=== PATIENT | female | born 1960 | race Caucasian/White ===

== ENCOUNTER → 2019-03-08 16:14 | Outpatient (BNVA) | payer BC, MEDICARE, SELFPAY | PROVIDERS: Family Provider Internal Medicine; PCP Internal Medicine; Visit Provider Orthopaedic Surgery | DX: S72.001A Fracture of unspecified part of neck of right femur, initial encounter for closed fracture (principal); X58.XXXA Exposure to other specified factors, initial encounter | CPT/HCPCS: 73502 ==

== ENCOUNTER 2019-05-04 17:31 | Outpatient (CLI) | payer BC, MEDICARE, SELFPAY ==
--- NOTE | 2019-05-04 | XR_ITS ---
WS: [id number] Chest 2 views, 05/04/2019 Clinical Data: RIB PAIN LEFT SIDE Comparison: PA and lateral chest, 03/23/2018. Findings: No nodules, masses or effusions are seen. The heart is normal. The pulmonary vascularity is not increased. No pneumonia or pneumothorax is seen. The diaphragms are flattened. The aortic arch s hows calcification and tortuosity There is minimal calcification in the soft tissues of the neck whic h may be in the carotid arteries. XR/XR chest 2V* [id number] Impression: Hyperinflation and atherosclerosis.
--- NOTE | 2019-05-04 | XR_ITS ---
WS: [id number] [facility], 05/04/2019 Clinical Data: CONSTIPATION/DULL PAIN IN ABD; HX OF KIDNEY TRANSPLANT Comparison: [facility], 08/13/2016. Findings: No abnormal intraabdominal masses or calcifications are seen. There is no dilatated small bowel or ev idence of obstruction. There are clips in the right upper quadrant from a cholecystectomy. There are now clips overlying the left ilium from surgery. There are clips in the right side of the superior pelvis probably from a re nal transplant. There is a large amount of fecal material in the colon. There is a Radha's lobe of t he liver. There are 3 nails reducing an old right subcapital fracture XR/XR KUB [id number] Impression: 1. Large amount of fecal material in the colon. 2. Multiple surgical procedures involving the abdominal structures and right hi p.
== END 2019-05-04 17:32 | disposition home or self-care (01) ==
LOC: RADOUTREAD 05-06 07:22
PROVIDERS: PCP Internal Medicine; Visit Provider Nurse Practitioner Family
DX: Z76.89 Persons encountering health services in other specified circumstances (principal)

== ENCOUNTER → 2019-09-07 12:51 | Outpatient (BNVA) | payer BC, MEDICARE, MEDICAID, SELFPAY | PROVIDERS: PCP Internal Medicine; Visit Provider Dermatology | DX: D48.9 Neoplasm of uncertain behavior, unspecified (principal); L57.0 Actinic keratosis; L70.9 Acne, unspecified; Z85.828 Personal history of other malignant neoplasm of skin; Z12.83 Encounter for screening for malignant neoplasm of skin; Z94.0 Kidney transplant status | CPT/HCPCS: 11102; 17000; 17003; 88304; 88305; 99204 ==

== ENCOUNTER → 2019-09-20 17:05 | Outpatient (BNVA) | payer BC, MEDICARE, SELFPAY | PROVIDERS: PCP Nurse Practitioner Family; Visit Provider Nurse Practitioner Family | DX: N39.0 Urinary tract infection, site not specified (principal) | CPT/HCPCS: 80053; 81001 ==

== ENCOUNTER → 2019-10-20 11:32 | Outpatient (BNVA) | payer BC, MEDICARE, MEDICAID, SELFPAY | PROVIDERS: PCP Nurse Practitioner Family; Visit Provider Dermatology | DX: D04.61 Carcinoma in situ of skin of right upper limb, including shoulder (principal) | CPT/HCPCS: 17000 ==

== ENCOUNTER 2019-11-03 14:49 | Outpatient (CLI) | payer BC, MEDICARE, SELFPAY ==
--- NOTE | 2019-11-03 14:56 | MM_ITS ---
WS: [id number] BILATERAL DIGITAL SCREENING MAMMOGRAM WITH CAD CLINICAL INFORMATION: SCREENING HISTORY: Screening mammogram. No current complaints. COMPARISON: TECHNIQUE: Bilateral CC and MLO. FINDINGS: The breast are composed of extremely dense tissue, which can limit the detection of small underlying mass lesions. No suspicious focal mass, asymmetry, calcifications, or architectural distortion. No ev idence of malignancy. A few tiny punctate calcifications. MM/[place] [id number] IMPRESSION: BI-RADS: 2-Benign FOLLOW UP: 1 Year Follow-up Recommend return to annual screening mammography.
== END 2019-11-03 14:50 | disposition home or self-care (01) ==
LOC: RADSHAW 14:54
PROVIDERS: PCP Nurse Practitioner Family; Visit Provider Nurse Practitioner Family
DX: Z12.31 Encounter for screening mammogram for malignant neoplasm of breast (principal)
CPT/HCPCS: 77067

== ENCOUNTER → 2019-12-28 16:35 | Outpatient (BNVA) | payer MEDICARE, BC, SELFPAY | PROVIDERS: PCP Nurse Practitioner Family; Visit Provider Urology | DX: N39.0 Urinary tract infection, site not specified (principal) | CPT/HCPCS: 81003; 87086 ==

== ENCOUNTER → 2019-12-30 14:44 | Outpatient (BNVA) | payer MEDICARE, BC, SELFPAY | PROVIDERS: PCP Nurse Practitioner Family; Referring Provider Dermatology; Visit Provider Podiatrist Foot & Ankle Surgery | DX: M79.671 Pain in right foot (principal); M79.672 Pain in left foot; M21.41 Flat foot [pes planus] (acquired), right foot; M19.072 Primary osteoarthritis, left ankle and foot; M19.071 Primary osteoarthritis, right ankle and foot | CPT/HCPCS: 73630 ==

== ENCOUNTER 2020-01-04 12:50 | Emergency (ER) | payer MEDICARE, BC, SELFPAY ==
[2020-01-04 12:55] VITALS: BP 166/89; PULSE 70; RESP 16; TEMP 37.1; O2SAT 99; BMI 25.8
--- NOTE | 2020-01-04 12:59 | XR_ITS ---
WS: [id number] XR knee RT 3V* [id number] REASON FOR EXAM: pain FINDINGS: The knee joint spaces are well preserved. No fracture or other focal bony abnormality is identified. Calcification in the arteries of the lower leg. XR/XR knee RT 3V* [id number] IMPRESSION: No significant bony or joint abnormality.
--- NOTE | 2020-01-04 14:17 | W.ED.FALL ---
HPI - Fall General: Chief Complaint: Fall Stated Complaint: R KNEE PAIN Time Seen by Provider: 01/04/20 13:16 History of Present Illness: MD complaint: fall Onset (ago): minute(s) (30) Fall from: standing Fall witnessed: no Place fall occurred: home Loss of consciousness: None Prolonged down time: no Symptoms prior to fall: none Context: tripped/slipped Location of injury: other Location of injury - extremities: Right: knee Severity: moderate Severity scale (1-10): 5 Associated symptoms-after fall: Denies abdominal pain, chest pain, headache(s) or neck pain Review of Systems General: Reports: 10 or more systems reviewed and unremarkable except in HPI and below Const: Denies: fever(s), chills or diaphoresis Eyes: Denies: blurry vision or eye redness ENMT: Denies: throat pain, dental pain or disequilibrium Card: Denies: chest pain, palpitations or irregular heart rhythm Resp: Denies: dyspnea, productive cough, non-productive cough or wheezing GI: Denies: abdominal pain, nausea or vomiting : Denies: difficulty voiding or dysuria Musc: Reports: joint pain (rt knee), joint stiffness (rt knee) and limited range of motion (rt knee); Denies: neck pain or back pain Skin/Breast: Reports: other (open laceration); Denies: rash or pruritus Neuro: Denies: headache(s), weakness in extremities or behavioral changes Psych: Denies: anxiety or depression Luis Eduardo/Lymph: Denies: easy bruising PFSH ED PFSH: Medical History (Updated 01/04/20 @ 14:26 by ESTRELLITA Key) GERD (gastroesophageal reflux disease) Graves disease PLEASE REMOVE HTN (hypertension) Hypothyroid IBS (irritable bowel syndrome) Migraine Neuropathy Osteopenia Recurrent UTI Surgical History History of Kidney Transplant S/P cholecystectomy S/P thyroid surgery S/P total hip arthroplasty Family History Father Squamous cell skin cancer Social History Smoking and tobacco status: never smoked Alcohol intake: current Alcohol intake frequency: holidays/special occasions only Marital status: Physical Exam Const: COMMON NORMALS: no acute distress, patient oriented x3, healthy appearing and alert GENERAL APPEARANCE: cooperative, comfortable and well hydrated HENMT: COMMON NORMALS: normocephalic, Normal external nose present and moist oral mucous membranes HEAD & SCALP: normocephalic NOSE: Normal external nose present Eye: COMMON NORMALS: Equal, round and reactive pupils present and EOMs intact bilaterally GENERAL EYE: appearance normal, both eyes and all related structures PUPIL: Yes Equal, round and reactive pupils present Neck/C-Spine: COMMON NORMALS: full ROM and no lymphadenopathy GENERAL: Yes normal visual inspection and Yes trachea midline CERVICAL SPINE: Yes cervical ROM normal, No Cervical spine tenderness, No Paracervical muscle tenderness and No Trapezius muscle tenderness Lymph: LYMPHATIC: no lymphadenopathy noted Chest: COMMONS NORMALS: normal inspection of the chest Resp: COMMON NORMALS: normal respiratory effort and clear to auscultation bilaterally AUSCULTATION: clear to auscultation bilaterally Cardio: COMMON NORMALS: regular rhythm, S1 normal heart sound present and S2 normal heart sound present RHYTHM: regular rhythm HEART SOUNDS: S1 normal heart sound present and S2 normal heart sound present GI: COMMON NORMALS: Soft to palpation and non-tender INSPECTION: Yes normal to inspection PALPATION: Yes Soft to palpation : COMMON NORMALS: Yes no CVA tenderness BLADDER/KIDNEY EXAM: Yes no CVA tenderness Back/Pelvis: COMMON NORMALS: no CVA tenderness, thoracic and lumbar spine normal to inspection, no thoracic nor lumbar tenderness and thoraco-lumbar ROM normal THORACIC SPINE/UPPER BACK: Yes normal to inspection, Yes thoracic ROM normal, No thoracic spinal tenderness and No paraspinal muscle spasm LUMBAR SPINE/LOWER BACK: Yes normal to inspection, Yes lumbar ROM normal, No lumbar spinal tenderness and No paraspinal muscle spasm SACROILIAC JOINTS: Yes SI joints normal COCCYX: no swelling Extremity: COMMON NORMALS: normal to inspection, full ROM and capillary refill normal RIGHT LOWER EXTREMITY: Yes knee joint (anterior knee , open laceration) Right knee: Yes inspection, Yes palpation (tenderness over the laceration), Yes ROM (full extension, full flexion active but with pain) and Yes neurovascular exam (distally intact) Neuro: COMMON NORMALS: patient oriented x3 and no focal motor deficits SENSORIUM/ORIENTATION: Yes alert Psych: COMMON NORMALS: mental status grossly normal, Normal thought process present and cooperative ACTIVITY/MOTOR BEHAVIOR: Yes appropriate eye contact THOUGHT PROCESS: Normal thought process present Skin: COMMON NORMALS: no rashes or lesions noted and turgor normal GENERAL SKIN EXAM: no rashes or lesions noted and turgor normal Procedures Laceration Laceration 1: Site: lower extremity (knee) Side (If applicable): right Size (cm): 8 Description: linear, irregular and contaminated Depth: involves muscle layer Local Anesthetic: lidocaine 1% and with epi Amount of anesthesia used (mL): 10 Pre-repair: wound explored, irrigated extensively, deep structures intact, extensive debridement and wound margins revised Skin layer closed with: nylon Size (cm): 3-0 Technique: running Muscle layer closed with: vicryl Size: 4-0 Number of sutures: 3 Technique: simple, interrupted Course Vital Signs: Vital signs: Vital Signs Temperature 98.8 F 01/04/20 12:55 Pulse Rate 70 01/04/20 12:55 Respiratory Rate 16 01/04/20 12:55 Blood Pressure 166/89 01/04/20 12:55 Pulse Oximetry 99 01/04/20 12:55 MDM - Fall Imaging Data^: Xray Ortho: Radiologist's impression: [address] [address] XRay Report Signed Patient: Shirlene Pruitt Unit #: [id number] : 1960 Age/Sex: 59 / F ADM Date: 01/04/20 Loc: ER Room/Bed: Attending Dr: Ordering Provider/Ordering MD: Reva Lopez MD Date of Service: 01/04/20 Procedure(s): XR knee RT 3V* [id number] Accession Number(s): [id number] Report Number: [id number] WS: [id number] XR knee RT 3V* [id number] REASON FOR EXAM: pain FINDINGS: The knee joint spaces are well preserved. No fracture or other focal bony abnormality is identified. Calcification in the arteries of the lower leg. XR/XR knee RT 3V* [id number] IMPRESSION: No significant bony or joint abnormality. Dictated By: Tucker Barbosa Jr, MD Signed By: Tucker Barbosa Jr, MD Signed Date/Time: 01/04/20 1352 DD/ 1350 Discharge Plan Discharge Patient Disposition: Home Clinical Impression: Knee contusion Qualifiers: Encounter type: initial encounter Laterality: right Qualified Code(s): S80.01XA - Contusion of right knee, initial encounter Laceration of knee Qualifiers: Encounter type: initial encounter Laterality: right Qualified Code(s): S81.011A - Laceration without foreign body, right knee, initial encounter Condition: Stable Prescriptions: New Augmentin 875-125 mg tablet 1 tab PO BID Qty: 14 RF: 0 No Action montelukast [Singulair] 10 mg tablet 10 mg PO QDAY RF: 0 psyllium PO RF: 0 levothyroxine 125 mcg capsule 125 mcg PO QDAY RF: 0 fluticasone propionate 50 mcg/actuation spray,suspension 2 spray INTRANASAL QDAY RF: 0 fluoxetine 60 mg tablet 60 mg PO QAM RF: 0 lactobacillus combination no.9 PO RF: 0 bupropion HCl [Wellbutrin XL] 150 mg tablet extended release 24 hr 150 mg PO QAM RF: 0 prednisone 5 mg tablet 5 mg PO QDAY RF: 0 alprazolam 1 mg tablet 1 mg PO QDAY RF: 0 casanthranol-docusate sodium PO RF: 0 rosuvastatin [Crestor] 40 mg tablet 40 mg PO QDAY RF: 0 tacrolimus 5 mg capsule 5 mg PO Q12H RF: 0 carvedilol [Coreg] 25 mg tablet 25 mg PO BID RF: 0 ropinirole 1 mg tablet 1 mg PO QDAY RF: 0 aspirin 81 mg tablet,delayed release (DR/EC) 81 mg PO DAILY RF: 0 methenamine hippurate 1 gram tablet 1 g PO BID Qty: 180 RF: 3 pantoprazole [Protonix] 40 mg tablet,delayed release (DR/EC) 40 mg PO BID RF: 0 mycophenolate sodium [Myfortic] 180 mg tablet,delayed release (DR/EC) 720 mg PO BID RF: 0 tretinoin 0.1 % cream 1 applic TOPICAL DAILY RF: 0 clindamycin phosphate 1 % lotion 1 applic TOPICAL DAILY Qty: 60 RF: 3 tretinoin 0.1 % cream 1 applic TOPICAL .nightly Qty: 45 RF: 3 (DME) Accomodative inserts See Rx Instructions .Route .MEDSUPPLY Qty: 1 RF: 0 Discharge Orders: Discharge Order (Routine); Ordered 01/04/20 Ordered By: Annie Cruz Referrals: Phoebe Márquez FNP [Primary Care Provider] - Discharge Diet: Usual diet Discharge Activity: Limit activity as instructed Patient Instructions: Suture Care (ED), Laceration (ED), Contusion in Adults (ED), Knee Pain (ED), Knee Immobilizer (ED) Activity Restrictions/Additional Instructions: Sutures out in 10 days Social service will contact you with an appointment with Ortho clinic as recommendation, return to the emergency department if right knee develops redness, swelling or increased pain. Also return to the emergency department if you develop fever chills or other concerning symptoms Advised to remain in knee immobilizer until sutures are removed to help reduce strain on the sutures May apply [id number] triple antibiotic ointment as needed Do not submerge wound in water, may shower then pat dry Remove dressing in 24 hours then may change daily as needed Coding Level of Care Code ED Wireless Network Engineer for Nadia Fwd Exam Comprehensive
[2020-01-04] MEDS: tetanus-dipt-pertussis 0.5 mL SDV IM (14:31)
[2020-01-04] MEDS: acetaminophen 500 mg Tablet 1000 MG PO (14:34)
--- NOTE | 2020-01-10 11:44 | DCPLANNER ---
manager fire had message to schedule a follow up appointment for patient with ortho. manager fire called the ortho clinic, spoke with Radha, gave clinic patients information. manager fire was told that patients information would be printed and reviewed. Clinic will call patient with appointment information.
--- NOTE | 2020-01-12 10:08 | DCPLANNER ---
Patient had a follow up appointment scheduled for 01.05.20 with ortho - patient did attend appointment.
== END 2020-01-04 14:47 | disposition home or self-care (01) ==
PROVIDERS: Emergency Provider Nurse Practitioner Family; PCP Nurse Practitioner Family
DX: S81.011A Laceration without foreign body, right knee, initial encounter (principal); S80.01XA Contusion of right knee, initial encounter; Z79.82 Long term (current) use of aspirin; I10 Essential (primary) hypertension; Z94.0 Kidney transplant status; W19.XXXA Unspecified fall, initial encounter; Z23 Encounter for immunization
CPT/HCPCS: 12004; 12345; 29530; 73562; 90471; 90715; 99281; 99283

== ENCOUNTER → 2020-09-11 10:43 | Outpatient (BNVA) | payer MEDICARE, BC, SELFPAY | PROVIDERS: PCP Nurse Practitioner Family; Visit Provider Urology | DX: N39.0 Urinary tract infection, site not specified (principal) | CPT/HCPCS: 81003 ==

== ENCOUNTER → 2020-10-31 10:08 | Outpatient (BNVA) | payer MEDICARE, BC, SELFPAY | PROVIDERS: PCP Nurse Practitioner Family; Visit Provider Urology | DX: N39.0 Urinary tract infection, site not specified (principal) | CPT/HCPCS: 81003; 87077; 87086; 87184 ==

== ENCOUNTER → 2020-11-14 17:01 | Outpatient (BNVA) | payer MEDICARE, BC, SELFPAY | PROVIDERS: PCP Nurse Practitioner Family; Visit Provider Urology | DX: N39.0 Urinary tract infection, site not specified (principal) | CPT/HCPCS: 87077; 87086; 87184 ==

== ENCOUNTER 2020-12-29 14:29 | Outpatient (CLI) | payer MEDICARE, BC, SELFPAY ==
--- NOTE | 2020-12-29 14:35 | XR_ITS ---
WS: [id number] SCREENING DEXA SCAN [employer] CLINICAL INFORMATION: HISTORY OF IMMUNOSUPPRESSION, KIDNEY TRANSPLANT STATUS COMPARISON: None. FINDINGS: The L1-L4 bone mineral density measures 1.228 g/cm2. This corresponds to a T score score of 0.4 and Z score of 1.3. Left femoral neck bone mineral density measures 0.735. This corresponds to a T score of -2.2 and Z sc ore of -1.5. XR/XR DEXA axial skeleton* 13471 IMPRESSION: Normal bone mineralization lumbar spine. Osteopenia left femoral neck. Patient's FRAX calculated 10 year probability for major osteoporotic fracture i s 24.7 % and osteoporotic hip fracture is 3.6%.
== END 2020-12-29 14:30 | disposition home or self-care (01) ==
PROVIDERS: PCP Nurse Practitioner Family; Visit Provider Internal Medicine Nephrology
DX: Z94.0 Kidney transplant status (principal); Z92.25 Personal history of immunosuppression therapy; M85.88 Other specified disorders of bone density and structure, other site
CPT/HCPCS: 77080

== ENCOUNTER 2021-03-29 18:44 | Emergency (ER) | payer MEDICARE, BC, SELFPAY ==
[2021-03-29 18:51] VITALS: BP 194/67; PULSE 70; RESP 18; TEMP 36.9; O2SAT 98; BMI 26.7
[2021-03-29] MEDS: fluorescein 1 mg Strip EYE-BOTH (19:28)
[2021-03-29 19:33] VITALS: RESP 18
[2021-03-29] MEDS: tetracaine 0.5% Op Soln 4 mL Btl 1 DROP EYE-LEFT (19:33)
[2021-03-29] MEDS: morphine 4 mg/mL SDV 1 mL IM (19:33)
--- NOTE | 2021-03-29 19:46 | ED_ITS ---
HPI - General Adult General: Chief complaint: Eye Problems Stated complaint: Eye Surgury today\Eye Pain Time Seen by Provider: 03/29/21 19:07 History of Present Illness: 60F w/ hx of cataracts s/p laser removal of floaters earlier today at 2pm presenting to the ED for evaluation of the L eye pain, blurriness of vision, nausea since 5pm after waking up from anesthesia. Patient complains of significant L eye pain and blurriness. Onset:5pm Duration:2 hrs Location:home Severity:moderate Associated symptoms: Deny chest pain, dyspnea, nausea, rash, palpitations or vomiting Review of Systems Const: Denies: fever(s) or chills Eyes: Reports: change in vision, blurry vision and other (+L eye pain) ENMT: Denies: mouth pain Card: Denies: chest pain or palpitations Resp: Denies: dyspnea or non-productive cough GI: Denies: abdominal pain, nausea, vomiting or diarrhea : Denies: dysuria Musc: Denies: extremity pain Skin/Breast: Denies: rash or new lesions Neuro: Denies: weakness in extremities Psych: Reports: other (Normal mood) Luis Eduardo/Lymph: Denies: easy bruising PFSH ED PFSH: Medical History GERD (gastroesophageal reflux disease) Graves disease PLEASE REMOVE HTN (hypertension) Hypothyroid IBS (irritable bowel syndrome) Migraine Neuropathy Osteopenia Recurrent UTI Surgical History History of Kidney Transplant S/P cholecystectomy S/P thyroid surgery S/P total hip arthroplasty Family History Father Squamous cell skin cancer Social History Alcohol intake: current Alcohol intake frequency: holidays/special occasions only Marital status: Physical Exam Const: COMMON NORMALS: alert HENMT: COMMON NORMALS: atraumatic HEAD & SCALP: atraumatic MOUTH: moist mucous membranes not abnormal Eye: COMMON NORMALS: EOMs intact bilaterally and conjunctivae normal CONJUNCTIVA: Yes conjunctivae normal OTHER: +L eye blurriness 20/200, L eye injected, intraoccular pressure of 14, +corneal abrasion on fluorescein stain Neck/C-Spine: COMMON NORMALS: full ROM and supple Resp: COMMON NORMALS: normal respiratory effort and clear to auscultation bilaterally AUSCULTATION: clear to auscultation bilaterally Cardio: COMMON NORMALS: regular rate RATE: regular rate GI: COMMON NORMALS: Soft to palpation and non-tender PALPATION: Yes Soft to palpation Extremity: COMMON NORMALS: full ROM Neuro: SENSORIUM/ORIENTATION: Yes alert MOTOR EXAM: No Abnormal motor strength present and Other motor observations present (no focal motor deficits) Psych: COMMON NORMALS: speech normal SPEECH: Yes normal speech MOOD & AFFECT: Yes euthymic mood Course Vital Signs: Vital signs: Vital Signs Temperature 98.4 F 03/29/21 18:51 Pulse Rate 70 03/29/21 18:51 Respiratory Rate 18 03/29/21 19:33 Blood Pressure 194/67 03/29/21 18:51 Pulse Oximetry 98 03/29/21 18:51 MDM - General Adult Medical Decision Making 60F emergency room for evaluation of left eye pain blurriness, and tearing. On exam, patient is noted to have a large corneal abrasion. No signs of corneal ulceration. The left eye appears to be injected. Patient has 20/200 vision. Intraocular pressure within normal limit. Case was discussed with Dr. Mccarty who recommended close follow-up tomorrow morning. Patient is given prescription for narcotics to fill out tonight. The emergency room, patient received IV Dilaudid and Zofran. Patient reports pain has significantly improved. Rx cipro eye ointment, zofran PRN nausea/vomiting, percocet PRN pain Disposition: Discharge. Patient counseled regarding diagnostic impression, treatment plan. Patient given ED strict return precautions to return for continuation, worsening, or development of new symptoms. Instructed to f/u w/ Dr. Mccarty regarding symptoms today. Patient verbalized understanding. Discharge Plan Discharge Patient Disposition: Home Clinical Impression: Abrasion, corneal Condition: Stable Prescriptions: New ciprofloxacin HCl 0.3 % ointment 1 applic ophthalmic (eye) BID 5 Days 0RF Rx Instructions: start on day 3 of therapy Zofran 4 mg tablet 4 mg PO TID PRN (Reason: nausea and vomiting) 4 Days Qty: 12 0RF Percocet 5-325 mg tablet 1 tab PO Q8H PRN (Reason: pain) Qty: 5 0RF No Action montelukast [Singulair] 10 mg tablet 10 mg PO QDAY 0RF levothyroxine 125 mcg capsule 125 mcg PO QDAY 0RF fluticasone propionate 50 mcg/actuation spray,suspension 2 spray INTRANASAL QDAY 0RF fluoxetine 60 mg tablet 60 mg PO QAM 0RF lactobacillus combination no.9 PO 0RF bupropion HCl [Wellbutrin XL] 150 mg tablet extended release 24 hr 150 mg PO QAM 0RF prednisone 5 mg tablet 5 mg PO QDAY 0RF alprazolam 1 mg tablet 1 mg PO QDAY 0RF casanthranol-docusate sodium PO 0RF rosuvastatin [Crestor] 40 mg tablet 40 mg PO QDAY 0RF tacrolimus 5 mg capsule 5 mg PO Q12H 0RF Rx Instructions: three tabs in the AM,two tabs in the PM carvedilol [Coreg] 25 mg tablet 25 mg PO BID 0RF ropinirole 1 mg tablet 1 mg PO QDAY 0RF psyllium PO PRN0RF aspirin 81 mg tablet,delayed release (DR/EC) 81 mg PO DAILY 0RF ascorbic acid (vitamin C) 1,000 mg tablet 1 g PO BID 0RF pantoprazole [Protonix] 40 mg tablet,delayed release (DR/EC) 40 mg PO BID 0RF mycophenolate sodium [Myfortic] 180 mg tablet,delayed release (DR/EC) 720 mg PO BID 0RF tretinoin 0.1 % cream 1 applic TOPICAL DAILY 0RF clindamycin phosphate 1 % lotion 1 applic TOPICAL DAILY Qty: 60 3RF Rx Instructions: apply thin film to face qam tretinoin 0.1 % cream 1 applic TOPICAL .nightly Qty: 45 3RF Rx Instructions: Apply pea-sized amount to clean dry face nightly ketoconazole 2 % cream 1 applic topical BID Qty: 30 1RF Rx Instructions: to eyelids prn itching mometasone 0.1 % solution 1 applic topical DAILY Qty: 60 3RF Rx Instructions: to scalp acyclovir 5 % ointment 1 applic topical .5xD 4 Days Qty: 15 2RF Rx Instructions: to lip prn tramadol [Ultram] 50 mg tablet 50 mg PO Q4H PRN (Reason: pain) 7 Days Qty: 42 0RF cefuroxime axetil 250 mg tablet 250 mg PO BID 10 Days Qty: 30 3RF tramadol [Ultram] 50 mg tablet 50 mg PO Q12H PRN (Reason: pain) 30 Days Qty: 42 0RF tramadol [Ultram] 50 mg tablet 50 mg PO Q4H PRN (Reason: pain) 7 Days Qty: 42 0RF tramadol [Ultram] 50 mg tablet 50 mg PO Q4H PRN (Reason: pain) 7 Days Qty: 42 0RF tramadol [Ultram] 50 mg tablet 50 mg PO ONCE PRN (Reason: pain) 30 Days Qty: 30 0RF tramadol [Ultram] 50 mg tablet 50 mg PO Q4H PRN (Reason: pain) 7 Days Qty: 42 0RF tramadol [Ultram] 50 mg tablet 50 mg PO Q4H PRN (Reason: pain) 7 Days Qty: 42 0RF methenamine hippurate 1 gram tablet See Rx Instructions .ROUTE .COMPLEX Qty: 180 3RF Dose Instruction: TAKE 1 TABLET BY MOUTH TWICE DAILY,TAKE 1,000 MG OF VITAMIN C WITH EACH DOSE OF METHENAMINE Rx Instructions: TAKE 1 TABLET BY MOUTH TWICE DAILY,TAKE 1,000 MG OF VITAMIN C WITH EACH DOSE OF METHENAMINE Discharge Orders: Discharge ED (Routine); Ordered 03/29/21 Ordered By: Latrell Olvera Referrals: Phoebe Márquez FNP [Primary Care Provider] - Discharge Diet: Advance as tolerated Discharge Activity: Increase activity as tolerated Patient Instructions: Eye Pain (ED) Activity Restrictions/Additional Instructions: Please follow up with Dr. Mccarty in clinic tomorrow morning. Take your pain medicine as instructed. Come back to the emergency have any new or concerning complaints. Coding Level of Care Code ED Nuclear Licensing Engineer for Nadia Hill
[2021-03-29 19:56] VITALS: RESP 18
[2021-03-29] MEDS: ondansetron 2 mg/ML SDV 2 mL 4 MG IVP (19:56)
[2021-03-29] MEDS: HYDROmorphone 1 mg/mL INJ 1 mL 0.5 MG IVP (19:56)
[2021-03-29 20:15] VITALS: BP 174/77; PULSE 65; RESP 18; O2SAT 94
== END 2021-03-29 20:15 | disposition home or self-care (01) ==
PROVIDERS: Emergency Provider Emergency Medicine; PCP Nurse Practitioner Family
DX: S05.02XA Injury of conjunctiva and corneal abrasion without foreign body, left eye, initial encounter (principal); Z79.82 Long term (current) use of aspirin; I10 Essential (primary) hypertension; Z94.0 Kidney transplant status; X58.XXXA Exposure to other specified factors, initial encounter
CPT/HCPCS: 96372; 96374; 96375; 99283; J1170; J2270; J2405

== ENCOUNTER 2021-04-01 18:17 | Emergency (ER) | payer MEDICARE, BC, SELFPAY ==
--- NOTE | 2021-04-01 18:21 | XRR_ITS ---
PROCEDURE INFORMATION: Exam: XR Right Hip Exam date and time: 04/01/2021 6:21 PM Age: 60 years old Clinical indication: Injury or trauma; Blunt trauma (contusions or hematomas); Right; Injury date: 04/01/2021; Injury details: Fall today off stage; Prior surgery; Surgery date: 6+ months; Surgery type: RT hip FX TECHNIQUE: Imaging protocol: XR Right hip. Views: 1 view hip with pelvis when performed. COMPARISON: CR XR hip RT 2-3V wo/w pel* [id number] 03/08/2019 4:19 PM FINDINGS: Tubes, catheters and devices: There are multiple surgical clips overlying the pelvis. Bones/joints: Fixation screws through the proximal right femur stabilizing a chronic femoral neck fracture are unchanged from the prior exam. Hardware appears intact without obvious complication. Subtle contour abnormality of the right superior and inferior pubic rami are consistent with fractures of unknown chronicity. There are degenerative changes in the visualized lower lumbar spine. Soft tissues: Unremarkable. XR/XR hip RT 2-3V wo/w pel* [id number] IMPRESSION: 1. Fixation screws through the proximal right femur stabilizing a chronic femoral neck fracture are unchanged from the prior exam. Hardware appears intact without obvious complication. 2. Subtle contour abnormality of the right superior and inferior pubic rami are consistent with fractures of unknown chronicity.
[2021-04-01 18:22] VITALS: BP 168/79; PULSE 62; RESP 18; TEMP 36.8; O2SAT 99; BMI 26.6
--- NOTE | 2021-04-01 18:38 | CTR_ITS ---
PROCEDURE INFORMATION: Exam: CT Head Without Contrast Exam date and time: 04/01/2021 6:38 PM Age: 60 years old Clinical indication: Injury or trauma; Blunt trauma (contusions or hematomas); Without loss of consciousness; Injury date: 04/01/2021; Injury details: Fall off stage, PT denies loc, PT denies blurry vision TECHNIQUE: Imaging protocol: Computed tomography of the head without contrast. Radiation optimization: All CT scans at this facility use at least one of these dose optimization techniques: automated exposure control; mA and/or kV adjustment per patient size (includes targeted exams where dose is matched to clinical indication); or iterative reconstruction. COMPARISON: CT head wo con* [id number] 05/16/2016 1:00 AM RADIATION DOSE METRICS: Total DLP (mGy-cm): 882.41 FINDINGS: Brain: Benign globus pallidus calcifications are present. Cerebral ventricles: No ventriculomegaly. Paranasal sinuses: Visualized sinuses are unremarkable. No fluid levels. Mastoid air cells: Visualized mastoid air cells are well aerated. Vasculature: Calcified plaque is present within the intracranial vasculature. Bones/joints: Unremarkable. No acute fracture. Soft tissues: Unremarkable. CT/CT head wo con* [id number] IMPRESSION: No acute findings.Non acute findings as described above.
--- NOTE | 2021-04-01 18:46 | W.ED.EXTPRO ---
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 States she hit her right hip has pain to that lateral hip along with a slight headache from hitting her head denies any neck pain denies any other injuries. She can move her leg currently with minimal pain. Associated symptoms: Deny chest pain, fever(s) or rash Review of Systems Const: Denies: fever(s), chills, body aches or change in appetite Eyes: Denies: blurry vision or eye discomfort ENMT: Denies: throat pain or dental pain Card: Denies: chest pain Resp: Denies: dyspnea GI: Denies: abdominal pain, nausea, vomiting or diarrhea : Denies: dysuria Musc: Reports: extremity pain Skin/Breast: Denies: rash Neuro: Reports: headache(s) Psych: Denies: depression Luis Eduardo/Lymph: Denies: easy bruising All/Imm: Denies: urticaria PFSH ED PFSH: Medical History GERD (gastroesophageal reflux disease) Graves disease PLEASE REMOVE HTN (hypertension) Hypothyroid IBS (irritable bowel syndrome) Migraine Neuropathy Osteopenia Recurrent UTI Surgical History History of Kidney Transplant S/P cholecystectomy S/P thyroid surgery S/P total hip arthroplasty Family History Father Squamous cell skin cancer Social History Alcohol intake: current Alcohol intake frequency: holidays/special occasions only Marital status: Physical Exam Const: COMMON NORMALS: no acute distress, patient oriented x3 and healthy appearing HENMT: COMMON NORMALS: normocephalic and atraumatic HEAD & SCALP: normocephalic and atraumatic Eye: COMMON NORMALS: Equal, round and reactive pupils present and EOMs intact bilaterally PUPIL: Yes Equal, round and reactive pupils present Neck/C-Spine: COMMON NORMALS: full ROM and supple Chest: COMMONS NORMALS: normal inspection of the chest and normal palpation of entire chest wall Resp: COMMON NORMALS: normal respiratory effort, No retractions, No use of accessory muscles and clear to auscultation bilaterally AUSCULTATION: clear to auscultation bilaterally Cardio: COMMON NORMALS: regular rate, regular rhythm and No murmurs present (Cardio) RATE: regular rate RHYTHM: regular rhythm GI: COMMON NORMALS: Normal to inspection, nondistended, normoactive bowel sounds present, Soft to palpation, non-tender and no masses PALPATION: Yes Soft to palpation Extremity: COMMON NORMALS: normal to inspection and full ROM NARRATIVE EXTREMITY EXAM: Slight tenderness over right lateral hip full range of motion Neuro: COMMON NORMALS: patient oriented x3, moves all extremities and no focal motor deficits Psych: COMMON NORMALS: mental status grossly normal, Normal thought process present and cooperative THOUGHT PROCESS: Normal thought process present Skin: COMMON NORMALS: no rashes or lesions noted and no wounds GENERAL SKIN EXAM: no rashes or lesions noted Course Vital Signs: Vital signs: Vital Signs Temperature 98.2 F 04/01/21 18:22 Pulse Rate 62 04/01/21 18:22 Respiratory Rate 18 04/01/21 18:22 Blood Pressure 168/79 04/01/21 18:22 Pulse Oximetry 99 04/01/21 18:22 MDM - Extremity (Nontraumatic) Medical Decision Making DM patient presents here after a fall. She does have hip pain x-ray showed a possible rami fracture believe is likely old. She is able to walk here without any abnormalities. Pain is mainly lateral in nature no signs of a hip fracture head CT is normal as well she stable for discharge she is to follow-up with orthopedics return if worsening. Lab Data Radiology Impressions Hip/Pelvis X-Ray 04/01/21 18:21 IMPRESSION: 1. Fixation screws through the proximal right femur stabilizing a chronic femoral neck fracture are unchanged from the prior exam. Hardware appears intact without obvious complication. 2. Subtle contour abnormality of the right superior and inferior pubic rami are consistent with fractures of unknown chronicity. Head CT 04/01/21 18:38 IMPRESSION: No acute findings.Non acute findings as described above. Discharge Plan Discharge Patient Disposition: Home Clinical Impression: Fall, Closed fracture of pubic ramus Condition: Stable Prescriptions: New hydrocodone-acetaminophen 5-325 mg tablet 1 tab PO Q6H PRN (Reason: pain) Qty: 14 0RF No Action montelukast [Singulair] 10 mg tablet 10 mg PO QDAY 0RF levothyroxine 125 mcg capsule 125 mcg PO QDAY 0RF fluticasone propionate 50 mcg/actuation spray,suspension 2 spray INTRANASAL QDAY 0RF fluoxetine 60 mg tablet 60 mg PO QAM 0RF lactobacillus combination no.9 PO 0RF bupropion HCl [Wellbutrin XL] 150 mg tablet extended release 24 hr 150 mg PO QAM 0RF prednisone 5 mg tablet 5 mg PO QDAY 0RF alprazolam 1 mg tablet 1 mg PO QDAY 0RF casanthranol-docusate sodium PO 0RF rosuvastatin [Crestor] 40 mg tablet 40 mg PO QDAY 0RF tacrolimus 5 mg capsule 5 mg PO Q12H 0RF Rx Instructions: three tabs in the AM,two tabs in the PM carvedilol [Coreg] 25 mg tablet 25 mg PO BID 0RF ropinirole 1 mg tablet 1 mg PO QDAY 0RF psyllium PO PRN0RF aspirin 81 mg tablet,delayed release (DR/EC) 81 mg PO DAILY 0RF ascorbic acid (vitamin C) 1,000 mg tablet 1 g PO BID 0RF pantoprazole [Protonix] 40 mg tablet,delayed release (DR/EC) 40 mg PO BID 0RF mycophenolate sodium [Myfortic] 180 mg tablet,delayed release (DR/EC) 720 mg PO BID 0RF tretinoin 0.1 % cream 1 applic TOPICAL DAILY 0RF clindamycin phosphate 1 % lotion 1 applic TOPICAL DAILY Qty: 60 3RF Rx Instructions: apply thin film to face qam tretinoin 0.1 % cream 1 applic TOPICAL .nightly Qty: 45 3RF Rx Instructions: Apply pea-sized amount to clean dry face nightly ketoconazole 2 % cream 1 applic topical BID Qty: 30 1RF Rx Instructions: to eyelids prn itching mometasone 0.1 % solution 1 applic topical DAILY Qty: 60 3RF Rx Instructions: to scalp acyclovir 5 % ointment 1 applic topical .5xD 4 Days Qty: 15 2RF Rx Instructions: to lip prn tramadol [Ultram] 50 mg tablet 50 mg PO Q4H PRN (Reason: pain) 7 Days Qty: 42 0RF cefuroxime axetil 250 mg tablet 250 mg PO BID 10 Days Qty: 30 3RF tramadol [Ultram] 50 mg tablet 50 mg PO Q12H PRN (Reason: pain) 30 Days Qty: 42 0RF tramadol [Ultram] 50 mg tablet 50 mg PO Q4H PRN (Reason: pain) 7 Days Qty: 42 0RF tramadol [Ultram] 50 mg tablet 50 mg PO Q4H PRN (Reason: pain) 7 Days Qty: 42 0RF tramadol [Ultram] 50 mg tablet 50 mg PO ONCE PRN (Reason: pain) 30 Days Qty: 30 0RF tramadol [Ultram] 50 mg tablet 50 mg PO Q4H PRN (Reason: pain) 7 Days Qty: 42 0RF tramadol [Ultram] 50 mg tablet 50 mg PO Q4H PRN (Reason: pain) 7 Days Qty: 42 0RF methenamine hippurate 1 gram tablet See Rx Instructions .ROUTE .COMPLEX Qty: 180 3RF Dose Instruction: TAKE 1 TABLET BY MOUTH TWICE DAILY,TAKE 1,000 MG OF VITAMIN C WITH EACH DOSE OF METHENAMINE Rx Instructions: TAKE 1 TABLET BY MOUTH TWICE DAILY,TAKE 1,000 MG OF VITAMIN C WITH EACH DOSE OF METHENAMINE ciprofloxacin HCl 0.3 % ointment 1 applic ophthalmic (eye) BID 5 Days 0RF Rx Instructions: start on day 3 of therapy Zofran 4 mg tablet 4 mg PO TID PRN (Reason: nausea and vomiting) 4 Days Qty: 12 0RF Percocet 5-325 mg tablet 1 tab PO Q8H PRN (Reason: pain) Qty: 5 0RF Discharge Orders: Discharge ED (Routine); Ordered 04/01/21 Ordered By: Reva Lopez Referrals: Phoebe Márquez FNP [Primary Care Provider] - Amy Newell MD [Physician] - 1-3 days Discharge Diet: Advance as tolerated Discharge Activity: Resume usual activity Patient Instructions: Pelvic Fracture (ED), Opioid Safety Coding Level of Care Code ED Gluing Machine Feeder for Chg Fwd Exam Comprehensive
[2021-04-01 20:22] VITALS: RESP 17; O2SAT 95
[2021-04-01] MEDS: sodium chloride 0.9% 500 ML 999 ML IV (20:22)
[2021-04-01] MEDS: morphine 4 mg/mL SDV 1 mL IVP ×2 (20:22→23:02)
[2021-04-01] MEDS: ondansetron 2 mg/ML SDV 2 mL 4 MG IVP (20:22)
--- NOTE | 2021-04-01 21:19 | CTR_ITS ---
PROCEDURE INFORMATION: Exam: CT Right Lower Extremity Without Contrast, Hip Exam date and time: 04/01/2021 9:19 PM Age: 60 years old Clinical indication: Injury or trauma; Blunt trauma; Right; Injury date: 04/01/2021; Injury details: Fall from stage at [employer]; Prior surgery; Surgery date: 6+ months; Surgery type: RT hip 2018 TECHNIQUE: Imaging protocol: CT of the Right lower extremity without contrast was performed. Exam focused on the hip. Radiation optimization: All CT scans at this facility use at least one of these dose optimization techniques: automated exposure control; mA and/or kV adjustment per patient size (includes targeted exams where dose is matched to clinical indication); or iterative reconstruction. COMPARISON: CR XR hip RT 2-3V wo/w pel* [id number] 04/01/2021 6:38 PM RADIATION DOSE METRICS: Total DLP (mGy-cm): 657.01 FINDINGS: Bones/joints: There are fixation screws through the proximal right femur with resultant artifact obscuring adjacent structures. There are mildly displaced acute fractures through the right superior and inferior pubic rami. A nondisplaced hairline fracture is present through the left superior pubic ramus. There are nondisplaced right sacral fractures. Soft tissue hematoma is present adjacent to the fracture sites. Soft tissues: See Bones/joints finding. Urinary bladder: There is heterogeneous density consistent with hemorrhage along the pelvic sidewalls extending anterior to the bladder, effacing the bladder. Region of hemorrhage measures approximately 9.6 x 7.4 cm in the transverse/AP dimensions. CT/CT hip RT wo con* [id number] IMPRESSION: 1. There are right sacral, right superior/inferior pubic rami, and left pubic ramus fractures with adjacent soft tissue hematoma. 2. Pelvic hematoma effaces the bladder.
[2021-04-01] MEDS: HYDROcodone-acetaminophen 7.5-325 mg Tablet 1 TAB PO (21:25)
[2021-04-01 22:29] LABS: Basophils % 0.2 %; Eosinophils % 0.2 %; Hematocrit 35.4 % (37.0-47.0); Lymphocytes # 0.7 10^3/uL (0.8-4.8); Mean Corpuscular HGB Conc 31.1 g/dL (30.0-36.0); Mean Corpuscular Hemoglobin 31.6 pg (28.0-34.0); Mean Corpuscular Volume 101.7 fl (81-99); Mean Platelet Volume 10.2 fL (7.4-10.4); Monocytes % 7.6 %; Neutrophils # 11.57 10^3/uL (1.8-7.7); Nucleated Red Blood Cells % 0 %; Platelet Count 177 10^3/cmm (130-400); Red Blood Count 3.48 10^6/uL (4.1-5.3); Red Cell Distribution Width 13.1 % (12.1-15.1); White Blood Count 13.5 10^3/uL (4.0-10.0)
[2021-04-01 22:43] LABS: INR 1.13 (0.8-1.2)
[2021-04-01 22:53] LABS: Alanine Aminotransferase 29 U/L (0-33); Alkaline Phosphatase 58 IU/L (35-105); Anion Gap 16.5 (5-19); Aspartate Amino Transferase 29 U/L (0-32); Blood Urea Nitrogen 30 mg/dL (8-23); Calcium 7.6 mg/dL (8.5-10.5); Carbon Dioxide 22 mmol/L (22-29); Chloride 105 mmol/L (98-107); Globulin 1.6 g/dL (1.3-4.6); Glomerular Filtration Rate 41.6 mL/min (90-130); Glucose 132 mg/dL (65-115); Osmolality Calculated 296 mOsm/kg (285-295); Potassium 4.5 mmol/L (3.5-5.1); Sodium 139 mmol/L (136-145); Total Bilirubin 0.5 mg/dL (0.15-1.2); Total Protein 5.6 g/dL (6.6-8.7)
[2021-04-01 23:02] VITALS: RESP 17; O2SAT 95
[2021-04-01 23:08] VITALS: BP 157/82; PULSE 74; RESP 16; O2SAT 96
--- NOTE | 2021-04-02 10:02 | DCPLANNER ---
Addendum entered by Haylie Ortiz 04/13/21 13:12: patient was transferred to [facility]. Original Note: manager harbor had message to schedule a follow up appointment for patient with ortho. manager harbor called the ortho clinic, spoke with Shital, gave clinic patients information. manager harbor was told that patients information would be printed and reviewed. Clinic will call patient with appointment information.
== END 2021-04-01 23:14 | disposition short-term general hospital (02) ==
PROVIDERS: Emergency Provider Emergency Medicine; PCP Nurse Practitioner Family
DX: S32.591A Other specified fracture of right pubis, initial encounter for closed fracture (principal); Z79.82 Long term (current) use of aspirin; I10 Essential (primary) hypertension; Z94.0 Kidney transplant status; W17.89XA Other fall from one level to another, initial encounter
CPT/HCPCS: 70450; 73502; 73700; 80053; 85025; 85610; 96374; 96375; 96376; 99285; J2270; J2405; J7040

== ENCOUNTER 2021-04-19 06:00 | Outpatient (RCR) | payer MEDICARE, BC, SELFPAY | END 2021-05-10 23:59 | disposition home or self-care (01) | LOC: SPT 06:00 | PROVIDERS: PCP Nurse Practitioner Family; Referring Provider Physical Medicine & Rehabilitation; Visit Provider Physical Medicine & Rehabilitation | DX: S32.810S Multiple fractures of pelvis with stable disruption of pelvic ring, sequela (principal); X58.XXXS Exposure to other specified factors, sequela; R26.89 Other abnormalities of gait and mobility | CPT/HCPCS: 97110; 97116; 97161 ==

== ENCOUNTER → 2021-04-26 10:54 | Outpatient (BNVA) | payer MEDICARE, BC, SELFPAY | PROVIDERS: PCP Nurse Practitioner Family; Visit Provider Nurse Practitioner Family | DX: N39.0 Urinary tract infection, site not specified (principal) | CPT/HCPCS: 81003; 87086 ==

== ENCOUNTER → 2021-05-09 09:34 | Outpatient (BNVA) | payer MEDICARE, BC, SELFPAY | PROVIDERS: PCP Nurse Practitioner Family; Referring Provider Nurse Practitioner Family; Visit Provider Orthopaedic Surgery | DX: S72.011D Unspecified intracapsular fracture of right femur, subsequent encounter for closed fracture with routine healing (principal); X58.XXXD Exposure to other specified factors, subsequent encounter | CPT/HCPCS: 72170 ==

== ENCOUNTER 2021-05-11 06:00 | Outpatient (RCR) | payer MEDICARE, BC, SELFPAY | END 2021-06-09 23:59 | disposition home or self-care (01) | LOC: SPT 06:00 | PROVIDERS: PCP Nurse Practitioner Family; Referring Provider Physical Medicine & Rehabilitation; Visit Provider Physical Medicine & Rehabilitation | DX: S32.810S Multiple fractures of pelvis with stable disruption of pelvic ring, sequela (principal); X58.XXXS Exposure to other specified factors, sequela; R26.89 Other abnormalities of gait and mobility | CPT/HCPCS: 97110 ==

== ENCOUNTER 2021-05-24 14:42 | Outpatient (CLI) | payer MEDICARE, BC, SELFPAY ==
--- NOTE | 2021-05-24 14:58 | MM_ITS ---
WS: [id number] BILATERAL 3D TOMOSYNTHESIS DIGITAL SCREENING MAMMOGRAPHY WITH CAD CLINICAL INFORMATION: SCREENING HISTORY: Screening mammogram. No current complaints. COMPARISON: November 03, 2019 TECHNIQUE: Bilateral CC and MLO views. FINDINGS: The breasts are composed of heterogeneous fibroglandular density tissue, which can limit the detectio n of small underlying mass lesions. A few incidental punctate calcifications. No suspicious mass, asy mmetry, calcifications, or architectural distortion. No evidence of malignancy. MM/[id number] IMPRESSION: BI-RADS: 2-Benign FOLLOW UP: 1 Year Follow-up Recommend return to annual screening mammography.
== END 2021-05-24 14:43 | disposition home or self-care (01) ==
LOC: RADSHAW 14:53
PROVIDERS: PCP Nurse Practitioner Family; Visit Provider Nurse Practitioner Family
DX: Z12.31 Encounter for screening mammogram for malignant neoplasm of breast (principal)
CPT/HCPCS: 77063; 77067

== ENCOUNTER 2021-06-10 06:00 | Outpatient (RCR) | payer MEDICARE, BC, SELFPAY | END 2021-07-10 23:59 | disposition home or self-care (01) | LOC: SPT 06:00 | PROVIDERS: PCP Nurse Practitioner Family; Referring Provider Physical Medicine & Rehabilitation; Visit Provider Physical Medicine & Rehabilitation | DX: S32.810D Multiple fractures of pelvis with stable disruption of pelvic ring, subsequent encounter for fracture with routine healing (principal); X58.XXXD Exposure to other specified factors, subsequent encounter | CPT/HCPCS: 97110 ==

== ENCOUNTER 2021-07-12 10:47 | Emergency (ER) | payer MEDICARE, BC, SELFPAY ==
[2021-07-12] VITALS (8 sets, daily range): BP systolic 134–181; BP diastolic 70–85; PULSE 66–74; RESP 14–22; TEMP 37–38.9; O2SAT 95–97; BMI 27.3
--- NOTE | 2021-07-12 10:59 | XRR_ITS ---
PROCEDURE INFORMATION: Exam: XR Chest Exam date and time: 07/12/2021 11:07 AM Age: 60 years old Clinical indication: Cough and dyspnea; Additional info: Dyspnea/cough TECHNIQUE: Imaging protocol: XR of the chest. Views: 1 view. Total images: 367 COMPARISON: CR XR chest 2V* [id number] 05/04/2019 5:31 PM FINDINGS: Lungs: Unremarkable. No consolidation. Pleural spaces: Unremarkable. No pleural effusion. No pneumothorax. Heart/Mediastinum: Unremarkable. No cardiomegaly. Bones/joints: Unremarkable. XR/XR chest 1V portable [id number] IMPRESSION: No acute findings.
[2021-07-12] MEDS: sodium chloride 0.9% 500 ML 999 ML IV (11:15)
[2021-07-12 11:46] LABS: Basophils % 0.2 %; Hematocrit 37.9 % (37.0-47.0); Hemoglobin 12.5 g/dL (11.5-15.3); Lymphocytes # 0.5 10^3/uL (0.8-4.8); Lymphocytes % 8.7 %; Mean Corpuscular Hemoglobin 30.7 pg (28.0-34.0); Mean Corpuscular Volume 93.1 fl (81-99); Mean Platelet Volume 10.8 fL (7.4-10.4); Monocytes # 0.6 10^3/uL (0.2-0.9); Monocytes % 10.9 %; Neutrophils # 4.67 10^3/uL (1.8-7.7); Neutrophils % 79.7 %; Nucleated Red Blood Cells % 0 %; Platelet Count 145 10^3/cmm (130-400); Red Blood Count 4.07 10^6/uL (4.1-5.3); Red Cell Distribution Width 13.9 % (12.1-15.1); White Blood Count 5.9 10^3/uL (4.0-10.0)
[2021-07-12 12:03] LABS: Alanine Aminotransferase 48 U/L (0-33); Albumin Level 4.3 g/dL (3.5-5.2); Alkaline Phosphatase 76 IU/L (35-105); Aspartate Amino Transferase 45 U/L (0-32); Blood Urea Nitrogen 21 mg/dL (8-23); Calcium 7.9 mg/dL (8.5-10.5); Carbon Dioxide 21 mmol/L (22-29); Chloride 95 mmol/L (98-107); Globulin 2.3 g/dL (1.3-4.6); Glomerular Filtration Rate 38.2 mL/min (90-130); Glucose 101 mg/dL (65-115); Osmolality Calculated 277 mOsm/kg (285-295); Sodium 132 mmol/L (136-145); Total Bilirubin 0.5 mg/dL (0.15-1.2); Total Protein 6.6 g/dL (6.6-8.7)
[2021-07-12] MEDS: acetaminophen 500 mg Tablet 1000 MG PO (12:03)
[2021-07-12 12:08] LABS: Anion Gap 19.7 (5-19); Potassium 3.7 mmol/L (3.5-5.1)
[2021-07-12] MEDS: ondansetron 2 mg/ML SDV 2 mL 4 MG IVP (12:35)
[2021-07-12] MEDS: acetaminophen 1,000 MG/100 ML PIGGYBACK 400 MG IV (12:36)
--- NOTE | 2021-07-12 12:58 | W.ED.COVID ---
HPI - COVID General: Chief Complaint: Weakness Stated Complaint: WEAKNESS/ COVID + Time Seen by Provider: 07/12/21 10:52 Source: patient Mode of arrival: EMS Limitations: no limitations Triage information: Has fever, cough or shortness of breath. Exposure to COVID + person last 14 days History of Present Illness: 60-year-old female presents to the emergency room with complaints of shortness of breath vomiting fever nausea. She had a positive home COVID test yesterday. Patient has a history of renal transplant. Her first symptoms were 2 days ago she had a positive test on the home kit yesterday. She has previously been vaccinated she is not been known to have COVID in the past she still is on immunosuppressive therapy for her transplant. MD complaint: known COVID positive Prior covid testing: yes, results known Prior testing date: 07/11/21 COVID 19 common symptoms: positive fever(s), chills, cough, non-productive cough, dyspnea, fatigue, body aches, headache(s), nasal congestion and nausea; negative productive cough, loss of sense of smell and/or taste, throat pain, vomiting or diarrhea COVID 19 other sytmptoms: negative chest pain or requiring more oxygen Onset (ago): day(s) (3) Severity: mild Pertinent comorbid conditions: chronic kidney disease, organ transplant and immunocompromised state Treatment prior to arrival: none COVID Results: SARS-CoV-2 (PCR) Detected (NOT DETECT) A 07/12/21 12:13 07/12/21 Coronavirus Type 229E (PCR) Not detected (NOT DETECT) 07/12/21 12:13 07/12/21 Review of Systems Const: Reports: fever(s), chills, body aches, fatigue and malaise ENMT: Reports: nasal congestion; Denies: throat pain Card: Denies: chest pain, edema, dyspnea on exertion or orthopnea Resp: Reports: dyspnea and non-productive cough; Denies: productive cough or wheezing GI: Reports: nausea; Denies: abdominal pain, vomiting or diarrhea : Denies: flank pain, difficulty voiding, dysuria, urinary frequency or urinary urgency Skin/Breast: Denies: rash or pruritus Neuro: Reports: headache(s) PFS ED PFSH: Medical History GERD (gastroesophageal reflux disease) HTN (hypertension) Hypothyroid IBS (irritable bowel syndrome) Migraine Neuropathy Osteopenia Recurrent UTI Surgical History History of Kidney Transplant S/P cholecystectomy S/P thyroid surgery S/P total hip arthroplasty Family History Father Squamous cell skin cancer Social History Smoking and tobacco status: never smoked Alcohol intake: current Alcohol intake frequency: holidays/special occasions only Marital status: Physical Exam Const: GENERAL APPEARANCE: cooperative and comfortable ORIENTATION/CONSCIOUSNESS: Yes awake, Yes oriented to person, Yes oriented to place and Yes oriented to time HENMT: COMMON NORMALS: normocephalic, atraumatic and hearing grossly normal bilaterally HEAD & SCALP: normocephalic and atraumatic Neck/C-Spine: COMMON NORMALS: no JVD Resp: COMMON NORMALS: normal respiratory effort, No retractions, No use of accessory muscles and clear to auscultation bilaterally AUSCULTATION: clear to auscultation bilaterally Cardio: COMMON NORMALS: no JVD, regular rate, regular rhythm and No murmurs present (Cardio) RATE: regular rate RHYTHM: regular rhythm GI: COMMON NORMALS: Soft to palpation and No hepatosplenomegaly present AUSCULTATION: Yes normoactive bowel sounds PALPATION: Yes Soft to palpation, No Tenderness to palpation present (GI), No Guarding due to palpation present (GI) and Yes No hepatosplenomegaly present Extremity: COMMON NORMALS: normal to inspection, capillary refill normal, no clubbing, cyanosis or edema, no calf tenderness and no pedal edema Neuro: SENSORIUM/ORIENTATION: Yes oriented to person, Yes oriented to place and Yes oriented to time Skin: COMMON NORMALS: no rashes or lesions noted GENERAL SKIN EXAM: no rashes or lesions noted Course Vital Signs: Vital signs: Vital Signs Temperature 98.6 F 07/12/21 14:30 Pulse Rate 66 07/12/21 14:30 Respiratory Rate 17 07/12/21 14:30 Blood Pressure 146/74 07/12/21 14:30 Pulse Oximetry 96 07/12/21 14:30 MDM - COVID Medical Decision Making Pack Slo-Bid not recommended due to patient's renal function. Her liver enzymes are already mildly elevated so I do not think she is a good candidate for remdesivir discussed with her on-call transplant team they recommend monoclonal antibodies patient treated here in the emergency room discharged home they will contact her from the transplant clinic to make further adjustments to her medications during the time she is considered with to be actively having COVID. Patient advised that they will be contacting her return if she has worsening problems breathing. Medical Records I reviewed the patient's medical records. Lab Data I reviewed the patient's lab results. : 07/12/21 11:00 07/12/21 11:00 Radiology Impressions Chest X-Ray 07/12/21 10:59 IMPRESSION: No acute findings. Laboratory Results WBC 5.9 10^3/uL (4.0-10.0) 07/12/21 11:00 RBC 4.07 10^6/uL (4.1-5.3) L 07/12/21 11:00 Hgb 12.5 g/dL (11.5-15.3) 07/12/21 11:00 Hct 37.9 % (37.0-47.0) 07/12/21 11:00 MCV 93.1 fl (81-99) 07/12/21 11:00 MCH 30.7 pg (28.0-34.0) 07/12/21 11:00 MCHC 33.0 g/dL (30.0-36.0) 07/12/21 11:00 RDW 13.9 % (12.1-15.1) 07/12/21 11:00 Plt Count 145 10^3/cmm (130-400) 07/12/21 11:00 MPV 10.8 fL (7.4-10.4) H 07/12/21 11:00 Neut % (Auto) 79.7 % 07/12/21 11:00 Lymph % (Auto) 8.7 % 07/12/21 11:00 [place] % (Auto) 10.9 % 07/12/21 11:00 Eos % (Auto) 0.0 % 07/12/21 11:00 Baso % (Auto) 0.2 % 07/12/21 11:00 Neut # (Auto) 4.67 10^3/uL (1.8-7.7) 07/12/21 11:00 Lymph # (Auto) 0.5 10^3/uL (0.8-4.8) L 07/12/21 11:00 [place] # (Auto) 0.6 10^3/uL (0.2-0.9) 07/12/21 11:00 Eos # (Auto) 0.0 10^3/uL (0.0-0.8) 07/12/21 11:00 Baso # (Auto) 0.0 10^3/uL (0.0-0.1) 07/12/21 11:00 Nucleated RBC % (auto) 0 % 07/12/21 11:00 Nucleated RBCs # 0.0 /100WBC 07/12/21 11:00 Sodium 132 mmol/L (136-145) L 07/12/21 11:00 Potassium 3.7 mmol/L (3.5-5.1) 07/12/21 11:00 Chloride 95 mmol/L (98-107) L 07/12/21 11:00 Carbon Dioxide 21 mmol/L (22-29) L 07/12/21 11:00 Anion Gap 19.7 (5-19) H 07/12/21 11:00 BUN 21 mg/dL (8-23) 07/12/21 11:00 Creatinine 1.4 mg/dL (0.5-0.9) H 07/12/21 11:00 GFR Calculation 38.2 mL/min (90-130) L 07/12/21 11:00 Glucose 101 mg/dL (65-115) 07/12/21 11:00 Calculated Osmolality 277 mOsm/kg (285-295) L 07/12/21 11:00 Calcium 7.9 mg/dL (8.5-10.5) L 07/12/21 11:00 Total Bilirubin 0.5 mg/dL (0.15-1.2) 07/12/21 11:00 AST 45 U/L (0-32) H 07/12/21 11:00 ALT 48 U/L (0-33) H 07/12/21 11:00 Alkaline Phosphatase 76 IU/L (35-105) 07/12/21 11:00 Total Protein 6.6 g/dL (6.6-8.7) 07/12/21 11:00 Albumin 4.3 g/dL (3.5-5.2) 07/12/21 11:00 Globulin 2.3 g/dL (1.3-4.6) 07/12/21 11:00 Coronavirus 229E (PCR) Not detected (NOT DETECT) 07/12/21 12:13 SARS-CoV-2 (PCR) Detected (NOT DETECT) A 07/12/21 12:13 SARS-CoV-2 (PCR) Detected (NOT DETECT) A 07/12/21 12:13 07/12/21 Coronavirus Type 229E (PCR) Not detected (NOT DETECT) 07/12/21 12:13 07/12/21 Discharge Plan Discharge Patient Disposition: Home Clinical Impression: COVID-19, History of Kidney Transplant Condition: Stable Prescriptions: No Action montelukast [Singulair] 10 mg tablet 10 mg PO QDAY 0RF fluticasone propionate 50 mcg/actuation spray,suspension 2 spray INTRANASAL QDAY 0RF fluoxetine 60 mg tablet 60 mg PO QAM 0RF lactobacillus combination no.9 PO 0RF bupropion HCl [Wellbutrin XL] 150 mg tablet extended release 24 hr 150 mg PO QAM 0RF prednisone 5 mg tablet 5 mg PO QDAY 0RF alprazolam 1 mg tablet 1 mg PO QDAY 0RF casanthranol-docusate sodium PO 0RF rosuvastatin [Crestor] 40 mg tablet 40 mg PO QDAY 0RF carvedilol [Coreg] 25 mg tablet 25 mg PO BID 0RF ropinirole 1 mg tablet 1 mg PO QDAY 0RF ascorbic acid (vitamin C) 1,000 mg tablet 1 g PO BID 0RF levothyroxine 100 mcg capsule 100 mcg PO DAILY 0RF tacrolimus 1 mg tablet extended release 24 hr 2 mg PO BID 0RF Rx Instructions: must be taken on empty stomach cefuroxime axetil 500 mg tablet 500 mg PO BID Qty: 30 1RF mycophenolate sodium [Myfortic] 180 mg tablet,delayed release (DR/EC) 720 mg PO BID 0RF clindamycin phosphate 1 % lotion 1 applic TOPICAL DAILY Qty: 60 3RF Rx Instructions: apply thin film to face qam tretinoin 0.1 % cream 1 applic TOPICAL .nightly Qty: 45 3RF Rx Instructions: Apply pea-sized amount to clean dry face nightly pantoprazole [Protonix] 40 mg tablet,delayed release (DR/EC) 40 mg PO DAILY 0RF tramadol [Ultram] 50 mg tablet 50 mg PO Q4H PRN (Reason: pain) 7 Days Qty: 42 0RF methenamine hippurate 1 gram tablet See Rx Instructions .ROUTE .COMPLEX Qty: 180 3RF Dose Instruction: TAKE 1 TABLET BY MOUTH TWICE DAILY,TAKE 1,000 MG OF VITAMIN C WITH EACH DOSE OF METHENAMINE Rx Instructions: TAKE 1 TABLET BY MOUTH TWICE DAILY,TAKE 1,000 MG OF VITAMIN C WITH EACH DOSE OF METHENAMINE Discharge Orders: Discharge ED (Routine); Ordered 07/12/21 Ordered By: Santiago Martini Referrals: Phoebe Márquez FNP [Primary Care Provider] - Patient Instructions: Opioid Safety Activity Restrictions/Additional Instructions: Your nephrology transplant team will contact you with instructions for further medication adjustments due to COVID. Coding Level of Care Code ED [employer] Service Employee for Nadia Fwd Exam Comprehensive
[2021-07-12 14:03] LABS: Adenovirus Not Detected (NOT DETECT); Chlamydia Pneumoniae Not Detected (NOT DETECT); Coronavirus 229E,HKU1,NL63,OC4 Not Detected (NOT DETECT); Human Metapneumovirus Not Detected (NOT DETECT); Human Rhinovirus/Enterovirus Not Detected (NOT DETECT); Influenza A Not Detected (NOT DETECT); Influenza A H1 Not Detected (NOT DETECT); Influenza A H1-2009 Not Detected (NOT DETECT); Influenza A H3 Not Detected (NOT DETECT); Influenza B Not Detected (NOT DETECT); Mycoplasma Pneumoniae Not Detected (NOT DETECT); Parainfluenza Virus Type 1 Not Detected (NOT DETECT); Parainfluenza Virus Type 2 Not Detected (NOT DETECT); Parainfluenza Virus Type 3 Not Detected (NOT DETECT); Parainfluenza Virus Type 4 Not Detected (NOT DETECT); Respiratory Syncytial Virus A Not Detected (NOT DETECT); Respiratory Syncytial Virus B Not Detected (NOT DETECT); SARS-COV-2 Detected (NOT DETECT)
== END 2021-07-12 16:29 | disposition home or self-care (01) ==
PROVIDERS: Emergency Provider Family Medicine; PCP Nurse Practitioner Family
DX: U07.1 COVID-19 (principal); R94.5 Abnormal results of liver function studies; Z94.0 Kidney transplant status
CPT/HCPCS: 71045; 80053; 85025; 87635; 96374; 96375; 99284; J2405; J7040

== ENCOUNTER → 2022-02-25 15:10 | Outpatient (BNVA) | payer BC, SELFPAY | PROVIDERS: PCP Nurse Practitioner Family; Visit Provider Urology | DX: N39.0 Urinary tract infection, site not specified (principal) | CPT/HCPCS: 81003; 87086 ==

== ENCOUNTER 2022-09-20 15:13 | Outpatient (CLI) | payer BC, SELFPAY ==
--- NOTE | 2022-09-20 15:22 | MM_ITS ---
WS: [id number] BILATERAL 3D TOMOSYNTHESIS DIGITAL SCREENING MAMMOGRAPHY WITH CAD CLINICAL INFORMATION: SCREENING HISTORY: Screening mammogram. No current complaints. COMPARISON: 2021 TECHNIQUE: Bilateral CC and MLO views. FINDINGS: The breasts are composed of heterogeneous fibroglandular density tissue, which can limit the detectio n of small underlying mass lesions. No suspicious mass, asymmetry, calcifications, or architectural d istortion. No evidence of malignancy. Incidental punctate calcifications. IMPRESSION: MM/[id number] BI-RADS: 2-Benign FOLLOW UP: 1 Year Follow-up Recommend return to annual screening mammography.
== END 2022-09-20 15:14 | disposition home or self-care (01) ==
LOC: RAD 15:15 → MOBLMAM 15:21
PROVIDERS: PCP Nurse Practitioner Family; Visit Provider Nurse Practitioner Family
DX: Z12.31 Encounter for screening mammogram for malignant neoplasm of breast (principal)
CPT/HCPCS: 77063; 77067

== ENCOUNTER 2022-11-01 18:15 | Emergency (ER) | payer BC, SELFPAY ==
[2022-11-01 18:17] VITALS: BP 134/68; PULSE 81; RESP 18; TEMP 36.7; O2SAT 98; BMI 28.1
--- NOTE | 2022-11-01 18:41 | W.ED.NAVMDI ---
HPI - Nausea/Vomiting/Diarrhea General: Chief complaint: Nausea/Vomiting/Diarrhea Stated complaint: acute n/v/d x2 days Time Seen by Provider: 11/01/22 18:30 History of Present Illness: 62-year-old female presents to the emergency department complaining of acute onset of nausea vomiting and diarrhea with stomach cramping. She has a long history of IBS with similar attacks. SHe was at a public event and all the bathrooms were full. SHe was trying so hard to keep from vomiting and soiling herself to the point she got a cold sweat. Ultimately, she called EMS and got zofran then used the bathroom multiple times on arrival to ED---> now she's feeling better. Associated symtoms: Denies altered mental status, change in vision, chest pain, dysuria, headache(s) or syncope Review of Systems General: Reports: 10 or more systems reviewed and unremarkable except in HPI and below Const: Denies: fever(s), chills or body aches Eyes: Denies: change in vision ENMT: Denies: throat pain Card: Denies: chest pain, edema or syncope Resp: Denies: dyspnea or productive cough : Denies: flank pain, dysuria or urinary frequency Musc: Denies: neck pain, back pain, extremity pain or extremity swelling Skin/Breast: Denies: rash or erythema Neuro: Denies: headache(s), numbness in extremities, weakness in extremities, lack of coordination or difficulty walking [facility] ED PFSH: Medical History (Updated 11/01/22 @ 20:13 by Everardo Fortune MD) GERD (gastroesophageal reflux disease) HTN (hypertension) Hypothyroid IBS (irritable bowel syndrome) Migraine Neuropathy Osteopenia Recurrent UTI Surgical History History of Kidney Transplant S/P cholecystectomy S/P thyroid surgery S/P total hip arthroplasty Family History Father Squamous cell skin cancer Mother No problems noted. Social History Smoking and tobacco status: never smoked Alcohol intake: current Alcohol intake frequency: holidays/special occasions only Substance/Drug Use: never Marital status: Current occupational status: retired Physical Exam Const: COMMON NORMALS: no limitations, alert and well nourished EXAM LIMITATIONS: no altered mental status HENMT: COMMON NORMALS: normocephalic, atraumatic and external ears normal HEAD & SCALP: normocephalic and atraumatic EXTERNAL EAR: Yes external ears normal MOUTH: no muffled voice Eye: COMMON NORMALS: EOMs intact bilaterally, conjunctivae normal and no scleral icterus CONJUNCTIVA: Yes conjunctivae normal Neck/C-Spine: COMMON NORMALS: no JVD GENERAL: Yes normal visual inspection and Yes trachea midline Resp: COMMON NORMALS: normal respiratory effort, No use of accessory muscles and clear to auscultation bilaterally AUSCULTATION: clear to auscultation bilaterally Cardio: COMMON NORMALS: no JVD, regular rate and regular rhythm RATE: regular rate RHYTHM: regular rhythm GI: OTHER: Soft, normal bowel sounds, no tenderness, no gaurding. Extremity: COMMON NORMALS: normal to inspection Neuro: COMMON NORMALS: moves all extremities, no focal motor deficits and no sensory deficits noted SENSORIUM/ORIENTATION: Yes alert SPEECH: speech normal Psych: COMMON NORMALS: mental status grossly normal, Normal thought process present, cooperative, normal affect and speech normal SPEECH: Yes normal speech THOUGHT PROCESS: Normal thought process present Skin: COMMON NORMALS: no rashes or lesions noted, turgor normal and no jaundice GENERAL SKIN EXAM: no rashes or lesions noted and turgor normal Course Vital Signs: Vital signs: Vital Signs Temperature 98.1 F 11/01/22 18:17 Pulse Rate 81 11/01/22 18:17 Respiratory Rate 19 H 11/01/22 19:31 Blood Pressure 134/68 11/01/22 18:17 Pulse Oximetry 98 11/01/22 18:17 Oxygen Delivery Me thod Room Air 11/01/22 18:17 MDM - Nausea/Vomiting/Diarrhea Medical Decision Making Pt feeling better after vomiting, having her diarrhea, then getting zofran. ddx: IBS attack, gastroenteritis, dehydration, abnormal electrolytes, uti, kidney dysfunction. Low suspicion acute abdomen. She'd still like some IVF and check labs bc of renal transplant. Plan: morphine 2mg, loperamide, zofran, ivf, check cbc, cmp, ua. Update. Patient's white blood cell count is 15.4. This is probably not clinically relevant since the patient had severe urge to vomit and was even sweating trying to hold it in. She also had explosive diarrhea. I repeated examination of the patient and she is asymptomatic. Her BUN is 27 and creatinine 2.1. This is elevated compared to her prior. However, patient informs me that this is not unusual for one of her episodes for it to bump slightly. Plan to discharge after 2 L of IV fluid and follow-up in 1 week for repeat renal function. Lab Data 11/01/22 19:11/01/22 19: Laboratory Results WBC 15.40 10^3/uL (3.29-11.43) H 11/01/22 19: RBC 4.33 10^6/uL (3.85-5.65) 11/01/22: Hgb 13.40 g/dL (11.27-16.99) 11/01/22: Hct 42.7 % (36-47) 11/01/22: MCV 98.6 fl (85-98) H 11/01/22: MCH 30.9 pg (27-33) 11/01/22: MCHC 31.4 g/dL (30-55) 11/01/22: RDW 13.2 % (12.1-15.1) 11/01/22: Plt Count 224 10^3/cmm (157-399) 11/01/22: MPV 10.0 fL (7.4-10.4) 11/01/22: Neut % (Auto) 87.8 % 11/01/22: Lymph % (Auto) 4.1 % 11/01/22: [place] % (Auto) 6.9 % 11/01/22: Eos % (Auto) 0.5 % 11/01/22: Baso % (Auto) 0.2 % 11/01/22: Neut # (Auto) 13.54 10^3/uL (1.8-7.7) H 11/01/22: Lymph # (Auto) 0.6 10^3/uL (0.8-4.8) L 11/01/22: [place] # (Auto) 1.1 10^3/uL (0.2-0.9) H 11/01/22 19:22 Eos # (Auto) 0.1 10^3/uL (0.0-0.8) 11/01/22 19: Baso # (Auto) 0.0 10^3/uL (0.0-0.1) 11/01/22 19:22 Nucleated RBC % (auto) 0 % 11/01/22 19: Nucleated RBCs # 0.0 /100WBC 11/01/22 19:22 Sodium 140 mmol/L (136-145) 11/01/22 19:22 Potassium 4.4 mmol/L (3.5-5.1) 11/01/22 19: Chloride 103 mmol/L (98-107) 11/01/22 19: Carbon Dioxide 24 mmol/L (22-29) 11/01/22 19: Anion Gap 17.4 (5-19) 11/01/22 19: BUN 27 mg/dL (8-23) H 11/01/22 19: Creatinine 2.1 mg/dL (0.5-0.9) H 11/01/22 19: GFR Calculation 23.8 mL/min (90-130) L 11/01/22 19: Glucose 129 mg/dL (65-115) H 11/01/22 19: Calculated Osmolality 297 mOsm/kg (285-295) H 11/01/22 19: Calcium 9.0 mg/dL (8.5-10.5) 11/01/22: Magnesium 1.7 mg/dL (1.7-2.3) 11/01/22 19: Total Bilirubin 0.6 mg/dL (0.15-1.2) 11/01/22 19: AST 26 U/L (0-32) 11/01/22 19: ALT 22 U/L (0-33) 11/01/22 19: Alkaline Phosphatase 84 U/L (35-105) 11/01/22 19: Total Protein 7.3 g/dL (6.6-8.7) 11/01/22 19: Albumin 4.5 g/dL (3.5-5.2) 11/01/22 19: Globulin 2.8 g/dL (1.3-4.6) 11/01/22 19:22 Lipase 23 U/L (13-60) 11/01/22 19:22 No radiology studies performed this visit Discharge Plan Discharge Patient Disposition: Home Clinical Impression: Nausea vomiting and diarrhea, Acute kidney injury, Leukocytosis, Irritable bowel syndrome with diarrhea Condition: Stable Prescriptions: Discontinued cefuroxime axetil 500 mg tablet 500 mg PO BID Qty: 30 1RF No Action montelukast [Singulair] 10 mg tablet 10 mg PO QDAY fluticasone propionate 50 mcg/actuation spray,suspension 2 spray INTRANASAL QDAY fluoxetine 60 mg tablet 60 mg PO QAM lactobacillus combination no.9 PO bupropion HCl [Wellbutrin XL] 150 mg tablet extended release 24 hr 150 mg PO QAM prednisone 5 mg tablet 5 mg PO QDAY alprazolam 1 mg tablet 1 mg PO QDAY casanthranol-docusate sodium PO rosuvastatin [Crestor] 40 mg tablet 40 mg PO QDAY carvedilol [Coreg] 25 mg tablet 25 mg PO BID ropinirole 1 mg tablet 1 mg PO QDAY ascorbic acid (vitamin C) 1,000 mg tablet 1 g PO BID levothyroxine 100 mcg capsule 100 mcg PO DAILY tacrolimus 1 mg tablet extended release 24 hr 2 mg PO BID Rx Instructions: must be taken on empty stomach mycophenolate sodium [Myfortic] 180 mg tablet,delayed release (DR/EC) 720 mg PO BID clindamycin phosphate 1 % lotion 1 applic TOPICAL DAILY Qty: 60 3RF Rx Instructions: apply thin film to face qam pantoprazole [Protonix] 40 mg tablet,delayed release (DR/EC) 40 mg PO DAILY tramadol [Ultram] 50 mg tablet 50 mg PO Q4H PRN (Reason: pain) 7 Days Qty: 42 0RF tretinoin [Retin-A] 0.1 % cream 1 applic TOPICAL .nightly Qty: 45 3RF Rx Instructions: Apply pea-sized amount to clean dry face nightly May use good rx coupon for purchase if uncovered. methenamine hippurate 1 gram tablet See Rx Instructions .ROUTE .COMPLEX Qty: 180 3RF Dose Instruction: TAKE 1 TABLET BY MOUTH TWICE DAILY,TAKE 1,000 MG OF VITAMIN C WITH EACH DOSE OF METHENAMINE Rx Instructions: TAKE 1 TABLET BY MOUTH TWICE DAILY,TAKE 1,000 MG OF VITAMIN C WITH EACH DOSE OF METHENAMINE Discharge Orders: Discharge ED (Routine); Ordered 11/01/22 Ordered By: Everardo Fortune Referrals: Phoebe Márquez FNP [Primary Care Provider] - 1 week (repeat kidney function) Patient Instructions: Irritable Bowel Syndrome (ED), Abdominal Pain (ED) Coding Level of Care Code ED Manager Salt for Nadia Hill
[2022-11-01] MEDS: sodium chloride 0.9% 1,000 ML 999 ML IV ×2 (19:30→20:35)
[2022-11-01 19:31] VITALS: RESP 19
[2022-11-01] MEDS: morphine 4 mg/mL SDV 1 mL 2 MG IVP (19:31)
[2022-11-01] MEDS: ondansetron 2 mg/ML SDV 2 mL 4 MG IVP (19:32)
[2022-11-01] MEDS: loperamide 2 mg Capsule 4 MG PO (19:32)
[2022-11-01 19:34] LABS: Basophils % 0.2 %; Eosinophils # 0.1 10^3/uL (0.0-0.8); Eosinophils % 0.5 %; Hematocrit 42.7 % (36-47); Lymphocytes # 0.6 10^3/uL (0.8-4.8); Lymphocytes % 4.1 %; Mean Corpuscular HGB Conc 31.4 g/dL (30-55); Mean Corpuscular Hemoglobin 30.9 pg (27-33); Mean Corpuscular Volume 98.6 fl (85-98); Monocytes # 1.1 10^3/uL (0.2-0.9); Monocytes % 6.9 %; Neutrophils # 13.54 10^3/uL (1.8-7.7); Neutrophils % 87.8 %; Nucleated Red Blood Cells % 0 %; Platelet Count 224 10^3/cmm (157-399); Red Blood Count 4.33 10^6/uL (3.85-5.65); Red Cell Distribution Width 13.2 % (12.1-15.1)
[2022-11-01 19:51] LABS: Alanine Aminotransferase 22 U/L (0-33); Albumin Level 4.5 g/dL (3.5-5.2); Alkaline Phosphatase 84 U/L (35-105); Anion Gap 17.4 (5-19); Aspartate Amino Transferase 26 U/L (0-32); Blood Urea Nitrogen 27 mg/dL (8-23); Carbon Dioxide 24 mmol/L (22-29); Chloride 103 mmol/L (98-107); Globulin 2.8 g/dL (1.3-4.6); Glomerular Filtration Rate 23.8 mL/min (90-130); Glucose 129 mg/dL (65-115); Lipase 23 U/L (13-60); Magnesium 1.7 mg/dL (1.7-2.3); Osmolality Calculated 297 mOsm/kg (285-295); Potassium 4.4 mmol/L (3.5-5.1); Sodium 140 mmol/L (136-145); Total Bilirubin 0.6 mg/dL (0.15-1.2); Total Protein 7.3 g/dL (6.6-8.7)
== END 2022-11-01 21:36 | disposition home or self-care (01) ==
PROVIDERS: Emergency Provider Emergency Medicine; PCP Nurse Practitioner Family
DX: K58.0 Irritable bowel syndrome with diarrhea (principal); R11.2 Nausea with vomiting, unspecified; N17.9 Acute kidney failure, unspecified; D72.829 Elevated white blood cell count, unspecified; I10 Essential (primary) hypertension; Z94.0 Kidney transplant status
CPT/HCPCS: 36415; 80053; 83690; 83735; 85025; 96374; 96375; 99284; J2270; J2405; J7030

== ENCOUNTER → 2023-01-13 13:42 | Outpatient (BNVA) | payer BC, SELFPAY | PROVIDERS: PCP Nurse Practitioner Family; Visit Provider Internal Medicine | DX: R07.9 Chest pain, unspecified (principal) | CPT/HCPCS: 93005 ==

== ENCOUNTER 2023-01-27 13:25 | Outpatient (CLI) | payer BC, SELFPAY ==
--- NOTE | 2023-01-27 13:45 | USCV_ITS ---
Shirlene Pruitt Age: 62 Gender: F : 1960 Exam Date: 01/27/2023 13:51 Ordering Phys: Brown De M.D ([email or web address]) Technologist: Farrah Chairez Exam Location: [facility] [place] Indication: Murmur, cardiac BP: 118 / 82 HR: 62 Rhythm: Sinus Technical Quality: Adequate MEASUREMENTS (Male / Female) Normal Values 2D ECHO LV Diastolic Diameter PLAX 4.3 cm 4.2 - 5.9 / 3.9 - 5.3 cm LV Systolic Diameter PLAX 2.2 cm IVS Diastolic Thickness 1.2 cm 0.6 - 1.0 / 0.6 - 0.9 cm IVS Systolic Thickness 1.7 cm LVPW Diastolic Thickness 1.2 cm 0.6 - 1.0 / 0.6 - 0.9 cm LVPW Systolic Thickness 1.8 cm LVOT Diameter 2.0 cm LV Ejection Fraction 2D Teich 79.8 % LV Ejection Fraction MOD 2C 48.4 % LV Ejection Fraction 2C AL 49.6 % LA Diameter 3.4 cm LA Width 3.2 cm LA Height 4.6 cm RA Width 3.5 cm RA Height 4.7 cm Aorta at Sinotubular Diameter 3.1 cm IVC Diameter 1.2 cm M-MODE Aortic Annulus Diameter 3.6 cm LA Ao Ratio MM 0.9 MV E Point Septal Separation 1.0 cm DOPPLER AV Peak Velocity 181.0 cm/s LVOT Peak Velocity 119.0 cm/s AV Area Cont Eq vti 2.2 cm squared AV Area Cont Eq pk 2.1 cm squared MV Peak Velocity 118.0 cm/s MV Area PHT 5.0 cm squared Mitral E to A Ratio 0.6 MV E' Velocity 59.0 cm/s TR Peak Velocity 135.3 cm/s TR Peak Gradient 7.3 mmHg Right Atrial Pressure 5.0 mmHg Pulmonary Artery Systolic Pressu 12.3 mmHg PV Peak Velocity 99.0 cm/s RV Acceleration Time 0.1 s RV Ejection Time 0.3 s RV AcT/ET 0.2 FINDINGS Left Ventricle Left ventricle is normal in size. LV systolic function is normal with EF 55 to 60%. No regional wall motion abnormalities are seen. Grade 1 diastolic dysfunction. Right Ventricle Normal in size and function Right Atrium Normal in size Left Atrium Normal in size Mitral Valve Structurally normal mitral valve. Trace mitral regurgitation. Aortic Valve Aortic valve is thickened. No significant aortic stenosis seen. Mild aortic regurgitation. Tricuspid Valve Trace tricuspid regurgitation. Insufficient TR jet to calculate RVSP. Pulmonic Valve Not well-visualized Pericardium Normal Aorta Normal in size IVC Appears to be normal CONCLUSIONS LV systolic function is normal with EF 55 to 60%. Grade 1 diastolic dysfunction. Trace mitral regurgitation. Mild aortic regurgitation. Trace tricuspid regurgitation. Compared to prior compared to prior echocardiogram from 2017, mitral regurgitation appears less significant Brown De MD (Electronically Signed) Final Date: 01 February 2023 11:16 S
== END 2023-01-27 13:26 | disposition home or self-care (01) ==
LOC: RAD 13:27
PROVIDERS: PCP Nurse Practitioner Family; Visit Provider Internal Medicine
DX: I08.3 Combined rheumatic disorders of mitral, aortic and tricuspid valves (principal)
CPT/HCPCS: 93306

== ENCOUNTER 2023-10-08 14:53 | Outpatient (CLI) | payer BC, SELFPAY ==
--- NOTE | 2023-10-08 15:08 | MM_ITS ---
WS: [id number] BILATERAL 3D TOMOSYNTHESIS DIGITAL SCREENING MAMMOGRAPHY WITH CAD CLINICAL INFORMATION: SCREENING HISTORY: Screening mammogram. No current complaints. COMPARISON: 2022 TECHNIQUE: Bilateral CC and MLO views. FINDINGS: The breasts are composed of heterogeneous fibroglandular density tissue, which can limit the detectio n of small underlying mass lesions. No suspicious mass, asymmetry, calcifications, or architectural d istortion. No evidence of malignancy. Incidental punctate calcifications. MM/[id number] IMPRESSION: BI-RADS: 2-Benign FOLLOW UP: 1 Year Follow-up Recommend return to annual screening mammography.
== END 2023-10-08 14:54 | disposition home or self-care (01) ==
LOC: RAD 14:53
PROVIDERS: PCP Nurse Practitioner Family; Visit Provider Nurse Practitioner Family
DX: Z12.31 Encounter for screening mammogram for malignant neoplasm of breast (principal)
CPT/HCPCS: 77063; 77067

== ENCOUNTER 2024-03-24 12:49 | Outpatient (CLI) | payer BC, SELFPAY ==
--- NOTE | 2024-03-24 12:45 | USCV_ITS ---
Shirlene Pruitt Age: 63 Gender: F : 1960 Exam Date: 03/24/2024 13:01 Ordering Phys: Brown De M.D ([email or web address]) Technologist: BRANDIE Exam Location: [facility] – [place] Indication: MR BP: 150 / 70 HR: 72 Rhythm: Sinus Technical Quality: Adequate MEASUREMENTS (Male / Female) Normal Values 2D ECHO LV Diastolic Diameter PLAX 3.8 cm 4.2 - 5.9 / 3.9 - 5.3 cm IVS Diastolic Thickness 1.0 cm 0.6 - 1.0 / 0.6 - 0.9 cm IVS Systolic Thickness 2.0 cm LVPW Diastolic Thickness 1.2 cm 0.6 - 1.0 / 0.6 - 0.9 cm LVPW Systolic Thickness 2.2 cm LVOT Diameter 2.0 cm LV Ejection Fraction 2D Teich 57.1 % LV Ejection Fraction MOD 4C 67.5 % LV Ejection Fraction MOD 2C 57.6 % LV Ejection Fraction 2C AL 59.1 % LA Diameter 3.3 cm RA Systolic Volume 4C AL 37.5 ml RA Systolic Volume 4C MOD 35.9 ml LA Sys Volume AL 57.7 cm cubed LA Sys Volume Index AL 27.7 cm cubed/m squared Aorta at Sinotubular Diameter 2.9 cm M-MODE LA Ao Ratio MM 1.3 AV Cusp Separation MM 1.6 cm DOPPLER AV Peak Velocity 177.0 cm/s LVOT Peak Velocity 114.0 cm/s AV Area Cont Eq vti 2.0 cm squared AV Area Cont Eq pk 2.1 cm squared MV Area PHT 3.2 cm squared Mitral E to A Ratio 0.7 TV Peak Velocity 240.0 cm/s TR Peak Velocity 251.0 cm/s TR Peak Gradient 25.2 mmHg TV Peak E Velocity 101.0 cm/s PV Peak Velocity 101.0 cm/s FINDINGS Left Ventricle Normal left ventricular size, systolic function and wall thickness, with no regional wall motion abnormalities. Left ventricular ejection fraction is estimated at 60%. Grade I/IV diastolic dysfunction (abnormal relaxation filling pattern), normal to mildly elevated filling pressures. Right Ventricle The right ventricle is normal in size and function. Right Atrium The right atrium is normal in size. Left Atrium Mildly increased left atrial size. Mitral Valve Moderately thickened mitral valve. Mild mitral annular calcification. No mitral valve stenosis. Trace mitral valve regurgitation. Aortic Valve Moderate aortic valve calcification. Moderate aortic valve stenosis, mean gradient 6.3 mmHg, MARY KAY 2 cm squared. Mild aortic valve regurgitation. Tricuspid Valve Structurally normal tricuspid valve without significant stenosis or regurgitation. Pulmonary artery systolic pressure is normal. Pulmonic Valve Structurally normal pulmonic valve without significant stenosis. There is no pulmonic regurgitation. Pericardium Normal pericardium without effusion. Aorta Normal ascending aorta dimension. IVC The inferior vena cava appears normal. CONCLUSIONS Normal left ventricular size, systolic function and wall thickness, with no regional wall motion abnormalities. Left ventricular ejection fraction is estimated at 60%. Grade I/IV diastolic dysfunction (abnormal relaxation filling pattern), normal to mildly elevated filling pressures. Moderate aortic valve calcification. Moderate aortic valve stenosis, mean gradient 6.3 mmHg, MARY KAY 2 cm squared. Mild aortic valve regurgitation. There is no pericardial effusion. Right atrial pressure is around 5 mm of mercury. Po Belle MD (Electronically Signed) Final Date: 24 March 2024 20:39 S
== END 2024-03-24 12:50 | disposition home or self-care (01) ==
PROVIDERS: PCP Nurse Practitioner Family; Visit Provider Internal Medicine
DX: I34.0 Nonrheumatic mitral (valve) insufficiency (principal); R93.1 Abnormal findings on diagnostic imaging of heart and coronary circulation; I51.7 Cardiomegaly; I34.81 Nonrheumatic mitral (valve) annulus calcification; I35.8 Other nonrheumatic aortic valve disorders; I35.0 Nonrheumatic aortic (valve) stenosis; I35.1 Nonrheumatic aortic (valve) insufficiency
CPT/HCPCS: 93306

== ENCOUNTER → 2024-05-10 14:26 | Outpatient (BNVA) | payer BC, SELFPAY | PROVIDERS: PCP Nurse Practitioner Family; Visit Provider Podiatrist Foot & Ankle Surgery | DX: M79.671 Pain in right foot (principal); M79.672 Pain in left foot | CPT/HCPCS: 73630 ==

== ENCOUNTER 2024-05-25 12:59 | Outpatient (RCR) | payer BC, SELFPAY | END 2024-06-09 23:59 | disposition home or self-care (01) | LOC: SPT 12:59 | PROVIDERS: Visit Provider Podiatrist Foot & Ankle Surgery | DX: R26.81 Unsteadiness on feet (principal) | CPT/HCPCS: 97110; 97161 ==

== ENCOUNTER 2024-06-10 05:00 | Outpatient (RCR) | payer BC, SELFPAY | END 2024-07-10 23:59 | disposition home or self-care (01) | LOC: SPT 05:00 | PROVIDERS: Visit Provider Podiatrist Foot & Ankle Surgery | DX: R26.81 Unsteadiness on feet (principal) | CPT/HCPCS: 97110; 97112 ==

== ENCOUNTER 2024-08-27 14:13 | Emergency (ER) | payer OTHER, SELFPAY ==
--- OUTSIDE RECORDS SUMMARY | 2024-04-05 05:20 | XMS_ITS ---
Author Organization [facility] Address [address] [facility] [place] [address] Care Team Providers Care Automatic Steel Tie Adjuster Name Role Phone TRACI DALAL Unavailable [phone] CORONA NOEL Unavailable [phone] REASON FOR VISIT 6 mo w/ ua/pvr Encounters Encounter Location Date Provider Diagnosis [facility] [address] [facility] [place] [address] 04/05/2024 CORONA NOEL Plan Of Treatment No Information Progress Notes * Shirlene CROWLEY LDOB:[birth year] (63 yo F)Acc No.[id number]:04/05/2024 Progress Notes Patient: Shirlene ROLLE Provider: Kathrine Noel APRN :1960 A ge:63 Y S ex:Female Date:04/05/2024 Address:[address] [place], [place] [id number] Subjective: * Chief Complaints: * 1 . 6 mo w/ ua/pvr. * Medical History: Objective: * Vitals: Assessment: Plan: * Treatment: * Billing Information: * Visit Code: * Procedure Codes: * Electronic signature of SAMMI NOEL APRN on 08/27/2024 at 02:22 PM CDT Sign off status: Pending * Provider: Kathrine Noel APRN Date: 0 04/05/2024 Generated for Christie gutiérrez/Reid/Hortenciasmitting on: 0 08/27/2024 02:22 PM CDT
[2024-08-27 14:19] VITALS: BP 158/85; PULSE 87; RESP 18; TEMP 38.5; O2SAT 95; BMI 29.6
--- OUTSIDE RECORDS SUMMARY | 2024-08-27 14:20 | XMS_ITS | Continuity of Care Document ---
Author Organization [facility]. 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, implants and grafts, sequela Allergies and Adverse Reactions epoetin sharla(Allergy) Onset: 28-Aug-2018 Reaction:high blood pressure Procrit(Allergy) Reaction:300/150 blood press ure Medications amoxicillin 500 MG Oral Capsule;500 MILLIGRAM PO Q8HR Start:28-Aug-2018 Comments:500 MG PO Q8HR aspirin 81 MG Delayed Releas e Oral Tablet;81 MILLIGRAM PO DAILY Start:28-Aug-2018 Comments:81 MG PO DAILY AURYXIA;2 TABLET PO TID Start:28-Aug-2018 Comments:2 TAB PO TID rOPINIRole 0.25 MG Oral Tabl et [Requip];0.25 MILLIGRAM PO BEDTIME Start:28-Aug-2018 Comments:0.25 MG PO BEDTIME 200 ACTUAT Azelastine hydrochloride 0.137 MG/ACTUAT Nasal Inhaler;2 SPRAY NASAL BID Start:28-Aug-2018 Comments:2 SPRAY NASAL BID montelukast 10 MG Oral Table t;10 MILLIGRAM PO DAILY Start:28-Aug-2018 Comments:10 MG PO DAILY 12 HR buPROPion hydrochlorid e 150 MG Extended Release Oral Tablet [Wellbutrin];150 MILLIGRAM PO BID Start:28-Aug-2018 Comments:150 MG PO BID FLUoxetine 20 MG Oral Capsul e;60 MILLIGRAM PO DAILY Start:28-Aug-2018 Comments:60 MG PO DAILY traMADol hydrochloride 50 MG Oral Tablet;50 MILLIGRAM PO Q6H PRN Start:28-Aug-2018 Comments:50 MG PO Q6H PRN As Needed for PAIN doxazosin 2 MG Oral Tablet [Cardura];2 MILLIGRAM PO DAILY Start:28-Aug-2018 Comments:2 MG PO DAILY levothyroxine sodium 0.125 M G Oral Tablet [Synthroid];125 MICROGRAM PO DAILY@0600 Start:28-Aug-2018 Comments:125 MCG PO DAILY@0600 amLODIPine 5 MG Oral Tablet; 5 MILLIGRAM PO DAILY Start:28-Aug-2018 Comments:5 MG PO DAILY lansoprazole 30 MG Delayed Release Oral Capsule;30 MILLIGRAM PO DAILY Start:28-Aug-2018 Comments:30 MG PO DAILY rosuvastatin calcium 5 MG Or al Tablet [Crestor];5 MILLIGRAM PO DAILY Start:28-Aug-2018 Comments:5 MG PO DAILY predniSONE 2.5 MG Oral Table t;2.5 MILLIGRAM PO Q48HR Start:28-Aug-2018 Comments:2.5 MG PO Q48HR 24 HR metoprolol succinate 5 0 MG Extended Release Oral Tablet [Toprol];50 MILLIGRAM PO DAILY Start:28-Aug-2018 Comments:50 MG PO DAILY acyclovir 200 MG Oral Capsul e;200 MILLIGRAM PO BID Start:28-Aug-2018 Comments:200 MG PO BID Acyclovir;200 MG Orally Twic e a day, 1 capsule CHARLI CHAND Comments:200 MG Orally Twice a day, 1 capsule montelukast 10 MG Oral Table t;10 MG Orally Once a day, 1 tablet Quantity:30 CHARLI CHAND Comments:10 MG Orally Once a day, 1 tablet predniSONE 2.5 MG Oral Table t;2.5 MG Orally Once a day, 1 tablet Quantity:30 CHARLI CHAND Comments:2.5 MG Orally Once a day, 1 tablet traMADol hydrochloride 50 MG Oral Tablet;50 MG Orally , as directed CHARLI CHAND Comments:50 MG Orally , as d irected Doxazosin 2 MG Oral Tablet;2 MG Orally Once a day, 1 tablet Quantity:30 CHARLI CHAND Comments:2 MG Orally Once a day, 1 tablet lansoprazole 30 MG Delayed Release Oral Capsule;30 MG Orally Once a day, 1 capsule Quantity:30 CHARLI CHAND Comments:30 MG Orally Once a day, 1 capsule Rosuvastatin calcium 5 MG Or al Tablet [Crestor];5 MG Orally Once a day, 1 tablet Quantity:30 CHARLI CHAND Comments:5 MG Orally Once a day, 1 tablet Aspirin;81 MG Orally Once a day, 1 tablet CHARLI CHAND Comments:81 MG Orally Once a day, 1 tablet Levothyroxine Sodium 0.125 M G Oral Tablet;125 MCG Orally Once a day, 1 tablet on an empty stomach in the morning Quantity:30 CHARLI CHAND Comments:125 MCG Orally Once a day, 1 tablet on an empty stomach in the morning amLODIPine (as amLODIPine besylate) 5 MG Oral Tablet;5 MG Orally Once a day, 1 tablet Quantity:30 CHARLI CHAND Comments:5 MG Orally Once a day, 1 tablet 12 HR buPROPion Hydrochlorid e 150 MG Extended Release Oral Tablet;150 MG Orally Once a day, 1 tablet in the morning Quantity:30 CHALRI CHAND Comments:150 MG Orally Once a day, 1 tablet in the morning rOPINIRole 0.25 MG (as rOPIN IRole hydrochloride) Oral Tablet;0.25 MG Orally Once a day, 1 tablet 1 to 3 hours before bedtime Quantity:30 CHARLI CHAND Comments:0.25 MG Orally Once a day, 1 tablet 1 to 3 hours before bedtime Fluoxetine HCl;20 MG Orally Once a day, 1 capsule Quantity:30 CHARLI CHAND Comments:20 MG Orally Once a day, 1 capsule Metoprolol Succinate ER;50 M G Orally Once a day, 1 tablet Quantity:30 CHARLI CHAND Comments:50 MG Orally Once a day, 1 tablet 200 ACTUAT Azelastine hydrochloride 0.206 MG/ACTUAT Nasal Inhaler;0.15 % Nasally Twice a day, 1 spray in each nostril CHARLI CHAND Comments:0.15 % Nasally Twic e a day, 1 spray in each nostril ferric citrate 1000 MG Oral Tablet [Auryxia];1 GM 210 MG(Fe) Orally Three times a day, 2 tablets with meals Quantity:180 CHARLI CHAND Comments:1 GM 210 MG(Fe) Ora lly Three times a day, 2 tablets with meals
--- OUTSIDE RECORDS SUMMARY | 2024-08-27 14:22 | XMS_ITS | Clinical Summary ---
Author Organization [facility] Address [address] [place] [address] Phone Care Team Providers Care Agriscience Teacher Name Role Phone Phoebe Márquez JUAN Primary Care Provider [phone] Allergies Active Allergy Reactions Criticality Noted Date Comments Dobutamine Other (see comments) Medium 08/25/2017 Patient had a reaction to Dobutamine following a Dobutamine Stress Echo. She got home and started feeling ill and was incontinent all night and was hallucinating. She felt too awful to call for help. Patient had a reaction to Dobutamine following a Dobutamine Stress Echo. She got home and started feeling ill and was incontinent all night and was hallucinating. She felt too awful to call for help. Epoetin (Candido) Other (see comments) High 05/31/2016 Other reaction(s): Hypertension Reaction unknown Hypertension (SBP > 200) Hydralazine Other (see comments),Nausea Only Low 09/23/2018 Iodinated Contrast Media Other (see comments) 07/01/2023 Iodine 05/29/2023 Other Reaction(s): contrast dye Iron Dextran Hives,Other (see comments),Rash Low 09/23/2018 Nitroglycerin Other (see comments),Nausea Only Low 09/23/2018 Oxycodone 06/06/2022 Medications ALPRAZolam (XANAX) 1 MG tablet Take 1 mg by mouth every night Active senna-docusate (PERICOLACE) 8.6-50 MG per tablet Take 1 tablet by mouth 1 (one) time each day Active FLUoxetine (PROzac) 60 MG tablet Take by mouth 1 (one) time each day Active LACTOBACILLUS BIFIDUS PO Take by mouth 1 (one) time each day Active levothyroxine (SYNTHROID, LEVOTHROID) 100 MCG tablet Take 150 mcg by mouth 1 (one) time each day Active methenamine (HIPREX) 1 g tablet Take 1 g by mouth 2 (two) times a day with meals Active montelukast (SINGULAIR) 10 MG tablet Take 10 mg by mouth 1 (one) time each day Active pantoprazole (PROTONIX) 40 MG EC tablet Take 40 mg by mouth 1 (one) time each day before breakfast Do not crush, chew, or split. Active psyllium (METAMUCIL) 58.6 % powder Take 1 packet by mouth 3 (three) times a day if needed Active rOPINIRole (REQUIP) 1 MG tablet Take 1 mg by mouth 1 (one) time each day Active rosuvastatin (CRESTOR) 40 MG tablet Take 40 mg by mouth 1 (one) time each day Active tretinoin (RETIN-A) 0.1 % cream Apply topically every night Active traMADol (ULTRAM) 50 MG tablet Take by mouth every 6 (six) hours if needed PRN only 1 Active ascorbic acid (VITAMIN C) 1000 MG tablet Take 2,000 mg by mouth in the morning and 2,000 mg in the evening. 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 180 tablet 3 3 Active buPROPion XL (WELLBUTRIN XL) 150 MG 24 hr tablet Take 150 mg by mouth 1 (one) time each day 3 Active estradiol (ESTRACE) 0.1 MG/GM vaginal cream Insert into the vagina 2-4 grams daily for 14 days then 1 gram 1-3 times a week 4 Active tacrolimus (PROGRAF) 1 MG capsuleIndicatio ns:Kidney transplant status TAKE 2 CAPSULES BY MOUTH IN THE MORNING AND IN THE EVENING 360 capsule 3 4 Active predniSONE 5 MG tabletIndication s:Kidney transplant status TAKE 1 TABLET BY MOUTH 1 TIME EACH DAY. 90 tablet 3 4 Active metoprolol tartrate 25 MG tablet Take 12.5 mg by mouth in the morning and 12.5 mg in the evening. Active furosemide (LASIX) 40 MG tabletIndication s:Diastolic dysfunction TAKE 1 TABLET (40 MG TOTAL) BY MOUTH 1 (ONE) TIME EACH DAY NEEDED. 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 Renal function has held stable through 10/29/2023 Follow up labs on 11/03/23 to monitor ongoing stability of remaining functioning renal allograft and overall health status. Disorder of transplanted kidney 10/22/2023 Cystitis 10/22/2023 Pulmonary hypertension 06/06/2022 Obstructive sleep apnea syndrome 06/06/2022 Hematoma of wall of urinary bladder 06/06/2022 Non-obstructive atherosclerosis of coronary katie ry 06/06/2022 Mitral valve regurgitation 06/06/2022 Cholecystitis 02/22/2022 Overview (11/03/2023): Cholecystitis; Lap Choley 08/25/06, ERCP emergently 08/29/06, retained stone retrieved.; 02/22/2022 2:22PM by Jeanie Eddy CMT, Office Visit; Promoted; acuity set as *; Gastroesophageal reflux disease 02/22/2022 Overview (11/03/2023): GERD; 02/22/2022 2:22PM by Jeanie Eddy CMT, Office Visit; Promoted; acuity set as *; Immunosuppressed 04/08/2021 Closed fracture sacrum 04/02/2021 Hemorrhage into peritoneal cavity 04/02/2021 Kidney transplant status 01/17/2020 Stage 3b chronic kidney disease 01/17/2020 Overview (02/14/2020): Update for Diagnosis Load Immunosuppression 03/12/2019 Encounter for therapeutic drug monitoring 2018 Calcification of coronary artery 10/02/2018 Overview (06/06/2022): Agatston Score = 399.5 Myocardial infarction 09/29/2018 History of renal transplant 09/24/2018 Depressive disorder 09/23/2018 Diastolic dysfunction 09/23/2018 Mixed hyperlipidemia 02/19/2018 Essential hypertension 02/19/2018 Encounters Date Type Department Care Team Description 08/19/2024 Telephone [facility] [address] [place] [id number] Starla Peters MA 07/27/2024 Orders Only [facility] [address] [place] [address] Vibha Cohen NP Stage 3b chronic kidney disease (HCC); History of renal transplant; Immunosuppression (HCC) 07/06/2024 Refill [facility] [address] [place] [address] Kimi Darby NP Diastolic dysfunction from Last 3 Months Family History Medical History Relation Comments No Known Problems Father Cancer Mother Hypertension Mother Relation Status Comments Father Alive Mother Alive Social History Tobacco Use Types Packs/Day Years Used Date Smoking Tobacco: Never Smokeless Tobacco: Never Tobacco Cessation:Counseling Given: Not Answered Alcohol Use Standard Drinks/Week Comments Yes 2 (1 standard drink = 0.6 oz pur e alcohol) Comments Unknown Sex and Gender Information Value Date Recorded Sex Assigned at Not on file Legal Sex Female 12:47 PM EST Gender Identity Not on file Sexual Orientation Not on file Last Filed Vital Signs Vital Sign Reading Time Taken Comments Blood Pressure 126/68 04/26/2024 3:55 PM CDT Pulse 68 04/26/2024 3:55 PM CDT Temperature 36.9 C (98.4 F) 05/15/2020 2:03 PM CDT Respiratory Rate - - Oxygen Saturation 98% 12/23/2023 1:42 PM MICRO PALEONTOLOGIST Inhaled Oxygen Concentration - - Weight 91.8 kg (202 lb 6.4 oz) 04/26/2024 3:55 P M CDT Height 172.7 cm (5' 8 ) 04/26/2024 3:55 PM CDT Body Mass Index 30.77 04/26/2024 3:55 PM CDT Plan of Treatment Upcoming Encounters Date Type Department Care Team (Late st Contact Info) Description 08/30/2024 1:30 PM CDT Office Visit [facility] [address] [place] [address] Kimi Darby NP [address] [place] [address] Health Maintenance Due Date Last Done Comments Breast Cancer Screening 1960 Colonoscopy (Post-Transplant Patient) 01/17/2020 Pelvic Exam (Post-Transplant Patient) 01/17/2020 Pneumococcal Vaccine: 50+ Years (3 of 3 - PCV20 or PCV21) 12/22/2022 12/22/2017, 10/13/2017 Influenza Vaccine (#1) 2024 3, 11/19/2022, 12/24/2021, Additional history exists Mammogram (Post-Transplant Patient) 10/07/2028 10/08/2023 Pneumococcal Vaccine: Peds (0 to 5 Years) and At-Risk Patients (6 to 49 Years) Discontinued 12/22/2017, 10/13/2017 Hepatitis B Vaccine Aged Out 07/15/2018, 06/10/2018, 05/13/2018, Additional history exists No longer eligible based on patient's age to complete this topic Insurance [facility] [place] Care Teams Agriscience Teacher Relationship Specialty Start Date End Date Phoebe Márquez FNP [address] [place] [address] PCP - General Nurse Practitioner 02/26/22
--- OUTSIDE RECORDS SUMMARY | 2024-08-27 14:22 | XMS_ITS | Encounter Summary ---
Author Organization [facility] Address [address] [place] [address] Care Team Providers Care Print Line Inspector Name Role Phone Allen Goldsmith MD Primary Care Provider Michael rodriguez Encounter Details Date Type Department Care Team (Late st Contact Info) Description 12/31/2006 Outpatient Historical [facility] D[facility]atology- [address] 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
--- OUTSIDE RECORDS SUMMARY | 2024-08-27 14:22 | XMS_ITS | Encounter Summary ---
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, Including Shoulder (Primary Dx) Social History Tobacco Use Types Packs/Day Years Used Date Smoking Tobacco: Never Assessed Comments Unknown Sex and Gender Information Value Date Recorded Sex Assigned at Not on file 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
--- OUTSIDE RECORDS SUMMARY | 2024-08-27 14:22 | XMS_ITS | Encounter Summary ---
Author Organization [facility] Address [address] [place] [address] Care Team Providers Care Salesperson New Cars Name Role Phone Allen Goldsmith MD Primary Care Provider Michael rodriguez Encounter Details Date Type Department Care Team (Late st Contact Info) Description 09/10/2005 Outpatient Historical [facility] Dermatology- 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
--- OUTSIDE RECORDS SUMMARY | 2024-08-27 14:22 | XMS_ITS | Encounter Summary ---
Author Organization [facility] Address [address] [place] [address] Care Team Providers Care Csr Technician Name Role Phone Allen Goldsmith MD Primary Care Provider Michael rodriguez Encounter Details Date Type Department Care Team (Late st Contact Info) Description 02/06/2005 Outpatient Historical [facility] [address] [place] [address] Sea Ramos MD [address] [place] [address] MALIG NEOPLASM SKIN ARM (Primary Dx) Social History Tobacco Use Types Packs/Day Years Used Date Smoking Tobacco: Never Assessed Comments Unknown Sex and Gender Information Value Date Recorded Sex Assigned at Not on file Legal Sex Female 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
--- OUTSIDE RECORDS SUMMARY | 2024-08-27 14:22 | XMS_ITS | Encounter Summary ---
Author Organization [facility] Address [address] [place] [address] Care Team Providers Care Project Controller Name Role Phone Allen Goldsmith MD Primary Care Provider Michael rodriguez Encounter Details Date Type Department Care Team (Late st Contact Info) Description 02/14/2005 Outpatient Historical [facility] Dermatology- 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
--- OUTSIDE RECORDS SUMMARY | 2024-08-27 14:22 | XMS_ITS | Encounter Summary ---
Author Organization [facility] Address [address] [place] [address] Care Team Providers Care Youth Care Worker Name Role Phone Allen Goldsmith MD Primary Care Provider Michael rodriguez Encounter Details Date Type Department Care Team (Late st Contact Info) Description 02/06/2005 Outpatient Historical [facility] Dermatology- 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
--- OUTSIDE RECORDS SUMMARY | 2024-08-27 14:22 | XMS_ITS | Encounter Summary ---
Author Organization [facility] Address [address] [address] Phone Care Team Providers Care Food Mixer Name Role Phone Phoebe Márquez JUAN Primary Care Provider [phone] Reason for Visit * Reason Comments Med Refill Encounter Details Date Type Department Care Team (Late st Contact Info) Description 11/26/2021 Refill [facility] [address] [place] [address] Kimi Darby NP [address] [place] [address] Kidney transplant status Social History Tobacco Use Types Packs/Day Years Used Date Smoking Tobacco: Never Smokeless Tobacco: Never Alcohol Use Standard Drinks/Week Comments Yes 2 (1 standard drink = 0.6 oz pur e alcohol) Comments Unknown Sex and Gender Information Value Date Recorded Sex Assigned at Not on file Legal Sex Female 12:47 PM EST Gender Identity Not on file Sexual Orientation Not on file documented as of this encounter Plan of Treatment Upcoming Encounters Date Type Department Care Team (Late st Contact Info) Description 08/30/2024 1:30 PM CDT Office Visit [facility] [address] [place] [address] Kimi Darby NP [address] [place] [address] documented as of this encounter Visit Diagnoses Diagnosis Kidney transplant status documented in this encounter Care Teams Food Mixer Relationship Specialty Start Date End Date Phoebe Márquez FNP [address] [facility] [address] [place] [id number] PCP - General Nurse Practitioner 02/26/22 documented as of this encounter
--- OUTSIDE RECORDS SUMMARY | 2024-08-27 14:22 | XMS_ITS | Encounter Summary ---
Author Organization [facility] Address [address] [place] [address] Care Team Providers Care Safety Patrol Officer Name Role Phone Allen Goldsmith MD Primary Care Provider Michael ilable Encounter Details Date Type Department Care Team (Late st Contact Info) Description 04/24/2006 Outpatient Historical [facility] Dermatology- [address] [place] 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
--- OUTSIDE RECORDS SUMMARY | 2024-08-27 14:23 | XMS_ITS | Patient Health Record ---
Author Organization [facility] Address [address] [place] [address] Care Team Providers Care Combat Systems Engineer Name Role Phone Phoebe Márquez APRN Primary Care Provider Martin Perez JR Unavailable [phone] Allergies Allergen (clinical drug ingredient) Drug/Non Drug Allergy documented on EMR Reaction Allergy Type Onset Date Status Epoetin Candido Unknown Drug Allergy Acti ve oxycodone Oxycodone Unknown Drug Allergy Active Reason For Referral No Information Medications Medication SIG (Take, Route, Frequency, Duration) Notes Start Date End Date Status Tretinoin Active Pantoprazole Sodium 40 MG Tablet Delayed Release 1 tablet Orally Once a day Active Amitriptyline HCl 10 MG Tablet TAKE 1 TABLET BY MOUTH EVERY DAY AT BEDTIME FOR 30 DAYS; Duration: 90 R39.8 Bladder Pain Active Rosuvastatin Calcium 40 MG Tablet 1 tablet Orally Once a day Active Azelastine HCl Activ e Carvedilol 12.5 MG Tablet 1 tablet with food Orally Twice a day Active Vitamin C 1000 MG Tablet 1 tablet Orally BID 06/19/2023 Active Calcium 600 MG Tablet 1 tablet with meals Orally TID 06/19/2023 Active Azelastine hydrochloride 0.137 MG/ACTUAT Metered Dose Nasal [place] Azelastine hydrochloride 0.137 MG/ACTUAT Metered Dose Nasal [place] 06/18/2016 Not-Taking Methenamine Hippurate 1 GM Tablet 1 tablet Orally Twice a day Active Doxycycline Hyclate 100 MG Capsule 1 capsule Orally Once a day Not-Taking Clonidine Hydrochloride 0.1 MG Oral Tablet Clonidine Hydrochloride 0.1 MG Oral Tablet 06/18/2016 Not-Taking Calcium Carbonate 1250 MG / Cholecalciferol 200 UNT Oral Tablet Calcium Carbonate 1250 MG / Cholecalciferol 200 UNT Oral Tablet 06/18/2016 Not-Taking 24 HR Metoprolol Tartrate 100 MG Extended Release Tablet 24 HR Metoprolol Tartrate 100 MG Extended Release Tablet 06/18/2016 Not-Taking Furosemide 20 MG Oral Tablet Furosemide 20 MG Oral Tablet 06/18/2016 Not-Taking Doxazosin 8 MG Oral Tablet Doxazosin 8 MG Oral Tablet 07/22/2016 Not-Taking Rosuvastatin calcium 5 MG Oral Tablet Rosuvastatin calcium 5 MG Oral Tablet 06/18/2016 Not-Taking Acyclovir 200 MG Oral Capsule Acyclovir 200 MG Oral Capsule 06/18/2016 Not-Taking Ascorbic Acid 500 MG Oral Capsule Ascorbic Acid 500 MG Oral Capsule 06/18/2016 Not-Taking Calcitriol 0.14433 MG Oral Capsule Calcitriol 0.98789 MG Oral Capsule 06/18/2016 Not-Taking predniSONE 5 MG Tablet 1 tablet Orally Once a day Active lansoprazole 30 MG Enteric Coated Capsule lansoprazole 30 MG Enteric Coated Capsule 06/18/2016 Not-Taking Fluticasone propionate 0.05 MG/ACTUAT Metered Dose Nasal [place] [Flonase] Fluticasone propionate 0.05 MG/ACTUAT Metered Dose Nasal [place] [Flonase] 06/18/2016 Not-Taking Fluoxetine 60 MG Oral Tablet Fluoxetine 60 MG Oral Tablet 06/18/2016 Active Myfortic 180 MG Tablet Delayed Release 2 tablets Orally Twice a day Active montelukast 10 MG Oral Tablet montelukast 10 MG Oral Tablet 06/18/2016 Active tramadol hydrochloride 50 MG Oral Tablet tramadol hydrochloride 50 MG Oral Tablet 06/18/2016 Active Tacrolimus 1 MG Oral Capsule [Prograf] Tacrolimus 1 MG Oral Capsule [Prograf] 06/18/2016 Active Levothyroxine Sodium 0.125 MG Oral Tablet Levothyroxine Sodium 0.125 MG Oral Tablet 06/18/2016 Active Alprazolam 1 MG Oral Tablet Alprazolam 1 MG Oral Tablet 06/18/2016 Active 24 HR Bupropion Hydrochloride 150 MG Extended Release Tablet 24 HR Bupropion Hydrochloride 150 MG Extended Release Tablet 06/18/2016 Active ropinirole 0.25 MG Oral Tablet ropinirole 0.25 MG Oral Tablet 06/18/2016 Active Social History Social History Additional Details Category Social Info Options Details Drugs/Alcohol: Do you drink alcohol? Yes Problems Problem Type SNOMED Code ICD Code Onset Dates Problem Status W/U Status Risk Notes Problem Long-term current use of systemic steroid (971622520981875) On prednisone therapy (Z79.52) Active confirmed Problem History of renal transplant (856284740) Kidney transplant recipient (Z94.0) Active confirmed Problem Immunodeficiency disorder (660266050) Immunosuppressed status (D84.9) Active confirmed Plan Of Treatment Future Test Test Name Order Date CBC w\ Auto Diff 66054 07/24/2023 Comprehensive Metabolic Panel (CMP) 8005 3 07/24/2023 CRP [id number] 07/24/2023 Insurance Providers Payer Name Payer Address Payer Phone Subscriber Number Group Number Insured Name Patient Relationship to Insured Coverage Start Date Coverage End Date [place] [address] [place] [phone] [id number] Shirlene Fritz Self - patient is the insured Medical (General) History Medical History History ICD Code Problem:Anemia (disorder) , Status :: Ac tive Problem:Chronic kidney disease stage 4 ( disorder) , Status :: Active Problem:Drug therapy finding (finding) , Status :: Active Problem:History of - kidney recipient (context-dependent category) , Status :: Active Problem:Hypertensive disorde r, systemic arterial (disorder) , Status :: Active Problem:Hypoparathyroidism (disorder) , Status :: Active Problem:Hypothyroidism (disorder) , Stat us :: Active Problem:Immunosuppression (finding) , St atus :: Active Problem:Proteinuria (finding) , Status : : Active Problem:Vasculitis (disorder) , Status : : Active Surgical History Surgery Date(Month/Year) kidney transplant gall bladder hip fracture pelvic fracture Hospitalization History Reason Date(Month/Year) UTI sepsis
--- OUTSIDE RECORDS SUMMARY | 2024-08-27 14:23 | XMS_ITS | Encounter Summary ---
Author Organization [facility] [employer] Address [address] [place] [address] Phone Care Team Providers Care Molding Room Supervisor Name Role Phone Phoebe Márquez JUAN Primary Care Provider [phone] Reason for Visit * Reason Comments Med Refill Encounter Details Date Type Department Care Team (Late Contact Info) Description 11/16/2020 Refill [facility] [address] [place] [address] Kimi Darby NP [address] [place] [address] Kidney transplant status Social History [...] on file Sexual Orientation Not on file COVID-19 Exposure Response Date Recorded In the last month, have you been in contact with someone who was confirmed or suspected to have Coronavirus / COVID-19? No / Unsure 11/02/2020 1:04 PM EDT documented as of this encounter Plan of Treatment Upcoming Encounters Date Type Department Care Team (Late st Contact Info) Description 08/30/2024 1:30 PM CDT Office Visit [facility] [address] [place] [id number] Kimi Darby, VICKY [address] [place] [address] documented as of this encounter Visit Diagnoses Diagnosis Kidney transplant status documented in this encounter Care Teams Molding Room Supervisor Relationship Specialty Start Date End Date Phoebe Márquez FNP [address] [place] [address] PCP - General Nurse Practitioner 02/26/22 documented as of this encounter
--- OUTSIDE RECORDS SUMMARY | 2024-08-27 14:23 | XMS_ITS | Clinical Summary ---
Author Organization [facility] Address [address] [place] [address] Phone Care Team Providers Care Customer Support Coordinator Name Role Phone Allen Goldsmith MD Primary Care Provider Unava ilable Allergies Active Allergy Reactions Criticality Noted Date Comments Epoetin Candido Hypertension High 11/11/2017 Epoetin Candido Hypertension Medium 04/02/2021 Medications buPROPion HCL (WELLBUTRIN SR) 150 mg Sustained Release 12 hour tablet Take 150 mg by mouth daily. 8 Active doxazosin (CARDURA) 2 mg tablet Take 2 mg by mouth every 12 hours. 8 Active carvediloL (COREG) 25 mg tablet Take 25 mg by mouth 2 times daily with meals. Active rosuvastatin (CRESTOR) 40 mg tablet Take 40 mg by mouth daily. Active tacrolimus (PROGRAF) 1 mg capsule Take 2 mg by mouth 2 times daily. Active mycophenolate sodium (MYFORTIC) 180 mg Tablet, Delayed Release (E.C.) Take 180 mg by mouth 2 times daily before meals. Active FLUoxetine (PROzac) 40 mg capsule Take 60 mg by mouth daily. Active fluticasone propionate (FLONASE) 50 mcg/spray [place], Suspension nasal inhaler Administer 2 Sprays in each nostril daily. Active predniSONE (DELTASONE) 5 mg tablet Take 5 mg by mouth daily. Active montelukast (SINGULAIR) 10 mg tablet Take 10 mg by mouth daily at bedtime. Active levothyroxine 125 mcg tablet Take 125 mcg by mouth daily in the morning. Active ALPRAZolam (XANAX) 1 mg tablet Take 1 mg by mouth daily at bedtime. Active aspirin (MARINA CHEWABLE) 81 mg Tablet, Chewable Take 81 mg by mouth daily. Active folic acid (FOLVITE) 1 mg tablet Take 1 Tablet (1 mg) by mouth daily. 2 Active methocarbamoL (ROBAXIN) 750 mg tablet Take 1 Tablet (750 mg) by mouth 3 times daily. 2 Active pantoprazole (PROTONIX) 40 mg Tablet, Delayed Release (E.C.) Take 1 Tablet (40 mg) by mouth daily before breakfast. 2 Active acetaminophen (TYLENOL) 325 mg tablet Take 2 Tablets (650 mg) by mouth every 6 hours as needed for Other (See Comment) (See admin instructions). 2 Active calcium-choleca lciferol (OS-KHADIJAH 500+D) 500 mg-5 mcg (200 unit) tablet Take 1 Tablet by mouth 2 times daily with meals. 1 Tablet 2 Active rOPINIRole (REQUIP) 1 mg tablet Take 1 Tablet (1 mg) by mouth daily at bedtime. 1 Tablet 2 Active docusate sodium (COLACE) 100 mg capsule Take 1 Capsule (100 mg) by mouth 2 times daily. 2 Active sennosides-docu sate sodium (SENNA-S) 8.6-50 mg tablet Take 1 Tablet by mouth 2 times daily. 2 Active naloxone (NARCAN) 4 mg/spray [place], Non-Aerosol EMERGENCY USE ONLY: Administer 1 spray (4 mg) in one nostril one time. May repeat in alternating nostrils every 2-3 min until responsive or EMS arrives. 2 Each 2 Active amLODIPine (NORVASC) 2.5 mg tablet Take 1 Tablet (2.5 mg) by mouth daily. 30 Tablet 2 Active traMADoL (ULTRAM) 50 mg tabletIndicatio ns:Closed fracture of ramus of right pubis, initial encounter (CMS/[facility]) Take 2 Tablets (100 mg) by mouth every 6 hours as needed for Pain, Severe. Reduce and discontinue this medication as soon as able. 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 Nonop tx. WBAT Fall off stage (4 ft) 04/02/2021 Traumatic intramural pelvic hematoma in female 0 04/02/2021 Closed minimally displaced zone I fracture of sa salma 04/02/2021 Peritoneal hemorrhage 04/02/2021 Renal transplant recipient 04/02/2021 Acute blood loss anemia 04/02/2021 Closed fracture of ramus of right pubis Hematoma of bladder wall Social History Tobacco Use Types Packs/Day Years Used Date Smoking Tobacco: Never Smokeless Tobacco: Never Comments Unknown Sex and Gender Information Value Date Recorded Sex Assigned at Not on file Legal Sex Female 6:49 AM SOCK TURNER Gender Identity Not on file Sexual Orientation Not on file Last Filed Vital Signs Vital Sign Reading Time Taken Comments Blood Pressure 130/74 04/14/2021 6:10 AM SOCK TURNER Pulse 67 04/14/2021 2:07 AM SOCK TURNER Temperature 36.7 C (98 F) 04/14/2021 2:07 AM SOCK TURNER Respiratory Rate 18 04/14/2021 2:07 AM SOCK TURNER Oxygen Saturation 97% 04/14/2021 2:07 AM SOCK TURNER Inhaled Oxygen Concentration - - Weight 82.5 kg (181 lb 14.7 oz) 04/08/2021 5:00 PM SOCK TURNER Height 172.7 cm (5' 8 ) 04/08/2021 5:00 PM SOCK TURNER Body Mass Index 27.66 04/08/2021 5:00 PM SOCK TURNER Plan of Treatment Health Maintenance Due Date Last Done Comments DTAP/TDAP/TD VACCINES (1 - Tdap) 08/30/1978 ZOSTER VACCINE (1 of 2) 08/30/1978 HPV/Cotest (21-29) 08/30/1980 CERVICAL CANCER SCREENING 08/30/1989 HPV/Cotest (30-65) 08/30/1989 PAP SMEAR 08/30/1989 BREAST CANCER SCREENING 1999 COLORECTAL SCREENING 08/30/2004 Colorectal Cancer Screening 08/30/2004 FIT-DNA Q 3 years 08/30/2004 FIT/FOBT Q 1 year 08/30/2004 Flex Sig/CT Colonography Q 5 years 08/30/2004 RSV VACCINE (60+ or ) (1 - Risk 60-74 years 1-dose series) 2019 COVID-19 Vaccine (2 - Moderna risk series) 04/05/2020 03/08/2020 INFLUENZA VACCINE (#1) 2024 Insurance MEDICARE PART A AND B [facility]LY [facility] Advance Directives For more information, please contact: [phone] * Full Code (Latest Code Status on File) Date Activated Date Inactivated Comments 04/08/2021 6:55 PM 04/14/2021 2:15 PM * Full Code Date Activated Date Inactivated Comments 04/02/2021 3:30 AM 04/08/2021 5:29 PM Care Teams Customer Support Coordinator Relationship Specialty Start Date End Date Allen Goldsmith MD PCP - General Nephrology 11/07/17
--- OUTSIDE RECORDS SUMMARY | 2024-08-27 14:23 | XMS_ITS | Patient Health Record ---
Author Organization [facility] Physician Jyotsna es Billing Info Address [address] [place] [id number] Support Name Relationship Address Phone Haylie Villarreal Emergency Contact [phone] [place] [address] Shirlene Pruitt Guarantor Unknown [phone] Allergies Allergen (clinical drug ingredient) Drug/Non Drug Allergy documented on EMR Reaction Allergy Type Onset Date Status epoetin sharla Procrit 300/150 blood pressure Drug Allergy Active Reason For Referral No Information Medications Medication SIG (Take, Route, Frequency, Duration) Notes Start Date End Date Status BuPROPion HCl ER (Smoking Det) 150 MG 1 tablet in the morning Orally Once a day for 30 day(s) Active Tramadol HCl 50 MG as directed Orally Active Lansoprazole 30 MG 1 capsule Orally Onc e a day for 30 day(s) Active Fluoxetine HCl 20 MG 1 capsule Orally On ce a day for 30 day(s) Active Doxazosin Mesylate 2 MG 1 tablet Orally Once a day for 30 day(s) Active Levothyroxine Sodium 125 MCG 1 tablet on an empty stomach in the morning Orally Once a day for 30 day(s) Active Aspirin 81 MG 1 tablet Orally Once a day Active Amlodipine Besylate 5 MG 1 tablet Orally Once a day for 30 day(s) Active Crestor 5 MG 1 tablet Orally Once a day for 30 day(s) Active Auryxia 1 GM 210 MG(Fe) 2 tablets with m eals Orally Three times a day for 30 day(s) Active Metoprolol Succinate ER 50 MG 1 tablet Orally Once a day for 30 day(s) Active Azelastine HCl 0.15 % 1 spray in each no stril Nasally Twice a day for 30 day(s) Active PredniSONE 2.5 MG 1 tablet Orally Once a day for 30 day(s) Active Montelukast Sodium 10 MG 1 tablet Orally Once a day for 30 day(s) Active Acyclovir 200 MG 1 capsule Orally Twi ce a day Active Ropinirole HCl 0.25 MG 1 tablet 1 to 3 h ours before bedtime Orally Once a day for 30 day(s) Active Immunizations Vaccine Route Administration Date Status Comme nts FLU (Past vaccine of unknown type) Unknown 11/28/2017 A dministered PNEUMOCOCCAL (Past vaccine o f unknown type) Unknown 11/27/2017 Administered Social History Tobacco Status: Question Answer Notes Patient is a non tobacco user Problems Problem Type SNOMED Code ICD Code Onset Dates Problem Status W/U Status Risk Notes Problem [id number] Hypertensive chronic kidney disease with stage 5 chronic kidney disease or end stage renal disease (I12.0) Active confirmed Problem [id number] Thrombosis due to vascular prosthetic devices, implants and grafts, 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 Plan Of Treatment No Information Insurance Providers Payer Name Payer Address Payer Phone Subscriber Number Group Number Insured Name Patient Relationship to Insured Coverage Start Date Coverage End Date [facility] PPO OOS [address] [place], [place] [id number] Shirlene Pruitt Self - patient is the insured 9 9 MEDICARE [place] PART B [address] [place], [place] [id number] Shirlene Pruitt Self - patient is the insured 9 9 [employer] CHO[employer] POS II [address] [place], [place] [id number] EdmondPierreFco Spouse - patient is the spouse of the insured Medical (General) History Medical History History ICD Code Hypertension Anemia Blood Transfusion hyperlipidemia Thyroid Disease Sleep apnea w/cpap Arthritis ESRD Dialysis@ [facility] JANKI. M,W, F Surgical History Surgery Date(Month/Year) Thyroid 1973 Gallbladder 2006 Kidney Transplant 2000 Hospitalization History Reason Date(Month/Year) Edema/port placed 06/2017 see surgical hx
--- OUTSIDE RECORDS SUMMARY | 2024-08-27 14:23 | XMS_ITS | Data Portability ---
Author Organization JANKI Malloy [facility], [place], [facility] Address [address] [address] Care Team Providers Care Executive Manager Name Role Phone HUE CRUMP Primary Care Provider Unavailabl e Assessment No assessment recorded. Plan of Treatment Reminders Order Date Submit Date Provider Last Modified By Organization Details Last Modified Time Details Appointments None recorded. Lab culture, urine 2024 025 [place] [facility], [address] [place] [address], [facility] [address] [place], [address], 5 23:12:50 urinalysis, dipstick [address] ([facility]), [address] [place] [address], [address], 5 17:30:37 urinalysis, dipstick 2024 025 [facility] ([facility]), [address] [place] [address], [address], 5 18:19:52 culture, urine 2024 025 [place] [facility], [address] [place] [address] [address], [address], [place], [address], 5 01:18:50 urinalysis, complete 2023 024 [facility], [address] [place] [address] Ave, [address], [place], [address], 4 15:57:01 culture, urine 2023 024 [facility], [address] [address], [address] [place], [address], 4 16:10:20 urinalysis, complete 2023 024 [email or web address] [facility] ([facility]), [address] [facility], [place], [address], 15:16:16 Referral None recorded. Procedures None recorded. Surgeries None recorded. Imaging None recorded. Medication Orders amoxicillin 875 mg-potassiu m clavulanate 125 mg tablet 2024 025 [facility] #[id number], [address], [address], [place], [address], 5 16:15:02 cefuroxime axetil 250 mg tablet 2024 025 [facility] #[id number], [address], [place], [place], [id number], 5 05:01:40 doxycycline hyclate 100 mg capsule 2024 025 [facility] #[id number], [address], [place], [place], [id number], 5 15:57:17 Patient TargetsNo targets recorded. Patient Instructions Encounter Date Encounter Id Patient Instructions Last Modified By Organization Details Last Modified Time 03/21/2024 [id number] Increase fluids and follow up for worsening [email or web address] Not available 03/21/2024 18:33:07 Reason for Referral None Reported. Results Created Date Observation Date Name Description Value Unit Range Abnormal Flag Note LastModifiedBy Organization Detail LastModifiedTime 01/15/20 24 01/15/2024 URINA LYSIS WITH MICRO color YELLOW Not Available [facility] [address], [place], [address], 01/15/2024 15:57:01 01/15/20 24 01/15/2024 URINA LYSIS WITH MICRO clarity CLEAR Not Available [facility] [address], [place], [address], 01/15/2024 15:57:01 01/15/20 24 01/15/2024 URINA LYSIS WITH MICRO glu NEGATI VE Not Available [facility] [address], [place], [address], 01/15/2024 15:57:01 01/15/20 24 01/15/2024 URINA LYSIS WITH MICRO bili NEGATI VE Not Available [facility] [address], [place], [address], 01/15/2024 15:57:01 01/15/20 24 01/15/2024 URINA LYSIS WITH MICRO ket NEGATI VE Not Available [facility] [address], [place], [address], 01/15/2024 15:57:01 01/15/20 24 01/15/2024 URINA LYSIS WITH MICRO S.g 1.010 1.005- 1.025 Not Available [facility] [address], [place], [address], 01/15/2024 15:57:01 01/15/20 24 01/15/2024 URINA LYSIS WITH MICRO pH 6.5 5.0-7. 0 Not Available [facility] [address], [place], [address], 01/15/2024 15:57:01 01/15/20 24 01/15/2024 URINA LYSIS WITH MICRO pro NEGATI VE Not Available [facility] [address], [place], [address], 01/15/2024 15:57:01 01/15/20 24 01/15/2024 URINA LYSIS WITH MICRO uro 0.2 Not Available [facility] [address], [place], [address], 01/15/2024 15:57:01 01/15/20 24 01/15/2024 URINA LYSIS WITH MICRO nit NEGATI VE Not Available [facility] [address] [facility] 1, [place], [address], 01/15/2024 15:57:01 01/15/20 24 01/15/2024 URINA LYSIS WITH MICRO blo NEGATI VE Not Available [facility] [address] [facility], [place], [address], 01/15/2024 15:57:01 01/15/20 24 01/15/2024 URINA LYSIS WITH MICRO erika NEGATI VE Not Available [facility] [address] [facility] 1, [place], [address], 01/15/2024 15:57:01 01/15/20 24 01/15/2024 URINA LYSIS WITH MICRO WBC 0-1 Not Available [facility] [address], [place], [address], 01/15/2024 15:57:01 01/15/20 24 01/15/2024 URINA LYSIS WITH MICRO RBC NEGATI VE Not Available [facility] [address] [facility] 1, [place], [address], 01/15/2024 15:57:01 01/15/20 24 01/15/2024 URINA LYSIS WITH MICRO epi cells 0-1 Not Available [facility] [address], [place], [address], 01/15/2024 15:57:01 01/15/20 24 01/15/2024 URINA LYSIS WITH MICRO bacteria NEGATI VE Not Available [facility] [address], [place], [address], 01/15/2024 15:57:01 01/15/20 24 01/15/2024 URINA LYSIS WITH MICRO other NG Not Available [facility] [address], [place], [address], 01/15/2024 15:57:01 12/16/19 24 12/16/2023 URINA LYSIS WITH MICRO color YELLOW Not Available [facility] [address], [place], [address], 12/16/2023 15:59:32 12/16/19 24 12/16/2023 URINA LYSIS WITH MICRO clarity CLEAR Not Available [facility] [address], [place], [address], 12/16/2023 15:59:32 12/16/19 24 12/16/2023 URINA LYSIS WITH MICRO glu NEGATI VE Not Available [facility] [address], [place], [address], 12/16/2023 15:59:32 12/16/19 24 12/16/2023 URINA LYSIS WITH MICRO bili NEGATI VE Not Available [facility] [address], [place], [address], 12/16/2023 15:59:32 12/16/19 24 12/16/2023 URINA LYSIS WITH MICRO ket NEGATI VE Not Available [facility] [address], [place], [address], 12/16/2023 15:59:32 12/16/19 24 12/16/2023 URINA LYSIS WITH MICRO S.g 1.005 1.005- 1.025 Not Available [facility] [address], [place], [address], 12/16/2023 15:59:32 12/16/19 24 12/16/2023 URINA LYSIS WITH MICRO pH 5.5 5.0-7. 0 Not Available [facility] [address], [place], [address], 12/16/2023 15:59:32 12/16/19 24 12/16/2023 URINA LYSIS WITH MICRO pro NEGATI VE Not Available [facility] [address], [place], [address], 12/16/2023 15:59:32 12/16/19 24 12/16/2023 URINA LYSIS WITH MICRO uro 0.2 E.U./D L Not Available [facility] [address], [place], [address], 12/16/2023 15:59:32 12/16/19 24 12/16/2023 URINA LYSIS WITH MICRO nit NEGATI VE Not Available [facility] [address], [place], [address], 12/16/2023 15:59:32 12/16/19 24 12/16/2023 URINA LYSIS WITH MICRO blo NEGATI VE Not Available [facility] [address], [place], [address], 12/16/2023 15:59:32 12/16/19 24 12/16/2023 URINA LYSIS WITH MICRO erika 2+ Not Available [facility] [address], [place], [address], 12/16/2023 15:59:32 12/16/19 24 12/16/2023 URINA LYSIS WITH MICRO WBC 35-40 Not Available [facility] [address] [address], [place], [address], 12/16/2023 15:59:32 12/16/19 24 12/16/2023 URINA LYSIS WITH MICRO RBC 0-1 Not Available [facility] [address] [address], [place], [address], 12/16/2023 15:59:32 12/16/19 24 12/16/2023 URINA LYSIS WITH MICRO epi cells 6-8 Not Available [facility] [address] [address], [place], [address], 12/16/2023 15:59:32 12/16/19 24 12/16/2023 URINA LYSIS WITH MICRO bacteria - Not Available [facility] [address] [address], [place], [address], 12/16/2023 15:59:32 12/16/19 24 12/16/2023 URINA LYSIS WITH MICRO other - Not Available [facility] [address] [address], [place], [address], 12/16/2023 15:59:32 12/16/19 24 12/17/2023 CULTU RE, URINE , ROUTI NE culture, urine, routine SEE NOTE CULTU RE, URINE , ROUTI NE Micro Numbe r: [id number] Test Statu s: Final Speci men Sourc e: Urine , clean catch Speci men Quali ty: Adequ ate Resul t: No Growt h Not Available [facility] [address], [place], [address], 12/17/2023 19:08:32 12/18/19 24 12/18/2023 urina lysis , compl ete color yellow Not Available [facility] ([facility]) [address] [place], [address], 12/18/2023 15:16:03 12/18/19 24 12/18/2023 urina lysis , compl ete clarity clear clear Not Available [facility] ([facility]) [address] [place], [address], 12/18/2023 15:16:03 12/18/19 24 12/18/2023 urina lysis , compl ete glucose NG negati ve Not Available [facility] ([facility]) [address] [place], [address], 12/18/2023 15:16:03 12/18/19 24 12/18/2023 urina lysis , compl ete bilirubin NG negati ve Not Available [facility] ([facility]) [address] [place], [address], 12/18/2023 15:16:03 12/18/19 24 12/18/2023 urina lysis , compl ete ketones NG negati ve Not Available [facility] ([facility]) [address] [place], [address], 12/18/2023 15:16:03 12/18/19 24 12/18/2023 urina lysis , compl ete specific gravity 1.010 1.005- 1.025 Not Available [facility] ([facility]) [address] [place], [address], 12/18/2023 15:16:03 12/18/19 24 12/18/2023 urina lysis , compl ete pH 6.0 5.0-7. 0 Not Available [facility] ([facility]) [address] [place], [address], 12/18/2023 15:16:03 12/18/19 24 12/18/2023 urina lysis , compl ete protein NG Not Available [facility] ([facility]) [address] [place], [address], 12/18/2023 15:16:03 12/18/19 24 12/18/2023 urina lysis , compl ete uro 0.2 Not Available [facility] ([facility]) [address] [place], [address], 12/18/2023 15:16:03 12/18/19 24 12/18/2023 urina lysis , compl ete nitrate NG negati ve Not Available [facility] ([facility]) [address] [place], [address], 12/18/2023 15:16:03 12/18/19 24 12/18/2023 urina lysis , compl ete blood NG negati ve Not Available [facility] ([facility]) [address] [place], [address], 12/18/2023 15:16:03 12/18/19 24 12/18/2023 urina lysis , compl ete leukocytes NG negati ve Not Available [facility] ([facility]) [address] [place], [address], 12/18/2023 15:16:03 12/18/19 24 12/18/2023 urina lysis , compl ete WBC 0-1 0 Not Available [facility] ([facility]) [address] [place], [address], 12/18/2023 15:16:03 12/18/19 24 12/18/2023 urina lysis , compl ete RBC NG 0 Not Available [facility] ([facility]) [address] [place], [address], 12/18/2023 15:16:03 11/07/12/18/2023 urina lysis , compl ete epi cells 0-1 0 Not Available [facility] ([facility]) [address] [place], [address], 12/18/2023 15:16:03 12/18/19 24 12/18/2023 urina lysis , compl ete bacteria NG Not Available [facility] ([facility]) [address] [place], [address], 12/18/2023 15:16:03 12/18/19 24 12/18/2023 urina lysis , compl ete other NG Not Available [facility] ([facility]) [address] [place], [address], 12/18/2023 15:16:03 12/31/19 24 12/31/2023 URINA LYSIS WITH MICRO color YELLOW Not Available [facility] [address] [facility] [address], [place], [address], 12/31/2023 15:49:03 12/31/19 24 12/31/2023 URINA LYSIS WITH MICRO clarity CLEAR Not Available [facility] [address] [facility] [address], [place], [address], 12/31/2023 15:49:03 12/31/19 24 12/31/2023 URINA LYSIS WITH MICRO glu NEGATI VE Not Available [facility] [address] [facility] [address], [place], [address], 12/31/2023 15:49:03 12/31/19 24 12/31/2023 URINA LYSIS WITH MICRO bili NEGATI VE Not Available [facility] [address] [facility] [address], [place], [address], 12/31/2023 15:49:03 12/31/19 24 12/31/2023 URINA LYSIS WITH MICRO ket NEGATI VE Not Available [facility] [address] [facility] 1, [place], [address], 12/31/2023 15:49:03 12/31/19 24 12/31/2023 URINA LYSIS WITH MICRO S.g 1.015 1.005- 1.025 Not Available [facility] [address] [facility] [address], [place], [address], 12/31/2023 15:49:03 12/31/19 24 12/31/2023 URINA LYSIS WITH MICRO pH 5.5 5.0-7. 0 Not Available [facility] [address] [facility] [address], [place], [address], 12/31/2023 15:49:03 12/31/19 24 12/31/2023 URINA LYSIS WITH MICRO pro NEGATI VE Not Available [facility] [address] [facility] [address], [place], [address], 12/31/2023 15:49:03 12/31/19 24 12/31/2023 URINA LYSIS WITH MICRO uro 0.2 E.U./D L Not Available [facility] [address] [facility] [address], [place], [address], 12/31/2023 15:49:03 12/31/19 24 12/31/2023 URINA LYSIS WITH MICRO nit NEGATI VE Not Available [facility] [address] [facility] [address], [place], [address], 12/31/2023 15:49:03 12/31/19 24 12/31/2023 URINA LYSIS WITH MICRO blo NEGATI VE Not Available [facility] [address] [facility] 1, [place], [address], 12/31/2023 15:49:03 12/31/19 24 12/31/2023 URINA LYSIS WITH MICRO erika 1+ abnormal Not Available [facility] [address] [facility] [address], [place], [address], 12/31/2023 15:49:03 12/31/19 24 12/31/2023 URINA LYSIS WITH MICRO WBC 15-18 abnormal Not Available [facility] [address] [address], [place], [address], 12/31/2023 15:49:03 12/31/19 24 12/31/2023 URINA LYSIS WITH MICRO RBC NEGATI VE Not Available [facility] [address] [address], [place], [address], 12/31/2023 15:49:03 12/31/19 24 12/31/2023 URINA LYSIS WITH MICRO epi cells 4-6 Not Available [facility] [address] [facility] [address], [place], [address], 12/31/2023 15:49:03 12/31/19 24 12/31/2023 URINA LYSIS WITH MICRO bacteria TRACE OF MIXED DAVI abnormal Not Available [facility] [address] [facility] 1, [place], [address], 12/31/2023 15:49:03 12/31/19 24 12/31/2023 URINA LYSIS WITH MICRO other NG Not Available [facility] [address] [facility] [address], [place], [address], 12/31/2023 15:49:03 12/31/19 24 01/02/2024 CULTU RE, URINE , ROUTI NE culture, urine, routine SEE NOTE CULTU RE, URINE , ROUTI NE Micro Numbe r: [id number] Test Statu s: Final Speci men Sourc e: Urine Speci men Quali ty: Adequ ate Resul t: No Growt h Not Available [facility] [address], [place], [address], 01/02/2024 01:39:52 01/15/20 24 01/17/2024 CULTU RE, URINE , ROUTI NE culture, urine, routine SEE NOTE CULTU RE, URINE , ROUTI NE Micro Numbe r: [id number] Test Statu s: Final Speci men Sourc e: Urine Speci men Quali ty: Adequ ate Resul t: No Growt h Not Available [facility] [address] [place], [address], 01/17/2024 16:10:20 07/14/19 25 07/13/2024 urina lysis , dipst ick Leukocytes Large Not Available [facility] [address] [place] [address], [address], 07/13/2024 18:05:04 07/14/19 25 07/13/2024 urina lysis , dipst ick Nitrite negati ve Not Available [facility] ([facility]) [address] [place] [address], [address], 07/13/2024 18:05:04 07/14/19 25 07/13/2024 urina lysis , dipst ick Urobilinogen .2 Not Available [facility] ([facility]) [address] [place] [address], [address], 07/13/2024 18:05:04 07/14/19 25 07/13/2024 urina lysis , dipst ick Protein Negati ve Not Available [facility] ([facility]) [address] [place], [address], 07/13/2024 18:05:04 07/14/19 25 07/13/2024 urina lysis , dipst ick pH 6.0 Not Available [facility] ([facility]) [address] [place] [address], [address], 07/13/2024 18:05:04 07/14/19 25 07/13/2024 urina lysis , dipst ick Blood Small Not Available [facility] ([facility]) [address] [place], [address], 07/13/2024 18:05:04 07/14/19 25 07/13/2024 urina lysis , dipst ick Specific [place] 1.010 Not Available [facility] ( [facility]) [address] [place], [address], 07/13/2024 18:05:04 07/14/19 25 07/13/2024 urina lysis , dipst ick Ketone Negati ve Not Available [facility] ([facility]) [address] [place], [address], 07/13/2024 18:05:04 07/14/19 25 07/13/2024 urina lysis , dipst ick Bilirubin Negati ve Not Available [facility] ([facility]) [address] [place], [address], 07/13/2024 18:05:04 07/14/19 25 07/13/2024 urina lysis , dipst ick Glucose Negati ve Not Available [facility] ([facility]) [address] [place], [address], 07/13/2024 18:05:04 07/14/19 25 07/13/2024 urina lysis , dipst ick Appearance Slight ly Cloudy Not Available [facility] ([facility]) [address] [place], [address], 07/13/2024 18:05:04 07/14/19 25 07/13/2024 urina lysis , dipst ick Color Yellow Not Available [facility] ([facility]) [address] [place], [address], 07/13/2024 18:05:04 07/15/19 25 07/17/2024 CULTU RE, URINE , ROUTI NE culture, urine, routine SEE NOTE abnormal CULTU RE, URINE , ROUTI NE Micro Numbe r: [id number] Test Statu s: Final Speci men Sourc e: Urine , clean catch Speci men Quali ty: Adequ ate Resul t: Great er than 100,0 00 CFU/m L of Klebs iella pneum oniae K.pne umoni ae ----- ----- ----- - INT MIKE AMOX/ CLAVU LANAT E S <=2 AMP/S ULBAC MITCHELL S 8 CEFAZ PREETI NR <=4 2 CEFEP LAURA S <=0.1 2 CEFTA ZIDIM E S <=1 CEFTR IAXON E S <=0.2 5 CIPRO FLOXA MAY S <=0.0 6 GENTA MICIN S <=1 IMIPE NEM S <=0.2 5 LEVOF LOXAC IN S <=0.1 2 MEROP ENEM S <=0.2 5 NITRO FURAN TOIN R 128 PIP/T AZOBA CTAM S <=4 TRIME THOPR IM/VUONG LFA S <=20 S = Susce ptibl e I = Inter media te R = Resis tant NS = Not susce ptibl e SDD = Susce ptibl e Dose Depen dent * = Not Teste d NR = Not Repor shelbie NN = See Thera py Comme nts THERA PY COMME NTS Note 1: For infec tions other than uncom plica shelbie UTI cause d by E. coli, K. pneum oniae or P. mirab ilis: Cefaz preeti is resis tant if MIKE > or = 8 mcg/m L. (Dist ingui shing susce ptibl e versu s inter media te for isola renetta with MIKE < or = 4 mcg/m L requi res addit ional testi ng.) Note 2: For uncom plica shelbie UTI cause d by E. coli, K. pneum oniae or P. mirab ilis: Cefaz preeti is susce ptibl e if MIKE <32 mcg/m L and predi cts susce ptibl e to the oral agent s cefac franki, cefdi linda, cefpo doxim e, cefpr ozil, cefur oxime , cepha lexin and lorac arbef . Not Available [facility] [address] [place], [address], 07/17/2024 01:18:50 08/20/19 25 08/20/2024 CULTU RE, URINE , ROUTI NE culture, urine, routine SEE NOTE CULTU RE, URINE , ROUTI NE Micro Numbe r: [id number] Test Statu s: Final Speci men Sourc e: Urine , clean catch Speci men Quali ty: Adequ ate Resul t: Mixed genit al davi isola shelbie. These super ficia l bacte yazmin are not indic ative of a urina ry tract infec tion. No furth er organ ism ident ifica tion is warra nted on this speci men. If clini astrid indic ated, recol lect clean -catc h, mid-s tream urine and trans lisa immed iatel y to Urine Cultu re Trans port Tube. Not Available [facility] [address] [place], [address], 08/20/2024 23:12:50 08/20/19 25 08/19/2024 urina lysis , dipst ick Leukocytes Large Not Available [facility] ([facility]) [address] [place] [address], [address], 08/19/2024 15:59:22 08/20/19 25 08/19/2024 urina lysis , dipst ick Nitrite negati ve Not Available [facility] ([facility]) [address] [place] [address], [address], 08/19/2024 15:59:22 08/20/19 25 08/19/2024 urina lysis , dipst ick Urobilinogen .2 Not Available [facility] ([facility]) [address] [place] [address], [address], 08/19/2024 15:59:22 08/20/19 25 08/19/2024 urina lysis , dipst ick Protein Negati ve Not Available [facility] ([facility]) [address] [place], [address], 08/19/2024 15:59:22 08/20/19 25 08/19/2024 urina lysis , dipst ick pH 7.0 Not Available [facility] ([facility]) [address] [place], [address], 08/19/2024 15:59:22 08/20/19 25 08/19/2024 urina lysis , dipst ick Blood Non-He molyze d: Trace Not Available [facility] ([facility]) [address] [place], [address], 08/19/2024 15:59:22 08/20/19 25 08/19/2024 urina lysis , dipst ick Specific [place] 1.015 Not Available [facility] ( [facility]) [address] [place], [address], 08/19/2024 15:59:22 08/20/19 25 08/19/2024 urina lysis , dipst ick Ketone Negati ve Not Available [facility] ([facility]) [address] [place], [address], 08/19/2024 15:59:22 08/20/19 25 08/19/2024 urina lysis , dipst ick Bilirubin Negati ve Not Available [facility] ([facility]) [address] [place], [address], 08/19/2024 15:59:22 08/20/19 25 08/19/2024 urina lysis , dipst ick Glucose Negati ve Not Available [facility] ([facility]) [address] [place], [address], 08/19/2024 15:59:22 08/20/19 25 08/19/2024 urina lysis , dipst ick Appearance Clear Not Available [facility] ([facility]) [address] [place], [address], 08/19/2024 15:59:22 08/20/19 25 08/19/2024 urina lysis , dipst ick Color Yellow Not Available [facility] ([facility]) [address] [place], [address], 08/19/2024 15:59:22 Result Notes None recorded. Problems Name Problem SNOMED Code Status Onset Date Resolution Date Notes Provider Name and Address Organization Details Recorded Time Contrace ptive counseli ng Completed 201511/23/2015 GENERAL COUNSELI NG AND ADVICE FOR CONTRACE PTIVE MANAGEME NT - Status is Inactive ; Recorded 11/23/19 16 6:36PM by Rock Servin CMT, Annotati on/Addfelicity dum; Promoted ; acuity set as *; Not Available [facility] 3 03:16:03 Mixed hyperlip idemia 232472314 Active 2018 [facility] 4 16:38:13 Essentia l hyperten raúl 39597046 Active 2018 [facility] 4 16:37:05 Depressi ve disorder 31876577 Active 2018 [facility] 4 16:36:54 History of renal transpla nt 901930327 Active 2018 [facility] 4 16:37:55 Myocardi al infarcti on 39673480 Active 2018 [facility] 4 16:38:15 Calcific ation of coronary artery 202700504 Active 2018 [facility] 4 16:36:39 Immunosu ppressio n 16350238 Active 2019 [facility] 4 16:38:04 End stage renal failure on dialysis 227182325 Completed 201904/27/2019 END STAGE RENAL DISEASE ON DIALYSIS - Status is Inactive ; Dr. Goldsmith.; 04/27/19 4:25PM by Rock Servin CMT, Annotati on/Adden dum; Promoted ; acuity set as *; Not Available [facility] 3 03:16:04 Hemorrha ge into peritone al cavity [id number] Active 2021 [facility] 4 16:37:36 Drug-ind uced immunode ficiency 406256998 Active 2021 [facility] 4 16:37:02 Gastroes ophageal reflux disease 366040407 Active 2022 [facility] 4 16:37:13 Cholecys titis 62079360 Active 2022 [facility] 4 16:36:47 Hypercho lesterol emia 85800429 Active 2022 [facility] 4 16:38:01 Benign hyperten raúl 09569893 Active 2022 [facility] 4 16:36:35 Mitral valve regurgit ation 95659781 Active 2022 [facility] 4 16:38:10 Pulmonar y hyperten raúl 15294652 Active 2022 [facility] [facility] 4 16:38:26 Non-obst ructive atherosc lerosis of coronary artery 141753079 Active 2022 RCOK GARETH hamilton [facility], [place] 4 16:38:20 Obstruct vanda sleep apnea syndrome 82131753 Active 2022 ROCK hamilton [facility] [place] 4 16:38:22 Osteopen ia 842815334 Active 2023 ROCK hamilton [facility] [place] 4 13:19:34 Notes:Some problems listed i n Documents: #[id number], #[id number] could not be added to this patient's chart. Please review these documents and add these problems to the patient's chart manually as needed. Problem Notes None recorded. Procedures Surgical History Date Name Laterality Status Provider Name and Address Organization Details Recorded Time [address] [facility] [place] 12/10/2023 14:50:43 [address] [facility] 19:30:44 024 screening for malignant neoplasm of cervix completed [facility] [place] 10/14/2023 19:32:[address] [facility]23 13:17:29 [address] [facility]15[facility] 13:19:[address] [facility] 11/15/2023 13:17:[address] [facility] 11/15/2023 13:15:15 019 screening for malignant neoplasm of cervix completed [facility] 11/15/2023 13:18:[address] [facility] 11/15/2023 13:15:[address] [facility] 11/08/2022 12:56:41 transplant of kidney completed [facility] 11/08/2022 12:58:[address] [facility] 11/08/2022 12:57:[address] [facility] 11/08/2022 12:58:[address] [facility] 11/08/2022 12:58:20 Imaging Results None recorded. Procedure Notes None recorded. Medical Equipment None Reported. Allergies Allergen ID Allergen Name Allergen Category Reaction Reaction Severity Criticality Documentation Date Start Date Code Code System Note Provider Name and Address Organization Details Recorded Time 10729 nitroglyc lupe medicatio n headache moderate low 09/07/2022 4917 RxNorm Padmini hamilton [facility] 4 19:00:38 40525 hydralazi ne medicatio n nausea mild low 09/07/20222018 5470 RxNorm Padmini Cisneros [facility], [facility] 4 19:00:30 56332 Procrit medicatio n Not available Not available Not available 09/07/2022 95747 3 RxNorm ROCK SERVIN [facility] 4 15:26:41 62433 dobutamin e hydrochlo ride medicatio n Not available Not available Not available 09/07/202288297 1 [facility] 4 15:26:01 50658 dobutamin e medicatio n other Not available Not available 11/16/20222017 3616 [facility] 4 15:26:54 50436 nitroglyc lupe medicatio n nausea other Not available Not available Not available 11/16/20222018 4917 RxNorm [facility] 4 15:26:11 54397 iron-dext ran complex medicatio n hives rash mild mild low 11/16/20222018 5992 RxNorm Padmini Cisneros [facility] 4 19:00:33 82204 oxycodone medicatio n Not available Not available Not available 11/16/20222022 7804 RxNorm HUE THERON, [facility] [address] [place], [address], [facility] 3 22:17:25 81142 epoetin sharla medicatio n Not available Not available Not available 11/16/20222016 26663 4 RxNorm HUE THERON, [facility] [address] [place], [address], [facility] 3 22:17:25 Medications Name Sig Start Date Stop Date Status Note LastModified by Organization Details LastModified Time tretinoin 0.1 % topical cream 08/09 completed Not Available Not Available Not Available furosemid e 40 mg tablet TAKE 1 TABLET (40 MG TOTAL) BY MOUTH 1 (ONE) TIME EACH DAY NEEDED. active Not Available Not Available No t Available ascorbic acid (vitamin C) 1,000 mg tablet 2000 mg by oral route. active Not Available Not Available No t Available carvedilo l 6.25 mg tablet TAKE 1 TABLET BY MOUTH TWICE A DAY active Not Available Not Available No t Available doxycycli ne hyclate 100 mg capsule TAKE 1 CAPSULE BY MOUTH TWICE DAILY FOR 10 DAYS 08/19 completed Not Available Not Available Not Available cefuroxim e axetil 250 mg tablet Take 1 tablet twice a day by oral route for 10 days, for UTI. 07/30 completed Not Available Not Available Not Available carvedilo l 12.5 mg tablet TAKE 2 TABLETS BY MOUTH 2 TIMES A DAY WITH MEALS. 12/30 completed Not Available Not Available Not Available ropinirol e 1 mg tablet TAKE 1 TABLET BY MOUTH NIGHTLY AT BEDTIME active Not Available Not Available No t Available alprazola m 1 mg tablet TAKE 1 TABLET BY MOUTH TWICE A DAY NEEDED active Not Available Not Available No t Available fluconazo le 150 mg tablet TAKE 1 TABLET DAILY FOR 2 DAYS THEN 7 DAYS LATER TAKE 1 TABLET 09/30 completed Not Available Not Available Not Available prednison e 20 mg tablet TAKE 1 TABLET BY MOUTH EVERY DAY 09/30 completed Not Available Not Available Not Available prednison e 5 mg tablet TAKE 1 TABLET BY MOUTH EVERY DAY active Not Available Not Available No t Available metronida zole 500 mg tablet TAKE 1 TABLET BY MOUTH THREE TIMES A DAY 09/30 completed Not Available Not Available Not Available levofloxa may 250 mg tablet TAKE 1 TABLET (250 MG TOTAL) BY MOUTH 1 (ONE) TIME EACH DAY FOR 10 DAYS 09/30 completed Not Available Not Available Not Available ciproflox acin 500 mg tablet TAKE 1 TABLET TWICE A DAY BY ORAL ROUTE FOR 7 DAYS, FOR UTI. 12/30 completed Not Available Not Available Not Available tramadol 50 mg tablet Take every 6 hours by oral route. 09/30 completed Not Available Not Available Not Available levothyro xine 100 mcg tablet TAKE 1 TABLET BY MOUTH EVERY DAY 10/02 completed Not Available Not Available Not Available methenami ne hippurate 1 gram tablet TAKE 1 TABLET BY MOUTH TWICE A DAY active Not Available Not Available No t Available prednisol one acetate 1 % eye drops,[facility] [address] 1 DROP INTO AFFECTED EYE 2X/DAY START 2 DAYS BEFORE SURGERY & CONTINUE Y80HIFF AFTER SURGERY 07/02 completed Not Available Not Available Not Available amitripty line 10 mg tablet TAKE 1 TABLET BY MOUTH EVERY DAY AT BEDTIME FOR 30 DAYS 09/30 completed Not Available Not Available Not Available pantopraz ole 40 mg tablet,de layed release TAKE 1 TABLET BY MOUTH EVERY DAY active Not Available Not Available No t Available levothyro xine 125 mcg tablet TAKE 1 TABLET BY MOUTH EVERY DAY FOR 90 DAYS FOR THYROID 12/30 completed Not Available Not Available Not Available neomycin- polymyxin -dexameth 3.5 mg/mL-10, 000 unit/mL-0 .1% eye drops INSTILL 2 DROPS INTO AFFECTED EYE THREE TIMES DAILY FOR 7 DAYS active Not Available Not Available No t Available levothyro xine 150 mcg tablet TAKE 1 TABLET BY MOUTH EVERY DAY active Not Available Not Available No t Available monteluka st 10 mg tablet TAKE 1 TABLET BY MOUTH EVERY DAY active Not Available Not Available No t Available azelastin e 137 mcg (0.1 %) nasal spray ADMINIST ER 1 SPRAY IN EACH NOSTRIL TWICE DAILY DIRECTED active Not Available Not Available No t Available cefuroxim e axetil 500 mg tablet TAKE 1 TABLET BY MOUTH TWICE DAILY FOR 7 DAYS 07/12 completed Not Available Not Available Not Available estradiol 0.01% (0.1 mg/gram) vaginal cream APPLY 2-4 GRAMS DAILY FOR 14 DAYS, THEN 1 GRAM 1-3 TIMES PER WEEK active Not Available Not Available No t Available cefdinir 300 mg capsule TAKE 1 CAPSULE BY MOUTH EVERY DAY FOR 5 DAYS 12/15 completed Not Available Not Available Not Available fluoxetin e 20 mg capsule TAKE 3 CAPSULES BY MOUTH EVERY DAY 2024 active Not Available Not Available Not Avai lable tacrolimu s 1 mg capsule, immediate -release TAKE 2 CAPSULES BY MOUTH IN THE MORNING AND IN THE EVENING active Not Available Not Available No t Available doxycycli ne hyclate 100 mg tablet TAKE 1 TABLET BY MOUTH TWICE A DAY FOR 7 DAYS THEN DAILY FOR SUPPRESS ION 09/30 completed Not Available Not Available Not Available amoxicill in 875 mg-potass ium clavulana te 125 mg tablet Take 1 tablet every 12 hours by oral route for 7 days. 2024 active Not Available Not Available Not Avai lable rosuvasta tin 40 mg tablet TAKE 1 TABLET BY MOUTH EVERY DAY 2024 active Not Available Not Available Not Avai lable bupropion HCl XL 150 mg 24 hr tablet, extended release TAKE 1 TABLET BY MOUTH EVERY DAY active Not Available Not Available No t Available Senna S 8.6 mg-50 mg tablet daily 11/08 completed 0; Recorded 02/22/19 23 2:23PM by Rock Servin CMT, Office Visit; Not Available Not Available Not Available metoprolo l tartrate 25 mg tablet TAKE 1 TABLET BY MOUTH TWICE A DAY active Not Available Not Available No t Available mycopheno late sodium 180 mg tablet,de layed release TAKE 1 TABLET BY MOUTH TWICE A DAY IN THE MORNING AND EVENING active Not Available Not Available No t Available Senokot-S 8.6 mg-50 mg tablet Take 1 {tbl} by oral route. 09/30 completed Not Available Not Available Not Available nitrofura ntoin monohydra te/macroc rystals 100 mg capsule Take 1 capsule twice daily for 5 days and then daily for 30 days 07/12 completed Not Available Not Available Not Available psyllium 3.4 gram/5.8 gram oral powder Take 1 {packet} 3 times a day by oral route. 08/09 completed Not Available Not Available Not Available carvedilo l twice daily 11/08 completed 0; Recorded 02/22/19 23 2:23PM by Rock Servin CMT, Office Visit; Not Available Not Available Not Available fluoxetin e 60 mg tablet 09/30 completed Not Available Not Available Not Available bupropion HCl 150 mg tablet,12 hr sustained -release( smoking deterrent ) Take 150 mg by oral route. 09/30 completed Not Available Not Available Not Available Xerostomi a Relief twice a day 11/[address] Yordy FULLER/Ayo jackson, COMMERCIAL REAL ESTATE ASSISTANT; Recorded 12/17/19 19 4:49PM by Marika Christianson, Office Visit; Refill Quantity : 1; Each; Not Available Not Available Not Available Vitals Date Recorded Body height Body mass index (BMI) Body weight Body temperature Heart rate Oxygen saturation Oxygen saturation in Arterial blood by Pulse oximetry Systolic And Diastolic Provider Name and Address Organization Details Last Updated DateTime 5 172.72 cm 30.6 kg/m2 85337.8 7 g 98.2 [degF] 65 /min 97 % 97 % 142/70 mm[Hg] Charlene Mckinney [facility] 5 16:32:01 Date Recorded Body height Body mass index (BMI) Body weight Oxygen saturation Oxygen saturation in Arterial blood by Pulse oximetry Heart rate Body temperature Respiratory rate Systolic And Diastolic Provider Name and Address Organization Details Last Updated DateTime 5 172.72 cm 30.9 kg/m2 12266.2 5 g 96 % 96 % 76 /min 97.9 [degF] 18 /min 140/70 mm[Hg] SOUMYA LANDIS [facility] 18:12:29 Date Recorded Body height Body mass index (BMI) Body weight Oxygen saturation Oxygen saturation in Arterial blood by Pulse oximetry Heart rate Respiratory rate Body temperature Systolic And Diastolic Provider Name and Address Organization Details Last Updated DateTime 5 172.72 cm 31.2 kg/m2 24731.4 4 g 98 % 98 % 86 /min 16 /min 98.2 [degF] 130/80 mm[Hg] Shwetatom Kowalski [facility] 16:05:21 Social History Question Answer Notes LastModified by [employer] Details LastModified Time Tobacco Smoking Status [facility] 11/15/2023 13:13:56 What Was The Date Of Your Most Recent Tobacco Screening? 08/19/2024 [email or web address] Information not available 08/19/2024 What Is Your Relationship Status? Information not available 11/15/2023 Sex: Unknown Functional Status Question Answer Note LastModified by [employer] Details LastModified Time Do you use any illicit or recreational drugs? No [email or web address] Information not available 11/15/2023 What is your level of alcohol consumption? None [email or web address] Information not available 11/15/2023 Are you currently employed? No [email or web address] Information not available 11/15/2023 Are you able to walk? YESWOREST [email or web address] Information not available 11/15/2023 Are you able to care for yourself? Yes [email or web address] Information n ot available 11/15/2023 Mental Status None recorded. Family History Relationship Description Onset Age of this Age Resolved Age Notes LastModified by Organization Details LastModified Time Father Essential hypertension [email or web address] Not available 13:12:29 Maternal Grandmother Type 2 diabetes mellitus [email or web address] Not available 11/14 13:12:47 Paternal Grandmother Malignant neoplasm of lung [email or web address] Not available 11/14 13:13:07 Mother Malignant tumor of breast [email or web address] Not available 11/14 13:13:20 Mother Coronary arterioscler osis [email or web address] Not available 11/14 13:13:28 Sister Malignant tumor of breast [email or web address] Not available 12/09 15:02:08 Medical History Condition Response Depression Y Hypothyroidism Y Anxiety Disorder Y Reflux/GERD Y High Cholesterol Y Hypertension Y Kidney Disease Y Gynecological HistoryNo gynecological history recorded. Obstetrics History GPAL:G 0 P 0 0 0 0 Immunizations Vaccine Type Date Status Note Provider Nam e and Address Organization Details Recorded Time Influenza, split virus, trivalent, preservative 2 completed Padmini ham[facility] 10/03/2023 19:00:52 Influenza, MDCK, quadrivalent, PF 0 completed Not Available [facility] 02/12/2023 16:26:23 Influenza, split virus, trivalent, preservative 8 completed [facility] Available [facility] 02/12/2023 16:26:23 Influenza, split virus, trivalent, preservative 7 completed Not Available [facility] 02/12/2023 16:26:23 Influenza, split virus, trivalent, preservative 5 completed Padmini Pliler [facility] 10/03/2023 19:00:52 Influenza, split virus, trivalent, preservative 6 completed Not Available [facility] 02/12/2023 16:26:23 COVID-19, mRNA, LNP-S, PF, 100 mcg/0.5mL dose or 50 mcg/0.25mL dose 2 [facility] 10/03/2023 19:00:52 Tdap 5 completed [facility] 10/03/2023 19:00:52 COVID-19, mRNA, LNP-S, PF, 100 mcg/0.5mL dose or 50 mcg/0.25mL dose 1 [facility] 10/03/2023 19:00:52 COVID-19, mRNA, LNP-S, PF, 100 mcg/0.5mL dose or 50 mcg/0.25mL dose 1 [facility] 10/03/2023 19:00:52 COVID-19, mRNA, LNP-S, PF, 100 mcg/0.5mL dose or 50 mcg/0.25mL dose 1 completed [facility] 10/03/2023 19:00:52 COVID-19, mRNA, LNP-S, bivalent, PF, 50 mcg/0.5 mL or 25mcg/0.25 mL dose 2 [facility] 10/03/2023 19:00:52 Influenza, split virus, trivalent, preservative 3 [facility] 10/03/2023 19:00:52 Influenza, split virus, trivalent, preservative 4 completed Padmini hamilton, [facility] 10/03/2023 19:00:52 Influenza, split virus, quadrivalent, PF 2 completed Padmini hamilton [facility] 10/03/2023 19:00:52 Influenza, MDCK, quadrivalent, PF 3 completed Padmini hamilton, [facility] 10/09/2023 07:55:23 COVID-19, mRNA, LNP-S, PF, 50 mcg/0.5 mL 3 completed Padmini hamilton [facility] 11/13/2023 08:02:17 Past Encounters Encounter ID Performer Location Encounter Start Date Encounter Closed Date Diagnosis/Indication Diagnosis SNOMED-CT Code Diagnosis ICD10 Code Diagnosis Note [id number] JUAN SU [facility] ([facility]) [address] [place] [phone] 11/08/2022 12:41:21 11/18/2022 12:24:35 Hypothyroidism 09081830 E03.9 Transplant ed kidney present 935225528 Z94.0 Follows with nephrology . Hyperparat hyroidism due to renal insufficiency 73582732 N25.81 Follows with nephrology . Drug-induc ed immunodeficiency 995915351 D84.9 Transplant history. Congestive heart failure 68004964 I50.42 Continue on Furosemide . Follows with cardiology . Hypertensi ve heart and renal disease with (congestive) heart failure 013240335 I13.2 Follows with cardiology and nephrology . Irritable bowel syndrome with diarrhea 187146492 K58.0 Recent ER visit. Symptoms have resolved. [id number] JUAN SU [facility] ([facility]) [address] [place] [phone] 10/01/2023 15:00:29 10/02/2023 10:43:21 Gynecologic examination 07987067 Z01.419 Recurrent urinary tract infection 679545134 N39.0 Acquired hypothyroidism 719833460 E03.9 [id number] HUE CRUMP [facility] ([facility]) [address] [place] [address] 5 12/10/2023 14:38:30 12/10/2023 15:32:05 Vaginal dryness 75931776 N89.8 Essential hypertension 10179210 I10 Immunosupp ressive therapy 78250920 D84.9 [id number] HUE CRUMP [facility] ([facility]) [address] [place] [address] 5 12/18/2023 15:13:41 12/22/2023 11:49:00 Acute urinary tract infection 292412196 N39.0 [id number] HUE CRUMP [facility] ([facility]) [address] [place] [address] 5 01/15/2024 15:44:19 01/16/2024 11:54:59 Dysuria 29979573 R30.0 [id number] DEEPA GUTIERREZ APRN [facility] ([facility]) [address] [place] [address] 5 03/21/2024 16:06:15 03/21/2024 17:24:29 Acute bronchitis 32164945 J20.9 [id number] PEPPER SOTELO [facility] ([facility]) [address] [place], [place] [address] 07/13/2024 18:02:36 07/14/2024 11:07:16 Dysuria 92931566 R30.0 Acute urin gab tract infection 224767908 N39.0 UA results reviewed and discussed with pt. We will start antibiotic s. Pt will increase oral fluids and can use cranberry. Return to office with no improvemen t or any problems. Go to ER with severe worsening or severe problems.W johnei will obtain urine culture History of renal transplant 680006583 Z94.0 [id number] PEPPER SOTELO [facility] ([facility]) [address] [place], [place] [address] 08/19/2024 15:55:12 08/20/2024 12:46:11 Dysuria 70819924 R30.0 Acute urin gab tract infection 615795113 N39.0 Last [place] visit reviewed and urine cx. Will start augmentin for next 1 week and repeat a urine cx.pt v/u to push oral fluids. VSS. Health Concerns Section Related Observation LastModified by Organization Detai ls LastModified Time None Recorded Concern Status LastModified by Organization Details LastModified Time None Recorded Advance Directives Directive None Recorded Payers Insurance Date Sequence Insurance Name Policy Number Policy Causey Covered Member ID Causey Member ID Guarantor Name 08/19/2024 1 [place] [id number] Fco B House [id number] Shirlene L Bailey 08/25/2024 1 [facility] (MEDICARE REPLACEMENT/ ADVANTAGE - PPO) [id number] Shirlene L Bailey [id number] Shirlene L Bailey 08/25/2024 1 *SELF PAY* Da tucker Willams Bailey 12/25/2022 1 [employer]/ [place]ANT[place] - [place]PO) [id number] Shirlene L Bailey [id number] Shirlene L Bailey Notes Date Note Type Note Provider Name and Address Organization Details Recorded Time 03/21/2024 text/html walk in ptPt has a cough, back pain, dizzy and right ear pain for 5 days. Had a kidney transplant in the past. DEEPA GUTIERREZ, PROPERTY CONDITION ASSESSOR [address] [place], [address], [facility] [place] 03/21/2024 18:34:04 07/13/2024 text/html Patient c/o urin gab symptoms the last 3 days. She's taken two at home tests that were positive for leukocytes.kidney transplant x2. Her transplant physician asks her to wait 48 hours if she develops urinary symptoms prior to starting antibiotics. States the cefuroxime works best for her UTIs. Denies fever. States she does feel tired. PEPPER SOTELO, COMMERCIAL REAL ESTATE ASSISTANT [address] [place], [phone], [facility], [place]. 07/16/2024 11:28:37 08/19/2024 text/html walk in patientpatient is here today for lower back pain, fagitue and cloudy urine. Patient said that this started a couple of days ago. Hx of renal transplant PEPPER SOTELO, [facility] [place], [address], [facility] [place] 08/20/2024 11:07:35 OBGyn Episode No OBEpisode recorded.
--- OUTSIDE RECORDS SUMMARY | 2024-08-27 14:23 | XMS_ITS | Clinical Summary ---
Author Organization [facility] Address [address] [place] [address] Care Team Providers Care Clinical Radiologist Name Role Phone Allen Goldsmith MD Primary Care Provider Unatamra ilable Allergies Active Allergy Reactions Criticality Noted Date Comments Epoetin Candido Hypertension High 11/11/2017 Medications tacrolimus (PROGRAF) 1 mg Oral capsule Take 1 mg by mouth 2 times daily. Active mycophenolate mofetil (CELLCEPT) 500 mg Oral tablet Take 1,500 mg by mouth 2 times daily. Active predniSONE (DELTASONE) 5 mg Oral tablet Take 5 mg by mouth daily. Active metoprolol (LOPRESSOR) 1.25 mg/mL Susp Take by mouth. 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 Active ALPRAZolam (XANAX) 1 mg Oral tablet Take 1 mg by mouth nightly as needed. Active trimethoprim-saucedo lfamethoxazole (BACTRIM) 400-80 mg Oral tablet Take 1 Tab by mouth daily. Takes 1/2 of double strength Active CETIRIZINE HCL (ZYRTEC ORAL) Take by mouth. Active atorvastatin (LIPITOR) 20 mg Oral tablet Take 20 mg by mouth Daily LATE. Active lansoprazole (PREVACID) 30 mg Oral CpDR Take 30 mg by mouth daily. Active acyclovir (ZOVIRAX) 200 mg Oral capsule Take 200 mg by mouth 2 times daily. Active aspirin (MARINA) 81 mg Oral Tab Take by mouth. Active calcium-vitamin D3 (OS-KHADIJAH 500+D) 500 mg(1,250mg) -200 unit Oral tablet Take 1 Tab by mouth daily. 6 x daily Active DOCUSATE SODIUM ORAL Take by mouth 3 times daily. Active tretinoin (RETIN-A) 0.1 % Cream Apply to affected area daily at bedtime. 45 Gram 3 09/01/2013 Active tretinoin (RETIN-A) 0.1 % Cream APPLY TO AFFECTED AREA DAILY 50 Gram PRN 06/20/2015 Active doxazosin (CARDURA) 2 mg tablet Take 2 mg by mouth every 12 hours. Active amLODIPine (NORVASC) 10 mg tablet Take 10 mg by mouth daily. Active buPROPion HCl (WELLBUTRIN SR) 150 mg Sustained Release 12 hour tablet Take 150 mg by mouth 2 times daily. Active traMADol (ULTRAM) 50 mg tablet Take 100 mg by mouth every 6 hours as needed for Pain. Active rOPINIRole (REQUIP) 1 mg tablet Take 1 mg by mouth 3 times daily. Active Active Problems No known active problems Social History Tobacco Use Types Packs/Day Years Used Date Smoking Tobacco: Never Assessed Comments Unknown Sex and Gender Information Value Date Recorded Sex Assigned at Not on file Legal Sex Female 4:09 AM CUSTOMER SERVICES SUPERVISOR Gender Identity Not on file Sexual Orientation Not on file Last Filed Vital Signs Vital Sign Reading Time Taken Comments Blood Pressure 142/69 01/06/2018 1:05 PM CUSTOMER SERVICES SUPERVISOR Pulse 57 01/06/2018 12:45 PM CUSTOMER SERVICES SUPERVISOR Temperature 36.4 C (97.5 F) 01/06/2018 1:05 PM CUSTOMER SERVICES SUPERVISOR Respiratory Rate 16 01/06/2018 1:05 PM CUSTOMER SERVICES SUPERVISOR Oxygen Saturation 98% 01/06/2018 1:05 PM CUSTOMER SERVICES SUPERVISOR Inhaled Oxygen Concentration - - Weight 63 kg (138 lb 14.2 oz) 01/06/2018 8:18 AM CUSTOMER SERVICES SUPERVISOR Height 172.7 cm (5' 8 ) 01/06/2018 8:18 AM CUSTOMER SERVICES SUPERVISOR Body Mass Index 21.12 01/06/2018 8:18 AM CUSTOMER SERVICES SUPERVISOR Plan of Treatment Health Maintenance Due Date [...] - Risk 60-74 years 1-dose series) 2019 INFLUENZA VACCINE (#1) 2024 Insurance MEDICARE PART A AND B Care Teams Clinical Radiologist Relationship Specialty Start Date End Date Allen Goldsmith MD PCP - General Nephrology 11/07/17
--- OUTSIDE RECORDS SUMMARY | 2024-08-27 14:23 | XMS_ITS | Encounter Summary ---
Author Organization [email or web address] Address [address] [facility] [address] [place] [address] Phone Care Team Providers Care Chief Fundraising Officer Name Role Phone Phoebe Márquez Primary Care Provider [phone] Reason for Visit * Reason Comments Med Refill Encounter Details Date Type Department Care Team (Late Contact Info) Description 01/10/2021 Refill [facility] [address] [employer] [employer] [place] [address] [place] [address] Allen Goldsmith MD Kidney transplant status Social History Tobacco Use [...] Description 08/30/2024 1:30 PM CDT Office Visit [facility] [address] [place] [address] [place] [address] Kimi Darby NP [address] [facility] [address] [place] [address] documented as of this encounter Visit Diagnoses Diagnosis Kidney transplant status documented in this encounter Care Teams Chief Fundraising Officer Relationship Specialty Start Date End Date Phoebe Márquez FNP [address] [place] [id number] PCP - General Nurse Practitioner 02/26/22 documented as of this encounter
--- OUTSIDE RECORDS SUMMARY | 2024-08-27 14:23 | XMS_ITS | Patient Health Record ---
Author Organization [facility] Address [address] [place] [address] Care Team Providers Care Apparel Merchandiser Name Role Phone TRACI DALAL Unavailable [phone] KELSEY NOEL Unavailable [phone] SVETLANA PEÑA Unavailable [phone] Allergies Allergen (clinical drug ingredient) Drug/Non Drug Allergy documented on EMR Reaction Allergy Type Onset Date Status epoetin sharla Procrit allergy Drug Allergy Acti ve Iodine contrast dye Drug Allergy Acti ve Results Component Value Reference Range Notes Urinalysis, Routine Reviewed date:10/06/2023 09:26:20 AM Interpretation: Performing Lab: Notes/Report: Urine-Color yellow Appearance cloudy Glucose - Bilirubin - Ketones - Specific Jackson 1.010 Occult Blood - pH 6.5 Urine Protein - Urobilinogen,Semi-Qn - Nitrite, Urine - WBC Esterase 3+ Reason For Referral No Information Medications Medication SIG (Take, Route, Frequency, Duration) Notes Start Date End Date Status Montelukast Sodium 10 MG 1 tablet Orally Once a day Active Levothyroxine Sodium 100 MCG 1 capsule in the morning on an empty stomach Orally Once a day Active Calcium Active Lactobacillus Active Prograf Active FLUoxetine HCl 60 MG 1 tablet Orally Onc e a day 04/22/2023 Active Methenamine Hippurate 1 GM 1 tablet Orally Twice a day Not-Taking predniSONE Active ALPRAZolam 1 MG 1 tablet as needed Orally at night 04/22/2023 Active Pantoprazole Sodium 40 MG 1 tablet Orally Once a day Active Doxycycline Hyclate 100 MG 1 capsule Orally Once a day for UTI suppression for 30 days Active Myfortic 180 MG 1 tab Orally Twice a day Active Alexus-Colace Active Carvedilol 12.5 MG 1 tablet with food in the am two in the pm Orally Twice a day 04/22/2023 Active Rosuvastatin Calcium 40 MG 1 tablet Orally Once a day Active buPROPion HCl ER (Smoking Det) 150 MG 1 tablet in the morning Orally Once a day 04/22/2023 Active Requip 1 mg daily Active Azelastine HCl 0.1 % 2 puff in each nostril Nasally Twice a day 04/22/2023 Active Metamucil Active Vitamin C Active Social History Tobacco Use: Social History Observation Description Date Details (start date - stop date) Never Smoker NA - NA Tobacco Control (Standard) Question Answer Notes Tobacco use: Nonsmoker Problems Problem Type SNOMED Code ICD Code Onset Dates Problem Status W/U Status Risk Notes Problem Immunosuppression (48461161) Immunosuppression (D89.9) Active confirmed Problem Chronic kidney disease (089126877) CKD (chronic kidney disease) (N18.9) Active confirmed Problem History of sepsis (946998424102964) History of sepsis (Z86.19) Active confirmed Problem Kidney transplan t recipient (Z94.0) Active confirmed Problem Recurrent urinary tract infection (753204533) Recurrent UTI (N39.0) Active confirmed Problem End stage renal disease (63500570) ESRD (end stage renal disease) (N18.6) Active confirmed Vital Signs Heart Rate 64 /min 10/06/2023 Blood pressure diastolic 72 mm Hg 10/06/2023 Height-cm 172.72 cm 10/06/2023 Weight-kg 86.18 kg 10/06/2023 Height 68 in 10/06/2023 Blood pressure systolic 152 mm Hg 10/06/2023 Weight 190 lbs 10/06/2023 BMI 28.89 kg/m2 10/06/2023 Procedures Procedure Date Ordered Date Performed Result Body Sit e Bladder Scan 10/06/2023 10/06/2023 [id number] Encounters Encounter Location Date Provider Diagnosis [facility] [address] [place] [address] 10/06/2023 SVETLANA PEÑA Recurrent UTI N39.0 ; Kidney transplant recipient Z94.0 and ESRD (end stage renal disease) N18.6 [facility] [address] [place] [address] 11/10/2023 TRACI DALAL Assessments Encounter Date Diagnosis (ICD Code) Assessment Notes Treatment Notes Treatment Clinical Notes Section Notes 10/06/2023 Kidney transplant recipient (ICD-10 - Z94.0) 63-yo female with recurrent UTIs, h/o ESRD and h/o repeat renal transplant. Cysto shows possible purulence vs debris draining from R transplant kidney UO. She has plans to see ID and her renal transplant team very soon at [facility] and possibly [facility]. She will Continue her daily Doxycycline for her Deniz for now. She will return in 6 months with Dory Noel APRN with UA/PVR or sooner with any concerns. Plan: - Continue f/u with motion picture operator, ID, and renal transplant team. - Continue daily Doxycycline suppression - RTC in 6 months with UA and PVR with Kelsey Soto APRN - RTC or call sooner with any concerns Celina Ferrara Scribe, am scribing for, and in the presence of, Dr. Peña. I, Dr. Svetlana Peña, personally performed the services prescribed in this documentation, as scribed by Celina Sheffield, in my presence, and it is both accurate and complete. 10/06/2023 Recurrent UTI (ICD-10 - N39.0) 63-yo female with recurrent UTIs, h/o ESRD and h/o repeat renal transplant. Cysto shows possible purulence vs debris draining from R transplant kidney UO. She has plans to see ID and her renal transplant team very soon at [facility] and possibly [facility]. She will Continue her daily Doxycycline for her Deniz for now. She will return in 6 months with Dory Noel APRN with UA/PVR or sooner with any concerns. Plan: - Continue f/u with motion picture operator, ID, and renal transplant team. - Continue daily Doxycycline suppression - RTC in 6 months with UA and PVR with Kelsey Soto DIRECTOR CUSTOM - RTC or call sooner with any concerns Celina Ferrara Scribe, am scribing for, and in the presence of, Dr. Peña. Dr. Svetlana Ferrara, personally performed the services prescribed in this documentation, as scribed by Celina Sheffield, in my presence, and it is both accurate and complete. 10/06/2023 ESRD (end stage renal disease) (ICD-10 - N18.6) 63-yo female with recurrent UTIs, h/o ESRD and h/o repeat renal transplant. Cysto shows possible purulence vs debris draining from R transplant kidney UO. She has plans to see ID and her renal transplant team very soon at [facility] and possibly [facility]. She will Continue her daily Doxycycline for her Deniz for now. She will return in 6 months with Dory Noel APRN with UA/PVR or sooner with any concerns. Plan: - Continue f/u with motion picture operator, ID, and renal transplant team. - Continue daily Doxycycline suppression - RTC in 6 months with UA and PVR with Kelsey Soto APRN - RTC or call sooner with any concerns ICelina, Lane, am scribing for, and in the presence of, Dr. Peña. I, Dr. Svetlana Peña, personally performed the services prescribed in this documentation, as scribed by Celina Sheffield, in my presence, and it is both accurate and complete. 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
--- NOTE | 2024-08-27 14:27 | XR_ITS ---
WS: [id number] XR chest 1V portable [id number] REASON FOR EXAM: dyspnea/cough FINDINGS: The chest is unchanged compared to 07/12/2021. Mild tortuosity and ectasia of the thoracic aorta. Mild cardiomegaly. Calcified granulomatous disease bilaterally. No acute pulmonary parenchymal or pleural abnormality. Mild degenerative spondylosis in the thoracic spine. XR/XR chest 1V portable [id number] IMPRESSION: Stable chest without acute abnormality.
--- NOTE | 2024-08-27 14:33 | W.ED.FEVER ---
HPI - Fever General: Chief Complaint: Fever Stated Complaint: possible uti Time Seen by Provider: 08/27/24 14:16 History of Present Illness: 63-year-old female presents emergency room with complaints of shortness of breath and fever. She has had chills and shakes some sore throat as well. At home she said she had temp of 205 on her thermometer here she arrives her temp is 101.3. She was treated a week ago with antibiotics Augmentin for a urinary tract infection she has completed the Augmentin. She denies any dysuria urgency or frequency. She has not had any diarrhea. She has had a moderate nonproductive cough. Associated symptoms: Reports chills; Deny abdominal pain, chest pain or dysuria Related Data Home Medications ?Medication ?Instructions ?Recorded ?Confirmed alprazolam 1 mg tablet 1 mg PO QDAY PRN Anxiety 03/08/19 08/27/24 bupropion HCl 150 mg 24 hr tablet, 150 mg PO QAM 03/08/19 08/27/24 extended release (Wellbutrin XL) fluticasone propionate 50 2 spray intranasal QDAY PRN 03/08/19 08/27/24 mcg/actuation nasal allergies spray,suspension montelukast 10 mg tablet 10 mg PO QDAY 03/08/19 08/27/24 (Singulair) prednisone 5 mg tablet 5 mg PO QDAY 03/08/19 08/27/24 ropinirole 1 mg tablet 1 mg PO BEDTIME 03/08/19 08/27/24 rosuvastatin 40 mg tablet (Crestor) 40 mg PO QDAY 03/08/19 08/27/24 ascorbic acid (vitamin C) 1,000 mg 1 g PO BID 09/11/20 08/27/24 tablet tacrolimus 1 mg tablet,extended 2 mg PO BID 04/26/21 08/27/24 release 24 hr mycophenolate sodium 180 mg 180 mg PO BID 01/13/23 08/27/24 tablet,delayed release (Myfortic) azelastine 137 mcg (0.1 %) nasal 1 spray intranasal BID PRN 08/27/24 08/27/24 spray allergies fluoxetine 20 mg capsule 60 mg PO DAILY 08/27/24 08/27/24 furosemide 40 mg tablet 40 mg PO DAILY PRN Edema 08/27/24 08/27/24 lactobacillus combination no.4 3 3,000 mmu cells PO DAILY 08/27/24 08/27/24 billion cell capsule (Probiotic) levothyroxine 150 mcg tablet 150 mcg PO DAILY 08/27/24 08/27/24 metoprolol tartrate 25 mg tablet 6.25 mg PO BEDTIME 08/27/24 08/27/24 sennosides 8.6 mg-docusate sodium 1 tab-cap PO DAILY 08/27/24 08/27/24 50 mg tablet Previous Rx's ?Medication ?Instructions ?Recorded methenamine hippurate 1 gram tablet See Rx Instructions .Route 03/03/21 .COMPLEX #180 tabs Retin-A 0.1 % topical cream 1 applic topical .nightly #45 grams 04/16/22 (tretinoin) custom orthotics #1 ea 06/09/24 Allergies Allergy/AdvReac Type Severity Reaction Status Date / Time Iodinated Contrast Media Allergy Unknown Unknown Verified 05/10/24 14:34 oxycodone Allergy Unknown Unknown Verified 05/10/24 14:34 epoetin sharla Allergy Unknown Verified 05/10/24 14:34 Review of Systems Const: Reports: fever(s) and chills Card: Denies: chest pain Resp: Denies: dyspnea GI: Denies: abdominal pain : Denies: dysuria, urinary frequency or urinary urgency Musc: Denies: neck pain or back pain Skin/Breast: Denies: rash PFSH ED PFSH: Medical History Osteopenia GERD (gastroesophageal reflux disease) Migraine Neuropathy HTN (hypertension) Recurrent UTI Hypothyroid IBS (irritable bowel syndrome) Surgical History History of Kidney Transplant S/P cholecystectomy S/P thyroid surgery S/P total hip arthroplasty Family History Father Squamous cell skin cancer Mother No problems noted. Social History Smoking and tobacco/nicotine status: never used tobacco/nicotine Alcohol intake: current Alcohol intake frequency: holidays/special occasions only Substance/Drug Use: never Marital status: Current occupational status: retired Physical Exam Const: GENERAL APPEARANCE: cooperative ORIENTATION/CONSCIOUSNESS: Yes awake, Yes oriented to person, Yes oriented to place and Yes oriented to time HENMT: COMMON NORMALS: normocephalic, atraumatic and hearing grossly normal bilaterally HEAD & SCALP: normocephalic and atraumatic Resp: COMMON NORMALS: normal respiratory effort, No retractions, No use of accessory muscles and clear to auscultation bilaterally AUSCULTATION: clear to auscultation bilaterally Cardio: COMMON NORMALS: regular rate, regular rhythm and No murmurs present (Cardio) RATE: regular rate RHYTHM: regular rhythm GI: COMMON NORMALS: Soft to palpation and No hepatosplenomegaly present AUSCULTATION: Yes normoactive bowel sounds PALPATION: Yes Soft to palpation, No Tenderness to palpation present (GI), No Guarding due to palpation present (GI) and Yes No hepatosplenomegaly present Extremity: COMMON NORMALS: normal to inspection, capillary refill normal, no clubbing, cyanosis or edema, no calf tenderness and no pedal edema Neuro: SENSORIUM/ORIENTATION: Yes oriented to person, Yes oriented to place and Yes oriented to time Skin: COMMON NORMALS: no rashes or lesions noted GENERAL SKIN EXAM: no rashes or lesions noted Course Vital Signs: Vital signs: Vital Signs Temperature 99.6 F 08/27/24 17:51 Pulse Rate 59 L 08/27/24 16:05 Respiratory Rate 18 08/27/24 14:19 Blood Pressure 114/69 08/27/24 16:05 Pulse Oximetry 95 08/27/24 16:05 Oxygen Delivery Me thod Room Air 08/27/24 16:05 MDM - Fever Medical Decision Making Seen with fever. Laboratory tests all negative. White count normal no leukocytosis no sign of cystitis creatinine is actually improved from her baseline. Suspect viral infection supportive cares follow-up as needed Lab Data 08/27/24 14:24 08/27/24 14:24 Radiology Impressions Chest X-Ray 08/27/24 14:27 IMPRESSION: Stable chest without acute abnormality. Laboratory Results WBC 7.76 10^3/uL (3.29-11.43) 08/27/24 14:24 RBC 4.13 10^6/uL (3.85-5.65) 08/27/24 14:24 Hgb 12.80 g/dL (11.27-16.99) 08/27/24 14:24 Hct 40.3 % (36-47) 08/27/24 14:24 MCV 97.6 fl (85-98) 08/27/24 14:24 MCH 31.0 pg (27-33) 08/27/24 14:24 MCHC 31.8 g/dL (30-55) 08/27/24 14:24 RDW 13.8 % (12.1-15.1) 08/27/24 14:24 Plt Count 176 10^3/cmm (157-399) 08/27/24 14:24 MPV 9.9 fL (7.4-10.4) 08/27/24 14:24 Neut % (Auto) 77.7 % 08/27/24 14:24 Lymph % (Auto) 11.9 % 08/27/24 14:24 [place] % (Auto) 8.8 % 08/27/24 14:24 Eos % (Auto) 0.9 % 08/27/24 14:24 Baso % (Auto) 0.3 % 08/27/24 14:24 Neut # (Auto) 6.04 10^3/uL (1.8-7.7) 08/27/24 14:24 Lymph # (Auto) 0.9 10^3/uL (0.8-4.8) 08/27/24 14:24 [place] # (Auto) 0.7 10^3/uL (0.2-0.9) 08/27/24 14:24 Eos # (Auto) 0.1 10^3/uL (0.0-0.8) 08/27/24 14:24 Baso # (Auto) 0.0 10^3/uL (0.0-0.1) 08/27/24 14:24 Nucleated RBC % (auto) 0 % 08/27/24 14:24 Nucleated RBCs # 0.0 /100WBC 08/27/24 14:24 Sodium 139 mmol/L (136-145) 08/27/24 14:24 Potassium 3.8 mmol/L (3.5-5.1) 08/27/24 14:24 Chloride 100 mmol/L (98-107) 08/27/24 14:24 Carbon Dioxide 23 mmol/L (22-29) 08/27/24 14:24 Anion Gap 19.8 (5-19) H 08/27/24 14:24 BUN 19 mg/dL (8-23) 08/27/24 14:24 Creatinine 1.5 mg/dL (0.5-0.9) H 08/27/24 14:24 GFR Calculation 35.0 mL/min (90-130) L 08/27/24 14:24 Glucose 83 mg/dL (65-115) 08/27/24 14:24 Calculated Osmolality 289 mOsm/kg (285-295) 08/27/24 14:24 Lactic Acid 1.4 mmol/L (0.5-2.2) 08/27/24 14:24 Calcium 8.5 mg/dL (8.5-10.5) 08/27/24 14:24 Total Bilirubin 0.4 mg/dL (0.15-1.2) 08/27/24 14:24 AST 23 U/L (0-32) 08/27/24 14:24 ALT 25 U/L (0-33) 08/27/24 14:24 Alkaline Phosphatase 79 U/L (35-105) 08/27/24 14:24 Total Protein 6.7 g/dL (6.6-8.7) 08/27/24 14:24 Albumin 4.1 g/dL (3.5-5.2) 08/27/24 14:24 Globulin 2.6 g/dL (1.3-4.6) 08/27/24 14:24 Lipase 27 U/L (13-60) 08/27/24 14:24 Urine Color Yellow (Yellow) 08/27/24 14:28 Urine Appearance Clear (CLEAR) 08/27/24 14:28 Urine pH 6.0 (5-7) 08/27/24 14:28 Ur Specific [place] 1.007 (1.005-1.030) 08/27/24 14:28 Urine Protein Negative (Negative) 08/27/24 14:28 Urine Glucose (UA) Negative (Normal) 08/27/24 14:28 Urine Ketones Negative (Negative) 08/27/24 14:28 Urine Blood Negative (Negative) 08/27/24 14:28 Urine Nitrate Negative (Negative) 08/27/24 14:28 Urine Bilirubin Negative (Negative) 08/27/24 14:28 Urine Urobilinogen 0.2 mg/dL (Negative) 08/27/24 14:28 Ur Leukocyte Esterase Negative (Negative) 08/27/24 14:28 Urine RBC 0-2 /hpf (0-2) 08/27/24 14:28 Urine WBC 0-5 /hpf (0-5) 08/27/24 14:28 Ur Squamous Epith Cells 0-5 /hpf (0-5) 08/27/24 14:28 Amorphous Sediment Not Reportable 08/27/24 14:28 Urine Bacteria None seen /hpf (NONE) 08/27/24 14:28 Hyaline Casts 0-4 /lpf H 08/27/24 14:28 Influenza A (PCR) Negative (Negative) 08/27/24 14:52 Influenza Type B (PCR) Negative (Negative) 08/27/24 14:52 RSV (PCR) Negative (Negative) 08/27/24 14:52 SARS-CoV-2 (PCR) Negative (Negative) 08/27/24 14:52 Group A Strep Rapid Negative (Negative) 08/27/24 14:54 All radiology interpretation(s) finalized by discharge EKG Data EKG 1: Interpretation: EKG 08/27/2024 1442 sinus rhythm left axis deviation. Rate of 89 WI interval 157 QTc 437 compared with EKG 01/13/2023 Discharge Plan Discharge Patient Disposition: Home Clinical Impression: Viral infection Condition: Stable Prescriptions: No Action montelukast [Singulair] 10 mg tablet 10 mg PO QDAY fluticasone propionate 50 mcg/actuation spray,suspension 2 spray INTRANASAL QDAY PRN (Reason: allergies) bupropion HCl [Wellbutrin XL] 150 mg tablet extended release 24 hr 150 mg PO QAM prednisone 5 mg tablet 5 mg PO QDAY alprazolam 1 mg tablet 1 mg PO QDAY PRN (Reason: Anxiety) rosuvastatin [Crestor] 40 mg tablet 40 mg PO QDAY ropinirole 1 mg tablet 1 mg PO BEDTIME ascorbic acid (vitamin C) 1,000 mg tablet 1 g PO BID tacrolimus 1 mg tablet extended release 24 hr 2 mg PO BID Rx Instructions: must be taken on empty stomach mycophenolate sodium [Myfortic] 180 mg tablet,delayed release (DR/EC) 180 mg PO BID tretinoin [Retin-A] 0.1 % cream 1 applic TOPICAL .nightly Qty: 45 3RF Rx Instructions: Apply pea-sized amount to clean dry face nightly May use good rx coupon for purchase if uncovered. methenamine hippurate 1 gram tablet See Rx Instructions .ROUTE .COMPLEX Qty: 180 3RF Dose Instruction: TAKE 1 TABLET BY MOUTH TWICE DAILY,TAKE 1,000 MG OF VITAMIN C WITH EACH DOSE OF METHENAMINE Rx Instructions: TAKE 1 TABLET BY MOUTH TWICE DAILY,TAKE 1,000 MG OF VITAMIN C WITH EACH DOSE OF METHENAMINE (DME) custom orthotics See Rx Instructions .Route .MEDSUPPLY Qty: 1 0RF Rx Instructions: As directed made by alpha and omega furosemide 40 mg tablet 40 mg PO DAILY PRN (Reason: Edema) sennosides-docusate sodium [ALIREZA-COLACE] 8.6-50 mg Tablet 1 tab-cap PO DAILY levothyroxine 150 mcg tablet 150 mcg PO DAILY azelastine 137 mcg (0.1 %) spray,non-aerosol 1 spray INTRANASAL BID PRN (Reason: allergies) fluoxetine 20 mg capsule 60 mg PO DAILY Probiotic 3 billion cell Capsule 3,000 mmu cells PO DAILY Rx Instructions: administer with a meal metoprolol tartrate 25 mg tablet 6.25 mg PO BEDTIME Discharge Orders: Discharge ED (Routine); Ordered 08/27/24 Ordered By: Santiago Martini Discharge Diet: Usual diet Discharge Activity: Resume usual activity Patient Instructions: Opioid Safety, Pain Management, Patient Portal & Luisa Instructions Activity Restrictions/Additional Instructions: Thank you for choosing [facility] for your healthcare needs today. It is very important that you follow up as instructed or that you return to the Emergency Department should you have concerns or if your condition changes or worsens in any way. You were seen in the emergency room with a fever your laboratory studies kidney function white count urine and swabs for respiratory pathogens were all normal. There is no sign of any bacterial infection. Based on your presenting history suspect this is a viral infection. We did do blood cultures which will take several days to grow out if your symptoms worsen or change return use Tylenol for fever. Print Language: Liberian Coding Level of Care Code ED Equipment Cleaner for Nadia [facility]
[2024-08-27 14:36] LABS: Hematocrit 40.3 % (36-47); Hemoglobin 12.80 g/dL (11.27-16.99); Mean Corpuscular HGB Conc 31.8 g/dL (30-55); Mean Corpuscular Hemoglobin 31.0 pg (27-33); Mean Corpuscular Volume 97.6 fl (85-98); Nucleated Red Blood Cells % 0 %; Platelet Count 176 10^3/cmm (157-399); Red Blood Count 4.13 10^6/uL (3.85-5.65); White Blood Count 7.76 10^3/uL (3.29-11.43)
[2024-08-27 14:39] LABS: Glucose Urine UA Negative (Normal); Nitrate Urine Negative (Negative); Specific Gravity, Urine 1.007 (1.005-1.030)
--- NOTE | 2024-08-27 14:42 | ECG_ITS ---
[facility] Test Date: 2024-08-27 Pat Name: Shirlene Pruitt Department: Room: Gender: Female Vaccine Specialist: : 1960 Requested By: Santiago Willams Order Number: [id number] Jaime MD: Lulu Newberry M.D. Measurements Intervals [place] Rate: 89 P: 41 IN: 157 QRS: -47 QRSD: 101 T: 58 QT: 359 QTc: 437 Interpretive Statements SINUS RHYTHM LEFT AXIS DEVIATION [QRS AXIS < -30] PATTERN CONSISTENT WITH PULMONARY DISEASE Compared to ECG 01/13/2023 14:00:19 Left-axis deviation now present Electronically Signed On 08-28-2024 00:17:37 CDT by Lulu Newberry M.D. [email or web address]
[2024-08-27 14:43] LABS: Add Urine Microscopic? YES
[2024-08-27 15:27] LABS: Rapid Strep A Test Negative (Negative)
--- NOTE | 2024-08-27 15:54 | PC.PHAR ---
Pt just finished Augmentin 875mg q12h [id number] 08/26/24
[2024-08-27 15:56] LABS: Respiratory Syncytial Virus Ce NEGATIVE (Negative); SARS-CoV-2 PCR NEGATIVE (Negative)
[2024-08-27 16:05] VITALS: BP 114/69; PULSE 59; O2SAT 95
[2024-08-27 17:09] LABS: Lactic Sepsis W/Reflex 1.4 mmol/L (0.5-2.2)
[2024-08-27 17:10] LABS: Alanine Aminotransferase 25 U/L (0-33); Albumin Level 4.1 g/dL (3.5-5.2); Alkaline Phosphatase 79 U/L (35-105); Anion Gap 19.8 (5-19); Aspartate Amino Transferase 23 U/L (0-32); Blood Urea Nitrogen 19 mg/dL (8-23); Calcium 8.5 mg/dL (8.5-10.5); Carbon Dioxide 23 mmol/L (22-29); Chloride 100 mmol/L (98-107); Creatinine Clr Calc Pharmacy 44.0957; Globulin 2.6 g/dL (1.3-4.6); Glucose 83 mg/dL (65-115); Lipase 27 U/L (13-60); Osmolality Calculated 289 mOsm/kg (285-295); Potassium 3.8 mmol/L (3.5-5.1); Sodium 139 mmol/L (136-145); Total Protein 6.7 g/dL (6.6-8.7)
[2024-08-27 17:51] VITALS: TEMP 37.6
== END 2024-08-27 18:16 | disposition home or self-care (01) ==
PROVIDERS: Emergency Provider Family Medicine
DX: B34.9 Viral infection, unspecified (principal); Z11.52 Encounter for screening for COVID-19; I10 Essential (primary) hypertension
CPT/HCPCS: 36415; 71045; 80053; 81001; 83605; 83690; 85025; 87040; 87081; 87637; 87880; 93005; 99285; J9999

== ENCOUNTER 2024-09-05 00:22 | Emergency (ER) | payer MEDICARE, SELFPAY ==
--- OUTSIDE RECORDS SUMMARY | 2024-04-05 05:20 | XMS_ITS ---
Author Organization [email or web address] Address [address] [place] [address] Care Team Providers Care Operater Name Role Phone TRACI DALAL Unavailable [phone] CORONA NOEL Unavailable [phone] REASON FOR VISIT 6 mo w/ ua/pvr Encounters Encounter Location Date Provider Diagnosis [facility] [address] [place] [address] 04/05/2024 CORONA NOEL Plan Of Treatment No Information Progress Notes * Shirlene CROWLEY LDOB:[birth year] (64 yo F)Acc No.[id number]:04/05/2024 Progress Notes Patient: Shirlene ROLLE Provider: Kathrine Noel APRN :1960 A ge:63 Y S ex:Female Date:04/05/2024 Address:[address] [place], [place] [id number] Subjective: * Chief Complaints: * 1 . 6 mo w/ ua/pvr. * Medical History: Objective: * Vitals: Assessment: Plan: * Treatment: * Billing Information: * Visit Code: * Procedure Codes: * Electronic signature of SAMMI NOEL APRN on 09/05/2024 at 12:31 AM CDT Sign off status: Pending * Provider: Kathrine Noel APRN Date: 0 04/05/2024 Generated for Christie gutiérrez/Reid/Hortenciasmitting on: 0 09/05/2024 12:31 AM CDT
--- OUTSIDE RECORDS SUMMARY | 2024-08-30 13:30 | XMS_ITS | Encounter Summary ---
Author Organization [facility] Address [address] [place] [address] Phone Care Team Providers Care Pit Hand Name Role Phone Phoebe Márquez JUAN Primary Care Provider [phone] Reason for Visit * Reason Comments Chronic Kidney Disease Encounter Details Date Type Department Care Team (Late st Contact Info) Description 08/30/2024 1:30 PM CDT Office Visit [facility] [address] [place] [address] Kimi Darby NP [address] [place] [address] Stage 3b chronic kidney disease (HCC) (Primary Dx); Kidney transplant status; Shortness of breath Social History Tobacco Use Types Packs/Day Years Used Date Smoking Tobacco: Never Smokeless Tobacco: Never Alcohol Use Standard Drinks/Week Comments Not Currently 2 (1 standard drink = 0.6 oz pur e alcohol) Comments Unknown Sex and Gender Information Value Date Recorded Sex Assigned at Not on file Legal Sex Female 12:47 PM EST Gender Identity Not on file Sexual Orientation Not on file documented as of this encounter Last Filed Vital Signs Vital Sign Reading Time Taken Comments Blood Pressure 138/78 08/30/2024 1:41 PM CDT Pulse 72 08/30/2024 1:41 PM CDT Temperature - - Respiratory Rate - - Oxygen Saturation - - Inhaled Oxygen Concentration - - Weight 92.2 kg (203 lb 3.2 oz) 08/30/2024 1:41 P M CDT Height 172.7 cm (5' 8 ) 08/30/2024 1:41 PM CDT Body Mass Index 30.9 08/30/2024 1:41 PM CDT documented in this encounter Progress Notes * Kimi Darby NP - 08/30/2024 1:30 PM CDT Images from the original note were not included. 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 Creatinine 1.4-1.6 mg/dL CMV D+/R+ Previous LURT at [facility] failed in 2000 and [address] 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 05/2023 visited with urology for UTI frequency. Placed on doxycycline and finished course and symptoms returned. She was restarted on doxy for treatment then titrate down to suppression. CT completed with findings of large amount of stool, and a left [place] kidney cyst measuring 3.9 centimeter. Chronic unresolved UTI since February, despite numerous therapies. 06/01/23 referred to local urologyfor assessment (Dr. Steve Peña [facility] [place]) who placed on daily antibiotic prophylaxis and completed a cystoscopy. Cystoscopy notable for debris and draining of R ureter, inflammation of bladder wall. Dr Hood, ID at [facility] [place] determined negative for infectious findings, remain on antibiotic for prophylaxis, no other changes. Reviewed overall findings with mix mill tender team: referring to [facility] in [place] post solid organ renal transplant division for assessment of health threat from developed anomalies in failed allograft. She was not satisfied with her care at 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 Had her first transplanted kidney removed in October 2023. Interim History Current serum creatinine is 1.70 with an estimated GFR of 33 ml/min. UAC 13 mg/g Reports upper respiratory infection x 2 weeks reports home fever of >103, went to [facility] ER on 08/28/24: reports they found nothing , advised her it was viral and sent her home with no therapy. The week before she had uti symptoms and had been placed on augmentin. She had doxycycline at home, and began taking it on top of the Augmentin for her upper respiratory congestion. Significant sinus congestion on presentation, bilat rales and rhonchi up through mid lobes on auscultation. BP, HR stable, temp 98.6, pulse ox room air 93%. Tremors present, skin clammy/warm, tac level is elevated above goal. Reviewed her current labs, historical trend and renal disease status. Past Medical History: Diagnosis Date Acute ischemic heart disease (HCC) End stage renal disease (HCC) Hypertension Hypothyroidism Obstructive sleep apnea Urinary tract infection Past Surgical History: Procedure Laterality Date AV FISTULA PLACEMENT CHOLECYSTECTOMY DONOR KIDNEY TRANSPLANT GALLBLADDER SURGERY PARATHYROIDECTOMY THYROIDECTOMY Social History Tobacco Use Smoking status: Never Smokeless tobacco: Never Substance Use Topics Alcohol use: Not Currently Alcohol/week: 2.0 - 3.0 standard drinks of alcohol Types: 2 - 3 Glasses of wine per week Family History Problem Relation Age of Onset Hypertension Mother Cancer Mother No Known Problems Father Review of Systems: Constitutional: Negative. Respiratory: Negative. Cardiovascular: Negative. Gastrointestinal: Negative. Medications: Current Outpatient Medications on File Prior to Visit Medication Sig Dispense Refill ALPRAZolam (XANAX) 1 MG tablet Take 1 mg by mouth every night ascorbic acid (VITAMIN C) 1000 MG tablet Take 2,000 mg by mouth in the morning and 2,000 mg in the evening. azelastine (ASTELIN) 0.1 % nasal spray Administer into each nostril 2 (two) times a day buPROPion XL (WELLBUTRIN XL) 150 MG 24 hr tablet Take 150 mg by mouth 1 (one) time each day doxycycline (VIBRAMYCIN) 100 MG capsule Take 100 mg by mouth in the morning and 100 mg in the evening. Take with a full glass of water and do not lie down for at least 30 minutes after. FLUoxetine (PROzac) 60 MG tablet Take by mouth 1 (one) time each day furosemide (LASIX) 40 MG tablet TAKE 1 TABLET (40 MG TOTAL) BY MOUTH 1 (ONE) TIME EACH DAY NEEDED. 90 tablet 3 LACTOBACILLUS BIFIDUS PO Take by mouth 1 (one) time each day levothyroxine (SYNTHROID, LEVOTHROID) 100 MCG tablet Take 150 mcg by mouth 1 (one) time each day methenamine (HIPREX) 1 g tablet Take 1 g by mouth 2 (two) times a day with meals metoprolol tartrate 25 MG tablet Take 12.5 mg by mouth in the morning and 12.5 mg in the evening. montelukast (SINGULAIR) 10 MG tablet Take 10 mg by mouth 1 (one) time each day mycophenolate (MYFORTIC) 180 MG EC tablet Take 1 tablet (180 mg total) by mouth in the morning and 1 tablet (180 mg total) in the evening. 180 tablet 3 pantoprazole (PROTONIX) 40 MG EC tablet Take 40 mg by mouth 1 (one) time each day before breakfast Do not crush, chew, or split. predniSONE 5 MG tablet TAKE 1 TABLET BY MOUTH 1 TIME EACH DAY. 90 tablet 3 psyllium (METAMUCIL) 58.6 % powder Take 1 packet by mouth 3 (three) times a day if needed rOPINIRole (REQUIP) 1 MG tablet Take 1 mg by mouth 1 (one) time each day rosuvastatin (CRESTOR) 40 MG tablet Take 40 mg by mouth 1 (one) time each day senna-docusate (PERICOLACE) 8.6-50 MG per tablet Take 1 tablet by mouth 1 (one) time each day traMADol (ULTRAM) 50 MG tablet Take by mouth every 6 (six) hours if needed PRN only tretinoin (RETIN-A) 0.1 % cream Apply topically every night [DISCONTINUED] tacrolimus (PROGRAF) 1 MG capsule TAKE 2 CAPSULES BY MOUTH IN THE MORNING AND IN THEEVENING 360 capsule 3 [DISCONTINUED] estradiol (ESTRACE) 0.1 MG/GM vaginal cream Insert into the vagina 2-4 grams daily for 14 days then 1 gram 1-3 times a week (Patient not taking: Reported on 08/30/2024) No current facility-administered medications on file prior to visit. Objective: Physical exam: BP 138/78 (BP Location: Right upper arm, Patient Position: Sitting, BP Cuff Size: Large adult) Pulse 72 Ht 5' 8 (1.727 m) Wt 203 lb 3.2 oz (92.2 kg) BMI 30.90 kg/m?? Vitals reviewed. Constitutional: She is oriented to person, place, and time. Vital signs are normal. She appears well-developed and obese. Neck: No cervical LAD Cardiovascular: She exhibits no edema. Pulmonary/Chest: Effort normal. Neurological: She is alert and oriented to person, place, and time. Skin: Skin is warm and dry. Psychiatric: She has a normal mood and affect. Her behavior is normal. Judgment normal. LABS: Chemistry Lab Units 08/26/24 1243 04/22/24 1034 03/26/24 1400 01/28/24 0816 12/18/23 1250 11/03/23 1055 10/25/23 0655 10/24/23 0554 10/15/23 1237 10/15/23 1224 08/20/23 0640 08/19/23 1229 05/26/23 1134 CREATININE mg/dL 1.70* 1.56* 1.48* 1.56* 1.62* 1.37* 1.48* < > -- < > 1.44 1.44* 1.47* BUN mg/dL 22 21 27* 26* 21 23 23* < > -- < > 24 24 21 POTASSIUM mmol/L 3.8 3.7 4.0 4.2 4.0 3.6 4.3 < > -- < > 3.9 3.9 4.0 SODIUM mmol/L 138 141 139 138 138 140 132* < > -- < > 134 134* 140 CO2 mmol/L 25 27 27 -- 27 24 22 < > -- < > 26 26 25 CHLORIDE mmol/L 102 104 103 -- 102 105 98 < > -- < > 97 97* 104 ALBUMIN g/dL 4.3 4.1 4.0 -- 4.3 3.8 -- -- 11.7 < > 4.0 4.0 3.9 WBC AUTO Thousand/uL -- 6.6 -- -- 5.8 6.8 -- -- -- -- 6.2 6.2 7.1 HEMATOCRIT % -- 36.1 -- -- 40.3 35.6 -- -- -- -- 36.2 36.2 37.0 HEMOGLOBIN g/dL -- 11.7 -- -- 12.8 11.0* -- -- -- -- 11.7 11.7 12.3 PLATELETS AUTO Thousand/uL -- 214 -- -- 223 249 -- -- -- -- 251 251 268 < > = values in this interval not displayed. Bone Mineral Lab Units 08/26/24 1243 04/22/24 1034 03/26/24 1400 01/28/24 0816 12/18/23 1250 11/03/23 1055 10/24/23 0554 10/15/23 1224 08/20/23 0640 08/19/23 1229 05/26/23 1134 02/06/23 1406 09/11/22 1354 CALCIUM mg/dL 8.6 8.4* 9.6 9.7 8.9 7.9* < > 8.1* < > 8.6 8.2* 7.6* 9.0 PHOSPHORUS mg/dL 4.4 4.6* 5.4* -- 3.8 -- -- -- -- 4.2 -- -- -- ALK PHOS U/L -- -- -- -- -- 63 -- 73 -- -- 70 65 68 PTH pg/mL -- -- -- -- -- 39 -- -- -- -- -- -- 37 VIT D 25 HYDROXY ng/mL 56 -- -- -- -- -- -- -- -- -- -- 41 -- < > = values in this interval not displayed. Urine Lab Units 08/26/24 1243 04/22/24 1034 03/26/24 1400 12/18/23 1250 11/03/23 1055 05/26/23 1134 PROT/CREAT RATIO UR mg/g creat -- -- -- 0.174 174 0.185* 185* 0.435* 435* ALB MG/G CREAT UR mg/g creat 13 10 13 -- -- -- Assessment and Plan: CKD 3b s/p DDRT on 09/23/2018 and 2000, secondary to vasculitis not identified, Nonspecific she was told. Was on HD for about 18 months prior. - Maintained on tacrolimus MMF, and prednisone. - Baseline Cr 1.4-1.7, low grade proteinuria - Most recent lab work is stable - BK virus is not detected 7/10/24. - Did not get rechecked at this visit, check with next monitoring labs - Educated patient to avoid NSAIDs. - Follow up in 6 months - Every 3 month lab monitoring 2. Chronic UTIs - Following with urology. - On Hiprex 3. Hypertension with CKD: - Blood pressure remains under good control 3. Hx of thyroidectomy for hyperthyroidism age 12y/o with then removal of 3/4 parathyroidectomy - She has been on vit D and Ca supplement. - Ca is 8.4. Continue calcium++ 600 mg BID. 4. Chronic steroid use: - Bone density did demonstrate osteopenia. Dexa per PCP. - She is on vit D 3 and Ca daily, as above. 5. Immunosuppression - Recommend and to have ongoing age appropriate cancer screening. She did have a colonoscopy 2018, sees dermatology yearly. - Tac level 6.1. Desired level 4-6 - Continue to monitor 6. URI symptoms She is on triple immunotherapy for rejection prevention She has been on numerous antibiotics over the last year due to UTI Some prescribed, some left over in her cupboard from Therapy changes once cultures received that she has Decided to take when nothing was prescribed Educated on high risk infection state DO NOT self guide antibiotic therapy High risk for MDR/opportunistic infection Given lung sounds, presenting symptoms, and longevity of URI Symptoms, referring to ER for assessment [employer] m[employer] notified. Return in about 6 months (around 03/02/2025). Kimi Darby NP 08/30/2024, 5:19 PM CDT Cosigned by Jennifer Mccarty MD at 09/02/2024 12:01 PM CDT Associated attestation - Jennifer Mccarty MD - 09/02/2024 1:01 PM EDT I was available. I have reviewed the documentation. I agree with the assessment and plan. * Kmii Darby NP - 08/30/2024 1:30 PM CDT Images from the original note were not included. 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 Creatinine 1.4-1.6 mg/dL CMV D+/R+ Previous LURT at [place] failed in [address] 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 05/2023 visited with urology for UTI frequency. Placed on doxycycline and finished course and symptoms returned. She was restarted on doxy for treatment then titrate down to suppression. CT completed with findings of large amount of stool, and a left [place] kidney cyst measuring 3.9 centimeter. Chronic unresolved UTI since February, despite numerous therapies. 06/01/23 referred to local urologyfor assessment (Dr. Steve Peña [facility] [place]) who placed on daily antibiotic prophylaxis and completed a cystoscopy. Cystoscopy notable for debris and draining of R ureter, inflammation of bladder wall. Dr Hood, ID at [facility] [place] determined negative for infectious findings, remain on antibiotic for prophylaxis, no other changes. Reviewed overall findings with mix mill tender team: referring to [facility] in [place] post solid organ renal transplant division for assessment of health threat from developed anomalies in failed allograft. She was not satisfied with her care at 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 Had her first transplanted kidney removed in October 2023. Interim History Current serum creatinine is 1.70 with an estimated GFR of 33 ml/min. UAC 13 mg/g Reports upper respiratory infection x 2 weeks reports home fever of >103, went to [facility] ER on 08/28/24: reports they found nothing , advised her it was viral and sent her home with no therapy. The week before she had uti symptoms and had been placed on augmentin. She had doxycycline at home, and began taking it on top of the Augmentin for her upper respiratory congestion. Significant sinus congestion on presentation, bilat rales and rhonchi up through mid lobes on auscultation. BP, HR stable, temp 98.6, pulse ox room air 93%. Tremors present, skin clammy/warm, tac level is elevated above goal. Reviewed her current labs, historical trend and renal disease status. Past Medical History: Diagnosis Date Acute ischemic heart disease (HCC) End stage renal disease (HCC) Hypertension Hypothyroidism Obstructive sleep apnea Urinary tract infection Past Surgical History: Procedure Laterality Date AV FISTULA PLACEMENT CHOLECYSTECTOMY DONOR KIDNEY TRANSPLANT GALLBLADDER SURGERY PARATHYROIDECTOMY THYROIDECTOMY Social History Tobacco Use Smoking status: Never Smokeless tobacco: Never Substance Use Topics Alcohol use: Not Currently Alcohol/week: 2.0 - 3.0 standard drinks of alcohol Types: 2 - 3 Glasses of wine per week Family History Problem Relation Age of Onset Hypertension Mother Cancer Mother No Known Problems Father Review of Systems: Constitutional: Negative. Respiratory: Negative. Cardiovascular: Negative. Gastrointestinal: Negative. Medications: Current Outpatient Medications on File Prior to Visit Medication Sig Dispense Refill ALPRAZolam (XANAX) 1 MG tablet Take 1 mg by mouth every night ascorbic acid (VITAMIN C) 1000 MG tablet Take 2,000 mg by mouth in the morning and 2,000 mg in the evening. azelastine (ASTELIN) 0.1 % nasal spray Administer into each nostril 2 (two) times a day buPROPion XL (WELLBUTRIN XL) 150 MG 24 hr tablet Take 150 mg by mouth 1 (one) time each day doxycycline (VIBRAMYCIN) 100 MG capsule Take 100 mg by mouth in the morning and 100 mg in the evening. Take with a full glass of water and do not lie down for at least 30 minutes after. FLUoxetine (PROzac) 60 MG tablet Take by mouth 1 (one) time each day furosemide (LASIX) 40 MG tablet TAKE 1 TABLET (40 MG TOTAL) BY MOUTH 1 (ONE) TIME EACH DAY NEEDED. 90 tablet 3 LACTOBACILLUS BIFIDUS PO Take by mouth 1 (one) time each day levothyroxine (SYNTHROID, LEVOTHROID) 100 MCG tablet Take 150 mcg by mouth 1 (one) time each day methenamine (HIPREX) 1 g tablet Take 1 g by mouth 2 (two) times a day with meals metoprolol tartrate 25 MG tablet Take 12.5 mg by mouth in the morning and 12.5 mg in the evening. montelukast (SINGULAIR) 10 MG tablet Take 10 mg by mouth 1 (one) time each day mycophenolate (MYFORTIC) 180 MG EC tablet Take 1 tablet (180 mg total) by mouth in the morning and 1 tablet (180 mg total) in the evening. 180 tablet 3 pantoprazole (PROTONIX) 40 MG EC tablet Take 40 mg by mouth 1 (one) time each day before breakfast Do not crush, chew, or split. predniSONE 5 MG tablet TAKE 1 TABLET BY MOUTH 1 TIME EACH DAY. 90 tablet 3 psyllium (METAMUCIL) 58.6 % powder Take 1 packet by mouth 3 (three) times a day if needed rOPINIRole (REQUIP) 1 MG tablet Take 1 mg by mouth 1 (one) time each day rosuvastatin (CRESTOR) 40 MG tablet Take 40 mg by mouth 1 (one) time each day senna-docusate (PERICOLACE) 8.6-50 MG per tablet Take 1 tablet by mouth 1 (one) time each day traMADol (ULTRAM) 50 MG tablet Take by mouth every 6 (six) hours if needed PRN only tretinoin (RETIN-A) 0.1 % cream Apply topically every night No current facility-administered medications on file prior to visit. Objective: Physical exam: BP 138/78 (BP Location: Right upper arm, Patient Position: Sitting, BP Cuff Size: Large adult) Pulse 72 Ht 5' 8 (1.727 m) Wt 203 lb 3.2 oz (92.2 kg) BMI 30.90 kg/m?? Vitals reviewed. Constitutional: She is oriented to person, place, and time. Vital signs are normal. She appears well-developed and obese. Neck: No cervical LAD Cardiovascular: She exhibits no edema. Pulmonary/Chest: Effort normal. Neurological: She is alert and oriented to person, place, and time. Skin: Skin is warm and dry. Psychiatric: She has a normal mood and affect. Her behavior is normal. Judgment normal. LABS: Chemistry Lab Units 08/26/24 1243 04/22/24 1034 03/26/24 1400 01/28/24 0816 12/18/23 1250 11/03/23 1055 10/25/23 0655 10/24/23 0554 10/15/23 1237 10/15/23 1224 08/20/23 0640 08/19/23 1229 05/26/23 1134 CREATININE mg/dL 1.70* 1.56* 1.48* 1.56* 1.62* 1.37* 1.48* < > -- < > 1.44 1.44* 1.47* BUN mg/dL 22 21 27* 26* 21 23 23* < > -- < > 24 24 21 POTASSIUM mmol/L 3.8 3.7 4.0 4.2 4.0 3.6 4.3 < > -- < > 3.9 3.9 4.0 SODIUM mmol/L 138 141 139 138 138 140 132* < > -- < > 134 134* 140 CO2 mmol/L 25 27 27 -- 27 24 22 < > -- < > 26 26 25 CHLORIDE mmol/L 102 104 103 -- 102 105 98 < > -- < > 97 97* 104 ALBUMIN g/dL 4.3 4.1 4.0 -- 4.3 3.8 -- -- 11.7 < > 4.0 4.0 3.9 WBC AUTO Thousand/uL -- 6.6 -- -- 5.8 6.8 -- -- -- -- 6.2 6.2 7.1 HEMATOCRIT % -- 36.1 -- -- 40.3 35.6 -- -- -- -- 36.2 36.2 37.0 HEMOGLOBIN g/dL -- 11.7 -- -- 12.8 11.0* -- -- -- -- 11.7 11.7 12.3 PLATELETS AUTO Thousand/uL -- 214 -- -- 223 249 -- -- -- -- 251 251 268 < > = values in this interval not displayed. Bone Mineral Lab Units 08/26/24 1243 04/22/24 1034 03/26/24 1400 01/28/24 0816 12/18/23 1250 11/03/23 1055 10/24/23 0554 10/15/23 1224 08/20/23 0640 08/19/23 1229 05/26/23 1134 02/06/23 1406 09/11/22 1354 CALCIUM mg/dL 8.6 8.4* 9.6 9.7 8.9 7.9* < > 8.1* < > 8.6 8.2* 7.6* 9.0 PHOSPHORUS mg/dL 4.4 4.6* 5.4* -- 3.8 -- -- -- -- 4.2 -- -- -- ALK PHOS U/L -- -- -- -- -- 63 -- 73 -- -- 70 65 68 PTH pg/mL -- -- -- -- -- 39 -- -- -- -- -- -- 37 VIT D 25 HYDROXY ng/mL 56 -- -- -- -- -- -- -- -- -- -- 41 -- < > = values in this interval not displayed. Urine Lab Units 08/26/24 1243 04/22/24 1034 03/26/24 1400 12/18/23 1250 11/03/23 1055 05/26/23 1134 PROT/CREAT RATIO UR mg/g creat -- -- -- 0.174 174 0.185* 185* 0.435* 435* ALB MG/G CREAT UR mg/g creat 13 10 13 -- -- -- Assessment and Plan: CKD 3b s/p DDRT on 09/23/2018 and 2000, secondary to vasculitis not identified, Nonspecific she was told. Was on HD for about 18 months prior. - Maintained on tacrolimus MMF, and prednisone. - Baseline Cr 1.4-1.7, low grade proteinuria - Most recent lab work is stable - BK virus is not detected 08/20/23. - Did not get rechecked at this visit, check with next monitoring labs - Educated patient to avoid NSAIDs. - Follow up in 6 months - Every 3 month lab monitoring 2. Chronic UTIs - Following with urology. - On Hiprex 3. Hypertension with CKD: - Blood pressure remains under good control 3. Hx of thyroidectomy for hyperthyroidism age 12y/o with then removal of 3/4 parathyroidectomy - She has been on vit D and Ca supplement. - Ca is 8.4. Continue calcium++ 600 mg BID. 4. Chronic steroid use: - Bone density did demonstrate osteopenia. Dexa per PCP. - She is on vit D 3 and Ca daily, as above. 5. Immunosuppression - Recommend and to have ongoing age appropriate cancer screening. She did have a colonoscopy 2018, sees dermatology yearly. - Tac level 6.7. Desired level 4-6 - Decrease tacrolimus dosing to 2-1 mg tablets in the am and 1-1 mg tablet in the evening with 1-0.5 mg tablet. - Continue to monitor 6. URI symptoms She is on triple immunotherapy for rejection prevention She has been on numerous antibiotics over the last year due to UTI Some prescribed, some left over in her cupboard from Therapy changes once cultures received that she has Decided to take when nothing was prescribed Educated on high risk infection state DO NOT self guide antibiotic therapy High risk for MDR/opportunistic infection Given lung sounds, presenting symptoms, and longevity of URI Symptoms, referring to ER for assessment [employer] m[employer] notified. Return in about 6 months (around 03/02/2025). Kimi Darby NP 09/02/2024, 12:28 PM CDT documented in this encounter Plan of Treatment Upcoming Encounters Date Type Department Care Team (Late st Contact Info) Description 02/18/2025 2:00 PM BREAD ROOM HAND Office Visit [facility] [address] [phone] Kimi Darby NP [address] [phone] Scheduled Orders Name Type Priority Associated Diagnoses Orde r Schedule Comprehensive metabolic panel Lab Routine Kidney transplant status Expected: 11/30/2024 (Approximate), Expires: 02/01/2025 CBC and differential Lab Routine Kidney transplant status Expected: 11/30/2024 (Approximate), Expires: 02/01/2025 Urinalysis Lab Routine Kidney transplant status Expected: 11/30/2024 (Approximate), Expires: 02/01/2025 PTH, intact Lab Routine Kidney transplant status Expected: 11/30/2024 (Approximate), Expires: 02/01/2025 Protein / creatinine ratio, urine Lab Routine Kidney transplant status Expected: 11/30/2024 (Approximate), Expires: 02/01/2025 Magnesium Lab Routine Kidney transplant status Expected: 11/30/2024 (Approximate), Expires: 02/01/2025 Tacrolimus level Lab Routine Kidney transplant status Expected: 11/30/2024 (Approximate), Expires: 02/01/2025 BK virus, DNA, quantitative Lab Routine Kidney transplant status Expected: 11/30/2024 (Approximate), Expires: 09/30/2025 Comprehensive metabolic panel Lab Routine Kidney transplant status Expected: 03/02/2025 (Approximate), Expires: 07/06/2025 CBC and differential Lab Routine Kidney transplant status Expected: 03/02/2025 (Approximate), Expires: 07/06/2025 Protein / creatinine ratio, urine Lab Routine Kidney transplant status Expected: 03/02/2025 (Approximate), Expires: 07/06/2025 PTH, intact Lab Routine Kidney transplant status Expected: 03/02/2025 (Approximate), Expires: 07/06/2025 Urinalysis Lab Routine Kidney transplant status Expected: 03/02/2025 (Approximate), Expires: 07/06/2025 Tacrolimus level Lab Routine Kidney transplant status Expected: 03/02/2025 (Approximate), Expires: 07/06/2025 Magnesium Lab Routine Kidney transplant status Expected: 03/02/2025 (Approximate), Expires: 07/06/2025 Lipid panel Lab Routine Kidney transplant status Expected: 03/02/2025 (Approximate), Expires: 07/06/2025 documented as of this encounter Visit Diagnoses Diagnosis Stage 3b chronic kidney disease (HCC)- Primary Kidney transplant status Shortness of breath documented in this encounter Care Teams Pit Hand Relationship Specialty Start Date End Date Phoebe Márquez FNP [address] [place] [id number] PCP - General Nurse Practitioner 02/26/22 documented as of this encounter
--- OUTSIDE RECORDS SUMMARY | 2024-08-31 00:38 | XMS_ITS | Encounter Summary ---
Author Organization [facility] Address [address] [place] [address] Care Team Providers Care Patrol Officer Name Role Phone Allen Goldsmith MD Primary Care Provider Unava ilable Reason for Visit * Reason Comments Fever Patient endorses cou gh x1 week, fever x4 days tmax 103, will break with tylenol. Patient was seen at nephrology clinic today and sent here due to provider stating her lungs sounded terrible. Patient has hx kidney transplant in 2000 and 2018 Encounter Details Date Type Department Care Team (Late st Contact Info) Description 2024 12:38 AM CDT - 2024 2:25 AM CDT Emergency [facility] Emergency Department [address] [place] [id number] Omid Roblero MD [address] [place] [address] [phone] Upper respiratory tract infection, unspecified type (Primary Dx) Discharge Disposition: Home or Self Care Social History Tobacco Use Types Packs/Day Years Used Date Smoking Tobacco: Never Smokeless Tobacco: Never Comments Unknown Sex and Gender Information Value Date Recorded Sex Assigned at Not on file Legal Sex Female 6:49 AM ORDER ENTRY Gender Identity Not on file Sexual Orientation Not on file documented as of this encounter Last Filed Vital Signs Vital Sign Reading Time Taken Comments Blood Pressure 169/64 2024 12:00 AM CDT Pulse 74 2024 12:00 AM CDT Temperature 37 C (98.6 F) 2024 12:00 AM CDT Respiratory Rate 17 2024 12:00 AM CDT Oxygen Saturation 99% 2024 12:00 AM CDT Inhaled Oxygen Concentration - - Weight 82.1 kg (181 lb) 08/30/2024 2:58 PM CDT Height 172.7 cm (5' 8 ) 08/30/2024 2:58 PM CDT Body Mass Index 27.52 08/30/2024 2:58 PM CDT documented in this encounter Discharge Instructions * Discharge Instructions* Omid Roblero MD - 2024 1:41 AM CDT Follow-up with your physician for recheck of your symptoms. Call later today to arrange an appointment time. Take stress dose steroids for the next 5 days. Take prednisone 50 mg once daily for 5 days. After that you can go back to your normal dose of steroids. If you want to take the doxycycline that you have at home you can do that. Take 1 tablet every 12 hours for 10 days. Of course if this is viral in origin and the antibiotics will not help. Return to the emergency department for worsening cough, worsening trouble breathing, frequent persistent vomiting, altered mental status, any other problems or concerns. documented in this encounter Medications at Time of Discharge predniSONE (DELTASONE) 50 mg tablet Take 1 Tablet (50 mg) by mouth daily for 5 days. 5 Tablet 2024 traMADoL (ULTRAM) 50 mg tabletIndication s:Closed fracture of ramus of right pubis, initial encounter ([facility]) Take 2 Tablets (100 mg) by mouth every 6 hours as needed for Pain, Severe. Reduce and discontinue this medication as soon as able. 45 Tablet 04/16/2021 amLODIPine (NORVASC) 2.5 mg tablet Take 1 Tablet (2.5 mg) by mouth daily. 30 Tablet 04/14/2021 calcium-cholecal ciferol (OS-KHADIJAH 500+D) 500 mg-5 mcg (200 unit) tablet Take 1 Tablet by mouth 2 times daily with meals. 1 Tablet 04/13/2021 rOPINIRole (REQUIP) 1 mg tablet Take 1 Tablet (1 mg) by mouth daily at bedtime. 1 Tablet 04/13/2021 docusate sodium (COLACE) 100 mg capsule Take 1 Capsule (100 mg) by mouth 2 times daily. 04/13/2021 sennosides-docus ate sodium (SENNA-S) 8.6-50 mg tablet Take 1 Tablet by mouth 2 times daily. 04/13/2021 naloxone (NARCAN) 4 mg/spray [place], Non-Aerosol EMERGENCY USE ONLY: Administer 1 spray (4 mg) in one nostril one time. May repeat in alternating nostrils every 2-3 min until responsive or EMS arrives. 2 Each 04/13/2021 folic acid (FOLVITE) 1 mg tablet Take 1 Tablet (1 mg) by mouth daily. 04/09/2021 methocarbamoL (ROBAXIN) 750 mg tablet Take 1 Tablet (750 mg) by mouth 3 times daily. 04/08/2021 pantoprazole (PROTONIX) 40 mg Tablet, Delayed Release (E.C.) Take 1 Tablet (40 mg) by mouth daily before breakfast. 04/09/2021 acetaminophen (TYLENOL) 325 mg tablet Take 2 Tablets (650 mg) by mouth every 6 hours as needed for Other (See Comment) (See admin instructions). 04/08/2021 carvediloL (COREG) 25 mg tablet Take 25 mg by mouth 2 times daily with meals. rosuvastatin (CRESTOR) 40 mg tablet Take 40 mg by mouth daily. tacrolimus (PROGRAF) 1 mg capsule Take 2 mg by mouth 2 times daily. mycophenolate sodium (MYFORTIC) 180 mg Tablet, Delayed Release (E.C.) Take 180 mg by mouth 2 times daily before meals. FLUoxetine (PROzac) 40 mg capsule Take 60 mg by mouth daily. fluticasone propionate (FLONASE) 50 mcg/spray [place], Suspension nasal inhaler Administer 2 Sprays in each nostril daily. predniSONE (DELTASONE) 5 mg tablet Take 5 mg by mouth daily. montelukast (SINGULAIR) 10 mg tablet Take 10 mg by mouth daily at bedtime. levothyroxine 125 mcg tablet Take 125 mcg by mouth daily in the morning. ALPRAZolam (XANAX) 1 mg tablet Take 1 mg by mouth daily at bedtime. aspirin (MARINA CHEWABLE) 81 mg Tablet, Chewable Take 81 mg by mouth daily. buPROPion HCL (WELLBUTRIN SR) 150 mg Sustained Release 12 hour tablet Take 150 mg by mouth daily. 11/11/2017 doxazosin (CARDURA) 2 mg tablet Take 2 mg by mouth every 12 hours. 11/11/2017 tretinoin (RETIN-A) 0.1 % Cream APPLY TO AFFECTED AREA DAILY 50 Gram PRN 06/20/2015 documented as of this encounter ED Notes * Lizzy Vazquez RN - 09/01/2024 8:34 PM CDT Pt called regarding positive blood cultures and informed to go to nearest ED. Pt verbalized understanding and states she would. * Darcy Panedy NP - 08/30/2024 3:04 PM CDT Pt was evaluated in triage at 3:04 PM with complaint of patient reports diagnosed with a respiratory virus at the ER at [facility] last week when she went there by EMS for fever, cough and congestion. She has history of kidney transplant and went to the cashier associate today who thought her lungs sounded junky and sent her to the ER for evaluation. She denies any shortness of breath. She has had a cough and fever. She denies known sick contacts. She states she had labs, COVID/flu/RSV, urinalysis and chest x-ray at [facility] that were essentially unremarkable. Significant medical history includes renal transplant IV, Labs, and Chest X-Ray were ordered at this time. Vitals: Vitals: 08/30/24 1458 BP: 132/80 BP Location: Right arm Patient Position (BP): Sitting Pulse: 84 Resp: 18 Temp: 98.1 ??F (36.7 ??C) TempSrc: Temporal SpO2: 92% Weight: 82.1 kg (181 lb) Height: 5' 8 (1.727 m) Pain Scale: Physical Exam: General appearance: Alert, in no distress Neck: supple, trachea midline Lungs: normal respiratory effort, intermittent dry cough Extremities: moves all extremities Skin: pink, warm, dry Neurologic: Grossly normal Discussed patient's pain and/or nausea management. Offered oral medication per triage protocols. Patient desires oral medication offered. A medical screening exam was initiated in our triage area tailored to the patient's chief complaint. Focused diagnostics and therapies have been initiated, will continue and expand as appropriate to help identify any life or limb threatening conditions while awaiting an exam room in the main area of the ED. Continued care, evaluation and management of this patient will be performed throughout their stay. The patient's evaluation and anticipated ongoing care plan was discussed in detail with them to make sure they are aware of what to expect during their stay. Portions of this documentation may have been created by an artificial silk top hat body maker software. Effort has been done to assure accuracy of silk top hat body maker. Any obvious errors or omissions should be clarified with the author of the document. Darcy Pandey NP * Omid Roblero MD - 08/30/2024 2:42 PM CDT HISTORY OF PRESENT ILLNESS HPI CC: I saw a cashier associate earlier today. She listed my lungs and kind of freaked out. 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 She had a redo transplant in 2019. She was seen a cashier associate earlier who was not her normal cashier associate. Engineer Chief listen to her lungs and said that her lungs had a terrible and told thepatient she had to come to the ED. The patient states that she has had a cough for about 2 weeks. She has had head congestion, runny nose, sinus pressure, postnasal drip, sore throat, and a severe cough coughing up green phlegm. She did have a fever on Friday with a Tmax of 105 at home. It was 103 when she went to the ED. She had had some Tylenol at that point. She had a chest x-ray that was negative, UA that was negative in theED, and had a swab that was negative for COVID/influenza/RSV. She was sent home. She saw a cashier associate earlier and her lungs sounded bad so she was sent in. The patient states that she was on Augmentin from February 19 through February 26 due to white cells in her urine and flank pain. While she was on the Augmentin her cough was improved. Once she stopped the Augmentin on February 26 her cough worsened once again. She has doxycycline at home. She started doxycycline on Friday. She again felt better. She states she feels much better today than she did on Friday. She was surprised that her lungs sounded bad to the cashier associate. The patient denies any other recent symptoms. PMHX: Per EMR patient has a history of falling off a stage with multiple closed pelvic fractures, displaced sacral fracture, peritoneal hemorrhage, hematoma of the bladder wall PSHX: Per EMR patient has a history of renal transplant who is immunocompromised on tacrolimus and daily prednisone, UTI Social HX: She denies tobacco use, drug use, or alcohol use. PAST MEDICAL HISTORY REVIEWED MEDICAL: Patient has a past medical history of Basal cell carcinoma. SURGICAL: Patient has a past surgical history that includes fistula placement (Left, 08/2017); breast surgery- other (1978); thyroidectomy (1972); cholecystectomy; renal transplant (Right, 2000); vascular procedure other (Left, 01/06/2018); skin biopsy; and insert midline iv (04/02/2021). ALLERGIES Epoetin sharla and Epoetin sharla PHYSICAL EXAM INITIAL VS BP: 132/80 (08/30/24 1458), Heart Rate: 84 bpm (08/30/24 145), Resp: 18 (08/30/241457), Pulse: 84(08/30/24 1458), Temp: 98.1 ??F (36.7 ??C) (08/30/241457), Temp src: Temporal (08/30/241457), SpO2: 92 % (08/30/24 145), Height: 5' 8 (172.7 cm) (08/30/24 1458), Weight: 82.1 kg (181 lb) (08/30/241457), BMI (Calculated): (!) 27.53 (08/30/241457) No LMP recorded. Physical Exam Constitutional: General: She is not in acute distress. Appearance: She is not ill-appearing. Eyes: Conjunctiva/sclera: Conjunctivae normal. Cardiovascular: Rate and Rhythm: Normal rate and regular rhythm. Pulses: Normal pulses. Heart sounds: Normal heart sounds. Pulmonary: Effort: Pulmonary effort is normal. Breath sounds: Normal breath sounds. Comments: Lungs are clear to auscultation with no wheezes rhonchi rales. She is speaking in complete sentences with no prolonged expiratory phase or accessory muscle use. Abdominal: General: There is no distension. Neurological: Mental Status: She is alert. DIAGNOSTICS LAB: CBC WITH DIFFERENTIAL - Abnormal Result Value WBC 4.7 (*) RBC 4.18 (*) HEMOGLOBIN 12.9 HEMATOCRIT 40.9 MCV 97.8 MCH 30.9 MCHC 31.5 PLATELETS 162 MPV 10.2 RDW 14.0 RDW-STDEV 50.8 NEUTROPHILS 62 LYMPHOCYTES 25 MONOCYTES 11 (*) EOSINOPHILS 1 BASOPHILS 0 IMMATURE GRANULOCYTES 1 NEUTROPHIL ABSOLUTE 2.91 LYMPHOCYTE ABSOLUTE 1.19 (*) MONOCYTE ABSOLUTE 0.51 EOSINOPHIL ABSOLUTE 0.04 BASOPHILS ABSOLUTE 0.01 IMMATURE GRANULOCYTES ABSOLUTE 0.03 SMEAR REVIEWED: NA - Not Applicable COMPREHENSIVE METABOLIC PANEL - Abnormal SODIUM 130 (*) POTASSIUM 3.8 CHLORIDE 98 CO2 18 (*) CALCIUM 7.6 (*) BUN 22 CREATININE 1.60 (*) GLUCOSE 84 TOTAL PROTEIN 6.7 ALBUMIN 3.8 BILIRUBIN TOTAL 0.5 ALKALINE PHOSPHATASE 80 AST 33 ALT 25 GFR 36 (*) ANION GAP 14 LACTIC ACID - Normal LACTIC ACID 1.1 URINALYSIS WITH REFLEX MICROSCOPIC - Normal COLOR UA Pale Yellow CLARITY UA Clear SPECIFIC GRAVITY UA 1.009 PH UA 5.5 LEUKOCYTE ESTERASE UA Negative NITRITE UA Negative PROTEIN UA Negative GLUCOSE UA Negative KETONES UA Negative UROBILINOGEN UA <2.0 BILIRUBIN UA Negative BLOOD UA Negative BLOOD CULTURE BLOOD CULTURE BLOOD CULTURE BLOOD CULTURE URINE CULTURE RESPIRATORY PATHOGEN PCR PANEL EXTRA TUBE (URINE OSCAR) RADIOLOGY: XR CHEST PA OR AP 1 VW Radiologist Impression Impression: No evidence of infiltrates. EKG: PROCEDURES Procedures MEDICAL DECISION MAKING AND PLAN OF CARE 1:15 AM The patient is a 64-year-old female with a history of a renal transplant on tacrolimus as well as prednisone 5 mg daily who was sent from her cashier associate office for a cough for 2 weeks with bad sounding lungs. The patient states that for the last 2 weeks she has been having head congestion, runny nose, sinus pressure, postnasal drip, sore throat, and a productive cough with green phlegm. She wasrecently on antibiotics for flank pain with white cells in her urine and her cough improved. Once the Augmentin stopped her cough worsened so she started some doxycycline that she has at home. She has enough to take a 10-day course. She started the doxycycline on Friday. She feels much better on the doxycycline. Patient's lungs are clear to auscultation with no wheezes rhonchi or rales. She is speaking in complete sentences with no prolonged respiratory phase accessory muscle use. She does have a cough during my exam. Labs were sent prior to my see the patient. Patient's white count is 4.7. It was 6.6 when last checked in April 2021. Hemoglobin is 12.9. Platelets are 162. 62 segs. Creatinine is 1.60. It was 1.45 and last checked in April 2021. It was 1.61 back in March 2021. Liver enzymes normal. Lactic acid is normal at 1.1. UA is negative. Chest x-ray was read as nothing acute. The patient states she feels well and feels she can go home especially if her lungs sound good now and she has a negative chest x-ray here. She had a negative chest x-ray on Friday. I would like tosend blood cultures. I will send a urine culture. I will send a respiratory panel. The patient doesnot want a wait for the respiratory panel results. She does have my [facility]. She would like to go home after these are sent. I have recommended she start on stress dose steroids. She has done this before she states. She usually takes somewhere between 40 mg to 60 mg daily for 5 days. I will start aparna 50 mg once daily for 5 days. This is probably viral in which case the doxycycline will not help.I did inform the patient of that. Having said that she is immunocompromise. Certainly she could have a small superimposed pneumonia that were not seen on chest x-ray. She states that she will probably go ahead and stay on the doxycycline for the next 10 days. I did offer admission as she is immunocompromised in elderly even if this is viral we could admit her for observation. The patient declinesthis. She will follow-up with her PCP and return if her symptoms worsen. Medical Decision Making Amount and/or Complexity of Data Reviewed Labs: ordered. Radiology: ordered. Risk Prescription drug management. Clinical Scoring & Consults . New Prescriptions for this Encounter PREDNISONE (DELTASONE) 50 MG TABLET Take 1 Tablet (50 mg) by mouth daily for 5 days. LAST VS BP: (!) 169/64 (08/31/24 0000), Heart Rate: 74 bpm (08/31/24), Resp: 17 (08/31/24), Pulse: 74 (08/31/24), Temp: 98.6 ??F (37 ??C) (08/31/24), Temp src: Oral (08/31/24), SpO2:99 % (08/31/24) CLINICAL IMPRESSION Final diagnoses: [J06.9] Upper respiratory tract infection, unspecified type (Primary) DISPOSITION, EDUCATION AND MEDICATION RECONCILIATION Medications reconciled. See after visit summary for patient education on discharged patients. ATTESTATION STATEMENTS The times documented are the time of computer entry, not necessarily the time the event occurred This note was transcribed using an automated dictation software. Efforts have been made to assure accuracy of the silk top hat body maker. Any obvious errors or omissions should be clarified with the author ofthe document. Diagnosis Diagnosis Comment Added By Time Added Upper respiratory tract infection, unspecified type [J06.9] Omid Roblero MD 2024 1:40 AM documented in this encounter Miscellaneous Notes * ED Bed Hold Comment Note - Nicole Vang RN - 2024 12:38 AM CDT Bed: 07 Expected date: 08/31/24 Expected time: 12:34 AM Means of arrival: Comments: triage documented in this encounter Plan of Treatment Pending Results Name Type Priority Associated Diagnoses Date /Time BLOOD CULTURE Microbiology Stat 1:59 AM CDT BLOOD CULTURE Microbiology Stat 1:59 AM CDT Scheduled Orders Name Type Priority Associated Diagnoses Orde r Schedule BLOOD CULTURE Microbiology Routine ONE TIME for 1 Occurrences starting 08/30/2024 until 08/30/2024 documented as of this encounter Procedures Procedure Name Priority Date/Time Associated Diagnosis Comments BLOOD CULTURE Stat 2024 1:59 AM CDT BLOOD CULTURE PATHOGEN PCR PANEL Stat 2024 1:59 AM CDT RESPIRATORY PATHOGEN PCR PANEL Stat 2024 1:59 AM CDT BLOOD CULTURE Stat 2024 1:59 AM CDT BLOOD CULTURE Stat 2024 1:59 AM CDT EXTRA TUBE (URINE OSCAR) Stat 08/30/2024 4:12 PM CDT URINALYSIS W/REFLEX MICROSCOPIC Stat 08/30/2024 4:12 PM CDT URINE CULTURE Stat 08/30/2024 4:12 PM CDT LACTIC ACID Stat 08/30/2024 4:10 PM CDT CBC WITH DIFFERENTIAL Stat 08/30/2024 4:10 PM CDT COMPREHENSIVE METABOLIC PANEL Stat 08/30/2024 4:10 PM CDT XR CHEST PA OR AP 1 VW Stat 3:11 PM CDT documented in this encounter Results * BLOOD CULTURE PATHOGEN PCR PANEL (2024 1:59 AM CDT) [facility] Blood Culture Pathogen PCR Panel NOT DETECTED No nucleic acids detected. 09/01/2024 10:27 AM CDT [facility] Blood (Peripheral) Venipuncture / Unknown 2024 1:59 AM CDT 2024 2:06 AM CDT [facility] - 09/01/2024 10:27 AM CDT The Film Array Blood Culture Identification Panel is a multiplexed nucleic acid detection test for bacterial and yeast nucleic acids in positive blood cultures. It also detects genetic determinants of resistance to methicillin (mecA/C and MREJ), vancomycin (Chance and vanB), carbapenems (IMP, KPC, NDM, OXA-48 like and VIM), colistin (mcr-1) and ESBL (CTX-M). The following organisms are identified using the FilmArray BCID Panel: Gram Positive Bacteria Enterococcus faecalis Enterococcus faecium Listeria monocytogenes Staphylococcus Staphylococcus aureus Staphylococcus epidermidis Staphylococcus lugdunensis Streptococcus Streptococcus agalactiae Streptococcus pneumoniae Streptococcus pyogenes Gram Negative Bacteria Acinetobacter calcoaceticus-baumannii Bacteroides fragilis Haemophilus influenzae Neisseria meningitidis (encapsulated) Pseudomonas aeruginosa Stenotrophomonas maltophilia Enterobacterales Enterobacter cloacae complex Escherichia coli Klebsiella aerogenes Klebsiella oxytoca Klebsiella pneumoniae group Proteus Salmonella Serratia marcescens Yeast Stephani albicans Stephani auris Nakaseomyces glabrata(formerly Stephani glabrata) Pichia kudriavzevii(formerly Stephani krusei) Stephani parapsilosis Stephani tropicalis Cryptococcus neoformans/suzan us Darcy Pandey WIRE WINDING MACHINE OPERATOR MICROBIOLOGY - GENERAL ORDERA BLES Final Result [facility] # [id number] [address] [place] [id number] * (ABNORMAL) RESPIRATORY PATHOGEN PCR PANEL (2024 1:59 AM CDT) [facility] COVID-19 PCR NOT DETECTED Not Detected 2024 3:35 AM CDT [facility] Human Metapneumovirus by PCR DETECTED(A) Not Detected 2024 3:35 AM CDT [facility] Upper Respiratory ENTIRE NASOPHARYNX / Unknown Collection / Unknown 2024 1:59 AM CDT 2024 2:06 AM CDT Narrative [facility] - 2024 3:35 AM CDT The Film Array Respiratory Panel (RP2.1) is a multiplex nucleic acid detection test for 22 targets. Viruses: Adenovirus Coronavirus HKU1, NL63, 229E, and OC43 COVID-19/Severe Acute Respiratory Syndrome Coronavirus 2 Influenza A with the following subtypes: H1, H1-2009, and H3 Influenza B Human Metapneumovirus Parainfluenza virus 1, 2, 3, and 4 Respiratory Syncytial virus (RSV) Rhinovirus/Enterovirus (cannot differentiate due to genetic similarities) Bacteria: Bordetella pertussis Bordetella parapertussis Chlamydophila pneumoniae Mycoplasma pneumoniae us Omid Roblero MD MICROBIOLOGY - GENERAL ORDER SCOTT Final Result Performing Organization Address City/[facility]/ZIP Co de Phone Number [facility] CLIA # [id number] [address] [id number] * (ABNORMAL) BLOOD CULTURE (2024 1:59 AM CDT) BLOOD CULTURE Culture positive for Neisseria species, not gonorrhoeae or meningitidis(A ) 09/02/2024 10:09 AM CDT [facility] Comment:Susceptibility testi ng is not routinely performed in this setting as growth of this organism in one culture may represent contamination of the sample. If susceptibility testing is indicated, please contact the Microbiology lab. Blood (Peripheral) Venipuncture / Unknown 2024 1:59 AM CDT 2024 2:06 AM CDT Narrative [facility] - 09/02/2024 10:09 AM CDT Positive blood culture with a gram stain that shows Gram negative coccobacilli and a PCR result of none detected called to ER rn building (Lizzy Vazquez)by DELROY NICOLE on 09/01/2024 at 10:27 AM with verbal readback. us Darcy Pandey NP MICROBIOLOGY - GENERAL ORDERA BLES Final Result Performing Organization Address [facility]/ZIP Co de Phone Number [facility] CLIA # [id number] [address] [id number] [place], [place] [address] * URINE CULTURE (08/30/2024 4:12 PM CDT) CULTURE Polymicrobial growth consistent with normal urethral adelita and/or colonizing bacteria 09/01/2024 6:14 AM CDT [facility] Urine URINE SPECIMEN OBTAINED BY CLEAN CATCH PROCEDURE / Unknown Collection / Unknown 08/30/2024 4:12 PM CDT 08/30/2024 4:33 PM CDT us Omid Roblero MD MICROBIOLOGY - GENERAL ORDER SCOTT Final Result Performing Organization Address City/[facility]/ZIP Co de Phone Number [facility] CLIA # [id number] [address] [address] [place] [address] * EXTRA TUBE (URINE OSCAR) (08/30/2024 4:12 PM CDT) Urine URINE SPECIMEN OBTAINED BY CLEAN CATCH PROCEDURE / Unknown Collection / Unknown 08/30/2024 4:12 PM CDT 08/30/2024 4:33 PM CDT us Darcy Pandey NP URINE ORDERABLES Final Result Performing Organization Address [facility] Co de Phone Number [facility] CLIA # [id number] [address] [address] [place] [address] * URINALYSIS WITH REFLEX MICROSCOPIC (08/30/2024 4:12 PM CDT) COLOR UA Pale Yellow Pale to Dark Yellow 08/30/2024 4:42 PM CDT [facility] CLARITY UA Clear Clear 08/30/2024 4:42 PM CDT [facility] SPECIFIC GRAVITY UA 1.009 1.003 - 1.035 08/30/2024 4:42 PM CDT [facility] PH UA 5.5 5.0 - 8.0 08/30/2024 4:42 PM CDT [facility] LEUKOCYTE ESTERASE UA Negative Negative 08/30/2024 4:42 PM CDT [facility] NITRITE UA Negative Negative 08/30/2024 4:42 PM CDT [facility] PROTEIN UA Negative Negative 08/30/2024 4:42 PM CDT [facility] GLUCOSE UA Negative Negative 08/30/2024 4:42 PM CDT [facility] KETONES UA Negative Negative 08/30/2024 4:42 PM CDT [facility] UROBILINOGEN UA <2.0 <2.0 mg/dL 4:42 PM CDT [facility] BILIRUBIN UA Negative Negative 08/30/2024 4:42 PM CDT [facility] BLOOD UA Negative Negative 08/30/2024 4:42 PM CDT [facility] Urine URINE SPECIMEN OBTAINED BY CLEAN CATCH PROCEDURE / Unknown Collection / Unknown 08/30/2024 4:12 PM CDT 08/30/2024 4:33 PM CDT us Darcy Joana Hoodr WIRE WINDING MACHINE OPERATOR URINE ORDERABLES Final Result Performing Organization Address City/[facility]/ZIP Co de Phone Number [facility] CLIA # [id number] [address] [address] [place] [address] * LACTIC ACID (08/30/2024 4:10 PM CDT) LACTIC ACID 1.1 <=2.0 mmol/L 08/30/2024 4:44 PM CDT [facility] Blood BLOOD SPECIMEN / Unknown Venipuncture / Unknown 08/30/2024 4:10 PM CDT 08/30/2024 4:19 PM CDT us Darcy Joana Salvadorehr WIRE WINDING MACHINE OPERATOR CHEMISTRY ORDERABLES Final Re sult [facility] CLIA # [id number] [id number] [place] [address] * (ABNORMAL) COMPREHENSIVE METABOLIC PANEL (08/30/2024 4:10 PM CD) [facility] Signature SODIUM 130(L) 136 - 145 mmol/L 08/30/2024 4:58 PM [facility] POTASSIUM 3.8 3.5 - 5.1 mmol/L 08/30/2024 4:58 PM [facility] CHLORIDE 98 98 - 107 mmol/L 08/30/2024 4:58 PM [facility] CO2 18(L) 22 - 29 mmol/L 08/30/2024 4:58 PM [facility] CALCIUM 7.6(L) 8.8 - 10.2 mg/dL 08/30/2024 4:58 PM [facility] BUN 22 8 - 23 mg/dL 08/30/2024 4:58 PM [facility] CREATININE 1.60(H) 0.51 - 0.95 mg/dL 08/30/2024 4:58 PM [facility] GLUCOSE 84 74 - 99 mg/dL 08/30/2024 4:58 PM [facility] TOTAL PROTEIN 6.7 6.4 - 8.3 g/dL 08/30/2024 4:58 PM [facility] ALBUMIN 3.8 3.5 - 5.2 g/dL 08/30/2024 4:58 PM [facility] BILIRUBIN TOTAL 0.5 0.0 - 1.0 mg/dL 08/30/2024 4:58 PM [facility] ALKALINE PHOSPHATASE 80 35 - 104 U/L 08/30/2024 4:58 PM [facility] AST 33 10 - 35 U/L 08/30/2024 4:58 PM [facility] ALT 25 <=35 U/L 08/30/2024 4:58 PM [facility] GFR 36(L) >=60 mL/min/1. 73 sq meter 08/30/2024 4:58 PM [facility] Comment:eGFR calculated with 2020 CKD-EPI equation. Vegetarian diet, extremely high or low muscle mass, and may affect results. Cystatin C with Glomerular Filtration Rate is a suitable alternative for these patients. ANION GAP 14 9 - 20 mmol/L 08/30/2024 4:58 PM CDT [facility] Blood Venipuncture / Unknown 08/30/2024 4:10 PM CDT 08/30/2024 4:22 PM CDT us Darcy Pandey WIRE WINDING MACHINE OPERATOR CHEMISTRY ORDERABLES Final Re sult [facility] CLWA # [id number] [facility] [address] * (ABNORMAL) CBC WITH DIFFERENTIAL (08/30/2024 4:10 PM CDT) WBC 4.7(L) 4.8 - 10.8 K/uL 08/30/2024 4:33 PM CDT [facility] RBC 4.18(L) 4.20 - 5.40 M/uL 08/30/2024 4:33 PM CDT [facility] HEMOGLOBIN 12.9 12.0 - 16.0 g/dL 08/30/2024 4:33 PM CDT [facility] HEMATOCRIT 40.9 36.0 - 46.0 % 08/30/2024 4:33 PM CDT [facility] MCV 97.8 84.0 - 103.0 fL 08/30/2024 4:33 PM CDT [facility] MCH 30.9 27.0 - 34.0 pg 08/30/2024 4:33 PM CDT [facility] MCHC 31.5 30.0 - 35.0 g/dL 08/30/2024 4:33 PM CDT [facility] PLATELETS 162 140 - 440 K/uL 08/30/2024 4:33 PM CDT [facility] MPV 10.2 8.9 - 12.8 fL 08/30/2024 4:33 PM CDT [facility] RDW 14.0 11.0 - 14.5 % 08/30/2024 4:33 PM [facility] RDW-STDEV 50.8 37.0 - 54.0 fL 08/30/2024 4:33 PM CDT [facility] NEUTROPHILS 62 42 - 75 % 08/30/2024 4:33 PM [facility] LYMPHOCYTES 25 24 - 44 % 08/30/2024 4:33 PM T [facility] MONOCYTES 11(H) 2 - 10 % 08/30/2024 4:33 [facility] 1 0 - 7 % 08/30/2024 4:33 PM [facility] BASOPHILS 0 0 - 1 % 08/30/2024 4:33 PM [facility] IMMATURE GRANULOCYTES 1 0 - 2 % 08/30/2024 4:33 PM [facility] NEUTROPHIL ABSOLUTE 2.91 2.00 - 8.00 K/uL 08/30/2024 4:33 PM [facility] LYMPHOCYTE ABSOLUTE 1.19(L) 1.20 - 4.00 K/uL 08/30/2024 4:33 PM [facility] MONOCYTE ABSOLUTE 0.51 0.10 - 0.60 K/uL 08/30/2024 4:33 PM [facility] EOSINOPHIL ABSOLUTE 0.04 0.00 - 0.70 K/uL 08/30/2024 4:33 PM [facility] BASOPHILS ABSOLUTE 0.01 0.00 - 0.20 K/uL 08/30/2024 4:33 PM [facility] IMMATURE GRANULOCYTES ABSOLUTE 0.03 0.00 - 0.10 K/uL 08/30/2024 4:33 PM [facility] SMEAR REVIEWED: NA - Not Applicable 08/30/2024 4:33 PM [facility] Blood Venipuncture / Unknown 08/30/2024 4:10 PM CDT 08/30/2024 4:22 PM CDT us Darcy Pandey NP HEMATOLOGY ORDERABLES Final R esult [facility] ESAU # [id number] [facility] [place] [address] * XR CHEST PA OR AP 1 VW (08/30/2024 3:11 PM CDT) Anatomical Region Laterality Modality Chest Computed Radiogr aphy 08/30/2024 3:12 PM CDT Impressions 08/30/2024 4:13 PM CDT Impression: No evidence of infiltrates. Narrative 08/30/2024 4:13 PM CDT Exam: XR CHEST PA OR AP 1 VW Date/Time of Exam: 08/30/2024 3:11 PM Reason For Exam: Cough Diagnosis: See Reason for Exam The heart size is normal. The lungs are clear. No pneumothorax is seen. Procedure Note Quintin Gallardo MD - 08/30/2024 Exam: XR CHEST PA OR AP 1 VW Date/Time of Exam: 08/30/2024 3:11 PM Reason For Exam: Cough Diagnosis: See Reason for Exam The heart size is normal. The lungs are clear. No pneumothorax is seen. Impression: No evidence of infiltrates. us Darcy Pandey NP DIAGNOSTIC IMAGING ORDERABLES Final Result documented in this encounter Visit Diagnoses Diagnosis Upper respiratory tract infection, unspecified type- Primary documented in this encounter Additional Health Concerns Infection Onset Date Last Indicated Resolved Time R/O Respiratory 2024 2024 2024 3 :35 AM CDT documented as of this encounter Care Teams Patrol Officer Relationship Specialty Start Date End Date Allen Goldsmith MD PCP - General Nephrology 11/07/17 documented as of this encounter
--- OUTSIDE RECORDS SUMMARY | 2024-09-02 08:14 | XMS_ITS | Encounter Summary ---
Author Organization [facility] Address [address] [place] [address] Care Team Providers Care Hand Stemmer Name Role Phone Allen Goldsmith MD Primary Care Provider Unava ilable Reason for Visit * Reason Comments Abnormal Lab Results Called for positive blood culture. * Auth/Cert (Routine) Specialty Diagnoses / Procedures Referred By Contac t Referred To Contact Emergency Medicine [facility] [address] [place] [address] Phone: tel: fax: Referral ID Status Reason Start Date Expiration Date Visits Re quested Visits Authorized [id number] 1 1 Encounter Details Date Type Department Care Team (Late st Contact Info) Description 09/02/2024 8:14 AM CDT - 09/02/2024 11:40 AM CDT Emergency [facility] [address] [place] [id number] Jamal Ash, [address] [place] [address] Abnormal laboratory test result (Primary Dx); Renal transplant recipient Discharge Disposition: Home or Self Care Social History Tobacco Use Types Packs/Day Years Used Date Smoking Tobacco: Never Smokeless Tobacco: Never Comments Unknown Sex and Gender Information Value Date Recorded Sex Assigned at Not on file 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 Gender Identity Not on file Sexual Orientation Not on file documented as of this encounter Last Filed Vital Signs Vital Sign Reading Time Taken Comments Blood Pressure 124/53 09/02/2024 11:20 AM CDT Pulse 62 09/02/2024 11:20 AM CDT Temperature 36.7 C (98 F) 09/02/2024 4:20 AM CDT Respiratory Rate 16 09/02/2024 11:20 AM CDT Oxygen Saturation 98% 09/02/2024 11:20 AM CDT Inhaled Oxygen Concentration - - Weight 82.1 kg (181 lb) 09/01/2024 10:21 PM CDT Height 172.7 cm (5' 8 ) 09/01/2024 10:21 PM CDT Body Mass Index 27.52 09/01/2024 10:21 PM CDT documented in this encounter Discharge Instructions * Discharge Instructions* Jamal Ash, - 09/02/2024 10:54 AM CDT Fortunately does appear that the abnormal blood culture was a false result. However, do not hesitate to return the emergency department if you develop fevers once again or develop any new or concerning issues. Follow directions given to you by the infectious disease specialist. FOLLOWUP WITH YOUR DOCTOR You were examined and treated today on an emergency basis only. This emergency medical screening examination does not substitute for complete medical care. Please remember that medicine is an art as well as a science and not everything can be addressed during your emergency visit. We try very hard to rule out life- threatening problems here. As such, you may need to address additional problems with a primary care physician. Your visit here is not complete without an examination and follow-up by your primary care physician. It is your responsibility to contact your primary doctor for a follow-up visit as soon as possible. You may also have been given the name of a specialist to contact. It isyour responsibility to contact and make an appointment with the specialist as well. We have not made any appointments for you. Failure to see your doctor or the referring specialist as soon as possible may worsen your medical condition and cause rn long term care disabilities. Make the appointment today sothere is no delay! Please follow your discharge instructions from today in the meantime. If you do not have a primary care doctor, then you have been given the contact information of the doctor who is survey operations director to see new patients after your visit today. Call the number listed and make an appointment right away. Call [phone] for a referral to a primary care doctor if you do not have one. Call for an appointment and further care. Otherwise, call the physician of your choice for an appointment and follow up. ANALYSIS OF X-RAYS AND LABS Any x-ray findings you may have had today are considered only preliminary until they are officiallyread by the radiologist. If you had x-rays or CAT scans today, there may be other things seen afterthe radiologist looks at the films. You might be contacted advising you of any new findings. If youare still experiencing problems, you may need additional x-rays or images taken. If any labs were sent out and not run today, you also might be contacted advising you of any new results. These discrepancies may require you to return to the ER to be re-evaluated. The results may even alter your treatment course. LEARN YOUR MEDICATIONS Take your medications as prescribed. If you have been given a prescription, you are responsible for properly filling your prescription and following the instructions exactly. Be sure to get it filled right away and read the medication instructions provided by the pharmacy. Do not drive or operate machinery until you know what effect the medicine will have on your body. If your prescription makes you tired, or sleepy, or contains narcotics, you should not drink alcohol, including beer and wine, drive, or participate in any other activities that you need to be clear-headed for. If you were given a prescription for narcotic pain medication consider taking an edlu-fwd-neqxegw stool softener such as metamucil or colace to help prevent constipation. Do not take more than 4 grams (4000 milligrams) of tylenol (acetaminophen) per day as this can damage your liver. Most narcotic pain medications have tylenol in them. If you do not think it is helping, call your doctor. Do not increase how much you take or how oftenyou take it without talking to your doctor first. Do not take other people???s medications. Failureto take your medications properly can lead to medical problems, including but not limited, to overdose or . If you need medication refills, please contact your primary doctor. We do not provide medication refills. 24-hour [place] pharmacies [facility] at [address] [facility] and [address] [facility] KNOW YOUR DIAGNOSIS You have also been given additional sheets of paper explaining your diagnosis, prescriptions, home care instructions and any warning signs. Read this information carefully. By signing this discharge form, or having your responsible republican sign, you agree that you have received this information and ar e responsible for reading it. Please ask questions and ask the nurse to go over anything you don???t understand before you leave. After that time, you are responsible for knowing your medical condition, how that condition is being treated and what things require an immediate reevaluation. RESPOND TO WARNING SIGNS If your symptoms do not improve within the timeline we discussed, or they become worse, either contact your primary care physician immediately or come back to the emergency department. In the event of an emergency, dial [id number] for an ambulance. Medical emergencies include but are not limited to: sudden headache, fever, bleeding, dizziness, paralysis, chest pain, stomach pain, nausea and vomiting, worsening pain, unable to keep fluids down or any other symptoms that worry you. Remember that the emergency department is open 24 hours a day, every day, and we will be happy to see you at any time. documented in this encounter Medications at Time of Discharge predniSONE (DELTASONE) 50 mg tablet Take 1 Tablet (50 mg) by mouth daily for 5 days. 5 Tablet 2024 5 traMADoL (ULTRAM) 50 mg tabletIndication s:Closed fracture of ramus of right pubis, initial encounter ([facility]) Take 2 Tablets (100 mg) by [...] times daily. 04/13/2021 naloxone (NARCAN) 4 mg/spray [place], Non-Aerosol EMERGENCY USE ONLY: Administer 1 spray [...] mouth daily. fluticasone propionate (FLONASE) 50 mcg/spray [place], Suspension nasal inhaler Administer 2 Sprays in [...] PRN 06/20/2015 documented as of this encounter Consult Notes * Fuad Quintanilla MD - 09/02/2024 9:02 AM CDT Images from the original note were not included. Infectious Disease Consult Note Reason for consult: #Bacteremia. Date of Consult: 09/02/24 Requesting Physician: Jamal Ash DO Admit date: 09/02/2024 Length of stay: 0 Assessment Shirlene Pruitt is a 64 y.o. female now with: #Bacteremia. Had blood cultures done and resulted + told to follow up at ED Blood culture 08/31/24 + Neisseria not gonorrhea not meningitidis. Collected at same time same site.Likely a contaminant will not target. #Human metapneumovirus infection Patient presented to ED 08/31/24 due to fever and chills. Had RPP + Human meta pneumovirus. Xray chest Personally reviewed by me with no infiltrates. Xray chest ordered Personally reviewed by me with no acute infiltrates. DC doxycycline Symptomatic care Reported antibiotic allergies: is allergic to epoetin sharla and epoetin sharla. Renal function: Serum creatinine: 1.46 mg/dL (H) 09/02/24 0007 Estimated creatinine clearance: 43.2 mL/min (A) Monitor renal function closely while on antibiotics, adjust dose as needed. Reviewed labs, cultures and imaging for complexity of decision making to treat infectious disease conditions present, by making changes to optimize antimicrobial therapy in effort minimize side effects, reduce antimicrobial resistance patterns,including counseling and infection control strategies to prevent disease transmission and assist with discharge planning in coordination with interdisciplinary teams. Plan Blood culture 08/31/24 + Neisseria not gonorrhea not meningitidis. Collected at same time same site.Likely a contaminant will not target. Follow up repeat blood cultures Xray chest ordered Personally reviewed by me with no acute infiltrates. DC doxycycline Symptomatic care Monitor renal function closely while on antibiotics, adjust dose as needed. Thank you for involving us in the care of this patient. We will follow. Please call us with questions. Plan discussed with attending 09/02/24 via chat/in person Fuad Quintanilla MD Division of Infectious Diseases 09/02/24 9:03 AM ISRA Pruitt is a 64 y.o. female with below past medical history. Was admitted on 09/02/2024 due to: Positive blood culture. Patient presented to ED 08/31/24 due to fever and chills. Had RPP + Humanmeta pneumovirus. Xray chest Personally reviewed by me with no infiltrates. Had blood cultures done and resulted + told to follow up at ED. Reports recent UTI from completed Augmentin.She also started taking self medicated doxycycline for the past 2 days. ID consulted for antibiotic recommendations. Patient seen at bedside, reports feeling better, denies fever, chills, dysuria, urgency, cough improved. Past Medical History: Diagnosis Date Basal cell carcinoma Past Surgical History: Procedure Laterality Date HX BREAST SURGERY - OTHER 1978 benign HX CHOLECYSTECTOMY HX FISTULA PLACEMENT Left 08/2017 HX RENAL TRANSPLANT Right 2000 HX SKIN BIOPSY HX THYROIDECTOMY 1973 HX VASCULAR PROCEDURE OTHER Left 01/06/2018 left arm fistulogram per dr. varsha sanchez INSERT MIDLINE IV 04/02/2021 Social History Socioeconomic History Marital status: Spouse name: Not on file Number of children: Not on file Years of education: Not on file Highest education level: Not on file Occupational History Not on file Tobacco Use Smoking status: Never Smokeless tobacco: Never Substance and Sexual Activity Alcohol use: Not on file Drug use: Not on file Sexual activity: Not on file Other Topics Concern Not on file Social History Narrative Not on file Social Drivers of Health Food Insecurity: No Food Insecurity (01/22/2024) Received from [facility] Hunger Vital Sign Within the past 12 months, you worried that your food would run out before you got the money to buymore.: Never true Within the past 12 months, the food you bought just didn't last and you didn't have money to get more.: Never true Transportation Needs: No Transportation Needs (01/22/2024) Received from [facility] JENNIFER - Transportation Lack of Transportation (Medical): No Lack of Transportation (Non-Medical): No Feeling Safe: Not At Risk (09/01/2024) Feeling Safe Patient has indicated abuse: : No Housing Stability: Low Risk (01/22/2024) Received from [facility] Housing Stability What is your living situation today?: I have a steady place to live No family history on file. Allergies Allergen Reactions Epoetin Sharla Hypertension Epoetin Sharla Hypertension No current facility-administered medications on file prior to encounter. Current Outpatient Medications on File Prior to Encounter Medication Sig Dispense Refill predniSONE (DELTASONE) 50 mg tablet Take 1 Tablet (50 mg) by mouth daily for 5 days. 5 Tablet 0 traMADoL (ULTRAM) 50 mg tablet Take 2 Tablets (100 mg) by mouth every 6 hours as needed for Pain, Severe. Reduce and discontinue this medication as soon as able. 45 Tablet 0 amLODIPine (NORVASC) 2.5 mg tablet Take 1 Tablet (2.5 mg) by mouth daily. 30 Tablet 0 calcium-cholecalciferol (OS-KHADIJAH 500+D) 500 mg-5 mcg (200 unit) tablet Take 1 Tablet by mouth 2 times daily with meals. 1 Tablet 0 rOPINIRole (REQUIP) 1 mg tablet Take 1 Tablet (1 mg) by mouth daily at bedtime. 1 Tablet 0 docusate sodium (COLACE) 100 mg capsule Take 1 Capsule (100 mg) by mouth 2 times daily. sennosides-docusate sodium (SENNA-S) 8.6-50 mg tablet Take 1 Tablet by mouth 2 times daily. naloxone (NARCAN) 4 mg/spray [place], Non-Aerosol EMERGENCY USE ONLY: Administer 1 spray (4 mg) in one nostril one time. May repeat in alternating nostrils every 2-3 min until responsive or EMS arrives. 2 Each 0 folic acid (FOLVITE) 1 mg tablet Take 1 Tablet (1 mg) by mouth daily. methocarbamoL (ROBAXIN) 750 mg tablet Take 1 Tablet (750 mg) by mouth 3 times daily. pantoprazole (PROTONIX) 40 mg Tablet, Delayed Release (E.C.) Take 1 Tablet (40 mg) by mouth daily before breakfast. acetaminophen (TYLENOL) 325 mg tablet Take 2 Tablets (650 mg) by mouth every 6 hours as needed for Other (See Comment) (See admin instructions). carvediloL (COREG) 25 mg tablet Take 25 [...] mouth daily. fluticasone propionate (FLONASE) 50 mcg/spray [place], Suspension nasal inhaler Administer 2 Sprays in [...] tablet Take 150 mg by mouth daily. doxazosin (CARDURA) 2 mg tablet Take 2 mg by mouth every 12 hours. tretinoin (RETIN-A) 0.1 % Cream APPLY TO AFFECTED AREA DAILY 50 Gram PRN Physical Exam : BP Min: 142/67 Max: 181/75 Temp Av.9 ??F (36.6 ??C) Min: 97.8 ??F (36.6 ??C) Max: 98 ??F (36.7 ??C) Pulse Av.5 Min: 72 Max: 91 Resp Av Min: 16 Max: 16 SpO2 Av % Min: 95 % Max: 97 % No intake or output data in the 24 hours ending 09/02/24 0903 GEN: NAD. HEENT: Normocephalic. LUNGS: Normal effort. ABD: Soft. Non-tender. NEURO: Grossly intact. EXT: Atraumatic Hemodialysis 04/02/21 0419 arteriovenous fistula left;upper arm (Active) Looks ok and no signs of infection. Data Review: Susceptibility data from last 90 days. Collected Specimen Info Organism 08/31/24 Blood from Peripheral Gram Negative Coccobacilli Allergies: is allergic to epoetin sharla and epoetin sharla. Estimated Creatinine Clearance: 43.2 mL/min (A) (by C-G formula based on SCr of 1.46 mg/dL (H)). Results for orders placed or performed during the hospital encounter of 09/02/24 (from the past 24 hours) CBC WITH DIFFERENTIAL Result Value Ref Range WBC 5.0 4.8 - 10.8 K/uL RBC 3.97 (L) 4.20 - 5.40 M/uL HEMOGLOBIN 12.4 12.0 - 16.0 g/dL HEMATOCRIT 38.6 36.0 - 46.0 % MCV 97.2 84.0 - 103.0 fL MCH 31.2 27.0 - 34.0 pg MCHC 32.1 30.0 - 35.0 g/dL PLATELETS 186 140 - 440 K/uL MPV 9.9 8.9 - 12.8 fL RDW 13.7 11.0 - 14.5 % RDW-STDEV 49.7 37.0 - 54.0 fL NEUTROPHILS 79 (H) 42 - 75 % LYMPHOCYTES 14 (L) 24 - 44 % MONOCYTES 6 2 - 10 % EOSINOPHILS 0 0 - 7 % BASOPHILS 0 0 - 1 % IMMATURE GRANULOCYTES 1 0 - 2 % NEUTROPHIL ABSOLUTE 3.91 2.00 - 8.00 K/uL LYMPHOCYTE ABSOLUTE 0.70 (L) 1.20 - 4.00 K/uL MONOCYTE ABSOLUTE 0.29 0.10 - 0.60 K/uL EOSINOPHIL ABSOLUTE 0.02 0.00 - 0.70 K/uL BASOPHILS ABSOLUTE 0.02 0.00 - 0.20 K/uL IMMATURE GRANULOCYTES ABSOLUTE 0.03 0.00 - 0.10 K/uL SMEAR REVIEWED: NA - Not Applicable COMPREHENSIVE METABOLIC PANEL Result Value Ref Range SODIUM 137 136 - 145 mmol/L POTASSIUM 4.4 3.5 - 5.1 mmol/L CHLORIDE 104 98 - 107 mmol/L CO2 18 (L) 22 - 29 mmol/L CALCIUM 7.8 (L) 8.8 - 10.2 mg/dL BUN 22 8 - 23 mg/dL CREATININE 1.46 (H) 0.51 - 0.95 mg/dL GLUCOSE 115 (H) 74 - 99 mg/dL TOTAL PROTEIN 6.9 6.4 - 8.3 g/dL ALBUMIN 4.1 3.5 - 5.2 g/dL BILIRUBIN TOTAL 0.3 0.0 - 1.0 mg/dL ALKALINE PHOSPHATASE 98 35 - 104 U/L AST 31 10 - 35 U/L ALT 28 <=35 U/L GFR 40 (L) >=60 mL/min/1.73 sq meter ANION GAP 15 9 - 20 mmol/L XR CHEST PA OR AP 1 VW Result Date: 08/30/2024 Exam: XR CHEST PA OR AP 1 VW Date/Time of Exam: 08/30/2024 3:11 PM Reason For Exam: Cough Diagnosis:See Reason for Exam The heart size is normal. The lungs are clear. No pneumothorax is seen. Impression: No evidence of infiltrates. I have reviewed above labs, images. This note may have been written in part with the assistance of [employer] dictation software. Every effort is made when this program is used to proofread the documentation. Any errors in spelling, syntax, or meaning should be interpreted in the context of the broader note. documented in this encounter ED Notes * Annie Henderson RN - 09/02/2024 11:44 AM CDT Discharge instructions reviewed with Pt, verbalized understanding. Taken to car by wheel chair * Annie Henderson RN - 09/02/2024 11:00 AM CDT Infectious disease bedside talking with Pt * Annie Henderson RN - 09/02/2024 10:00 AM CDT Pt resting on stretcher, respirations even and unlabored. Aware of delay due to waiting for ID to come see her * Annie Henderson RN - 09/02/2024 8:49 AM CDT Pt received from triage, assumed care of Pt. Pt reports she was called to return to ED for positiveblood culture, reports was having URI symptoms and fever starting this past Friday. Was seen in ED Friday, blood cultures were drawn at that time. Pt states she started herself on Doxy and has since started to feel better. Still reports sinus congestion, cough has decreased and sputum has changedfrom green to clear. Denies any pain, no SOB, speaking in full sentences without difficulty * Na Mendes RN - 09/02/2024 4:21 AM CDT This RN reassessed pt in triage. Pt denies new or worsening symptoms since arrival to ED. Pain medication not offered as pt denies having pain. Vital signs rechecked and stable at this time. Pt updated on triage process. * Patito Hernandez RN - 09/01/2024 11:35 PM CDT Shirlene Pruitt is a 64 y.o. female who came into ETC complaining of having a + blood culture and +human metap. PCP called pt told to come to ER for admitted for antibiotics. Patient alert, behavior and orientation appropriate to age. Skin normal for ethnicity, warm., dry. Respirations even and unlabored. Patient Chief Complaint Patient presents with Abnormal Lab Results Called for positive blood culture. . ED triage protocol initiated, movement,sensation, pulse intact distal to injury site, and no active vomiting or diarrhea. Comfort measures offered. Patient to Waiting Room with instructions to return to Triage desk for worsening symptoms or other concerns. Discussed patient's pain and/or nausea management. Offered medication per triage protocols. Patientdoes not desire oral medication offered. * Jamal Ash DO - 09/01/2024 10:15 PM CDT HISTORY OF PRESENT ILLNESS History of Present Illness This is a 64-year-old female with a history of kidney transplant presenting with a positive blood culture. She was informed of a positive blood culture indicating an infection with gram- negative coccobacillus, necessitating immediate treatment. She experienced a fever on Friday, which peaked at 105 degrees, accompanied by chills and shakes. This raised her concern about a potential sepsis, a conditionshe has had twice before. Initially suspecting flu or sinus infection, she sought medical attentionat a local hospital where tests were conducted, and a viral infection was diagnosed. On Friday, shehad a scheduled appointment with her phd intern, who noted abnormal lung sounds and advised her to visit the emergency room. Despite not feeling short of breath, she followed this advice and underwent further testing. She was informed of a human metapneumovirus infection on Friday. She began self-medicating with doxycycline hyclate on Friday, suspecting a bacterial infection, and noticed an improvement in her condition. Her fever subsided by Friday and has not returned since. She continues toexperience sinus congestion and difficulty popping her ears. She also reports feeling weak and fatigued. Her cough has improved and is now producing clear sputum. She also reports clear nasal drainage. She has been using Mucinex for symptom relief. She was prescribed doxycycline hyclate by herself for 7 days. She has a history of kidney transplant and her creatinine levels are within the normal range. 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 She consulted six different doctors in 2023, each providing a different opinion. She noticed unusual substances in her urine, which were confirmed by a urologist during a scope procedure. She was eventually diagnosed with an infection at [facility] and underwent treatment. She was on doxycycline for most of last year. PAST SURGICAL HISTORY: Two kidney transplants in 2000 and 2018. PAST MEDICAL HISTORY REVIEWED MEDICAL: Patient has a past medical history of Basal cell carcinoma. SURGICAL: Patient has a past surgical history that includes fistula placement (Left, 08/2017); breast surgery- other (1978); thyroidectomy (1972); cholecystectomy; renal transplant (Right, 2000); vascular procedure other (Left, 01/06/2018); skin biopsy; and insert midline iv (04/02/2021). ALLERGIES Epoetin sharla and Epoetin sharla PHYSICAL EXAM INITIAL VS BP: (!) 181/75 (09/01/24 222), Heart Rate: 91 bpm (09/01/242220), Resp: 16 (09/01/242220), Pulse: 91 (09/01/242220), Temp: 97.8 ??F (36.6 ??C) (09/01/242220), Temp src: Temporal (09/01/242220),SpO2: 97 % (09/01/242220), Height: 5' 8 (172.7 cm) (09/01/242220), Weight: 82.1 kg (181 lb) (09/01/242220), BMI (Calculated): (!) 27.53 (09/01/242220) No LMP recorded. Blood pressure 124/53, pulse 62, temperature 98 ??F (36.7 ??C), temperature source Oral, resp. rate16, height 5' 8 (1.727 m), weight 82.1 kg (181 lb), SpO2 98%. Physical Exam Constitutional: General: She is not in acute distress. Appearance: Normal appearance. She is well-developed. She is not ill-appearing or toxic-appearing. HENT: Head: Normocephalic and atraumatic. Eyes: General: No scleral icterus. Conjunctiva/sclera: Conjunctivae normal. Pupils: Pupils are equal, round, and reactive to light. Cardiovascular: Rate and Rhythm: Normal rate and regular rhythm. Heart sounds: Normal heart sounds. No murmur heard. No friction rub. No gallop. Pulmonary: Effort: Pulmonary effort is normal. Breath sounds: Normal breath sounds. Abdominal: General: There is no distension. Palpations: Abdomen is soft. Tenderness: There is no abdominal tenderness. There is no guarding or rebound. Musculoskeletal: General: No tenderness. Cervical back: Normal range of motion and neck supple. No rigidity. Right lower leg: No edema. Left lower leg: No edema. Skin: General: Skin is warm and dry. Findings: No rash. Neurological: General: No focal deficit present. Mental Status: She is alert and oriented to person, place, and time. Cranial Nerves: No cranial nerve deficit. Psychiatric: Mood and Affect: Mood normal. Behavior: Behavior normal. Physical Exam Vitals Normal. Constitutional Patient appears weak. Neurological Normal. Psychiatric Normal. Head and Face Normal. Eyes Normal. Ears, Nose, Mouth, and Throat Patient sounds congested. Clear drainage from head. Neck Normal. Respiratory Lungs sound terrible. No shortness of breath. Cough has calmed down. Cardiovascular Normal. Chest Normal. Gastrointestinal Normal. Genitourinary Normal. Lymphatic Normal. Musculoskeletal Normal. Extremities Normal. Skin Normal. Endocrine Normal. Allergic/Immunologic Normal. DIAGNOSTICS LAB: CBC WITH DIFFERENTIAL - Abnormal Result Value WBC 5.0 RBC 3.97 (*) HEMOGLOBIN 12.4 HEMATOCRIT 38.6 MCV 97.2 MCH 31.2 MCHC 32.1 PLATELETS 186 MPV 9.9 RDW 13.7 RDW-STDEV 49.7 NEUTROPHILS 79 (*) LYMPHOCYTES 14 (*) MONOCYTES 6 EOSINOPHILS 0 BASOPHILS 0 IMMATURE GRANULOCYTES 1 NEUTROPHIL ABSOLUTE 3.91 LYMPHOCYTE ABSOLUTE 0.70 (*) MONOCYTE ABSOLUTE 0.29 EOSINOPHIL ABSOLUTE 0.02 BASOPHILS ABSOLUTE 0.02 IMMATURE GRANULOCYTES ABSOLUTE 0.03 SMEAR REVIEWED: NA - Not Applicable COMPREHENSIVE METABOLIC PANEL - Abnormal SODIUM 137 POTASSIUM 4.4 CHLORIDE 104 CO2 18 (*) CALCIUM 7.8 (*) BUN 22 CREATININE 1.46 (*) GLUCOSE 115 (*) TOTAL PROTEIN 6.9 ALBUMIN 4.1 BILIRUBIN TOTAL 0.3 ALKALINE PHOSPHATASE 98 AST 31 ALT 28 GFR 40 (*) ANION GAP 15 BLOOD CULTURE BLOOD CULTURE BLOOD CULTURE BLOOD CULTURE RADIOLOGY: XR CHEST PA AND LATERAL 2 VW Radiologist Impression IMPRESSION: Please see below. Exam: XR CHEST PA AND LATERAL 2 VW Date/Time of Exam: 09/02/2024 9:36 AM Reason For Exam: Pneumonia. Diagnosis: See Reason for Exam. Comparison: 08/30/2024. Findings: The heart size is at the upper limits of normal, unchanged. The lungs are hyperinflated. No well-defined infiltrates or significant pleural fluid and no pneumothorax. Right upper quadrant postoperative changes. Thoracolumbar degenerative changes. IMPRESSION: 1. Nothing acute. EKG: PROCEDURES Procedures MEDICAL DECISION MAKING AND PLAN OF CARE Assessment & Plan Initial Assessment: 64-year-old female with positive blood culture, history of kidney transplant, and recent human metapneumovirus infection. Currently on doxycycline with improvement in symptoms. Differential Diagnosis: - Blood culture contamination: Possible due to normal bacteria on skin; PCR test normal. - Human metapneumovirus: Causes fever, cough; confirmed positive. - Bacterial infection: Improvement with doxycycline; sinus congestion present. ED Course: - Consultation with infectious disease specialist. Final Assessment: Consulted infectious disease specialist due to positive blood culture and discrepancy with PCR test. Patient improving on doxycycline. Human metapneumovirus confirmed. Sinus congestion managed with Mucinex. Clinical Impression: - Positive blood culture - Human metapneumovirus infection - Sinus congestion Disposition: - Discharge: Home; improving on current treatment. - Follow-Up: Infectious disease specialist to determine antibiotic duration. Medical Decision Making Patient presents for evaluation of positive blood culture. Has had intermittent fevers chills coughsinus pressure for over a week or so. Patient is a renal transplant patient. Patient has doxycycline available to take if it anytime she feels as if she is having urinary tract infection. However, because of her fever and cough etc. and are concerned that she was developing a pneumonia or sinusitis she went ahead and started her doxycycline. She has no urinary symptoms. However she was seen for her fevers and blood cultures were drawn and on the blood culture from [id number] it grew gram-negative coccobacilli. Therefore she was contacted to present here. Patient states however since Friday she has actually started feeling on the mend. Still having some sinus congestion but she says in general she is feeling much better. Her cough is now clear and she has had no fevers that she knows of. She would not to come in today other than she was contactedto come in due to the positive blood culture. Did discuss with Dr. Ramirez infectious disease. Due to patient's somewhat complex case that she is a transplant patient, relative immunosuppression, positive blood culture he is going to come see the patient to finalize disposition and to determine a treatment plan. Dr. Ramirez did see the patient in the emergency department. He agreed that this was likely a contaminant and that patient can be discharged. He also informed the patient to discontinue the doxycycline use as he did not feel it is necessary. At this time patient will be discharged. Close follow-up with PCP as needed. Not to hesitate to return here if she develops fevers once again or develops any new or concerning issues. We did discuss to the metapneumovirus now it is of viral upper respiratory infection not requiring antibiotics. Patient stated understanding. Amount and/or Complexity of Data Reviewed Labs: ordered. MDM Consults: other Time other provider paged: 09/02/2024 8:46 AM Name of other provider: Dr. Ramirez, infectious disease Discharge Medication List as of 09/02/2024 11:33 AM CONTINUE these medications which have NOT CHANGED Details !! predniSONE (DELTASONE) 50 mg tablet Take 1 Tablet (50 mg) by mouth daily for 5 days., Disp-5 Tablet, R-0 traMADoL (ULTRAM) 50 mg tablet Take 2 Tablets (100 mg) by mouth every 6 hours as needed for Pain, Severe. Reduce and discontinue this medication as soon as able., Disp-45 Tablet, R-0 amLODIPine (NORVASC) 2.5 mg tablet Take 1 Tablet (2.5 mg) by mouth daily., Disp- 30 Tablet, R-0 calcium-cholecalciferol (OS-KHADIJAH 500+D) 500 mg-5 mcg (200 unit) tablet Take 1 Tablet by mouth 2 times daily with meals.Home medDisp-1 Tablet, R-0 rOPINIRole (REQUIP) 1 mg tablet Take 1 Tablet (1 mg) by mouth daily at bedtime.Per patient, only takes HSDisp-1 Tablet, R-0 docusate sodium (COLACE) 100 mg capsule Take 1 Capsule (100 mg) by mouth 2 times daily. sennosides-docusate sodium (SENNA-S) 8.6-50 mg tablet Take 1 Tablet by mouth 2 times daily. naloxone (NARCAN) 4 mg/spray [place], Non-Aerosol EMERGENCY USE ONLY: Administer 1 spray (4 mg) in one nostril one time. May repeat in alternating nostrils every 2-3 min until responsive or EMS arrives., Disp-2 Each, R-0 folic acid (FOLVITE) 1 mg tablet Take 1 Tablet (1 mg) by mouth daily. methocarbamoL (ROBAXIN) 750 mg tablet Take 1 Tablet (750 mg) by mouth 3 times daily. pantoprazole (PROTONIX) 40 mg Tablet, Delayed Release (E.C.) Take 1 Tablet (40 mg) by mouth daily before breakfast. acetaminophen (TYLENOL) 325 mg tablet Take 2 Tablets (650 mg) by mouth every 6 hours as needed for Other (See Comment) (See admin instructions). carvediloL (COREG) 25 mg tablet Take 25 [...] mouth daily. fluticasone propionate (FLONASE) 50 mcg/spray [place], Suspension nasal inhaler Administer 2 Sprays in each nostril daily. !! predniSONE (DELTASONE) 5 mg tablet Take 5 [...] tablet Take 150 mg by mouth daily. doxazosin (CARDURA) 2 mg tablet Take 2 mg by mouth every 12 hours. tretinoin (RETIN-A) 0.1 % Cream APPLY TO AFFECTED AREA DAILY, Disp-50 Gram, R-PRN !! - Potential duplicate medications found. Please discuss with provider. LAST VS BP: 124/53 (09/02/24 1120), Heart Rate: 72 bpm (09/02/24 0420), Resp: 16 (09/02/24 1120), Pulse: 62(09/02/24 1120), Temp: 98 ??F (36.7 ??C) (09/02/24 0420), Temp src: Oral (09/02/24 0420), SpO2: 98 % (09/02/24 1120) CLINICAL IMPRESSION Diagnoses Diagnosis Comment Added By Time Added Abnormal laboratory test result [R89.9] Jamal Ash DO 09/02/2024 10:52 AM Renal transplant recipient [Z94.0] Jamal Ash DO 09/03/2024 7:54 AM DISPOSITION, EDUCATION AND MEDICATION RECONCILIATION Medications reconciled. See after visit summary for patient education on discharged patients. ED Disposition ED Disposition Discharge Condition Stable User Jamal Ash DO Date/Time FriSep 02, 2024 10:54 AM Comment -- documented in this encounter Miscellaneous Notes * ED Bed Hold Comment Note - Angela Dooley RN - 09/02/2024 8:19 AM CDT Bed: 09 Expected date: 09/02/24 Expected time: 8:12 AM Means of arrival: Comments: Triage-[facility] * ED Bed Hold Comment Note - Angela Dooley RN - 09/02/2024 8:14 AM CDT Bed: 20 Expected date: 09/02/24 Expected time: 8:10 AM Means of arrival: Comments: Triage-[facility] documented in this encounter Plan of Treatment Pending Results Name Type Priority Associated Diagnoses Date /Time BLOOD CULTURE Microbiology Stat 5 11:31 AM CDT BLOOD CULTURE Microbiology Stat 5 11:31 AM CDT BLOOD CULTURE Microbiology Stat 5 11:31 AM CDT BLOOD CULTURE Microbiology Stat 5 11:31 AM CDT Scheduled Orders Name Type Priority Associated Diagnoses Orde r Schedule BLOOD CULTURE Microbiology Routine ONE TIME for 1 Occurrences starting 09/02/2024 until 09/02/2024 BLOOD CULTURE Microbiology Routine ONE TIME for 1 Occurrences starting 09/02/2024 until 09/02/2024 documented as of this encounter Procedures Procedure Name Priority Date/Time Associated Diagnosis Comments BLOOD CULTURE Stat 09/02/2024 11:31 AM CDT BLOOD CULTURE Stat 09/02/2024 11:31 AM CDT XR CHEST PA AND LATERAL 2 VW Stat 09/02/2024 9:36 AM CDT CBC WITH DIFFERENTIAL Stat 09/02/2024 12:07 AM CDT COMPREHENSIVE METABOLIC PANEL Stat 09/02/2024 12:07 AM CDT documented in this encounter Results * XR CHEST PA AND LATERAL 2 VW (09/02/2024 9:36 AM CDT) Anatomical Region Laterality Modality Chest Computed Radiogr aphy 09/02/2024 9:36 AM CDT Impressions 09/02/2024 9:48 AM CDT IMPRESSION: Please see below. Exam: XR CHEST PA AND LATERAL 2 VW Date/Time of Exam: 09/02/2024 9:36 AM Reason For Exam: Pneumonia. Diagnosis: See Reason for Exam. Comparison: 08/30/2024. Findings: The heart size is at the upper limits of normal, unchanged. The lungs are hyperinflated. No well-defined infiltrates or significant pleural fluid and no pneumothorax. Right upper quadrant postoperative changes. Thoracolumbar degenerative changes. IMPRESSION: 1. Nothing acute. Narrative Procedure Note Aime Raymundo MD - 09/02/2024 IMPRESSION: Please see below. Exam: XR CHEST PA AND LATERAL 2 VW Date/Time of Exam: 09/02/2024 9:36 AM Reason For Exam: Pneumonia. Diagnosis: See Reason for Exam. Comparison: 08/30/2024. Findings: The heart size is at the upper limits of normal, unchanged. The lungs are hyperinflated. No well-defined infiltrates or significant pleural fluid and no pneumothorax. Right upper quadrant postoperative changes. Thoracolumbar degenerative changes. IMPRESSION: 1. Nothing acute. Fuad Quintanilla MD DIAGNOSTIC IMAGING ORD ERABLES Final Result * (ABNORMAL) COMPREHENSIVE METABOLIC PANEL (09/02/2024 12:07 AM CDT) SODIUM 137 136 - 145 mmol/L 09/02/2024 12:44 AM CDT [facility] POTASSIUM 4.4 3.5 - 5.1 mmol/L 09/02/2024 12:44 AM CDT [facility] CHLORIDE 104 98 - 107 mmol/L 09/02/2024 12:44 AM CDT [facility] CO2 18(L) 22 - 29 mmol/L 09/02/2024 12:44 AM T [facility] CALCIUM 7.8(L) 8.8 - 10.2 mg/dL 09/02/2024 12:44 AM [facility] BUN 22 8 - 23 mg/dL 09/02/2024 12:44 AM [facility] CREATININE 1.46(H) 0.51 - 0.95 mg/dL 09/02/2024 12:44 AM [facility] GLUCOSE 115(H) 74 - 99 mg/dL 09/02/2024 12:44 AM [facility] TOTAL PROTEIN 6.9 6.4 - 8.3 g/dL 09/02/2024 12:44 AM [facility] ALBUMIN 4.1 3.5 - 5.2 g/dL 09/02/2024 12:44 AM [facility] BILIRUBIN TOTAL 0.3 0.0 - 1.0 mg/dL 09/02/2024 12:44 AM [facility] ALKALINE PHOSPHATASE 98 35 - 104 U/L 09/02/2024 12:44 AM [facility] AST 31 10 - 35 U/L 09/02/2024 12:44 AM [facility] Comment:Hemolysis present. R esult may be falsely elevated. ALT 28 <=35 U/L 09/02/2024 12:44 AM [facility] GFR 40(L) >=60 mL/min/1. 73 sq meter 09/02/2024 12:44 AM [facility] Comment:eGFR calculated with 2020 CKD-EPI equation. Vegetarian diet, extremely high or low muscle mass, and may affect results. Cystatin C with Glomerular Filtration Rate is a suitable alternative for these patients. ANION GAP 15 9 - 20 mmol/L 09/02/2024 12:44 AM [facility] Blood Venipuncture / Unknown 09/02/2024 12:07 AM CDT 09/02/2024 12:11 AM T us Jamal Ash DO CHEMISTRY ORDERABLES Final Result [facility] CLIA # [id number] [facility] [address] [place] [address] * (ABNORMAL) CBC WITH DIFFERENTIAL (09/02/2024 12:07 AM CDT) [facility] WBC 5.0 4.8 - 10.8 K/uL 09/02/2024 12:[address] [facility] RBC 3.97(L) 4.20 - 5.40 M/uL 09/02/2024 12:[address] [facility] HEMOGLOBIN 12.4 12.0 - 16.0 g/dL 09/02/2024 12:[address] [facility] HEMATOCRIT 38.6 36.0 - 46.0 % 09/02/2024 12:[address] [facility] MCV 97.2 84.0 - 103.0 fL 09/02/2024 12:[address] [facility] MCH 31.2 27.0 - 34.0 pg 09/02/2024 12:[address] [facility] MCHC 32.1 30.0 - 35.0 g/dL 09/02/2024 12:[address] [facility] PLATELETS 186 140 - 440 K/uL 09/02/2024 12:17 AM [facility] MPV 9.9 8.9 - 12.8 fL 09/02/2024 12:[address] [facility] RDW 13.7 11.0 - 14.5 % 09/02/2024 12:17 AM [facility] [employer] [facility] RDW-STDEV 49.7 37.0 - 54.0 fL 09/02/2024 12:17 AM CDT [facility] [employer] [facility] NEUTROPHILS 79(H) 42 - 75 % 09/02/2024 12:[address] [facility] LYMPHOCYTES 14(L) 24 - 44 % 09/02/2024 12:17 AM CDT [facility] [employer] [facility] MONOCYTES 6 2 - 10 % 09/02/2024 12:[address] [facility] EOSINOPHILS 0 0 - 7 % 09/02/2024 12:[address] [facility] BASOPHILS 0 0 - 1 % 09/02/2024 12:[address] [facility] IMMATURE GRANULOCYTES 1 0 - 2 % 09/02/2024 12:[address] [facility] NEUTROPHIL ABSOLUTE 3.91 2.00 - 8.00 K/uL 09/02/2024 12:[address] [facility] LYMPHOCYTE ABSOLUTE 0.70(L) 1.20 - 4.00 K/uL 09/02/2024 12:[address] [facility] MONOCYTE ABSOLUTE 0.29 0.10 - 0.60 K/uL 09/02/2024 12:[address] [facility] EOSINOPHIL ABSOLUTE 0.02 0.00 - 0.70 K/uL 09/02/2024 12:[address] [facility] BASOPHILS ABSOLUTE 0.02 0.00 - 0.20 K/uL 09/02/2024 12:[address] [facility] IMMATURE GRANULOCYTES ABSOLUTE 0.03 0.00 - 0.10 K/uL 09/02/2024 12:17 AM [facility] SMEAR REVIEWED: NA - Not Applicable 09/02/2024 12:17 AM [facility] Blood Venipuncture / Unknown 09/02/2024 12:07 AM CDT 09/02/2024 12:11 AM CDT us Jamal Ash DO HEMATOLOGY ORDERABLES Final Result [facility] CLIA # [id number] [address] [place] [address] documented in this encounter Visit Diagnoses Diagnosis Abnormal laboratory test result- Primary Other abnormal clinical finding Renal transplant recipient documented in this encounter Active and Recently Administered Medications Additional Health Concerns Infection Onset Date Last Indicated Resolved Time Human Metapneumovirus 2024 2024 documented as of this encounter Care Teams Hand Stemmer Relationship Specialty Start Date End Date Allen Goldsmith MD PCP - General Nephrology 11/07/17 documented as of this encounter
[2024-09-05] VITALS (7 sets, daily range): BP systolic 167–189; BP diastolic 66–126; PULSE 75–104; RESP 18; TEMP 36.7; O2SAT 94–98; BMI 29.9
--- OUTSIDE RECORDS SUMMARY | 2024-09-05 00:30 | XMS_ITS | Continuity of Care Document ---
Author Organization [facility]. If a dditional information is needed, contact Health Information Management at [phone] Address [address] [place] [address] Phone Care Team Providers Care Leak Patcher Name Role Phone Unavailable Unavailable Unavailable Problems Chronic kidney disease [...] day, 1 tablet in the morning Quantity:30 CHARLI CHAND Comments:150 MG Orally Once a day, [...]
--- OUTSIDE RECORDS SUMMARY | 2024-09-05 00:31 | XMS_ITS | Encounter Summary ---
Author Organization [facility] Address [address] [place] [address] Care Team Providers Care Rug Scratcher Name Role Phone Allen Goldsmith MD Primary Care Provider Michael rodriguez Encounter Details Date Type Department Care Team (Late st Contact Info) Description 02/06/2005 Outpatient Historical [facility] Central [facility] [address] [place] [address] Sea Ramos MD [address] [place] [address] MALIG NEOPLASM SKIN ARM (Primary Dx) Social History Tobacco Use Types Packs/Day Years Used Date Smoking Tobacco: Never Assessed Comments Unknown Sex and Gender Information Value Date Recorded Sex Assigned at Not on file Legal 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
--- OUTSIDE RECORDS SUMMARY | 2024-09-05 00:31 | XMS_ITS | Encounter Summary ---
Author Organization [facility] Address [address] [place] [address] Phone Care Team Providers Care Test Driller Name Role Phone Phoebe Márquez JUAN Primary Care Provider [phone] Reason for Visit * Reason Comments Med Refill Encounter Details Date Type Department Care Team (Late st Contact Info) Description 11/26/2021 Refill [facility] [address] [place] [address] Kimi Darby NP [address] [place] [address] Kidney transplant status Social History [...] st Contact Info) Description 02/18/2025 2:00 PM SECURITY COMPLIANCE SPECIALIST Office Visit [facility] [address] [place] [address] Kimi Darby NP [address] [place] [address] documented as of this encounter Visit Diagnoses Diagnosis Kidney transplant status documented in this encounter Care Teams Test Driller Relationship Specialty Start Date End Date Phoebe Márquez FNP [address] [facility] [address] [place] [id number] PCP - General Nurse Practitioner 02/26/22 documented as of this encounter
--- OUTSIDE RECORDS SUMMARY | 2024-09-05 00:31 | XMS_ITS | Encounter Summary ---
Author Organization [facility] Address [address] [place] [address] Care Team Providers Care Retail Store Assistant Name Role Phone Allen Goldsmith MD Primary Care Provider Michael rodriguez Encounter Details Date Type Department Care Team (Late st Contact Info) Description 02/06/2005 Outpatient Historical [facility] Dermatology- [address] 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
--- OUTSIDE RECORDS SUMMARY | 2024-09-05 00:31 | XMS_ITS | Encounter Summary ---
Author Organization [facility] Address [address] [place] [address] Care Team Providers Care Desktop Support Manager Name Role Phone Allen Goldsmith MD Primary Care Provider Michael ilable Encounter Details Date Type Department Care Team (Late st Contact Info) Description 04/24/2006 Outpatient Historical [facility] Dermatology- [address] [place] 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
--- OUTSIDE RECORDS SUMMARY | 2024-09-05 00:31 | XMS_ITS | Patient Health Record ---
Author Organization [facility] Physician Jyotsna es Billing Info Address [address] [place] [address] Support Name Relationship Address Phone Haylie Villarreal Emergency Contact [address] [place] [address] Shirlene Pruitt Guarantor Unknown [phone] Allergies Allergen (clinical drug ingredient) Drug/Non Drug [...] Problem Status W/U Status Risk Notes Problem [id number] Hypertensive chronic kidney disease with stage 5 chronic kidney disease or end stage renal disease (I12.0) Active confirmed Problem [id number] Thrombosis due to vascular prosthetic devices, implants and grafts, 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 Plan Of Treatment No Information Insurance Providers Payer Name Payer Address Payer Phone Subscriber Number Group Number Insured Name Patient Relationship to Insured Coverage Start Date Coverage End Date [facility] PPO OOS [address] [place], [place] [id number] Shirlene Pruitt Self - patient is the insured 9 9 MEDICARE [place] PART B [address] [place], [place] [id number] Shirlene Pruitt Self - patient is the insured 9 9 [employer] CHOICE POS II [address] [place], [place] [id number] EdmondPierreFco Spouse - patient is the spouse of the insured Medical (General) History Medical History History ICD Code Hypertension Anemia Blood Transfusion hyperlipidemia Thyroid Disease Sleep apnea w/cpap Arthritis [email or web address] [email or web address]. M,W, F Surgical History Surgery Date(Month/Year) Thyroid 1973 Gallbladder 2006 Kidney Transplant 2000 Hospitalization History Reason Date(Month/Year) Edema/port placed 06/2017 see surgical hx
--- OUTSIDE RECORDS SUMMARY | 2024-09-05 00:31 | XMS_ITS | Encounter Summary ---
Author Organization [facility] Address [address] [place] [address] Care Team Providers Care Armhole Presser Name Role Phone Allen Goldsmith MD Primary Care Provider Michael rodriguez Encounter Details Date Type Department Care Team (Late st Contact Info) Description 09/10/2005 Outpatient Historical [facility] Dermatology- 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
--- OUTSIDE RECORDS SUMMARY | 2024-09-05 00:31 | XMS_ITS | Encounter Summary ---
Author Organization [facility] Address [address] [place] [address] Care Team Providers Care Internet Database Specialist Name Role Phone Allen Goldsmith MD Primary Care Provider Michael rodriguez Encounter Details Date Type Department Care Team (Late st Contact Info) Description 02/14/2005 Outpatient Historical [facility] Dermatology- 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
--- OUTSIDE RECORDS SUMMARY | 2024-09-05 00:31 | XMS_ITS | Clinical Summary ---
Author Organization [facility] Address [address] [place] [address] Phone Care Team Providers Care Sr. Payroll Processor Name Role Phone Phoebe Márquez JUAN Primary Care Provider [phone] Allergies Active Allergy Reactions Criticality Noted Date [...] 6 (six) hours if needed PRN only 04/14/19 21 Active ascorbic acid (VITAMIN C) 1000 MG tablet Take 2,000 mg by mouth in the morning and 2,000 mg in the evening. Active azelastine (ASTELIN) 0.1 % nasal spray Administer into each nostril 2 (two) times a day 10/17/19 21 Active mycophenolate (MYFORTIC) 180 MG EC tabletIndicati ons:Stage 3b chronic kidney disease (HCC),Kidney transplant status,Other terminal superintendent current drug therapy Take 1 tablet (180 mg total) by mouth in the morning and 1 tablet (180 mg total) in the evening. 180 tablet 3 10/09/19 23 Active buPROPion XL (WELLBUTRIN XL) 150 MG 24 hr tablet Take 150 mg by mouth 1 (one) time each day 12/23/19 23 Active predniSONE 5 MG tabletIndicati ons:Kidney transplant status TAKE 1 TABLET BY MOUTH 1 TIME EACH DAY. 90 tablet 3 01/16/20 24 Active metoprolol tartrate 25 MG tablet Take 12.5 mg by mouth in the morning and 12.5 mg in the evening. Active furosemide (LASIX) 40 MG tabletIndicati ons:Diastolic dysfunction TAKE 1 TABLET (40 MG TOTAL) BY MOUTH 1 (ONE) TIME EACH DAY NEEDED. 90 tablet 3 07/07/19 25 Active doxycycline (VIBRAMYCIN) 100 MG capsule Take 100 mg by mouth in the morning and 100 mg in the evening. Take with a full glass of water and do not lie down for at least 30 minutes after. Active tacrolimus (PROGRAF) 1 MG capsuleIndicat ions:Kidney transplant status Take two tablets in the morning, and one tablet in the evening. 360 capsule 3 08/31/19 25 Active tacrolimus (PROGRAF) 0.5 MG capsuleIndicat ions:Kidney transplant status Take one tablet in the evening with 1-1 mg tablet. 90 capsule 11 08/31/19 25 Active estradiol (ESTRACE) 0.1 MG/GM vaginal cream Insert into the vagina 2-4 grams daily for 14 days then 1 gram 1-3 times a week 12/10/19 24 025 Discontinued tacrolimus (PROGRAF) 1 MG capsuleIndicat ions:Kidney transplant status TAKE 2 CAPSULES BY MOUTH IN THE MORNING AND IN THE EVENING 360 capsule 3 12/29/19 24 025 Discontinued(Re order (does not appear on AVS)) Active Problems Problem Noted Date Diagnosed Date [...] Encounters Date Type Department Care Team Description 09/02/2024 Telephone [facility] [address] [place] [address] Jennifer Mccarty MD 09/02/2024 Telephone [facility] [address] [place] [address] Jennifer Mccarty MD 2024 Telephone [facility] [address] [place] [address] Maria G Kerr 2024 Telephone [facility] [address] [place] [address] Jennifer Mccarty MD 08/30/2024 1:30 PM CDT Office Visit [facility] [address] [place] [address] Kimi Darby NP Stage 3b chronic kidney disease (HCC) (Primary Dx); Kidney transplant status; Shortness of breath 08/27/2024 Results Follow-Up [facility], [facility] [address] [place] [address] Maria G Kerr 08/19/2024 Telephone [facility], [facility] [address] [place] [address] Starla Peters MA 07/27/2024 Orders Only [facility], [facility] [address] [place] [address] Vibha Cohen NP Stage 3b chronic kidney disease (HCC); History of renal transplant; Immunosuppression (HCC) 07/06/2024 Refill [facility] [address] [place] [address] Kimi Darby NP Diastolic dysfunction from Last 3 Months Family History Medical History Relation Comments No Known Problems Father Cancer Mother Hypertension Mother Relation Status Comments Father Alive Mother Alive Social History Tobacco Use Types Packs/Day Years Used Date Smoking Tobacco: Never Smokeless Tobacco: Never Tobacco Cessation:Counseling Given: Not Answered Alcohol Use Standard Drinks/Week Comments Not Currently [...] Pulse 72 08/30/2024 1:41 PM CDT Temperature 36.9 C (98.4 F) 05/15/2020 2:03 PM CDT Respiratory Rate - - Oxygen Saturation 98% 12/23/2023 1:42 PM QUILTER FIXER Inhaled Oxygen Concentration - - Weight 92.2 kg (203 lb 3.2 oz) 08/30/2024 1:41 P M CDT Height 172.7 cm (5' 8 ) 08/30/2024 1:41 PM CDT Body Mass Index 30.9 08/30/2024 1:41 PM CDT Plan of Treatment Upcoming Encounters Date Type Department Care Team (Late st Contact Info) Description 02/18/2025 2:00 PM QUILTER FIXER Office Visit [facility] [address] [place] [address] Kimi Darby NP [address] [place] [address] Health Maintenance Due Date Last Done [...] on patient's age to complete this topic Procedures Procedure Name Priority Date/Time Associated Diagnosis Comments TACROLIMUS, HIGHLY SENSITIVE, LC/MS/MS Routine 08/26/2024 12:43 PM CDT MAGNESIUM Routine 08/26/2024 12:43 PM CDT Stage 3b chronic kidney disease (HCC) History of renal transplant VITAMIN D 25 HYDROXY Routine 08/26/2024 12:43 PM CDT Stage 3b chronic kidney disease (HCC) History of renal transplant URINE ALBUMIN / CREATININE RATIO Routine 08/26/2024 12:43 PM CDT Stage 3b chronic kidney disease (HCC) History of renal transplant RENAL FUNCTION PANEL Routine 08/26/2024 12:43 PM CDT Stage 3b chronic kidney disease (HCC) History of renal transplant from Last 3 Months Results * Tacrolimus, Highly Sensitive, LC/MS/MS (08/26/2024 12:43 PM CDT) TACROLIMUS HIGHLY SENSITIVE LC/MS/MS 6.7 mcg/L [facility] Comment: No definitive therapeutic or toxic ranges have been established. Optimal blood drug levels are influenced by type of transplant, patient response, time post- transplant, co-administration of other drugs, and drug formulation. The following trough range is a suggested guideline: 5.0-20.0 mcg/L. 08/26/2024 12:4 3 PM CDT 08/26/2024 12:45 PM CDT Narrative Resulting Agency Comment Performing Organization Information: Site ID: [id number] Name: [facility] Address: [id number] [place] [phone] Director: Aung Wheat MD Vibha Cohen THREAD CLIPPER LAB BLOOD ORDERABLES Final Resu lt [facility] [address] [place] [phone] * Urine albumin / creatinine ratio (08/26/2024 12:43 PM CDT) Creatinine, Ur 39 20 - 275 mg/dL [facility] Urine Microalbumin 0.5 See Note: mg/dL [facility] Comment: Reference Range: Reference Range Not established Microalb/Creat Ratio 13 <30 mg/g creat [facility] Comment: The ADA defines abnormalities in albumin excretion as follows: Albuminuria Category Result (mg/g creatinine) Normal to Mildly increased <30 Moderately increased 30-299 Severely increased > OR = 300 The ADA recommends that at least two of three specimens collected within a 3-6 month period be abnormal before considering a patient to be within a diagnostic category. Urine specimen (specimen) Urine specimen obtained by clean catch procedure / Unknown 08/26/2024 12:43 PM CDT 08/26/2024 12:45 PM CDT Narrative Resulting Agency Comment Performing Organization Information: Site ID: [id number] Name: [facility] Address: [address] [place] [address] Director: Aung Wheat MD Vibha Cohen NP LAB URINE ORDERABLES Final Resu lt [facility] [phone] * Vit D 25 hydroxy (08/26/2024 12:43 PM CDT) Vitamin D, 25-OH, Total, IA 56 30 - 100 ng/mL [facility] Comment: Vitamin D Status 25-OH Vitamin D: Deficiency: <20 ng/mL Insufficiency: 20 - 29 ng/mL Optimal: > or = 30 ng/mL For 25-OH Vitamin D testing on patients on D2-supplementation and patients for whom quantitation of D2 and D3 fractions is required, the [facility](TM) 25-OH VIT D, (D2,D3), LC/MS/MS is recommended: order code 53776 (patients >2yrs). See Note 1 Note 1 For additional information, please refer to http://education.Leaders2020/faq/DJL771 (This link is being provided for informational/ educational purposes only.) Blood specimen (specimen) Venous blood / Unknown 08/26/2024 12:43 PM CDT 08/26/2024 12:45 PM CDT Narrative Resulting Agency Comment Performing Organization Information: Site ID: [id number] Name: [facility] Address: [address] [place] [phone] Director: Aung Wheat MD Vibha Cohen NP LAB BLOOD ORDERABLES Final Resu lt Performing Organization Address [facility]/ZIP Co de Phone Number [facility] [address] [place] [address] * Magnesium (08/26/2024 12:43 PM CDT) Magnesium 1.8 1.5 - 2.5 mg/dL [facility] Blood specimen (specimen) Venous blood / Unknown 08/26/2024 12:43 PM CDT 08/26/2024 12:45 PM CDT Narrative Resulting Agency Comment Performing Organization Information: Site ID: [id number] Name: [facility] Address: [address] [place] [phone] Director: Aung Wheat MD Vibha Cohen THREAD CLIPPER LAB BLOOD ORDERABLES Final Resu lt Performing Organization Address [facility] Co de Phone Number [facility] [address] [place] [phone] * (ABNORMAL) Renal function panel (08/26/2024 12:43 PM CDT) Pathologist [facility] Glucose 87 65 - 99 mg/dL [facility] Comment: Fasting reference interval BUN 22 7 - 25 mg/dL [facility] Creatinine 1.70(H) 0.50 - 1.05 mg/dL [facility] eGFR CKD-EPI CR 2020 33(L) > OR = 60 mL/min/1.7 3m2 [facility] BUN/Creatinine Ratio 13 6 - 22 (calc) [facility] Sodium 138 135 - 146 mmol/L [facility] Potassium 3.8 3.5 - 5.3 mmol/L [facility] Chloride 102 98 - 110 mmol/L [facility] Bicarbonate (CO2) 25 20 - 32 mmol/L [facility] Calcium 8.6 8.6 - 10.4 mg/dL [facility] Phosphorus 4.4 2.5 - 4.5 mg/dL [facility] Albumin 4.3 3.6 - 5.1 g/dL [facility] Blood specimen (specimen) Venous blood / Unknown 08/26/2024 12:43 PM CDT 08/26/2024 12:45 PM CDT Narrative Resulting Agency Comment Performing Organization Information: Site ID: [id number] Name: [facility] Address: [address] [address] Director: Aung Wheat MD Vibha Cohen NP LAB BLOOD ORDERABLES Final Resu lt [facility] [address] [phone] from Last 3 Months Insurance [facility] Medicare [facility] [address] [address] Care Teams Sr. Payroll Processor Relationship Specialty Start Date End Date Phoebe Márquez FNP [address] [place] [phone] PCP - General Nurse Practitioner 02/26/22
--- OUTSIDE RECORDS SUMMARY | 2024-09-05 00:31 | XMS_ITS | Patient Health Record ---
Author Organization [facility] Address [address] [place] [address] Care Team Providers Care Financial Legal Assistant Name Role Phone Phoebe Márquez APRN Primary Care Provider Martin Perez JR Unavailable [phone] Allergies Allergen (clinical drug ingredient) Drug/Non Drug [...] Azelastine hydrochloride 0.137 MG/ACTUAT Metered Dose Nasal [place] Azelastine hydrochloride 0.137 MG/ACTUAT Metered Dose Nasal [place] 06/18/2016 Not-Taking Methenamine Hippurate 1 GM Tablet [...] 500 MG Oral Capsule 06/18/2016 Not-Taking Calcitriol 0.17882 MG Oral Capsule Calcitriol 0.94991 MG Oral Capsule 06/18/2016 Not-Taking predniSONE 5 MG Tablet 1 tablet Orally Once a day Active lansoprazole 30 MG Enteric Coated Capsule lansoprazole 30 MG Enteric Coated Capsule 06/18/2016 Not-Taking Fluticasone propionate 0.05 MG/ACTUAT Metered Dose Nasal [place] [Flonase] Fluticasone propionate 0.05 MG/ACTUAT Metered Dose Nasal [place] [Flonase] 06/18/2016 Not-Taking Fluoxetine 60 MG Oral [...] Problem Long-term current use of systemic steroid (545722421675566) On prednisone therapy (Z79.52) Active confirmed Problem History of renal transplant (490300164) Kidney transplant recipient (Z94.0) Active confirmed Problem Immunodeficiency disorder (364614289) Immunosuppressed status (D84.9) Active confirmed Plan Of Treatment Future Test Test Name Order Date CBC w\ Auto Diff [id number] 07/24/2023 Comprehensive Metabolic Panel (CMP) 8005 3 07/24/2023 CRP [id number] 07/24/2023 Insurance Providers Payer Name Payer Address Payer Phone Subscriber Number Group Number Insured Name Patient Relationship to Insured Coverage Start Date Coverage End Date [place] [address] [place] [phone] [id number] Shirlene Fritz Self - patient is the [...]
--- OUTSIDE RECORDS SUMMARY | 2024-09-05 00:31 | XMS_ITS | Encounter Summary ---
Author Organization [facility] Address [address] [place] [address] Care Team Providers Care Saturator Name Role Phone Allen Goldsmith MD Primary Care Provider Michael rodriguez Encounter Details Date Type Department Care Team (Late st Contact Info) Description 12/31/2006 Outpatient Historical [facility] Dermatology- [address] [place] [address] Sea Ramos MD [address] [place] [address] Other Seborrheic Keratosis (Primary Dx) Social History Tobacco Use Types Packs/Day Years Used Date Smoking Tobacco: Never Assessed Comments Unknown Sex and Gender Information Value Date Recorded Sex Assigned at Not on file Legal Sex Female 4:09 AM PROJECT COORDINATOR RN Gender Identity Not on file Sexual Orientation Not on file documented as of this encounter Plan of Treatment Not on file documented as of this encounter Visit Diagnoses Diagnosis Other seborrheic keratosis- Primary documented in this encounter Care Teams Saturator Relationship Specialty Start Date End Date Allen Goldsmith MD PCP - General Nephrology 11/07/17 documented as of this encounter
--- OUTSIDE RECORDS SUMMARY | 2024-09-05 00:31 | XMS_ITS | Encounter Summary ---
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, Including Shoulder (Primary Dx) Social History Tobacco Use Types Packs/Day Years Used Date Smoking Tobacco: Never Assessed Comments Unknown Sex and Gender Information Value Date Recorded Sex Assigned at Not on file Legal Sex Female 4:09 AM YOGHURT MAKER Gender Identity Not on file Sexual Orientation Not on file documented as of this encounter Plan of Treatment Not on file documented as of this encounter Visit Diagnoses Diagnosis 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
--- OUTSIDE RECORDS SUMMARY | 2024-09-05 00:32 | XMS_ITS | Encounter Summary ---
Author Organization [facility] Address [address] [place] [address] Phone Care Team Providers Care Lockstitch Lining Maker Name Role Phone Phoebe Márquez JUAN Primary Care Provider [phone] Reason for Visit * Reason Comments Med Refill Encounter Details Date Type Department Care Team (Late Contact Info) Description 11/16/2020 Refill [email or web address] [address] [place] [address] Kimi Darby NP [address] [place] [address] Kidney transplant status Social History [...] st Contact Info) Description 02/18/2025 2:00 PM CRM FUNCTIONAL ANALYST Office Visit [facility] [address] [place] [address] Kimi Darby, VICKY [address] [place] [address] documented as of this encounter Visit Diagnoses Diagnosis Kidney transplant status documented in this encounter Care Teams Lockstitch Lining Maker Relationship Specialty Start Date End Date Phoebe Márquez FNP [address] [place] [address] PCP - General Nurse Practitioner 02/26/22 documented as of this encounter
--- OUTSIDE RECORDS SUMMARY | 2024-09-05 00:32 | XMS_ITS | Encounter Summary ---
Author Organization [facility] Address [address] [facility] Attn: Epic Prelude ADT JANKI TOBIN [address] Care Team Providers Care Physical Therapist Name Role Phone Allen Goldsmith MD Primary Care Provider Michael rodriguez Encounter Details Date Type Department Care Team (Latest Contact Info) Description 09/02/2024 Travel Social History Tobacco Use Types Packs/Day Years Used Date Smoking Tobacco: Never Smokeless Tobacco: Never Comments Unknown Sex and Gender Information Value Date Recorded Sex Assigned at Not on file Legal Sex Female 6:49 AM COMMUNITY HEALTH COORDINATOR Gender Identity Not on file Sexual Orientation Not on file documented as of this encounter Plan of Treatment Not on file documented as of this encounter Visit Diagnoses Not on filedocumented in this encounter Additional Health Concerns Infection Onset Date Last Indicated Resolved Time Human Metapneumovirus 2024 2024 documented as of this encounter Care Teams Physical Therapist Relationship Specialty Start Date End Date Allen Goldsmith MD PCP - General Nephrology 11/07/17 documented as of this encounter
--- OUTSIDE RECORDS SUMMARY | 2024-09-05 00:32 | XMS_ITS | Encounter Summary ---
Author Organization [facility] Address [address] [place] [address] Care Team Providers Care Printing Press Operator Apprentice Name Role Phone Allen Goldmsith MD Primary Care Provider Unava ilable Encounter Details Date Type Department Care Team (Latest Contact Info) Description 09/03/2024 Results Follow-Up [facility] Emergency Department [address] [place] [address] Annie Paz, RN BLOOD CULTURE, BLOOD CULTURE Social History Tobacco Use Types Packs/Day Years Used Date Smoking Tobacco: Never Smokeless Tobacco: Never Comments Unknown Sex and Gender Information Value Date Recorded Sex Assigned at Not on file Legal Sex Female 6:49 AM SENIOR WINDOWS ENGINEER Gender Identity Not on file Sexual Orientation Not on file documented as of this encounter Plan of Treatment Not on file documented as of this encounter Visit Diagnoses Not on filedocumented in this encounter Additional Health Concerns Infection Onset Date Last Indicated Resolved Time Human Metapneumovirus 2024 2024 documented as of this encounter Care Teams Printing Press Operator Apprentice Relationship Specialty Start Date End Date Allen Goldsmith MD PCP - General Nephrology 11/07/17 documented as of this encounter
--- OUTSIDE RECORDS SUMMARY | 2024-09-05 00:32 | XMS_ITS | Encounter Summary ---
Author Organization [facility] Address [address] [address] Phone Care Team Providers Care Surgery Manager Name Role Phone Phoebe Márquez JUAN Primary Care Provider [phone] Encounter Details Date Type Department Care Team (Late st Contact Info) Description 09/02/2024 Telephone [facility] [address] [place] [address] Jennifer Mccarty MD [address] [facility] [address] [place] [address] Social History Tobacco Use Types Packs/Day Years [...] on file documented as of this encounter Miscellaneous Notes * Telephone Encounter - Maria G Kerr - 09/02/2024 4:42 PM CDT Call out to pt RE; tacrolimus. LD requesting return call to discuss the changes that were made atappt. * Telephone Encounter - Maria G Kerr - 09/02/2024 12:17 PM CDT Pt called in RE; ER visit. States she was just released from [facility] and wanted to call and talk about her tacrolimus level. Pt states she feels like her levels are too high? She wants to know if she could reduce her tacrolimus. Please advise documented in this encounter Plan of Treatment Upcoming Encounters Date Type Department Care Team (Late st Contact Info) Description 02/18/2025 2:00 PM ELECTRONIC NEWS GATHERING EDITOR Office Visit [facility] [address] [place] [address] Kimi Darby NP [address] [place] [address] documented as of this encounter Visit Diagnoses Not on filedocumented in this encounter Care Teams Surgery Manager Relationship Specialty Start Date End Date Phoebe Márquez FNP [address] [place] [phone] PCP - General Nurse Practitioner 02/26/22 documented as of this encounter
--- OUTSIDE RECORDS SUMMARY | 2024-09-05 00:32 | XMS_ITS | Encounter Summary ---
Author Organization [facility] [place] Address [address] [place] [address] Phone Care Team Providers Care Home Health Administrator Name Role Phone Phoebe Márquez JUAN Primary Care Provider [phone] Encounter Details Date Type Department Care Team (Late st Contact Info) Description 09/02/2024 Telephone [facility] [address] [place] [address] Jennifer Mccarty MD [address] [place] [address] Social History Tobacco Use Types [...] encounter Miscellaneous Notes * Telephone Encounter - Kimi Darby NP - 09/03/2024 4:31 PM CDT Noted. FYI: Dr. Mccarty * Telephone Encounter - Nemo Mccarty - 09/03/2024 2:36 PM CDT Patient called back again today. Stating she was very unhappy how she had to wait for 10-12 hrs. She is looking around to see if she can find a puzzle assembler that has direct admitting privileges. * Telephone Encounter - Virgie Edwards - 09/02/2024 8:24 AM CDT Pt called stating she has been waiting in the ER for a blood infection for 10 hours. Informed pt wedo not have admin rights and unable to have any say when pt is able to get called back. While on phone with pt, pt got called back and hung up. documented in this encounter Plan of Treatment Upcoming Encounters Date Type Department Care Team (Late st Contact Info) Description 02/18/2025 2:00 PM LABELING MACHINE OPERATOR Office Visit [facility] [address] [place] [address] Kimi Darby NP [address] [place] [address] documented as of this encounter Visit Diagnoses Not on filedocumented in this encounter Care Teams Home Health Administrator Relationship Specialty Start Date End Date Phoebe Márquez FNP [address] [place] [address] PCP - General Nurse Practitioner 02/26/22 documented as of this encounter
--- OUTSIDE RECORDS SUMMARY | 2024-09-05 00:32 | XMS_ITS | Patient Health Record ---
Author Organization [facility], [facility] Address [address] [place] [address] Care Team Providers Care Information Assurance Manager Name Role Phone TRACI DALAL Unavailable [phone] KELSEY NOEL Unavailable [phone] SVETLANA PEÑA Unavailable [phone] Allergies Allergen (clinical drug ingredient) Drug/Non Drug Allergy documented on EMR Reaction Allergy Type Onset Date Status epoetin sharla Procrit allergy Drug Allergy Acti ve Iodine contrast dye Drug Allergy Acti ve Results Component Value Reference Range Notes Urinalysis, Routine Reviewed date:10/06/2023 09:26:20 AM Interpretation: Performing Lab: Notes/Report: Urine-Color yellow Appearance cloudy Glucose - Bilirubin - Ketones - Specific Quincy 1.010 Occult Blood - pH 6.5 Urine [...] Status W/U Status Risk Notes Problem Immunosuppression (58963045) Immunosuppression (D89.9) Active confirmed Problem Chronic kidney disease (751184963) CKD (chronic kidney disease) (N18.9) Active confirmed Problem History of sepsis (987745276433541) History of sepsis (Z86.19) Active confirmed Problem History of renal transplant (738452439) Kidney transplant recipient (Z94.0) Active confirmed Problem Recurrent urinary tract infection (128681524) Recurrent UTI (N39.0) Active confirmed Problem End stage renal disease (40365195) ESRD (end stage renal disease) (N18.6) Active [...] pcr0ml Encounters Encounter Location Date Provider Diagnosis [facility] [address] [place] [address] 10/06/2023 SVETLANA PEÑA Recurrent UTI N39.0 ; Kidney transplant recipient Z94.0 and ESRD (end stage renal disease) N18.6 [facility], [facility] [address] [place] [address] 11/10/2023 TRACI DALAL Assessments Encounter Date Diagnosis (ICD Code) Assessment Notes Treatment Notes Treatment Clinical Notes Section Notes 10/06/2023 Kidney transplant recipient (ICD-10 - Z94.0) 63-yo female with recurrent UTIs, h/o ESRD and h/o repeat renal transplant. Cysto shows possible purulence vs debris draining from R transplant kidney UO. She has plans to see ID and her renal transplant team very soon at [facility] and possibly [facility]. She will Continue her daily Doxycycline for her Deniz for now. She will return in 6 months with Dory Noel APRN with UA/PVR or sooner with any concerns. Plan: - Continue f/u with portfolio architect, ID, and renal transplant team. - Continue daily Doxycycline suppression - RTC in 6 months with UA and PVR with eKlsey Soto APRN - RTC or call sooner [...] her renal transplant team very soon at [facility] and possibly [facility]. She will Continue her daily Doxycycline for her Deniz for now. She will return in 6 months with Dory Noel APRN with UA/PVR or sooner with any concerns. Plan: - Continue f/u with portfolio architect, ID, and renal transplant team. - Continue daily Doxycycline suppression - RTC in 6 months with UA and PVR with Kelsey Soto APRN - RTC or call sooner with any concerns Celina Ferrara Scribe am scribing for, and in the presence of, Dr. Peña. IDr. Svetlana, personally performed the services prescribed in this [...] her renal transplant team very soon at [facility] and possibly [facility]. She will Continue her daily Doxycycline for her Deniz for now. She will return in 6 months with Dory Noel APRN with UA/PVR or sooner with any concerns. Plan: - Continue f/u with portfolio architect, ID, and renal transplant team. - Continue daily Doxycycline suppression - RTC in 6 months with UA and PVR with Kelsey Soto APRN - RTC or call sooner with any concerns ICelina Scribe, am scribing for, and in the presence of, Dr. Peña. I, Dr. Svetlana Peña, personally performed the services prescribed in this documentation, as scribed by Celina Sheffield, in my presence, and it is both accurate and complete. Plan Of Treatment Pending Test Test Name Order Date Bladder Scan 05/22/2023 [place] contrast [id number] 04/22/19 24 Insurance Providers Payer Name Payer Address Payer Phone Subscriber Number Group Number Insured Name Patient Relationship to Insured Coverage Start Date Coverage End Date [place] [address] [place], [place] [id number] Edmond Shirlene Self - patient is the insured Medical [...]
--- OUTSIDE RECORDS SUMMARY | 2024-09-05 00:32 | XMS_ITS | Encounter Summary ---
Author Organization [facility], [facility] Address [address] [place] [address] Phone Care Team Providers Care Classroom Paraprofessional Name Role Phone Phoebe Márquez JUAN Primary Care Provider [phone] Encounter Details Date Type Department Care Team (Late st Contact Info) Description 2024 Telephone [facility] [address] [place] [address] Jennifer Mccarty MD [address] [place] [address] Social History Tobacco Use Types [...] encounter Miscellaneous Notes * Telephone Encounter - Latisha Rodríguez - 2024 7:31 AM CDT Made 6 month follow up appointment and mailed AVS to patient at address on file. documented in this encounter Plan of Treatment Upcoming Encounters Date Type Department Care Team (Late st Contact Info) Description 02/18/2025 2:00 PM DELIVERY DRIVER/CUSTOMER SERVICE Office Visit [facility] [address] [place] [address] Kimi Darby NP [address] [place] [address] documented as of this encounter Visit Diagnoses Not on filedocumented in this encounter Care Teams Classroom Paraprofessional Relationship Specialty Start Date End Date Phoebe Márquez FNP [address] [place] [address] PCP - General Nurse Practitioner 02/26/22 documented as of this encounter
--- OUTSIDE RECORDS SUMMARY | 2024-09-05 00:32 | XMS_ITS | Clinical Summary ---
Author Organization [facility] Address [address] [place] [address] Care Team Providers Care Head Inspector Name Role Phone Allen Goldsmith MD [...] tablet Take 150 mcg by mouth daily recovery coach. Active FLUoxetine (PROZAC) 40 mg Oral capsule [...] on file Legal Sex Female 4:09 AM RAIL CAR PAINTER/SANDBLASTER Gender Identity Not on file Sexual Orientation Not on file Last Filed Vital Signs Vital Sign Reading Time Taken Comments Blood Pressure 142/69 01/06/2018 1:05 PM RAIL CAR PAINTER/SANDBLASTER Pulse 57 01/06/2018 12:45 PM RAIL CAR PAINTER/SANDBLASTER Temperature 36.4 C (97.5 F) 01/06/2018 1:05 PM RAIL CAR PAINTER/SANDBLASTER Respiratory Rate 16 01/06/2018 1:05 PM RAIL CAR PAINTER/SANDBLASTER Oxygen Saturation 98% 01/06/2018 1:05 PM RAIL CAR PAINTER/SANDBLASTER Inhaled Oxygen Concentration - - Weight 63 kg (138 lb 14.2 oz) 01/06/2018 8:18 AM RAIL CAR PAINTER/SANDBLASTER Height 172.7 cm (5' 8 ) 01/06/2018 8:18 AM RAIL CAR PAINTER/SANDBLASTER Body Mass Index 21.12 01/06/2018 8:18 AM RAIL CAR PAINTER/SANDBLASTER Plan of Treatment Health Maintenance Due Date Last Done Comments DTAP/TDAP/TD VACCINES (1 - Tdap) 08/30/1978 PNEUMOCOCCAL VACCINE 50+ YEARS (1 of 2 - PCV) 08/30/18 79 ZOSTER VACCINE (1 of 2) 08/30/1978 BREAST CANCER SCREENING 1999 COLORECTAL SCREENING 08/30/2004 Colorectal Cancer Screening 08/30/2004 FIT-DNA Q 3 years 08/30/2004 FIT/FOBT Q 1 year 08/30/2004 Flex Sig/CT Colonography Q 5 years 08/30/2004 RSV VACCINE (60+ or ) (1 - Risk 60-74 years 1-dose series) 2019 OSTEOPOROSIS SCREENING 08/30/2024 INFLUENZA VACCINE (#1) 2024 Insurance MEDICARE PART A AND B Care Teams Head Inspector Relationship Specialty Start Date End Date Allen Goldsmith MD PCP - General Nephrology 11/07/17
--- OUTSIDE RECORDS SUMMARY | 2024-09-05 00:32 | XMS_ITS | Encounter Summary ---
Author Organization [email or web address] Address [address] [place] [address] Phone Care Team Providers Care Secretary Administrative Assistant Name Role Phone Phoebe Márquez JUAN Primary Care Provider [phone] Reason for Visit * Reason Comments Med Refill Encounter Details Date Type Department Care Team (Late Contact Info) Description 01/10/2021 Refill [facility] [address] [place] [address] Allen Goldsmith MD [address] [place] [address] Kidney transplant status Social History [...] Encounters Date Type Department Care Team (Late Contact Info) Description 02/18/2025 2:00 PM PACKAGE DELIVERY DRIVER Office Visit [facility] [address] [place] [address] Kimi Darby NP [address] [place] [address] documented as of this encounter Visit Diagnoses Diagnosis Kidney transplant status documented in this encounter Care Teams Secretary Administrative Assistant Relationship Specialty Start Date End Date Phoebe Márquez FNP [address] [facility] [address] [place] [address] PCP - General Nurse Practitioner 02/26/22 documented as of this encounter
--- OUTSIDE RECORDS SUMMARY | 2024-09-05 00:32 | XMS_ITS | Clinical Summary ---
Author Organization [facility] Address [address] [place] [address] Phone Care Team Providers Care Impression Printer Name Role Phone Allen Goldsmith MD Primary [...] daily. Active fluticasone propionate (FLONASE) 50 mcg/spray [place], Suspension nasal inhaler Administer 2 Sprays in [...] daily. 2 Active naloxone (NARCAN) 4 mg/spray [place], Non-Aerosol EMERGENCY USE ONLY: Administer 1 spray (4 mg) in one nostril one time. May repeat in alternating nostrils every 2-3 min until responsive or EMS arrives. 2 Each 2 Active amLODIPine (NORVASC) 2.5 mg tablet Take 1 Tablet (2.5 mg) by mouth daily. 30 Tablet 2 Active traMADoL (ULTRAM) 50 mg tabletIndicatio ns:Closed fracture of ramus of right pubis, initial encounter ([facility]) Take 2 Tablets (100 mg) by mouth every 6 hours as needed for Pain, Severe. Reduce and discontinue this medication as soon as able. 45 Tablet 2 Active tretinoin (RETIN-A) 0.1 % Cream APPLY TO AFFECTED AREA DAILY 50 Gram PRN 6 Active predniSONE (DELTASONE) 50 mg tablet Take 1 Tablet (50 mg) by mouth daily for 5 days. 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 Nonop tx. WBAT Fall off stage (4 ft) 04/02/2021 Traumatic intramural pelvic hematoma in female 0 04/02/2021 Closed minimally displaced zone I fracture of sa salma 04/02/2021 Peritoneal hemorrhage 04/02/2021 Renal transplant recipient 04/02/2021 Acute blood loss anemia 04/02/2021 Closed fracture of ramus of right pubis Hematoma of bladder wall Encounters Date Type Department Care Team Description 09/03/2024 Results Follow-Up [facility] Emergency Department [address] [place] [phone] Annie Paz RN BLOOD CULTURE, BLOOD CULTURE 09/02/2024 8:14 AM CDT - 09/02/2024 11:40 AM CDT Emergency [facility] Emergency Department [address] [place] [phone] Jamal Ash, Abnormal laboratory test result (Primary Dx); Renal transplant recipient Discharge Disposition: Home or Self Care 09/02/2024 Travel 2024 12:38 AM CDT - 2024 2:25 AM CDT Emergency [facility] Emergency Department [address] [place] [phone] Omid Roblero MD Upper respiratory tract infection, unspecified type (Primary Dx) Discharge Disposition: Home or Self Care 2024 External Device Data STL ABSTRACTION Provider, Abstract 2024 External Device Data STL ABSTRACTION Provider, Abstract 2024 External Device Data STL ABSTRACTION Provider, Abstract 2024 Results Follow-Up [facility] Emergency Department [address] [place] [phone] Annie Paz RN RESPIRATORY PATHOGEN PCR PANEL, BLOOD CULTURE, BLOOD CULTURE, Additional followed-up results: 2 2024 Travel from Last 3 Months Social History Tobacco Use Types Packs/Day Years Used Date Smoking Tobacco: Never Smokeless Tobacco: Never Comments Unknown Sex and Gender Information Value Date Recorded Sex Assigned at Not on file Legal Sex Female 6:49 AM PIPELINE 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 Gender Identity Not on file Sexual Orientation [...] Mass Index 27.52 09/01/2024 10:21 PM CDT Plan of Treatment Health Maintenance Due Date Last Done Comments Pre-Diabetes and Diabetes Screening 1960 ZOSTER VACCINE (1 of 2) 08/30/1978 BREAST CANCER SCREENING 1999 FIT-DNA Q 3 years 08/30/2004 FIT/FOBT Q 1 year 08/30/2004 Flex Sig/CT Colonography Q 5 years 08/30/2004 RSV VACCINE (60+ or ) (1 - Risk 60-74 years 1-dose series) 2019 PNEUMOCOCCAL VACCINE 50+ YEA RS (3 of 3 - PCV20 or PCV21) 12/22/2022 12/22/2017, 10/13/2017 COVID-19 Vaccine (7 - 2024-2 5 season) 2023 12/18/2022, 12/13/2021, 05/11/2021, Additional history exists INFLUENZA VACCINE (#1) 2024 , 01/08/2022, 12/24/2021, Additional history exists OSTEOPOROSIS SCREENING 12/29/2025 12/29/2020 COLORECTAL SCREENING 09/04/2026 09/04/2016 Colorectal Cancer Screening 09/04/2026 DTAP/TDAP/TD VACCINES (3 - T d or Tdap) 01/03/2030 01/04/2020, 10/01/2014 Procedures Procedure Name Priority Date/Time Associated Diagnosis Comments BLOOD CULTURE Stat 09/02/2024 11:31 AM CDT BLOOD CULTURE Stat 09/02/2024 11:31 AM CDT XR CHEST PA AND LATERAL 2 VW Stat 09/02/2024 9:36 AM CDT COMPREHENSIVE METABOLIC PANEL Stat 09/02/2024 12:07 AM CDT CBC WITH DIFFERENTIAL Stat 09/02/2024 12:07 AM CDT BLOOD CULTURE PATHOGEN PCR PANEL [...] LACTIC ACID Stat 08/30/2024 4:10 PM CDT COMPREHENSIVE METABOLIC PANEL Stat 08/30/2024 4:10 PM CDT CBC WITH DIFFERENTIAL Stat 08/30/2024 4:10 PM CDT XR CHEST PA OR AP 1 VW Stat 3:11 PM CDT from Last 3 Months Results * XR CHEST PA AND LATERAL [...] IMAGING ORD ERABLES Final Result * (ABNORMAL) CBC WITH DIFFERENTIAL (09/02/2024 12:07 AM CDT) Only the most recent of2 resultswithin the time period is included. [facility] WBC 5.0 4.8 - 10.8 K/uL 09/02/2024 12:17 AM [facility] RBC 3.97(L) 4.20 - 5.40 M/uL 09/02/2024 12:17 AM [facility] HEMOGLOBIN 12.4 12.0 - 16.0 g/dL 09/02/2024 12:17 AM [facility] HEMATOCRIT 38.6 36.0 - 46.0 % 09/02/2024 12:17 AM [facility] MCV 97.2 84.0 - 103.0 fL 09/02/2024 12:17 AM [facility] MCH 31.2 27.0 - 34.0 pg 09/02/2024 12:17 AM [facility] MCHC 32.1 30.0 - 35.0 g/dL 09/02/2024 12:17 AM [facility] PLATELETS 186 140 - 440 K/uL 09/02/2024 12:17 AM [facility] MPV 9.9 8.9 - 12.8 fL 09/02/2024 12:17 AM [facility] RDW 13.7 11.0 - 14.5 % 09/02/2024 12:17 AM [facility] RDW-STDEV 49.7 37.0 - 54.0 fL 09/02/2024 12:17 AM [facility] NEUTROPHILS 79(H) 42 - 75 % 09/02/2024 12:17 AM [facility] LYMPHOCYTES 14(L) 24 - 44 % 09/02/2024 12:17 AM [facility] MONOCYTES 6 2 - 10 % 09/02/2024 12:17 AM [facility] EOSINOPHILS 0 0 - 7 % 09/02/2024 12:17 AM [facility] BASOPHILS 0 0 - 1 % 09/02/2024 12:17 AM [facility] IMMATURE GRANULOCYTES 1 0 - 2 % 09/02/2024 12:17 AM CDT [facility] NEUTROPHIL ABSOLUTE 3.91 2.00 - 8.00 K/uL 09/02/2024 12:17 AM CDT [facility] LYMPHOCYTE ABSOLUTE 0.70(L) 1.20 - 4.00 K/uL 09/02/2024 12:17 AM CDT [facility] MONOCYTE ABSOLUTE 0.29 0.10 - 0.60 K/uL 09/02/2024 12:17 AM CDT [facility] EOSINOPHIL ABSOLUTE 0.02 0.00 - 0.70 K/uL 09/02/2024 12:17 AM CDT [facility] BASOPHILS ABSOLUTE 0.02 0.00 - 0.20 K/uL 09/02/2024 12:17 AM CDT [facility] IMMATURE GRANULOCYTES ABSOLUTE 0.03 0.00 - 0.10 K/uL 09/02/2024 12:17 AM T [facility] SMEAR REVIEWED: NA - Not Applicable 09/02/2024 12:17 AM T [facility] Blood Venipuncture / Unknown 09/02/2024 12:07 AM CDT 09/02/2024 12:11 AM CDT us Jamal Ash DO HEMATOLOGY ORDERABLES Final Result [id number] [address] [place] [id number] * (ABNORMAL) COMPREHENSIVE METABOLIC PANEL (09/02/2024 12:07 AM CDT) Only the most recent of2 resultswithin the time period is included. SODIUM 137 136 - 145 mmol/L 09/02/2024 12:44 AM CDT [facility] POTASSIUM 4.4 3.5 - 5.1 mmol/L 09/02/2024 12:44 AM CDT [facility] CHLORIDE 104 98 - 107 mmol/L 09/02/2024 12:44 AM [facility] CO2 18(L) 22 - 29 mmol/L 09/02/2024 12:44 AM [facility] CALCIUM 7.8(L) 8.8 - 10.2 mg/dL 09/02/2024 12:44 AM [facility] BUN 22 8 - 23 mg/dL 09/02/2024 12:44 AM [facility] CREATININE 1.46(H) 0.51 - 0.95 mg/dL 09/02/2024 12:44 AM [facility] GLUCOSE 115(H) 74 - 99 mg/dL 09/02/2024 12:44 AM [facility] TOTAL PROTEIN 6.9 6.4 - 8.3 g/dL 09/02/2024 12:44 AM [facility] ALBUMIN 4.1 3.5 - 5.2 g/dL 09/02/2024 12:44 AM [facility] BILIRUBIN TOTAL 0.3 0.0 - 1.0 mg/dL 09/02/2024 12:44 AM [facility] ALKALINE PHOSPHATASE 98 35 - 104 U/L 09/02/2024 12:44 AM [facility] AST 31 10 - 35 U/L 09/02/2024 12:44 AM [facility] Comment:Hemolysis present. R esult may be falsely elevated. ALT 28 <=35 U/L 09/02/2024 12:44 AM [facility] GFR 40(L) >=60 mL/min/1. 73 sq meter 09/02/2024 12:44 AM [facility] Comment:eGFR calculated with 2020 CKD-EPI equation. Vegetarian diet, extremely high or low muscle mass, and may affect results. Cystatin C with Glomerular Filtration Rate is a suitable alternative for these patients. ANION GAP 15 9 - 20 mmol/L 09/02/2024 12:44 AM [facility] Blood Venipuncture / Unknown 09/02/2024 12:07 AM CDT 09/02/2024 12:11 AM CDT us Jamal Ash DO CHEMISTRY ORDERABLES Final Result Performing Organization Address City/[facility]/ZIP Co de Phone Number [facility] Si TV [facility] CLIA # [id number] [id number] [place] [address] * BLOOD CULTURE PATHOGEN PCR PANEL (2024 1:59 AM CDT) [facility] Blood Culture Pathogen PCR Panel NOT DETECTED No nucleic acids detected. 09/01/2024 10:27 AM CDT [facility] Si TV [facility] Blood (Peripheral) Venipuncture / Unknown 2024 1:59 AM CDT 2024 2:06 AM CDT Narrative [facility] Si [employer] [facility] - 09/01/2024 10:27 AM CDT The Film [...] Stephani tropicalis Cryptococcus neoformans/suzan us Darcy Pandey STAFF RESEARCH SCIENTIST MICROBIOLOGY - GENERAL ORDERA BLES Final Result [facility] CLIA # [id number] [address] [id number] * (ABNORMAL) RESPIRATORY PATHOGEN PCR PANEL (2024 1:59 AM CDT) Pathologist [facility] COVID-19 PCR NOT DETECTED Not Detected 2024 3:35 AM CDT [facility] Human Metapneumovirus by PCR DETECTED(A) Not Detected 2024 3:35 AM CDT [facility] Upper Respiratory ENTIRE NASOPHARYNX / Unknown Collection / Unknown 2024 1:59 AM CDT 2024 2:06 AM CDT Narrative [facility] - 2024 3:35 AM CDT The [...] pertussis Bordetella parapertussis Chlamydophila pneumoniae Mycoplasma pneumoniae Omid Roblero MD MICROBIOLOGY - GENERAL ORDER SCOTT Final Result [facility] CLIA # [id number] [address] [id number] * (ABNORMAL) BLOOD CULTURE (2024 1:59 AM CDT) Pathologist [facility] BLOOD CULTURE Culture positive for Neisseria species, not gonorrhoeae or meningitidis(A ) 09/02/2024 10:09 AM CDT [facility] Comment:Susceptibility testi ng is not routinely performed in this setting as growth of this organism in one culture may represent contamination of the sample. If susceptibility testing is indicated, please contact the Microbiology lab. Blood (Peripheral) Venipuncture / Unknown 2024 1:59 AM CDT 2024 2:06 AM CDT Narrative [facility] - 09/02/2024 10:09 AM CDT Positive blood culture with a gram stain that shows Gram negative coccobacilli and a PCR result of none detected called to ER physical meteorologist (Lizzy Vazquez)by DELROY NICOLE on 09/01/2024 at 10:27 AM with verbal readback. Darcy Pandey STAFF RESEARCH SCIENTIST MICROBIOLOGY - GENERAL ORDERA BLES Final Result Performing Organization Address City/[facility]/ZIP Co de Phone Number [facility] CLIA # [id number] [address] [facility] [place] [address] * EXTRA TUBE (URINE OSCAR) (08/30/2024 4:12 PM CDT) Urine URINE SPECIMEN OBTAINED BY CLEAN CATCH PROCEDURE / Unknown Collection / Unknown 08/30/2024 4:12 PM CDT 08/30/2024 4:33 PM CDT us Darcy Pandey STAFF RESEARCH SCIENTIST URINE ORDERABLES Final Result Performing Organization Address City/[facility]/ZIP Co de Phone Number [facility] CLIA # [id number] [address] [place] [address] * URINALYSIS WITH REFLEX MICROSCOPIC (08/30/2024 4:12 PM CDT) COLOR UA Pale Yellow Pale to Dark Yellow 08/30/2024 4:42 PM CDT [facility] CLARITY UA Clear Clear 08/30/2024 4:42 PM CDT [facility] SPECIFIC GRAVITY UA 1.009 1.003 - 1.035 08/30/2024 4:42 PM CDT [facility] PH UA 5.5 5.0 - 8.0 08/30/2024 4:42 PM CDT [facility] LEUKOCYTE ESTERASE UA Negative Negative 08/30/2024 4:42 PM CDT [facility] NITRITE UA Negative Negative 08/30/2024 4:42 PM CDT [facility] PROTEIN UA Negative Negative 08/30/2024 4:42 PM CDT [facility] GLUCOSE UA Negative Negative 08/30/2024 4:42 PM CDT [facility] KETONES UA Negative Negative 08/30/2024 4:42 PM CDT [facility] UROBILINOGEN UA <2.0 <2.0 mg/dL 4:42 PM CDT [facility] BILIRUBIN UA Negative Negative 08/30/2024 4:42 PM CDT [facility] BLOOD UA Negative Negative 08/30/2024 4:42 PM CDT [facility] Urine URINE SPECIMEN OBTAINED BY CLEAN CATCH PROCEDURE / Unknown Collection / Unknown 08/30/2024 4:12 PM CDT 08/30/2024 4:33 PM CDT us Darcy Pandey STAFF RESEARCH SCIENTIST URINE ORDERABLES Final Result [facility] CLIA # [id number] [address] [place] [address] [place] [address] * URINE CULTURE (08/30/2024 4:12 PM CDT) CULTURE Polymicrobial growth consistent with normal urethral adelita and/or colonizing bacteria 09/01/2024 6:14 AM CDT [facility] Urine URINE SPECIMEN OBTAINED BY CLEAN CATCH PROCEDURE / Unknown Collection / Unknown 08/30/2024 4:12 PM CDT 08/30/2024 4:33 PM CDT us Omid Roblero MD MICROBIOLOGY - GENERAL ORDER SCOTT Final Result Performing Organization Address City/[facility]/ZIP Co de Phone Number [facility] CLIA # [id number] [address] [place], [place] [id number] * LACTIC ACID (08/30/2024 4:10 PM CDT) LACTIC ACID 1.1 <=2.0 mmol/L 08/30/2024 4:44 PM CDT [facility] Blood BLOOD SPECIMEN / Unknown Venipuncture / Unknown 08/30/2024 4:10 PM CDT 08/30/2024 4:19 PM CDT us Darcy Pandey NP CHEMISTRY ORDERABLES Final Re sult Performing Organization Address City/[facility]/ZIP Co de Phone Number [facility] Si TV [facility] CLIA # [id number] [address] [place] [address] * XR CHEST PA OR AP 1 [...] No evidence of infiltrates. us Darcy Pandey STAFF RESEARCH SCIENTIST DIAGNOSTIC IMAGING ORDERABLES Final Result from Last 3 Months Additional Health Concerns Infection Onset Date Last Indicated Human Metapneumovirus 2024 2024 Insurance [facility] [id number] Advance Directives For more information, please contact: [phone] * Full Code (Latest Code Status on File) Date Activated Date Inactivated Comments 04/08/2021 6:55 PM 04/14/2021 2:15 PM * Full Code Date Activated Date Inactivated Comments 04/02/2021 3:30 AM 04/08/2021 5:29 PM Care Teams Impression Printer Relationship Specialty Start Date End Date Allen Goldsmith MD PCP - General Nephrology 11/07/17
--- OUTSIDE RECORDS SUMMARY | 2024-09-05 00:32 | XMS_ITS | Encounter Summary ---
Author Organization [facility] Address [address] [facility] [address] [place] [address] Phone Care Team Providers Care Refrigerator Mover Name Role Phone Phoebe Márquez JUAN Primary Care Provider [phone] Encounter Details Date Type Department Care Team ([facility] st Contact Info) Description 2024 Telephone [facility] [address] [place] [address] Maria G Kerr [address] [place] [address] Social History Tobacco Use Types [...] Telephone Encounter - Maria G Kerr - 2024 9:59 AM CDT Call out to [facility] in [facility] RE; ER visit. Per med records DC summary still in draft and not signed. Requested we call back * Telephone Encounter - Maria G Kerr - 2024 9:58 AM CDT ----- Message from Kimi Darby sent at 08/30/2024 2:10 PM CDT ----- Was at [facility] ER in [place] on 08/28/2024. Please request records. Kimi Darby NP documented in this encounter Plan of Treatment Upcoming Encounters Date Type Department Care Team (Late st Contact Info) Description 02/18/2025 2:00 PM CUSTODIAL SUPERVISOR Office Visit [facility] [address] [place] [address] Kimi Darby NP [address] [place] [address] documented as of this encounter Visit Diagnoses Not on filedocumented in this encounter Care Teams Refrigerator Mover Relationship Specialty Start Date End Date Phobee Márquez FNP [address] [place] [phone] PCP - General Nurse Practitioner 02/26/22 documented as of this encounter
--- OUTSIDE RECORDS SUMMARY | 2024-09-05 00:32 | XMS_ITS | Encounter Summary ---
Author Organization [facility], [facility] Address [address] [place] [address] Phone Care Team Providers Care Foreclosure Paralegal Name Role Phone Phoebe Márquez JUAN Primary Care Provider [phone] Encounter Details Date Type Department Care Team (Late st Contact Info) Description 08/27/2024 Results [facility] [address] [place] [address] Maria G Kerr [address] [place] [address] Social History Tobacco Use Types [...] on file documented as of this encounter Progress Notes * Kimi Darby NP - 08/30/2024 6:41 AM CDT Will review with patient at visit today * Maria G Kerr - 08/27/2024 4:28 PM CDT [place] lab documented in this encounter Plan of Treatment Upcoming Encounters Date Type Department Care Team (Late st Contact Info) Description 02/18/2025 2:00 PM POLICY ISSUE CLERK Office Visit [facility] [address] [place] [address] Kimi Darby NP [address] [place] [address] documented as of this encounter Visit Diagnoses Not on filedocumented in this encounter Care Teams Foreclosure Paralegal Relationship Specialty Start Date End Date Phoebe Márquez FNP [address] [place] [address] PCP - General Nurse Practitioner 02/26/22 documented as of this encounter
--- OUTSIDE RECORDS SUMMARY | 2024-09-05 00:33 | XMS_ITS | Encounter Summary ---
Author Organization [facility] Address 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
--- OUTSIDE RECORDS SUMMARY | 2024-09-05 00:33 | XMS_ITS | Encounter Summary ---
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
--- OUTSIDE RECORDS SUMMARY | 2024-09-05 00:33 | XMS_ITS | Encounter Summary ---
Author Organization [facility] Address [address] [place] [address] Care Team Providers Care Head Start Director Name Role Phone Allen Goldsmith MD Primary Care Provider Unava ilable Encounter Details Date Type Department Care Team (Latest Contact Info) Description 2024 Results Follow-Up 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 Pt called and notified and states she will go to her local hospital or return to [facility] ED. All questions answered. BLOOD CULTURE PATHOGEN PCR PANEL Final result : Blood Culture Pathogen PCR Panel No nucleic acids detected documented in this encounter Plan of Treatment Not on file documented as of this encounter Visit Diagnoses Not on filedocumented in this encounter Additional Health Concerns Infection Onset Date Last Indicated Resolved Time R/O Respiratory 2024 2024 2024 3 :35 AM CDT Human Metapneumovirus 2024 2024 documented as of this encounter Care Teams Head Start Director Relationship Specialty Start Date End Date Allen Goldsmith MD PCP - General Nephrology 11/07/17 documented as of this encounter
--- OUTSIDE RECORDS SUMMARY | 2024-09-05 00:33 | XMS_ITS | Encounter Summary ---
Author Organization [facility] Address 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
--- OUTSIDE RECORDS SUMMARY | 2024-09-05 00:33 | XMS_ITS | Data Portability ---
Author Organization JANKI [facility], [place]e, [facility] Address [address] [address] Care Team Providers Care Director Of Player Personnel Name Role Phone HUE CRUMP Primary Care Provider Unavailabl e Assessment No assessment recorded. Plan of Treatment Reminders Order Date Submit Date Provider Last Modified By Organization Details Last Modified Time Details Appointments None recorded. Lab culture, urine 2024 025 [employer] [facility], [address] [place] [address], [facility] [address] [place], [address], 5 23:12:50 urinalysis, dipstick [address] ([facility]), [address] [place] [address], [address], 5 17:30:37 urinalysis, dipstick [address] [facility] ([facility]), [address] [place] [address], [address], 5 18:19:52 culture, urine 2024 025 [employer] [facility], [address] [place] [address] [address], [address], [place], [address], 5 01:18:50 urinalysis, complete 2023 024 SON[facility], [address] [place] [address] Ave, [address], [place], [address], 4 15:57:01 culture, urine 2023 024 [employer] [facility], [address] [address], [address] [place], [address], 4 16:10:20 urinalysis, complete 2023 024 [email or web address] [facility] ([facility]), [address] [facility], [place], [address], 4 15:16:16 Referral None recorded. Procedures None recorded. Surgeries None recorded. Imaging None recorded. Medication Orders amoxicillin 875 mg-potassiu m clavulanate 125 mg tablet 2024 025 [id number], [address] [facility], [address], [place], [address], 5 05:01:13 cefuroxime axetil 250 mg tablet 2024 025 [id number], [address], [place], [place], [id number], 5 05:01:40 doxycycline hyclate 100 mg capsule 2024 025 [facility] #[id number], [address], [place], [place], [id number], 5 15:57:17 Patient TargetsNo targets recorded. Patient Instructions Encounter Date Encounter Id Patient Instructions Last Modified By Organization Details Last Modified Time 03/21/2024 [id number] Increase fluids and follow up for worsening [id number] Not available 03/21/2024 18:33:07 Reason for Referral None Reported. Results Created Date Observation Date Name Description Value Unit Range Abnormal Flag Note LastModifiedBy Organization Detail LastModifiedTime 01/15/20 24 01/15/2024 URINA LYSIS WITH MICRO color YELLOW Not Available [facility] [address], [place], [address], 01/15/2024 15:57:01 01/15/20 24 01/15/2024 URINA LYSIS WITH MICRO clarity CLEAR Not Available [facility] [address], [place], [address], 01/15/2024 15:57:01 01/15/20 24 01/15/2024 URINA LYSIS WITH MICRO glu NEGATI VE Not Available [facility] [address], [place], [address], 01/15/2024 15:57:01 01/15/20 24 01/15/2024 URINA LYSIS WITH MICRO bili NEGATI VE Not Available [facility] [address], [place], [address], 01/15/2024 15:57:01 01/15/20 24 01/15/2024 URINA LYSIS WITH MICRO ket NEGATI VE Not Available [facility] [address], [place], [address], 01/15/2024 15:57:01 01/15/20 24 01/15/2024 URINA LYSIS WITH MICRO S.g 1.010 1.005- 1.025 Not Available [facility] [address], [place], [address], 01/15/2024 15:57:01 01/15/20 24 01/15/2024 URINA LYSIS WITH MICRO pH 6.5 5.0-7. 0 Not Available [facility] [address], [place], [address], 01/15/2024 15:57:01 01/15/20 24 01/15/2024 URINA LYSIS WITH MICRO pro NEGATI VE Not Available [facility] [address], [place], [address], 01/15/2024 15:57:01 01/15/20 24 01/15/2024 URINA LYSIS WITH MICRO uro 0.2 Not Available [facility] [address], [place], [address], 01/15/2024 15:57:01 01/15/20 24 01/15/2024 URINA LYSIS WITH MICRO nit NEGATI VE Not Available [facility] [address] [facility] 1, [place], [address], 01/15/2024 15:57:01 01/15/20 24 01/15/2024 URINA LYSIS WITH MICRO blo NEGATI VE Not Available [facility] [address] [facility], [place], [address], 01/15/2024 15:57:01 01/15/20 24 01/15/2024 URINA LYSIS WITH MICRO erika NEGATI VE Not Available [facility] [address] [facility] [address], [place], [address], 01/15/2024 15:57:01 01/15/20 24 01/15/2024 URINA LYSIS WITH MICRO WBC 0-1 Not Available [facility] [address], [place], [address], 01/15/2024 15:57:01 01/15/20 24 01/15/2024 URINA LYSIS WITH MICRO RBC NEGATI VE Not Available [facility] [address] [facility] [address], [place], [address], 01/15/2024 15:57:01 01/15/20 24 01/15/2024 URINA LYSIS WITH MICRO epi cells 0-1 Not Available [facility] [address], [place], [address], 01/15/2024 15:57:01 01/15/20 24 01/15/2024 URINA LYSIS WITH MICRO bacteria NEGATI VE Not Available [facility] [address], [place], [address], 01/15/2024 15:57:01 01/15/20 24 01/15/2024 URINA LYSIS WITH MICRO other NG Not Available [facility] [address], [place], [address], 01/15/2024 15:57:01 12/16/19 24 12/16/2023 URINA LYSIS WITH MICRO color YELLOW Not Available [facility] [address], [place], [address], 12/16/2023 15:59:32 12/16/19 24 12/16/2023 URINA LYSIS WITH MICRO clarity CLEAR Not Available [facility] [address], [place], [address], 12/16/2023 15:59:32 12/16/19 24 12/16/2023 URINA LYSIS WITH MICRO glu NEGATI VE Not Available [facility] [address], [place], [address], 12/16/2023 15:59:32 12/16/19 24 12/16/2023 URINA LYSIS WITH MICRO bili NEGATI VE Not Available [facility] [address], [place], [address], 12/16/2023 15:59:32 12/16/19 24 12/16/2023 URINA LYSIS WITH MICRO ket NEGATI VE Not Available [facility] [address], [place], [address], 12/16/2023 15:59:32 12/16/19 24 12/16/2023 URINA LYSIS WITH MICRO S.g 1.005 1.005- 1.025 Not Available [facility] [address], [place], [address], 12/16/2023 15:59:32 12/16/19 24 12/16/2023 URINA LYSIS WITH MICRO pH 5.5 5.0-7. 0 Not Available [facility] [address], [place], [address], 12/16/2023 15:59:32 12/16/19 24 12/16/2023 URINA LYSIS WITH MICRO pro NEGATI VE Not Available [facility] [address], [place], [address], 12/16/2023 15:59:32 12/16/19 24 12/16/2023 URINA LYSIS WITH MICRO uro 0.2 E.U./D L Not Available [facility] [address], [place], [address], 12/16/2023 15:59:32 12/16/19 24 12/16/2023 URINA LYSIS WITH MICRO nit NEGATI VE Not Available [facility] [address], [place], [address], 12/16/2023 15:59:32 12/16/19 24 12/16/2023 URINA LYSIS WITH MICRO blo NEGATI VE Not Available [facility] [address], [place], [address], 12/16/2023 15:59:32 12/16/19 24 12/16/2023 URINA LYSIS WITH MICRO erika 2+ Not Available [facility] [address], [place], [address], 12/16/2023 15:59:32 12/16/19 24 12/16/2023 URINA LYSIS WITH MICRO WBC 35-40 Not Available [facility] [address] [address], [place], [address], 12/16/2023 15:59:32 12/16/19 24 12/16/2023 URINA LYSIS WITH MICRO RBC 0-1 Not Available [facility] [address] [address], [place], [address], 12/16/2023 15:59:32 12/16/19 24 12/16/2023 URINA LYSIS WITH MICRO epi cells 6-8 Not Available [facility] [address] [address], [place], [address], 12/16/2023 15:59:32 12/16/19 24 12/16/2023 URINA LYSIS WITH MICRO bacteria - Not Available [facility] [address] [address], [place], [address], 12/16/2023 15:59:32 12/16/19 24 12/16/2023 URINA LYSIS WITH MICRO other - Not Available [facility] [address] [address], [place], [address], 12/16/2023 15:59:32 12/16/19 24 12/17/2023 CULTU RE, URINE , ROUTI NE culture, urine, routine SEE NOTE CULTU RE, URINE , ROUTI NE Micro Numbe r: [id number] Test Statu s: Final Speci men Sourc e: Urine , clean catch Speci men Quali ty: Adequ ate Resul t: No Growt h Not Available [facility] [address], [place], [address], 12/17/2023 19:08:32 12/18/19 24 12/18/2023 urina lysis , compl ete color yellow Not Available [facility] ([facility]) [address] [place], [address], 12/18/2023 15:16:03 12/18/19 24 12/18/2023 urina lysis , compl ete clarity clear clear Not Available [facility] ([facility]) [address] [place], [address], 12/18/2023 15:16:03 12/18/19 24 12/18/2023 urina lysis , compl ete glucose NG negati ve Not Available [facility] ([facility]) [address] [place], [address], 12/18/2023 15:16:03 12/18/19 24 12/18/2023 urina lysis , compl ete bilirubin NG negati ve Not Available [facility] ([facility]) [address] [place], [address], 12/18/2023 15:16:03 12/18/19 24 12/18/2023 urina lysis , compl ete ketones NG negati ve Not Available [facility] ([facility]) [address] [place], [address], 12/18/2023 15:16:03 12/18/19 24 12/18/2023 urina lysis , compl ete specific gravity 1.010 1.005- 1.025 Not Available [facility] ([facility]) [address] [place], [address], 12/18/2023 15:16:03 12/18/19 24 12/18/2023 urina lysis , compl ete pH 6.0 5.0-7. 0 Not Available [facility] ([facility]) [address] [place], [address], 12/18/2023 15:16:03 12/18/19 24 12/18/2023 urina lysis , compl ete protein NG Not Available [facility] ([facility]) [address] [place], [address], 12/18/2023 15:16:03 12/18/19 24 12/18/2023 urina lysis , compl ete uro 0.2 Not Available [facility] ([facility]) [address] [place], [address], 12/18/2023 15:16:03 12/18/19 24 12/18/2023 urina lysis , compl ete nitrate NG negati ve Not Available [facility] ([facility]) [address] [place], [address], 12/18/2023 15:16:03 12/18/19 24 12/18/2023 urina lysis , compl ete blood NG negati ve Not Available [facility] ([facility]) [address] [place], [address], 12/18/2023 15:16:03 12/18/19 24 12/18/2023 urina lysis , compl ete leukocytes NG negati ve Not Available [facility] ([facility]) [address] [place], [address], 12/18/2023 15:16:03 12/18/19 24 12/18/2023 urina lysis , compl ete WBC 0-1 0 Not Available [facility] ([facility]) [address] [place], [address], 12/18/2023 15:16:03 12/18/19 24 12/18/2023 urina lysis , compl ete RBC NG 0 Not Available [facility] ([facility]) [address] [place], [address], 12/18/2023 15:16:03 11/07/12/18/2023 urina lysis , compl ete epi cells 0-1 0 Not Available [facility] ([facility]) [address] [place], [address], 12/18/2023 15:16:03 12/18/19 24 12/18/2023 urina lysis , compl ete bacteria NG Not Available [facility] ([facility]) [address] [place], [address], 12/18/2023 15:16:03 12/18/19 24 12/18/2023 urina lysis , compl ete other NG Not Available [facility] ([facility]) [address] [place], [address], 12/18/2023 15:16:03 12/31/19 24 12/31/2023 URINA LYSIS WITH MICRO color YELLOW Not Available [facility] [address] [facility] 1, [place], [address], 12/31/2023 15:49:03 12/31/19 24 12/31/2023 URINA LYSIS WITH MICRO clarity CLEAR Not Available [facility] [address] [facility] 1, [place], [address], 12/31/2023 15:49:03 12/31/19 24 12/31/2023 URINA LYSIS WITH MICRO glu NEGATI VE Not Available [facility] [address] [facility] 1, [place], [address], 12/31/2023 15:49:03 12/31/19 24 12/31/2023 URINA LYSIS WITH MICRO bili NEGATI VE Not Available [facility] [address] [facility] 1, [place], [address], 12/31/2023 15:49:03 12/31/19 24 12/31/2023 URINA LYSIS WITH MICRO ket NEGATI VE Not Available [facility] [address] [facility] 1, [place], [address], 12/31/2023 15:49:03 12/31/19 24 12/31/2023 URINA LYSIS WITH MICRO S.g 1.015 1.005- 1.025 Not Available [facility] [address] [facility] [address], [place], [address], 12/31/2023 15:49:03 12/31/19 24 12/31/2023 URINA LYSIS WITH MICRO pH 5.5 5.0-7. 0 Not Available [facility] [address] [facility] [address], [place], [address], 12/31/2023 15:49:03 12/31/19 24 12/31/2023 URINA LYSIS WITH MICRO pro NEGATI VE Not Available [facility] [address] [facility] [address], [place], [address], 12/31/2023 15:49:03 12/31/19 24 12/31/2023 URINA LYSIS WITH MICRO uro 0.2 E.U./D L Not Available [facility] [address] [facility] [address], [place], [address], 12/31/2023 15:49:03 12/31/19 24 12/31/2023 URINA LYSIS WITH MICRO nit NEGATI VE Not Available [facility] [address] [facility] [address], [place], [address], 12/31/2023 15:49:03 12/31/19 24 12/31/2023 URINA LYSIS WITH MICRO blo NEGATI VE Not Available [facility] [address] [facility] [address], [place], [address], 12/31/2023 15:49:03 12/31/19 24 12/31/2023 URINA LYSIS WITH MICRO erika 1+ abnormal Not Available [facility] [address] [facility] [address], [place], [address], 12/31/2023 15:49:03 12/31/19 24 12/31/2023 URINA LYSIS WITH MICRO WBC 15-18 abnormal Not Available [facility] [place] [facility] [address] [address], [place], [address], 12/31/2023 15:49:03 12/31/19 24 12/31/2023 URINA LYSIS WITH MICRO RBC NEGATI VE Not Available [facility] [address] [address], [place], [address], 12/31/2023 15:49:03 12/31/19 24 12/31/2023 URINA LYSIS WITH MICRO epi cells 4-6 Not Available [facility] [address] [facility] [address], [place], [address], 12/31/2023 15:49:03 12/31/19 24 12/31/2023 URINA LYSIS WITH MICRO bacteria TRACE OF MIXED DAVI abnormal Not Available [facility] [address] [facility] [address], [place], [address], 12/31/2023 15:49:03 12/31/19 24 12/31/2023 URINA LYSIS WITH MICRO other NG Not Available [facility] [address] [facility] [address], [place], [address], 12/31/2023 15:49:03 12/31/19 24 01/02/2024 CULTU RE, URINE , ROUTI NE culture, urine, routine SEE NOTE CULTU RE, URINE , ROUTI NE Micro Numbe r: [id number] Test Statu s: Final Speci men Sourc e: Urine Speci men Quali ty: Adequ ate Resul t: No Growt h Not Available [facility] [address], [place], [address], 01/02/2024 01:39:52 01/15/20 24 01/17/2024 CULTU RE, URINE , ROUTI NE culture, urine, routine SEE NOTE CULTU RE, URINE , ROUTI NE Micro Numbe r: [id number] Test Statu s: Final Speci men Sourc e: Urine Speci men Quali ty: Adequ ate Resul t: No Growt h Not Available [facility] [address] [place], [address], 01/17/2024 16:10:20 07/14/19 25 07/13/2024 urina lysis , dipst ick Leukocytes Large Not Available [facility] [address] [place] [address], [address], 07/13/2024 18:05:04 07/14/19 25 07/13/2024 urina lysis , dipst ick Nitrite negati ve Not Available [facility] ([facility]) [address] [place] [address], [address], 07/13/2024 18:05:04 07/14/19 25 07/13/2024 urina lysis , dipst ick Urobilinogen .2 Not Available [facility] ([facility]) [address] [place] [address], [address], 07/13/2024 18:05:04 07/14/19 25 07/13/2024 urina lysis , dipst ick Protein Negati ve Not Available [facility] ([facility]) [address] [place], [address], 07/13/2024 18:05:04 07/14/19 25 07/13/2024 urina lysis , dipst ick pH 6.0 Not Available [facility] ([facility]) [address] [place] [address], [address], 07/13/2024 18:05:04 07/14/19 25 07/13/2024 urina lysis , dipst ick Blood Small Not Available [facility] ([facility]) [address] [place], [address], 07/13/2024 18:05:04 07/14/19 25 07/13/2024 urina lysis , dipst ick Specific [place] 1.010 Not Available [facility] ( [facility]) [address] [place], [address], 07/13/2024 18:05:04 07/14/19 25 07/13/2024 urina lysis , dipst ick Ketone Negati ve Not Available [facility] ([facility]) [address] [place], [address], 07/13/2024 18:05:04 07/14/19 25 07/13/2024 urina lysis , dipst ick Bilirubin Negati ve Not Available [facility] ([facility]) [address] [place], [address], 07/13/2024 18:05:04 07/14/19 25 07/13/2024 urina lysis , dipst ick Glucose Negati ve Not Available [facility] ([facility]) [address] [place], [address], 07/13/2024 18:05:04 07/14/19 25 07/13/2024 urina lysis , dipst ick Appearance Slight ly Cloudy Not Available [facility] ([facility]) [address] [place], [address], 07/13/2024 18:05:04 07/14/19 25 07/13/2024 urina lysis , dipst ick Color Yellow Not Available [facility] ([facility]) [address] [place], [address], 07/13/2024 18:05:04 07/15/19 25 07/17/2024 CULTU RE, URINE , ROUTI NE culture, urine, routine SEE NOTE abnormal CULTU RE, URINE , ROUTI NE Micro Numbe r: [id number] Test Statu s: Final Speci men [...] lexin and lorac arbef . Not Available [facility] [address] [place], [address], 07/17/2024 01:18:50 08/20/19 25 08/20/2024 CULTU RE, URINE , ROUTI NE culture, urine, routine SEE NOTE CULTU RE, URINE , ROUTI NE Micro Numbe r: [id number] Test Statu s: Final Speci men [...] Cultu re Trans port Tube. Not Available [facility] [address] [place], [address], 08/20/2024 23:12:50 08/20/19 25 08/19/2024 urina lysis , dipst ick Leukocytes Large Not Available [facility] ([facility]) [address] [place] [address], [address], 08/19/2024 15:59:22 08/20/19 25 08/19/2024 urina lysis , dipst ick Nitrite negati ve Not Available [facility] ([facility]) [address] [place] [address], [address], 08/19/2024 15:59:22 08/20/19 25 08/19/2024 urina lysis , dipst ick Urobilinogen .2 Not Available [facility] ([facility]) [address] [place] [address], [address], 08/19/2024 15:59:22 08/20/19 25 08/19/2024 urina lysis , dipst ick Protein Negati ve Not Available [facility] ([facility]) [address] [place], [address], 08/19/2024 15:59:22 08/20/19 25 08/19/2024 urina lysis , dipst ick pH 7.0 Not Available [facility] ([facility]) [address] [place], [address], 08/19/2024 15:59:22 08/20/19 25 08/19/2024 urina lysis , dipst ick Blood Non-He molyze d: Trace Not Available [facility] ([facility]) [address] [place], [address], 08/19/2024 15:59:22 08/20/19 25 08/19/2024 urina lysis , dipst ick Specific [place] 1.015 Not Available [facility] ( [facility]) [address] [place], [address], 08/19/2024 15:59:22 08/20/19 25 08/19/2024 urina lysis , dipst ick Ketone Negati ve Not Available [facility] ([facility]) [address] [place], [address], 08/19/2024 15:59:22 08/20/19 25 08/19/2024 urina lysis , dipst ick Bilirubin Negati ve Not Available [facility] ([facility]) [address] [place], [address], 08/19/2024 15:59:22 08/20/19 25 08/19/2024 urina lysis , dipst ick Glucose Negati ve Not Available [facility] ([facility]) [address] [place], [address], 08/19/2024 15:59:22 08/20/19 25 08/19/2024 urina lysis , dipst ick Appearance Clear Not Available [facility] ([facility]) [address] [place], [address], 08/19/2024 15:59:22 08/20/19 25 08/19/2024 urina lysis , dipst ick Color Yellow Not Available [facility] ([facility]) [address] [place], [address], 08/19/2024 15:59:22 Result Notes None recorded. Problems Name Problem SNOMED Code Status Onset Date Resolution Date Notes Provider Name and Address Organization Details Recorded Time Contrace ptive counseli ng Completed 201511/23/2015 GENERAL COUNSELI NG AND ADVICE FOR CONTRACE PTIVE MANAGEME NT - Status is Inactive ; Recorded 11/23/19 16 6:36PM by Rock Eddy CMT, Annotati on/Addfelicity dum; Promoted ; acuity set as *; Not Available [facility] 3 03:16:03 Mixed hyperlip idemia 913883048 Active 2018 [facility] 4 16:38:13 Essentia l hyperten raúl 66805614 Active 2018 [facility] 4 16:37:05 Depressi ve disorder 46485057 Active 2018 [facility] 4 16:36:54 History of renal transpla nt 874263741 Active 2018 [facility] 4 16:37:55 Myocardi al infarcti on 93883823 Active 2018 [facility] 4 16:38:15 Calcific ation of coronary artery 590847297 Active 2018 [facility] 4 16:36:39 Immunosu ppressio n 58072449 Active 2019 [facility] 4 16:38:04 End stage renal failure on dialysis 003200602 Completed 201904/27/2019 END STAGE RENAL DISEASE ON DIALYSIS - Status is Inactive ; Dr. Goldsmith.; 04/27/19 4:25PM by Rock Eddy CMT, Annotati on/Adden dum; Promoted ; acuity set as *; Not Available [facility] 3 03:16:04 Hemorrha ge into peritone al cavity 895504241 Active 2021 [facility] 4 16:37:36 Drug-ind uced immunode ficiency 418017745 Active 2021 [facility] 4 16:37:02 Gastroes ophageal reflux disease 637195384 Active 2022 [facility] 4 16:37:13 Cholecys titis 89417091 Active 2022 [facility] 4 16:36:47 Hypercho lesterol emia 82963598 Active 2022 [facility] 4 16:38:01 Benign hyperten raúl 23867079 Active 2022 [facility] 4 16:36:35 Mitral valve regurgit ation 26920739 Active 2022 [facility] [place] 4 16:38:10 Pulmonar y hyperten raúl 37210046 Active 2022 [facility] 4 16:38:26 Non-obst ructive atherosc lerosis of coronary artery 765758118 Active 2022 [facility] [place] 4 16:38:20 Obstruct vanda sleep apnea syndrome 91734543 Active 2022 [facility] 4 16:38:22 Osteopen ia 645201065 [facility] 2023 [facility] [place] 4 13:19:34 Notes:Some problems listed i n Documents: #[id number], #[id number], #[id number] could not be added to this patient's chart. Please review these documents and add these problems to the patient's chart manually as needed. Problem Notes None recorded. Procedures Surgical History Date Name Laterality Status Provider Name and Address Organization Details Recorded Time [facility] 14[facility]50[facility] 19:30:44 024 [facility]:[address] [facility] 13:17:29 021 [facility] 13:19:24 020 kidney biopsy completed [facility] 11/15/2023 13:17:07 019 angiography completed [facility] 11/15/2023 13:15:15 019 screening for malignant neoplasm of cervix completed [facility] 11/15/2023 13:18:18 017 Colonoscopy completed [facility] 11/15/2023 13:15:50 parathyroidectomy completed [facility] 11/08/2022 12:56:41 transplant of kidney completed [facility] 11/08/2022 12:58:09 Cholecystectomy completed [facility] 11/08/2022 12:57:19 Thyroidectomy completed [facility] 11/08/2022 12:58:36 Cataract Surgery completed [facility] 11/08/2022 12:58:20 Imaging Results None recorded. Procedure Notes None recorded. Medical Equipment None Reported. Allergies Allergen ID Allergen Name Allergen Category Reaction Reaction Severity Criticality Documentation Date Start Date Code Code System Note Provider Name and Address Organization Details Recorded Time 45273 nitroglyc lupe medicatio n headache moderate low 09/07/2022 4917 [facility] 19:00:38 70348 hydralazi ne medicatio n nausea mild low 09/07/20222018 5470 RxNorm Padmini Cisneros [facility], MarkLRoseCRose 4 19:00:30 85070 Procrit medicatio n Not available Not available Not available 09/07/2022 52808 3 RxNorm ROCK GARETH [facility] 4 15:26:41 65106 dobutamin e hydrochlo ride medicatio n Not available Not available Not available 09/07/202266598 1 [facility] 4 15:26:01 55205 dobutamin e medicatio n other Not available Not available 11/16/20222017 3616 RxNorm ROCK hamilton, [facility] 4 15:26:54 44580 nitroglyc lupe medicatio n nausea other Not available Not available Not available 11/16/20222018 4917 [facility] 15:26:11 09831 iron-dext ran complex medicatio n hives rash mild mild low 11/16/20222018 5992 [facility] 4 19:00:33 82132 oxycodone medicatio n Not available Not available Not available 11/16/20222022 7804 RxNorm HUE THERON, [facility] [address] [place], [address], [facility] 3 22:17:25 40658 epoetin sharla medicatio n Not available Not available Not available 11/16/20222016 67133 4 RxNorm HUE THERON, [facility] [address] [place], [address], [facility] 3 22:17:25 Medications Name Sig Start [...] START 2 DAYS BEFORE SURGERY & CONTINUE [id number] AFTER SURGERY 07/02 completed Not Available Not [...] TAKE 3 CAPSULES BY MOUTH EVERY DAY active Not Available Not Available No t Available tacrolimu s 1 mg capsule, immediate -release [...] hours by oral route for 7 days. 09/02 completed Not Available Not Available Not Available rosuvasta tin 40 mg tablet TAKE 1 TABLET BY MOUTH EVERY DAY 2024 active Not Available Not Available Not Avai lable bupropion HCl XL 150 mg 24 hr tablet, extended release TAKE 1 TABLET BY MOUTH EVERY DAY active Not Available Not Available No t Available Senna S 8.6 mg-50 mg tablet daily 11/08 completed 0; Recorded 02/22/19 23 2:23PM by Rock Eddy CMT, Office Visit; Not Available Not Available [...] 0; Recorded 02/22/19 23 2:23PM by Rock Eddy CMT, Office Visit; Not Available Not Available Not Available fluoxetin e 60 mg tablet 09/30 completed Not Available Not Available Not Available bupropion HCl 150 mg tablet,12 hr sustained -release( smoking deterrent ) Take 150 mg by oral route. 09/30 completed Not Available Not Available Not Available Xerostomi a Relief twice a day 11/[address] Yordy FULLER/Ayo jackson, WAREHOUSE TRAINER; Recorded 12/17/19 19 4:49PM by Marika Christianson, Office Visit; Refill Quantity : 1; Each; Not Available Not Available Not Available Vitals Date Recorded Body height Body mass index (BMI) Body weight Body temperature Heart rate Oxygen saturation Oxygen saturation in Arterial blood by Pulse oximetry Systolic And Diastolic Provider Name and Address Organization Details Last Updated DateTime 5 172.72 cm 30.6 kg/m2 81436.8 7 g 98.2 [degF] 65 /min 97 % 97 % 142/70 mm[Hg] Charlene Mckinney [facility] 5 16:32:01 Date Recorded Body height Body mass index (BMI) Body weight Oxygen saturation Oxygen saturation in Arterial blood by Pulse oximetry Heart rate Body temperature Respiratory rate Systolic And Diastolic Provider Name and Address Organization Details Last Updated DateTime 5 172.72 cm 30.9 kg/m2 40856.2 5 g 96 % 96 % 76 /min 97.9 [degF] 18 /min 140/70 mm[Hg] SOUMYA LANDIS [facility] 18:12:29 Date Recorded Body height Body mass index (BMI) Body weight Oxygen saturation Oxygen saturation in Arterial blood by Pulse oximetry Heart rate Respiratory rate Body temperature Systolic And Diastolic Provider Name and Address Organization Details Last Updated DateTime 5 172.72 cm 31.2 kg/m2 72639.4 4 g 98 % 98 % 86 /min 16 /min 98.2 [degF] 130/80 mm[Hg] Louisvilletom Kowalski [facility] 16:05:21 Social History Question Answer Notes LastModified by ScaleMP Details LastModified Time Tobacco Smoking Status Never [facility]oker [facility] 11/15/2023 13:13:56 What Was The Date Of Your Most Recent Tobacco Screening? 08/19/2024 [email or web address] Information not available 08/19/2024 What Is Your Relationship Status? [email or web address] Information not available 11/15/2023 Sex: Unknown Functional Status Question Answer Note LastModified by ScaleMP Details LastModified Time Do you use any illicit or recreational drugs? No [email or web address] Information not available 11/15/2023 What is your level of alcohol consumption? None [email or web address] Information not available 11/15/2023 Are you currently employed? No [email or web address] Information not available 11/15/2023 Are you able to walk? YESWOREST [email or web address] Information not available 11/15/2023 Are you able to care for yourself independently? Yes [email or web address] Information not available 11/15/2023 Mental Status None recorded. Family History Relationship Description Onset Age of this Age Resolved Age Notes LastModified by Organization Details LastModified Time Father Essential hypertension Not available 13:12:29 Maternal Grandmother Type 2 diabetes mellitus [email or web address] Not available 11/14 13:12:47 Paternal Grandmother Malignant neoplasm of lung [email or web address] Not available 11/14 13:13:07 Mother Malignant tumor of breast [email or web address] Not available 11/14 13:13:20 Mother Coronary arterioscler osis [email or web address] Not available 11/14 13:13:28 Sister Malignant tumor of breast [email or web address] Not available 12/09 15:02:08 Medical History Condition Response Depression Y Hypothyroidism Y Anxiety Disorder Y High Cholesterol Y Kidney Disease Y Reflux/GERD Y Hypertension Y Gynecological HistoryNo gynecological history recorded. Obstetrics History GPAL:G 0 P 0 0 0 0 Immunizations Vaccine Type Date Status Note Provider Nam e and Address Organization Details Recorded Time Influenza, split virus, trivalent, preservative 2 completed Padmini hamilton [facility] 10/03/2023 19:00:52 Influenza, MDCK, quadrivalent, PF 0 completed Not Available [facility] 02/12/2023 16:26:23 Influenza, split virus, trivalent, preservative 8 completed Not Available [facility] 02/12/2023 16:26:23 Influenza, split virus, trivalent, preservative 7 completed Not Available [facility] 02/12/2023 16:26:23 Influenza, split virus, trivalent, preservative 5 completed Padmini Pliler [facility] 10/03/2023 19:00:52 Influenza, split virus, trivalent, preservative 6 completed Not Available [facility] 02/12/2023 16:26:23 COVID-19, mRNA, LNP-S, PF, 100 mcg/0.5mL dose or 50 mcg/0.25mL dose [facility] 10/03/2023 19:00:52 Tdap 5 completed [facility] 10/03/2023 19:00:52 COVID-19, mRNA, LNP-S, PF, 100 mcg/0.5mL dose or 50 mcg/0.25mL dose 1 [facility] 10/03/2023 19:00:52 COVID-19, mRNA, LNP-S, PF, 100 mcg/0.5mL dose or 50 mcg/0.25mL dose 1 [facility] 10/03/2023 19:00:52 COVID-19, mRNA, LNP-S, PF, 100 mcg/0.5mL dose or 50 mcg/0.25mL dose 1 completed [facility] 10/03/2023 19:00:52 COVID-19, mRNA, LNP-S, bivalent, PF, 50 mcg/0.5 mL or 25mcg/0.25 mL dose 2 [facility] 10/03/2023 19:00:52 Influenza, split virus, trivalent, preservative 3 [facility] 10/03/2023 19:00:52 Influenza, split virus, trivalent, preservative 4 completed Padmini hamilton, [facility] 10/03/2023 19:00:52 Influenza, split virus, quadrivalent, PF 2 completed Padmini hamilton [facility] 10/03/2023 19:00:52 Influenza, MDCK, quadrivalent, PF 3 completed Padmini hamilton, [facility] 10/09/2023 07:55:23 COVID-19, mRNA, LNP-S, PF, 50 mcg/0.5 mL 3 completed Padmini hamilton [facility] 11/13/2023 08:02:17 Past Encounters Encounter ID Performer Location Encounter Start Date Encounter Closed Date Diagnosis/Indication Diagnosis SNOMED-CT Code Diagnosis ICD10 Code Diagnosis Note [id number] JUAN SU [facility] ([facility]) [address] [place] [phone] 11/08/2022 12:41:21 11/18/2022 12:24:35 Hypothyroidism 80123137 E03.9 Transplant ed kidney present 394479583 Z94.0 Follows with nephrology . Hyperparat hyroidism due to renal insufficiency 92290122 N25.81 Follows with nephrology . Drug-induc ed immunodeficiency 720537987 D84.9 Transplant history. Congestive heart failure 84095285 I50.42 Continue on Furosemide . Follows with cardiology . Hypertensi ve heart and renal disease with (congestive) heart failure 783473298 I13.2 Follows with cardiology and nephrology . Irritable bowel syndrome with diarrhea 177371167 K58.0 Recent ER visit. Symptoms have resolved. [id number] [facility] ([facility]) [address] [place] [phone] 10/01/2023 15:00:29 10/02/2023 10:43:21 Gynecologic examination 28369722 Z01.419 Recurrent urinary tract infection 118286606 N39.0 Acquired hypothyroidism 495472347 E03.9 [id number] HUE CRUMP [facility] ([facility]) [address] [place] [address] 5 12/10/2023 14:38:30 12/10/2023 15:32:05 Vaginal dryness 34265474 N89.8 Essential hypertension 77198029 I10 Immunosupp ressive therapy 41066237 D84.9 [id number] HUE CRUMP [facility] ([facility]) [address] [place] [address] 5 12/18/2023 15:13:41 12/22/2023 11:49:00 Acute urinary tract infection 293198591 N39.0 [id number] HUE CRUMP [facility] ([facility]) [address] [place] [address] 5 01/15/2024 15:44:19 01/16/2024 11:54:59 Dysuria 89687813 R30.0 [id number] DEEPA GUTIERREZ APRN [facility] ([facility]) [address] [place] [address] 5 03/21/2024 16:06:15 03/21/2024 17:24:29 Acute bronchitis 91682363 J20.9 [id number] PEPPER SOTELO [facility] ([facility]) [address] [place], [place] [address] 07/13/2024 18:02:36 07/14/2024 11:07:16 Dysuria 54116319 R30.0 Acute urin gab tract infection 051054289 N39.0 UA results reviewed and discussed with pt. We will start antibiotic s. Pt will increase oral fluids and can use cranberry. Return to office with no improvemen t or any problems. Go to ER with severe worsening or severe problems.W johnie will obtain urine culture History of renal transplant 645915257 Z94.0 [id number] PEPPER SOTELO [facility] ([facility]) [address] [place], [place] [phone] 08/19/2024 15:55:12 08/20/2024 12:46:11 Dysuria 63709211 R30.0 Acute urin gab tract infection 477876627 N39.0 Last [place] visit reviewed and urine [...] ID Guarantor Name 08/19/2024 1 [employer] [id number] [facility] [id number] T Shirlene L [place] 08/25/2024 1 [facility] (MEDICARE REPLACEMENT/ ADVANTAGE - PPO) [id number] Shirlene L [place] [id number] Shirlene L [place] 08/25/2024 1 *SELF PAY* Da tucker Willams [place] 12/25/2022 1 [employer] ([place]IC[place]/ [place]VANTAGE - [place]) [id number] Shirlene L [place] [id number] T Shirlene L [place] Notes Date Note Type Note Provider Name and Address Organization Details Recorded Time 03/21/2024 text/html walk in ptPt has a cough, back pain, dizzy and right ear pain for 5 days. Had a kidney transplant in the past. DEEPA GUTIERREZ, COMMERCIAL [employer] SOFTWARE DEVELOPER [address] [place], [address], [facility], Danae 03/21/2024 18:34:04 07/13/2024 text/html ROS as noted in the HPI Patient c/o urinary symptoms the last 3 days. She's taken two at home tests that were positive for leukocytes.kidney transplant x2. Her transplant physician asks her to wait 48 hours if she develops urinary symptoms prior to starting antibiotics. States the cefuroxime works best for her UTIs. Denies fever. States she does feel tired. PEPPER SOTELO, WAREHOUSE TRAINER [address] [place], [address], [facility], Radha. 07/16/2024 11:28:37 08/19/2024 text/html Lower Urinary Tr act Symptoms (LUTS)Reported by PatientROS as noted in the HPI walk in patientpatient is here today for lower back pain, fagitue and cloudy urine. Patient said that this started a couple of days ago. Hx of renal transplant JUAN DE LEON [address] [place], [address], [facility], Danae 08/20/2024 11:07:35 OBGyn Episode No OBEpisode recorded.
--- OUTSIDE RECORDS SUMMARY | 2024-09-05 00:33 | XMS_ITS | Encounter Summary ---
Author Organization [facility] Address 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
--- NOTE | 2024-09-05 02:05 | USR_ITS ---
PROCEDURE INFORMATION: Exam: US Duplex Left Upper Extremity Arteries Exam date and time: 09/05/2024 4:15 AM Age: 64 years old Clinical indication: Pain; Arm, upper; Prior surgery; Surgery date: 6+ months; Surgery type: Fistula in the left upper extremity; Additional info: Left ue redness pain swelling, HX of fistula TECHNIQUE: Imaging protocol: Left Real-time ultrasound scan of the arteries of the left upper extremity with 2-D rhodes scale, color Doppler flow and spectral waveform analysis. COMPARISON: [place] [id number] 09/05/2024 3:18 AM FINDINGS: Left subclavian artery: No occlusion or significant stenosis. Normal waveform. Left axillary artery: No occlusion or significant stenosis. Normal waveform. Left brachial artery: No occlusion or significant stenosis. Normal waveform. Left radial artery: No occlusion or significant stenosis. Normal waveform. Left ulnar artery: No occlusion or significant stenosis. Normal waveform. Soft tissues: Unremarkable. US/[place] [id number] IMPRESSION: No occlusion or significant stenosis.
--- NOTE | 2024-09-05 02:05 | USR_ITS ---
PROCEDURE INFORMATION: Exam: US Duplex Left Upper Extremity Veins, Limited Exam date and time: 09/05/2024 3:18 AM Age: 64 years old Clinical indication: Pain; Arm, upper; Prior surgery; Surgery date: 6+ months; Surgery type: Patient has fistula in the left upper extremity; Additional info: Left ue pain redness swelling TECHNIQUE: Imaging protocol: Real-time duplex ultrasound of the left extremity with 2-D rhodes scale, color Doppler flow and spectral waveform analysis including responses to compression and other maneuvers (when performed) with image documentation. Limited exam focused on the left upper extremity veins. COMPARISON: No relevant prior studies available. FINDINGS: Left deep veins: Unremarkable. Axillary and brachial veins are patent throughout without thrombus. Normal Doppler waveforms. Normal compressibility and/or augmentation response. Visualized internal jugular and subclavian veins are patent. Superficial veins: Unremarkable. Visualized cephalic and basilic veins are patent without thrombus. Soft tissues: Fistula is patent without thrombus. Trace free fluid adjacent to the fistula [place]. US/[place] [id number] IMPRESSION: 1. No evidence of deep vein thrombosis. 2. Fistula is patent without thrombus. Trace free fluid adjacent to the fistula site.
[2024-09-05 03:01] LABS: Hematocrit 39.9 % (36-47); Hemoglobin 12.50 g/dL (11.27-16.99); Mean Corpuscular HGB Conc 31.3 g/dL (30-55); Mean Corpuscular Hemoglobin 30.8 pg (27-33); Mean Corpuscular Volume 98.3 fl (85-98); Nucleated Red Blood Cells % 0 %; Platelet Count 234 10^3/cmm (157-399); Red Blood Count 4.06 10^6/uL (3.85-5.65); White Blood Count 8.34 10^3/uL (3.29-11.43)
[2024-09-05 03:11] LABS: INR 0.86 (0.8-1.2); Partial Thromboplastin Time 17.9 SECONDS (23.9-36.7); Prothrombin Time 12.30 SECONDS (12.1-14.9)
[2024-09-05 03:15] LABS: Alanine Aminotransferase 28 U/L (0-33); Albumin Level 4.0 g/dL (3.5-5.2); Alkaline Phosphatase 84 U/L (35-105); Anion Gap 19.8 (5-19); Aspartate Amino Transferase 28 U/L (0-32); Blood Urea Nitrogen 22 mg/dL (8-23); Calcium 7.9 mg/dL (8.5-10.5); Carbon Dioxide 18 mmol/L (22-29); Chloride 104 mmol/L (98-107); Creatinine Clr Calc Pharmacy 50.4573; Globulin 2.8 g/dL (1.3-4.6); Glucose 107 mg/dL (65-115); Osmolality Calculated 290 mOsm/kg (285-295); Potassium 3.8 mmol/L (3.5-5.1); Sodium 138 mmol/L (136-145); Total Protein 6.8 g/dL (6.6-8.7)
[2024-09-05 03:22] LABS: Lactic Sepsis W/Reflex 1.3 mmol/L (0.5-2.2)
--- NOTE | 2024-09-05 05:26 | W.ED.EXTPRO ---
HPI - Extremity Problem General: Chief complaint: Extremity Problem,Nontraumatic Stated complaint: AV fistula L arm swollen painful feverish Time Seen by Provider: 09/05/24 02:52 History of Present Illness: 64-year-old female with a history of renal transplant. She had an AV fistula placed back in 2019 prior to her renal transplant, that was never used. Yesterday, she began to notice increased size, swelling to the area around her left arm fistula, with some redness. There is pain associated with this. No fever. No vomiting. She been recently diagnosed with a respiratory viral infection because of a prior fever. Related Data Home Medications ?Medication ?Instructions ?Recorded ?Confirmed alprazolam 1 mg tablet 1 mg PO QDAY PRN Anxiety 03/08/19 08/27/24 bupropion HCl 150 mg 24 hr tablet, 150 mg PO QAM 03/08/19 08/27/24 extended release (Wellbutrin XL) fluticasone propionate 50 2 spray intranasal QDAY PRN 03/08/19 08/27/24 mcg/actuation nasal allergies spray,suspension montelukast 10 mg tablet 10 mg PO QDAY 03/08/19 08/27/24 (Singulair) prednisone 5 mg tablet 5 mg PO QDAY 03/08/19 08/27/24 ropinirole 1 mg tablet 1 mg PO BEDTIME 03/08/19 08/27/24 rosuvastatin 40 mg tablet (Crestor) 40 mg PO QDAY 03/08/19 08/27/24 ascorbic acid (vitamin C) 1,000 mg 1 g PO BID 09/11/20 08/27/24 tablet tacrolimus 1 mg tablet,extended 2 mg PO BID 04/26/21 08/27/24 release 24 hr mycophenolate sodium 180 mg 180 mg PO BID 01/13/23 08/27/24 tablet,delayed release (Myfortic) azelastine 137 mcg (0.1 %) nasal 1 spray intranasal BID PRN 08/27/24 08/27/24 spray allergies fluoxetine 20 mg capsule 60 mg PO DAILY 08/27/24 08/27/24 furosemide 40 mg tablet 40 mg PO DAILY PRN Edema 08/27/24 08/27/24 lactobacillus combination no.4 3 3,000 mmu cells PO DAILY 08/27/24 08/27/24 billion cell capsule (Probiotic) levothyroxine 150 mcg tablet 150 mcg PO DAILY 08/27/24 08/27/24 metoprolol tartrate 25 mg tablet 6.25 mg PO BEDTIME 08/27/24 08/27/24 sennosides 8.6 mg-docusate sodium 1 tab-cap PO DAILY 08/27/24 08/27/24 50 mg tablet Previous Rx's ?Medication ?Instructions ?Recorded methenamine hippurate 1 gram tablet See Rx Instructions .Route 03/03/21 .COMPLEX #180 tabs Retin-A 0.1 % topical cream 1 applic topical .nightly #45 grams 04/16/22 (tretinoin) custom orthotics #1 ea 06/09/24 aspirin 325 mg tablet 325 mg PO DAILY #7 tabs 09/05/24 cephalexin 500 mg capsule 500 mg PO Q6H 7 days #28 caps 09/05/24 Allergies Allergy/AdvReac Type Severity Reaction Status Date / Time Iodinated Contrast Media Allergy Unknown Unknown Verified 05/10/24 14:34 oxycodone Allergy Unknown Unknown Verified 05/10/24 14:34 epoetin sharla Allergy Unknown Verified 05/10/24 14:34 [facility] ED PFS: Medical History (Updated 09/05/24 @ 06:17 by William River DO) Osteopenia GERD (gastroesophageal reflux disease) Migraine Neuropathy HTN (hypertension) Recurrent UTI Hypothyroid IBS (irritable bowel syndrome) Surgical History History of Kidney Transplant S/P cholecystectomy S/P thyroid surgery S/P total hip arthroplasty Family History Father Squamous cell skin cancer Mother No problems noted. Social History Smoking and tobacco/nicotine status: never used tobacco/nicotine Alcohol intake: current Alcohol intake frequency: holidays/special occasions only Substance/Drug Use: never Marital status: Current occupational status: retired Physical Exam Const: COMMON NORMALS: no acute distress GENERAL APPEARANCE: cooperative; not ill appearing and not frail appearing HENMT: COMMON NORMALS: normocephalic, atraumatic and Normal external nose present HEAD & SCALP: normocephalic and atraumatic FACE & SINUS: normal facial exam and face symmetric NOSE: Normal external nose present Eye: COMMON NORMALS: Equal, round and reactive pupils present and EOMs intact bilaterally PUPIL: Yes Equal, round and reactive pupils present Neck/C-Spine: GENERAL: Yes trachea midline Chest: CHEST: Yes Symmetrical chest wall rise Resp: COMMON NORMALS: normal respiratory effort, No retractions, No use of accessory muscles and clear to auscultation bilaterally AUSCULTATION: clear to auscultation bilaterally Cardio: COMMON NORMALS: regular rate and regular rhythm RATE: regular rate RHYTHM: regular rhythm Extremity: COMMON NORMALS: no pedal edema NARRATIVE EXTREMITY EXAM: Exam of the left upper extremity reveals an apparent AV fistula. It is quite large near the elbow and appears somewhat swollen in the soft tissue surrounding. There is mild redness and warmth to the area. It is tender to palpation. Neuro: THUY COMA SCALE: document GCS findings [place] coma scale eye opening: Spontaneous Thuy coma scale verbal response: Orientated Thuy coma scale motor response: Obey commands [place] coma scale total score: 15 SENSORY EXAM: Yes extremities (intact) Psych: COMMON NORMALS: speech normal SPEECH: Yes normal speech Skin: COMMON NORMALS: no rashes or lesions noted GENERAL SKIN EXAM: no rashes or lesions noted Course Vital Signs: Vital signs: Vital Signs Temperature 98.0 F 09/05/24 00:25 Pulse Rate 75 09/05/24 06:37 Respiratory Rate 18 09/05/24 00:25 Blood Pressure 178/66 09/05/24 06:37 Pulse Oximetry 94 09/05/24 06:37 Oxygen Delivery Me thod Room Air 09/05/24 06:16 MDM - Extremity (Nontraumatic) Medical Decision Making Creatinine is 1.3 which is patient's baseline. Bicarb level is 18. Other laboratory is not remarkable. CRP is 4.4. Venous ultrasound of the upper extremity reveals no clot in the fistula. There is excellent flow throughout. There is a small amount of fluid surrounding the graft at the distal elbow, which is where the patient is tender. This may be a small tear in the graft. it is not actively extravasating by US. No definite aneurysm. For now we will treat her with 325 milligram aspirin daily, gentle compression, ice, elevation, and cover her with cephalexin. She is on doxycycline already for a respiratory tract infection. We'll ask case management to refer her to vascular surgery in [place] regarding the graft itself. She'll return in the meantime if her symptoms worsen despite the above. Her blood pressure was high this morning, but she had missed her metoprolol last night. This will be given to her This morning. Lab Data 09/05/24 02:42 09/05/24 02:42 Radiology Impressions Duplex Scan Upper Extremity Artery 09/05/24 02:05 IMPRESSION: No occlusion or significant stenosis. Venous Duplex 09/05/24 02:05 IMPRESSION: 1. No evidence of deep vein thrombosis. 2. Fistula is patent without thrombus. Trace free fluid adjacent to the fistula site. Laboratory Results WBC 8.34 10^3/uL (3.29-11.43) 09/05/24 02:42 RBC 4.06 10^6/uL (3.85-5.65) 09/05/24 02:42 Hgb 12.50 g/dL (11.27-16.99) 09/05/24 02:42 Hct 39.9 % (36-47) 09/05/24 02:42 MCV 98.3 fl (85-98) H 09/05/24 02:42 MCH 30.8 pg (27-33) 09/05/24 02:42 MCHC 31.3 g/dL (30-55) 09/05/24 02:42 RDW 13.6 % (12.1-15.1) 09/05/24 02:42 Plt Count 234 10^3/cmm (157-399) 09/05/24 02:42 MPV 10.2 fL (7.4-10.4) 09/05/24 02:42 Neut % (Auto) 77.3 % 09/05/24 02:42 Lymph % (Auto) 12.0 % 09/05/24 02:42 [place] % (Auto) 7.3 % 09/05/24 02:42 Eos % (Auto) 0.4 % 09/05/24 02:42 Baso % (Auto) 0.4 % 09/05/24 02:42 Neut # (Auto) 6.45 10^3/uL (1.8-7.7) 09/05/24 02:42 Lymph # (Auto) 1.0 10^3/uL (0.8-4.8) 09/05/24 02:42 [place] # (Auto) 0.6 10^3/uL (0.2-0.9) 09/05/24 02:42 Eos # (Auto) 0.0 10^3/uL (0.0-0.8) 09/05/24 02:42 Baso # (Auto) 0.0 10^3/uL (0.0-0.1) 09/05/24 02:42 Nucleated RBC % (auto) 0 % 09/05/24 02:42 Nucleated RBCs # 0.0 /100WBC 09/05/24 02:42 PT 12.30 SECONDS (12.1-14.9) 09/05/24 02:42 INR 0.86 (0.8-1.2) 09/05/24 02:42 APTT 17.9 SECONDS (23.9-36.7) L 09/05/24 02:42 Sodium 138 mmol/L (136-145) 09/05/24 02:42 Potassium 3.8 mmol/L (3.5-5.1) 09/05/24 02:42 Chloride 104 mmol/L (98-107) 09/05/24 02:42 Carbon Dioxide 18 mmol/L (22-29) L 09/05/24 02:42 Anion Gap 19.8 (5-19) H 09/05/24 02:42 BUN 22 mg/dL (8-23) 09/05/24 02:42 Creatinine 1.3 mg/dL (0.5-0.9) H 09/05/24 02:42 GFR Calculation 41.1 mL/min (90-130) L 09/05/24 02:42 Glucose 107 mg/dL (65-115) 09/05/24 02:42 Calculated Osmolality 290 mOsm/kg (285-295) 09/05/24 02:42 Lactic Acid 1.3 mmol/L (0.5-2.2) 09/05/24 02:42 Calcium 7.9 mg/dL (8.5-10.5) L 09/05/24 02:42 Total Bilirubin 0.4 mg/dL (0.15-1.2) 09/05/24 02:42 AST 28 U/L (0-32) 09/05/24 02:42 ALT 28 U/L (0-33) 09/05/24 02:42 Alkaline Phosphatase 84 U/L (35-105) 09/05/24 02:42 C-Reactive Protein 4.4 mg/L (0.0-4.9) 09/05/24 02:42 Total Protein 6.8 g/dL (6.6-8.7) 09/05/24 02:42 Albumin 4.0 g/dL (3.5-5.2) 09/05/24 02:42 Globulin 2.8 g/dL (1.3-4.6) 09/05/24 02:42 All radiology interpretation(s) finalized by discharge Discharge Plan Discharge Patient Disposition: Home Clinical Impression: AV (arteriovenous fistula) Condition: Stable Prescriptions: New cephalexin 500 mg capsule 500 mg PO Q6H 7 Days Qty: 28 0RF aspirin 325 mg tablet 325 mg PO DAILY Qty: 7 0RF No Action montelukast [Singulair] 10 mg tablet 10 mg PO QDAY fluticasone propionate 50 mcg/actuation spray,suspension 2 spray INTRANASAL QDAY PRN (Reason: allergies) bupropion HCl [Wellbutrin XL] 150 mg tablet extended release 24 hr 150 mg PO QAM prednisone 5 mg tablet 5 mg PO QDAY alprazolam 1 mg tablet 1 mg PO QDAY PRN (Reason: Anxiety) rosuvastatin [Crestor] 40 mg tablet 40 mg PO QDAY ropinirole 1 mg tablet 1 mg PO BEDTIME ascorbic acid (vitamin C) 1,000 mg tablet 1 g PO BID tacrolimus 1 mg tablet extended release 24 hr 2 mg PO BID Rx Instructions: must be taken on empty stomach mycophenolate sodium [Myfortic] 180 mg tablet,delayed release (DR/EC) 180 mg PO BID tretinoin [Retin-A] 0.1 % cream 1 applic TOPICAL .nightly Qty: 45 3RF Rx Instructions: Apply pea-sized amount to clean dry face nightly May use good rx coupon for purchase if uncovered. methenamine hippurate 1 gram tablet See Rx Instructions .ROUTE .COMPLEX Qty: 180 3RF Dose Instruction: TAKE 1 TABLET BY MOUTH TWICE DAILY,TAKE 1,000 MG OF VITAMIN C WITH EACH DOSE OF METHENAMINE Rx Instructions: TAKE 1 TABLET BY MOUTH TWICE DAILY,TAKE 1,000 MG OF VITAMIN C WITH EACH DOSE OF METHENAMINE (DME) custom orthotics See Rx Instructions .Route .MEDSUPPLY Qty: 1 0RF Rx Instructions: As directed made by krish and sheryl furosemide 40 mg tablet 40 mg PO DAILY PRN (Reason: Edema) sennosides-docusate sodium [ALIREZA-COLACE] 8.6-50 mg Tablet 1 tab-cap PO DAILY levothyroxine 150 mcg tablet 150 mcg PO DAILY azelastine 137 mcg (0.1 %) spray,non-aerosol 1 spray INTRANASAL BID PRN (Reason: allergies) fluoxetine 20 mg capsule 60 mg PO DAILY Probiotic 3 billion cell Capsule 3,000 mmu cells PO DAILY Rx Instructions: administer with a meal metoprolol tartrate 25 mg tablet 6.25 mg PO BEDTIME Discharge Orders: Discharge ED (Routine); Ordered 09/05/24 Ordered By: William River Patient Instructions: Opioid Safety, Pain Management, Patient Portal & Luisa Instructions Activity Restrictions/Additional Instructions: Continue your doxycycline as we discussed. Add cephalexin as instructed. Use gentle compression such as a lymphedema sleeve you can get at any medical supply store or pharmacy to the left upper extremity. Ice for pain and swelling. Elevate. Aspirin as directed 1 daily. Return for worsening pain, swelling, etc. despite the above. Case management should contact you regarding vascular surgery referral later this week Print Language: Indonesian Coding Level of Care Code ED Technician Trainee for Nadia Hill
--- NOTE | 2024-09-07 12:22 | PC.SOCIAL ---
Vascular Surgery Referral faxed to Dr. Elizabeth at [facility] at this time.
== END 2024-09-05 06:40 | disposition home or self-care (01) ==
PROVIDERS: Emergency Provider Emergency Medicine
DX: I77.0 Arteriovenous fistula, acquired (principal); I10 Essential (primary) hypertension; Z94.0 Kidney transplant status
CPT/HCPCS: 36415; 80053; 83605; 85025; 85610; 85730; 86140; 93931; 93971; 99284; J9999

== ENCOUNTER 2024-11-16 14:59 | Outpatient (CLI) | payer MEDICARE, SELFPAY ==
--- NOTE | 2024-11-16 15:07 | MM_ITS ---
WS: [id number] BILATERAL 3D TOMOSYNTHESIS DIGITAL SCREENING MAMMOGRAPHY WITH CAD CLINICAL INFORMATION: SCREENING HISTORY: Screening mammogram. No current complaints. COMPARISON: 2023 TECHNIQUE: Bilateral CC and MLO views. FINDINGS: The breasts are composed of heterogeneous fibroglandular density tissue, which can limit the detection of small underlying mass lesions. No suspicious mass, asymmetry, calcifications, or architectural distortion. No evidence of malignancy. A few tiny incidental punctate calcifications. Vascular calcifi cation. MM/MM [facility] tomosynthesis [id number] IMPRESSION: DENSITY: The breasts are heterogeneously dense, which may obscure small masses. BI-RADS: 2 - Benign FOLLOW UP: 1 Year Follow-up Recommend return to annual screening mammography.
== END 2024-11-16 15:00 | disposition home or self-care (01) ==
LOC: RAD 15:00
PROVIDERS: PCP Nurse Practitioner Family; Visit Provider Nurse Practitioner Family
DX: Z12.31 Encounter for screening mammogram for malignant neoplasm of breast (principal); R92.323 Mammographic fibroglandular density, bilateral breasts; R92.333 Mammographic heterogeneous density, bilateral breasts; R92.1 Mammographic calcification found on diagnostic imaging of breast
CPT/HCPCS: 77063; 77067

== ENCOUNTER 2024-11-19 13:01 | Outpatient (CLI) | payer MEDICARE, SELFPAY ==
--- NOTE | 2024-11-19 13:39 | XR_ITS ---
WS: [id number] SCREENING DEXA SCAN [employer] CLINICAL INFORMATION: History of osteopenia COMPARISON: 2020 FINDINGS: The L1-L4 bone mineral density measures 1.328 g/cm2. This corresponds to a T score score of 1.2 and Z score of 2.0. Left femoral neck bone mineral density measures 0.755 (g/cm2). This corresponds to a T score of -2.0 (no units) and Z score of -1.4 (no units). XR/XR DEXA axial skeleton* [id number] IMPRESSION: Normal bone mineralization lumbar spine. Osteopenia LEFT femoral neck. Patient's FRAX calculated 10 year probability for major osteoporotic fracture i s 32.3% and osteoporotic hip fracture is 8.4%. Bone density lumbar spine increased 8.1% Bone density LEFT femoral neck increased 2.7%
== END 2024-11-19 13:02 | disposition home or self-care (01) ==
LOC: RAD 13:01
PROVIDERS: PCP Nurse Practitioner Family; Visit Provider Nurse Practitioner Family
DX: Z13.820 Encounter for screening for osteoporosis (principal); M81.0 Age-related osteoporosis without current pathological fracture; M85.88 Other specified disorders of bone density and structure, other site
CPT/HCPCS: 77080